=== PATIENT | female | born 1940 | race American Indian/Alaskan Native ===

== ENCOUNTER 2020-09-18 13:50 | Outpatient (REF) | payer MEDICARE, SELFPAY | END 2020-09-18 13:51 | disposition home or self-care (01) | LOC: HO.LAB 13:50 | PROVIDERS: Visit Provider Internal Medicine | DX: Z20.828 Contact with and (suspected) exposure to other viral communicable diseases (principal) | CPT/HCPCS: C9803; U0003 ==

== ENCOUNTER 2020-10-15 15:15 | Outpatient (REF) | payer MEDICARE, SELFPAY ==
[2020-10-15 17:23] LABS: Blood Urea Nitrogen 20 mg/dL (9-16); Estimated Glomerular Filt Rate > 60
== END 2020-10-15 15:16 | disposition home or self-care (01) ==
LOC: HO.LAB 15:15
PROVIDERS: PCP Family Medicine; Visit Provider Surgery
DX: R10.30 Lower abdominal pain, unspecified (principal); Z85.038 Personal history of other malignant neoplasm of large intestine
CPT/HCPCS: 36415; 82565; 84520; 99212

== ENCOUNTER → 2020-11-17 15:36 | Outpatient (BNVA) | payer MEDICARE, SELFPAY | PROVIDERS: PCP Family Medicine; Visit Provider Surgery ==

== ENCOUNTER → 2020-11-20 14:33 | Outpatient (BNV) | payer MEDICARE, SELFPAY | PROVIDERS: PCP Family Medicine; Visit Provider Internal Medicine Medical Oncology | DX: Z85.038 Personal history of other malignant neoplasm of large intestine (principal) | CPT/HCPCS: 99213; 99214 ==

== ENCOUNTER 2020-11-27 15:03 | Outpatient (REF) | payer MEDICARE, SELFPAY ==
--- NOTE | ~2020-11-27 | CT_ITS ---
EXAMINATION: CT ABDOMEN AND PELVIS WITHOUT CONTRAST CLINICAL INFORMATION: Lower abdominal pain COMPARISON: Previous CT most recent August 2019 TECHNIQUE: Multidetector volumetric imaging was performed from the superior aspect of the liver through the pubic symphysis. Sagittal and coronal reformatted images were obtained on the technologist's workstation. This CT examination was performed using dose optimization techniques as appropriate, variously including the following: *Automated exposure control *Adjustment of mA and/or kV according to patient size (this includes techniques or standardized protocols for targeted exams where dose is matched to indication/reason for exam; i.e. extremities or head) *Use of iterative reconstruction technique DLP: 369 mGy-cm FINDINGS: LUNG BASES: The visualized lung bases are unremarkable. LIVER, GALLBLADDER, AND BILIARY TREE: The liver is normal in size, shape, and attenuation. No focal hepatic lesion or biliary ductal dilatation is present. The gallbladder is unremarkable with no evidence of radiopaque gallstones, gallbladder wall thickening, or obvious pericholecystic inflammatory changes. PANCREAS: Unremarkable. SPLEEN: Unremarkable. ADRENAL GLANDS: Unremarkable. KIDNEYS AND URETERS: There is a small high attenuation lesion in the upper pole of the left kidney measuring 5 mm axial image 17 series 3. When compared with previous contrast-enhanced exam August 2019 this probably represents a hyperdense cyst. 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 The kidneys are otherwise unremarkable. BLADDER: Unremarkable. GASTROINTESTINAL TRACT: There are postsurgical changes to the sigmoid colon. There is stool throughout the colon. There is mild diverticulosis. Small and large bowel is otherwise unremarkable. The appendix is not identified. The stomach is unremarkable. ABDOMINAL WALL: There is diastasis of the rectus muscles and umbilical and supraumbilical hernias containing fat. LYMPH NODES: Normal. VASCULAR: Unremarkable. PELVIC VISCERA: Air is low-attenuation seen centrally in the uterus. The is questionable for endometrial thickening or fluid. This measures 6 mm in AP dimension. This thickened for a postmenopausal patient. OSSEOUS STRUCTURES: There are degenerative changes of the spine and hip joints. There is slight loss of height of superior endplate of the T12 vertebral body suggestive of mild old compression fracture. This is unchanged. CT/CT abdomen pelvis wo con IMPRESSION: Postsurgical changes to the sigmoid colon. Stool throughout the colon questionable for mild constipation and mild diverticulosis.. Umbilical and supraumbilical hernias containing fat. Prominent low-attenuation in the central uterus questionable for endometrial fluid or thickening. This measures 6 mm in AP dimension which is abnormally thickened for a postmenopausal patient. Follow-up pelvic ultrasound should be considered particularly if there is history of vaginal bleeding. 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
== END 2020-11-27 15:04 | disposition home or self-care (01) ==
LOC: HO.CT 15:03
PROVIDERS: Visit Provider Surgery
DX: R10.30 Lower abdominal pain, unspecified (principal)
CPT/HCPCS: 74176

== ENCOUNTER → 2020-12-01 13:20 | Outpatient (BNVA) | payer MEDICARE, SELFPAY | PROVIDERS: PCP Family Medicine; Visit Provider Surgery | CPT/HCPCS: Q3014 ==

== ENCOUNTER 2020-12-22 16:15 | Outpatient (REF) | payer MEDICARE, SELFPAY ==
--- NOTE | ~2020-12-22 | US_ITS ---
EXAMINATION: US PELVIS CLINICAL INFORMATION: Lower abdominal pain. Thickening of endometrium seen on CT abdomen exam 11/27/2020 COMPARISON: None TECHNIQUE: Ultrasound of the pelvis is performed using transabdominal transducers along with Doppler. Transvaginal imaging is performed due to inadequate visualization transabdominally. FINDINGS: There are multiple bowel loops in the pelvis limiting evaluation. Uterus: The uterus is anteverted and anteflexed measuring 5.0 cm in length, 2.25 cm in AP and 3.3 cm in transverse dimension. The endometrial thickness is 0.27 cm. There is minimal fluid in the endometrial canal suspected. Adnexa: Both ovaries are not visualized. There is no free fluid in the cul-de-sac. US/US pelvic complete IMPRESSION: 1. Endometrial thickness is 0.27 cm with minimal fluid in the endometrial canal. It is within normal limits for a postmenopausal woman. No focal uterine lesion seen. 2. The ovaries are not seen. 3. There is no free fluid.
== END 2020-12-22 16:16 | disposition home or self-care (01) ==
LOC: HO.US 16:15
PROVIDERS: Visit Provider Surgery
DX: R10.30 Lower abdominal pain, unspecified (principal)
CPT/HCPCS: 76856

== ENCOUNTER → 2021-03-11 13:33 | Outpatient (BNVA) | payer MEDICARE, SELFPAY | PROVIDERS: PCP Family Medicine; Visit Provider Surgery | DX: M54.9 Dorsalgia, unspecified (principal); Z85.038 Personal history of other malignant neoplasm of large intestine; Z79.899 Other long term (current) drug therapy | CPT/HCPCS: 99212 ==

== ENCOUNTER 2021-08-13 18:52 | Emergency (ER) | payer MEDICARE, SELFPAY ==
[2021-08-13 19:02] VITALS: BP 154/56; PULSE 70; RESP 18; TEMP 36.8; O2SAT 98; BMI 28.3
[2021-08-13] MEDS: Fluorescein Sodium STRIP 1 STRIP EYE-RIGHT (20:12)
[2021-08-13] MEDS: Tetracaine HCl/PF 0.5% Oph Sol 4 ML DROPS 3 DROP EYE-RIGHT (20:12)
--- NOTE | 2021-08-13 20:36 | ED.EYEPROB ---
HPI - Eye Problem General Chief complaint: Eye Problems Stated complaint: w Time Seen by Provider: 08/13/21 19:42 Source: patient Mode of arrival: ambulatory History of Present Illness HPI Narrative: 80-year-old female with a past medical history of colon CA, HLD, HTN, presenting to the ED complaining foreign body sensation in right eye since 11:00 a.m. reports associated pain and tearing. Denies injury, trauma, itching, vision change/loss, diplopia, fever, chills. Patient wears glasses not contacts MD chief complaint: eye pain and foreign body Related Data Home Medications Medication Instructions Recorded Confirmed acetaminophen 650 mg 0 mg PO 10/15/20 03/11/21 tablet,extended release amlodipine 10 mg tablet 10 mg PO DAILY 10/15/20 03/11/21 aspirin 81 mg tablet,delayed 81 mg PO DAILY 10/15/20 03/11/21 release atorvastatin 20 mg tablet 20 mg PO DAILY 10/15/20 03/11/21 docusate sodium 100 mg capsule 200 mg PO DAILY 10/15/20 03/11/21 metoprolol tartrate 25 mg tablet 25 mg PO BID 10/15/20 03/11/21 calcium carbonate 600 mg (1,500 1 tab PO BID 11/20/20 03/11/21 mg)-vitamin D3 400 unit tablet docusate sodium 100 mg capsule 100 mg PO QPM 11/20/20 03/11/21 brimonidine 0.2 % eye drops 1 drp OPHTHALMIC (EYE) ONCE PRN ml 03/11/21 03/11/21 Previous Rx's Medication Instructions Recorded polymyxin B sulfate 10,000 1 drp OPHTHALMIC (EYE) Q3H 7 Days 08/13/21 unit-trimethoprim 1 mg/mL eye #10 ml drops (Polytrim) Allergies Allergy/AdvReac Type Severity Reaction Status Date / Time No Known Allergies Allergy Verified 03/11/21 13:40 Review of Systems Review of Systems: Constitutional: No Fever, No Chills, No Fatigue, No Malaise ENT/Mouth: No sore throat, No Rhinorrhea, No Swallowing Difficulty Eyes: + Eye Pain, No Swelling, No Redness, + Foreign Body sensation, + Discharge, No Vision Changes Cardiovascular: No Chest Pain, No SOB Respiratory: No Cough, No Dyspnea Gastrointestinal: No Nausea, No Vomiting, No Abdominal pain Genitourinary: No Dysuria, No Hematuria, No Hesitancy Musculoskeletal: No joint pain, No Myalgias, No Joint Swelling Skin: No Skin Lesions, No rash Neuro: No Weakness, No Numbness, No Headache Yes all other systems are reviewed and are negative [facility] Past Medical History Attestation statement: The following information was validated with the patient. Medical History History of colon cancer Hyperlipidemia Hypertension Lower abdominal pain Surgical History Status post partial colectomy Family History Family History Father History of colon cancer Sister History of pancreatic cancer Social History Social History Alcohol intake: never Advance Directives: No Advance Directives Information Provided: No Physical Exam Vital Signs: Vital Signs: Last Vital Signs Temp 98.3 F 08/13/21 19:02 Pulse 70 08/13/21 19:02 Resp 18 08/13/21 19:02 BP 154/56 H 08/13/21 19:02 Pulse Ox 98 08/13/21 19:02 Body Mass Index 28.3 Const: General: cooperative and healthy appearing Orientation/consciousness: patient oriented x3 Limitations: no limitations HENMT: Head: Yes normal to inspection and Yes atraumatic Ears: hearing grossly normal bilaterally General nose exam: Normal external nose present Face and sinus: Yes normal facial exam Eyes: Other: Visual acuity 20/50 bilaterally. Scant clear drainage/tearing from right eye Periorbital: periorbital findings normal Eyelids: Yes eyelids normal Corneas: corneas abnormal on the right abrasion (11, 12, 1 o'clock position); Negative for without ulcerations and fluorescein used Pupils: Equal, round and reactive pupils present EOM: EOMs intact bilaterally Direct Ophthalmoscopy: normal light reflex and no photophobia Neck: Neck: Yes normal visual inspection and Yes no meningeal signs Resp: Effort & Inspection: normal respiratory effort and no respiratory distress Cardio: Rate: regular rate Heart sounds: S1 normal heart sound present and S2 normal heart sound present Skin: Rashes: no rashes Wounds: no wounds Neuro: General: patient oriented x3 and no meningeal signs Cranial nerves: Yes Equal, round and reactive pupils present Gait exam (Neuro): Normal gait present Extrem: General: Yes normal to inspection MDM - Eye Problem MDM Narrative Medical decision making narrative: 80-year-old female with a past medical history of colon CA, HLD, HTN, presenting to the ED complaining foreign body sensation in right eye since 11:00 a.m. On exam vital signs stable, NAD, fluorescein uptake with visible corneal abrasion noted at 11-1 o'clock region and right eye. No evidence of ulceration. Discussed worrisome signs and symptoms and strict return precautions and need to follow-up with ophthalmology, patient verbalized understanding for safe discharge home at this time Medical Records Attestation: I reviewed the patient's medical records. Lab Data Attestation: I reviewed the patient's lab results. Discharge Plan Discharge Clinical Impression: Corneal abrasion Qualifiers: Encounter type: initial encounter Laterality: right Qualified Code(s): S05.01XA - Injury of conjunctiva and corneal abrasion without foreign body, right eye, initial encounter Patient Disposition: Home, Self-Care Instructions: Corneal Abrasion (ED) Additional Instructions: You have scratches on her eye. Polytrim antibiotic drops should be used as prescribed Please call Ophthalmology in the morning to make an appointment If her symptoms persist or worsen, he develops vision loss, vision change, unbearable pain please return to the ED Prescriptions: New polymyxin B sulf-trimethoprim [Polytrim] 10,000 unit- 1 mg/mL drops 1 drp ophthalmic (eye) Q3H 7 Days Qty: 10 RF: 0 No Action docusate sodium 100 mg capsule 100 mg PO QPM RF: 0 calcium carbonate-vitamin D3 600 mg(1,500mg) -400 unit tablet 1 tab PO BID RF: 0 acetaminophen 650 mg tablet extended release 0 mg PO RF: 0 amlodipine 10 mg tablet 10 mg PO DAILY RF: 0 docusate sodium 100 mg capsule 200 mg PO DAILY RF: 0 metoprolol tartrate 25 mg tablet 25 mg PO BID RF: 0 aspirin 81 mg tablet,delayed release (DR/EC) 81 mg PO DAILY RF: 0 atorvastatin 20 mg tablet 20 mg PO DAILY RF: 0 brimonidine 0.2 % drops 1 drp ophthalmic (eye) ONCE PRNRF: 0 Referrals: Héctor Raza [Physician] - 2 days
== END 2021-08-13 20:59 | disposition home or self-care (01) ==
PROVIDERS: Emergency Provider Internal Medicine; PCP Family Medicine
DX: S05.01XA Injury of conjunctiva and corneal abrasion without foreign body, right eye, initial encounter (principal); I10 Essential (primary) hypertension; X58.XXXA Exposure to other specified factors, initial encounter; Y93.9 Activity, unspecified; Y92.9 Unspecified place or not applicable; Y99.9 Unspecified external cause status; Z79.899 Other long term (current) drug therapy
CPT/HCPCS: 99283; 99284

== ENCOUNTER 2021-08-15 15:45 | Emergency (ER) | payer MEDICARE, SELFPAY ==
[2021-08-15 16:00] VITALS: BP 147/58; PULSE 57; RESP 19; TEMP 36.6; O2SAT 99; BMI 27.8
--- NOTE | 2021-08-15 18:12 | ED.GENADULT ---
HPI - General Adult General Chief complaint: General Medical Stated complaint: rash on both hands Time Seen by Provider: 08/15/21 16:41 Source: patient Mode of arrival: ambulatory Limitations: no limitations History of Present Illness HPI narrative: Patient has history of chronic eczema scratching her both hands comes with increased redness of her left hand last 3 4 days history of same in the past no fever no open wounds Related Data Home Medications Medication Instructions Recorded Confirmed acetaminophen 650 mg 0 mg PO 10/15/20 03/11/21 tablet,extended release amlodipine 10 mg tablet 10 mg PO DAILY 10/15/20 03/11/21 aspirin 81 mg tablet,delayed 81 mg PO DAILY 10/15/20 03/11/21 release atorvastatin 20 mg tablet 20 mg PO DAILY 10/15/20 03/11/21 docusate sodium 100 mg capsule 200 mg PO DAILY 10/15/20 03/11/21 metoprolol tartrate 25 mg tablet 25 mg PO BID 10/15/20 03/11/21 calcium carbonate 600 mg (1,500 1 tab PO BID 11/20/20 03/11/21 mg)-vitamin D3 400 unit tablet docusate sodium 100 mg capsule 100 mg PO QPM 11/20/20 03/11/21 brimonidine 0.2 % eye drops 1 drp OPHTHALMIC (EYE) ONCE PRN ml 03/11/21 03/11/21 Previous Rx's Medication Instructions Recorded polymyxin B sulfate 10,000 1 drp OPHTHALMIC (EYE) Q3H 7 Days 08/13/21 unit-trimethoprim 1 mg/mL eye #10 ml drops (Polytrim) cephalexin 500 mg capsule 500 mg PO QID 10 Days #40 cap 08/15/21 Allergies Allergy/AdvReac Type Severity Reaction Status Date / Time No Known Allergies Allergy Verified 03/11/21 13:40 Review of Systems Review of Systems: Yes all other systems are reviewed and are negative PMFSH Past Medical History Medical History History of colon cancer Hyperlipidemia Hypertension Lower abdominal pain Surgical History Status post partial colectomy Family History Family History Father History of colon cancer Sister History of pancreatic cancer Social History Social History Alcohol intake: never Advance Directives: No Advance Directives Information Provided: No Physical Exam Vital Signs: Vital Signs: Last Vital Signs Temp 98 F 08/15/21 16:00 Pulse 57 08/15/21 16:00 Resp 19 08/15/21 16:00 BP 147/58 H 08/15/21 16:00 Pulse Ox 99 08/15/21 16:00 Body Mass Index 27.8 Const: General: no acute distress Resp: Effort & Inspection: normal respiratory effort Extrem: Hand/finger images: 1. Eczema with surrounding erythema>> cellulitis no open wound 2. Eczema with mild cellulitis Discharge Plan Discharge Clinical Impression: Cellulitis Qualifiers: Site of cellulitis: extremity Site of cellulitis of extremity: upper extremity Laterality: right Qualified Code(s): L03.113 - Cellulitis of right upper limb Patient Disposition: Home, Self-Care Instructions: Cellulitis (ED) Additional Instructions: take antibiotics as adv stop scratching your hands Prescriptions: New cephalexin 500 mg capsule 500 mg PO QID 10 Days Qty: 40 RF: 0 No Action docusate sodium 100 mg capsule 100 mg PO QPM RF: 0 calcium carbonate-vitamin D3 600 mg(1,500mg) -400 unit tablet 1 tab PO BID RF: 0 polymyxin B sulf-trimethoprim [Polytrim] 10,000 unit- 1 mg/mL drops 1 drp ophthalmic (eye) Q3H 7 Days Qty: 10 RF: 0 acetaminophen 650 mg tablet extended release 0 mg PO RF: 0 amlodipine 10 mg tablet 10 mg PO DAILY RF: 0 docusate sodium 100 mg capsule 200 mg PO DAILY RF: 0 metoprolol tartrate 25 mg tablet 25 mg PO BID RF: 0 aspirin 81 mg tablet,delayed release (DR/EC) 81 mg PO DAILY RF: 0 atorvastatin 20 mg tablet 20 mg PO DAILY RF: 0 brimonidine 0.2 % drops 1 drp ophthalmic (eye) ONCE PRNRF: 0 Interventions: ED Discharge Assessment Last Done: 08/15/21 18:16 Discharge Date/Time: 08/15/21 18:17
[2021-08-15] MEDS: cephALEXin 500 MG CAPSULE PO (18:14)
== END 2021-08-15 18:17 | disposition home or self-care (01) ==
PROVIDERS: Emergency Provider Internal Medicine; PCP Family Medicine
DX: L03.113 Cellulitis of right upper limb (principal); R21 Rash and other nonspecific skin eruption; Z79.899 Other long term (current) drug therapy
CPT/HCPCS: 99283

== ENCOUNTER 2021-09-07 08:56 | Outpatient (REF) | payer MEDICARE, SELFPAY ==
--- NOTE | ~2021-09-07 | US_ITS ---
EXAMINATION: US ABDOMEN COMPLETE CLINICAL INFORMATION: Fatty liver. COMPARISON: CT abdomen and pelvis 11/27/2020, abdominal ultrasound 01/03/2019. TECHNIQUE: Real-time imaging of the abdominal viscera. Technically difficult due to patient limited mobility and inability to suspend respiration. Rash on skin in area of gallbladder caused patient discomfort. FINDINGS: Technically difficult and limited exam due to patient's inability to move and hold breathing. Patient has a rash in the right upper quadrant limiting evaluation of the gallbladder and the liver. PANCREAS: Partially visualized body and head of the pancreas is homogeneous in echotexture. The tail is obscured by overlying gas. ABDOMINAL AORTA: There is mild atherosclerosis without any aortic dilation. INFERIOR VENA CAVA: Visualized portions are normal. LIVER: The liver is normal in size. The liver contour is normal. The liver is diffusely echogenic without focal lesion. No focal hepatic lesion. There is no intrahepatic biliary duct dilatation seen. GALLBLADDER: The gallbladder is physiologically distended without evidence of stones, sludge, wall thickening or pericholecystic fluid. There are nonmobile echogenic polyps measuring 0.2 x 0.15 x 0.15 cm. COMMON BILE DUCT: Normal in caliber measuring 0.31 cm in diameter. RIGHT KIDNEY: Normal. No hydronephrosis. No renal calculi or focal parenchymal lesions. The kidney measures 10.1 cm in maximum dimension. LEFT KIDNEY: Normal. No hydronephrosis. No renal calculi or focal parenchymal lesions. The kidney measures 9.9 cm in maximum dimension. SPLEEN: Normal. The spleen measures 7.4 cm in maximum dimension. FREE FLUID: None. US/US abdomen complete IMPRESSION: Hepatic steatosis without focal lesion. Small gallbladder polyp. Rest of the abdominal ultrasound is unremarkable.
== END 2021-09-07 08:57 | disposition home or self-care (01) ==
LOC: HO.US 08:56
PROVIDERS: PCP Family Medicine; Visit Provider Family Medicine
DX: K76.0 Fatty (change of) liver, not elsewhere classified (principal)
CPT/HCPCS: 76700

== ENCOUNTER 2021-09-10 00:13 | Emergency (ER) | payer MEDICARE, SELFPAY ==
[2021-09-10 00:19] VITALS: BP 189/83; PULSE 59; RESP 16; TEMP 36.6; O2SAT 99; BMI 28.3
--- NOTE | 2021-09-10 01:13 | ED.BACK ---
HPI - Back Pain/Injury General Chief Complaint: Back Pain/Injury Stated Complaint: lower back pain Time Seen by Provider: 09/10/21 00:59 Source: patient Mode of arrival: ambulatory Limitations: no limitations History of Present Illness HPI Narrative: Patient comes emergency room complaining of sudden onset of right-sided back pain that started a few hours ago. Patient states she was sitting down and had a sudden feeling right-sided back pain. Patient states that it feels like her muscles are twitching. Patient denies dysuria, no hematuria. No fever chills. Denies any trauma. Patient states that as long as she does not move he does not feel the twitching sensation in her back. Patient also complaining of 1 week of rash in her hands. Patient has tried column in lotion, she was treated for cellulitis but her hands are no longer hurting, they are very itchy. Related Data Home Medications Medication Instructions Recorded Confirmed acetaminophen 650 mg 0 mg PO 10/15/20 03/11/21 tablet,extended release amlodipine 10 mg tablet 10 mg PO DAILY 10/15/20 03/11/21 aspirin 81 mg tablet,delayed 81 mg PO DAILY 10/15/20 03/11/21 release atorvastatin 20 mg tablet 20 mg PO DAILY 10/15/20 03/11/21 docusate sodium 100 mg capsule 200 mg PO DAILY 10/15/20 03/11/21 metoprolol tartrate 25 mg tablet 25 mg PO BID 10/15/20 03/11/21 calcium carbonate 600 mg (1,500 1 tab PO BID 11/20/20 03/11/21 mg)-vitamin D3 400 unit tablet docusate sodium 100 mg capsule 100 mg PO QPM 11/20/20 03/11/21 brimonidine 0.2 % eye drops 1 drp OPHTHALMIC (EYE) ONCE PRN ml 03/11/21 03/11/21 Previous Rx's Medication Instructions Recorded polymyxin B sulfate 10,000 1 drp OPHTHALMIC (EYE) Q3H 7 Days 08/13/21 unit-trimethoprim 1 mg/mL eye #10 ml drops (Polytrim) cephalexin 500 mg capsule 500 mg PO QID 10 Days #40 cap 08/15/21 acetaminophen 500 mg capsule 500 mg PO Q6H PRN #20 cap 09/10/21 cyclobenzaprine 5 mg tablet 5 mg PO BEDTIME PRN #7 tab 09/10/21 hydrocortisone 2.5 % topical 1 appl TOPICAL TID #28.35 g 09/10/21 ointment Allergies Allergy/AdvReac Type Severity Reaction Status Date / Time No Known Allergies Allergy Verified 09/10/21 00:22 Review of Systems Review of Systems: Constitutional : No Weight loss, No Fever, No Chills, No Night Sweats, No Fatigue, No Malaise ENT/Mouth : No Hearing loss, No Ear Pain, No Nasal Congestion, No Sinus Pain, No Hoarseness, No sore throat, No Rhinorrhea, No Swallowing Difficulty Eyes: No Eye Pain, No Swelling, No Redness, No Foreign Body, No Discharge, No Vision Changes Cardiovascular : No Chest Pain, No SOB, No Dyspnea on Exertion, No Orthopnea, No Edema, No Palpitations Respiratory : No Cough, No Sputum, No Wheezing, No Smoke Exposure, No Dyspnea Gastrointestinal : No Nausea, No Vomiting, No Diarrhea, No Constipation, No abdominal Pain, No Hematochezia, No Melena Genitourinary : no irregular bleeding, No Dysuria, No Urinary Frequency, No Hematuria, No Urinary Incontinence, No Urgency, No Flank Pain, No Urinary Flow Changes, No Hesitancy Musculoskeletal : To chin/spasm muscles in the right side of the back, No Myalgias, No Joint Swelling Skin : Itchy lesions in both hands dorsal aspect Neuro : No Weakness, No Numbness, No Paresthesias, No Loss of Consciousness, No Dizziness, No Headache Psych : No Anxiety/Panic, No Depression, No SI/HI/AH/VH, No Social Issues, Heme/Lymph: No Bruising, No Bleeding,No Lymphadenopathy Endocrine : No Polyuria, No Polydipsia, No Temperature Intolerance [facility] Past Medical History Medical History History of colon cancer Hyperlipidemia Hypertension Lower abdominal pain Surgical History Status post partial colectomy Family History Family History Father History of colon cancer Sister History of pancreatic cancer Social History Social History Alcohol intake: never Patient Tobacco Use Status: Never used Tobacco Use of substances other than those prescribed or required for medical reasons: No Advance Directives: No Advance Directives Information Provided: Yes Physical Exam Vital Signs: Vital Signs: Last Vital Signs Temp 97.9 F 09/10/21 00:19 Pulse 59 09/10/21 00:19 Resp 16 09/10/21 00:19 BP 189/83 H 09/10/21 00:19 Pulse Ox 99 09/10/21 00:19 BMI result Body Mass Index 28.3 Const: Other: Appearance: Alert. Oriented X3. No acute distress. Eyes: Pupils equal, round and reactive to light. ENT: Pharynx normal. Neck: Normal inspection. Neck supple. No lymph nodes noted. No crepitus CVS: Normal heart rate and rhythm. Pulses normal. Normal S1 and S2 Respiratory: No respiratory distress. Breath sounds normal. No Wheezing. No rales Abdomen: Soft and nontender. No rigidity. No distention. Back: No cervical/thoracic/lumbar back pain. Pain to palpation in the paraspinal muscles on the right side. Skin: Skin warm and dry. Patient has significant seborrheic dermatitis in the forehead. Patient has erythema in both hands, looks like dermatitis rather than cellulitis Extremities: No lower extremity edema. No lower extremity edema. No Lacerations. No Rash Neuro: Oriented X 3. No motor deficit. No sensory deficit. Moving all extermities. No slurred speech. Course Course Course Narrative: I discussed the physical exam with the patient, at this time imaging not indicated. Patient is pain likely musculoskeletal. Patient was given 1 dose of Tylenol. Patient will try a muscle relaxant when she gets home and is in bed to avoid any falls. Also, I will sent to the patient's pharmacy a topical steroid for her hands. Patient's daughter states that they will follow-up with dermatology next week Discharge Plan Discharge Clinical Impression: Back muscle spasm, Hand dermatitis Patient Disposition: Home, Self-Care Instructions: Muscle Spasm (ED), Dermatitis (ED) Additional Instructions: Please follow-up with your primary care physician tomorrow. If you have any worsening or new symptoms, please return to the emergency room or call 911 Prescriptions: New acetaminophen 500 mg capsule 500 mg PO Q6H PRN (Reason: pain) Qty: 20 RF: 0 hydrocortisone 2.5 % ointment 1 appl topical TID Qty: 28.35 RF: 0 cyclobenzaprine 5 mg tablet 5 mg PO BEDTIME PRN (Reason: muscle spasm) Qty: 7 RF: 0 No Action docusate sodium 100 mg capsule 100 mg PO QPM RF: 0 calcium carbonate-vitamin D3 600 mg(1,500mg) -400 unit tablet 1 tab PO BID RF: 0 polymyxin B sulf-trimethoprim [Polytrim] 10,000 unit- 1 mg/mL drops 1 drp ophthalmic (eye) Q3H 7 Days Qty: 10 RF: 0 cephalexin 500 mg capsule 500 mg PO QID 10 Days Qty: 40 RF: 0 acetaminophen 650 mg tablet extended release 0 mg PO RF: 0 amlodipine 10 mg tablet 10 mg PO DAILY RF: 0 docusate sodium 100 mg capsule 200 mg PO DAILY RF: 0 metoprolol tartrate 25 mg tablet 25 mg PO BID RF: 0 aspirin 81 mg tablet,delayed release (DR/EC) 81 mg PO DAILY RF: 0 atorvastatin 20 mg tablet 20 mg PO DAILY RF: 0 brimonidine 0.2 % drops 1 drp ophthalmic (eye) ONCE PRNRF: 0
[2021-09-10] MEDS: Acetaminophen 325 MG TABLET 650 MG PO (01:37)
== END 2021-09-10 01:50 | disposition home or self-care (01) ==
PROVIDERS: Emergency Provider Emergency Medicine; PCP Family Medicine
DX: M62.830 Muscle spasm of back (principal); L30.8 Other specified dermatitis; I10 Essential (primary) hypertension; E78.5 Hyperlipidemia, unspecified; Z79.82 Long term (current) use of aspirin; Z79.02 Long term (current) use of antithrombotics/antiplatelets; Z79.899 Other long term (current) drug therapy
CPT/HCPCS: 99283; 99284

== ENCOUNTER 2021-12-13 17:47 | Emergency (ER) | payer MEDICARE, SELFPAY ==
--- NOTE | ~2021-12-13 | US_ITS ---
EXAMINATION: US VENOUS ULTRASOUND WITH DOPPLER LOWER EXTREMITY, BILATERAL CLINICAL INFORMATION: Pain and swelling COMPARISON: None TECHNIQUE: Ultrasound of the deep veins is performed from the hip to the calf with compression sonography and color and pulse Doppler assessment. Spectral analysis with color-flow imaging is performed. FINDINGS: RIGHT: There is normal venous compression and respiratory variation and augmented flow. The visualized common femoral vein, superficial femoral vein, profunda femoral vein, popliteal vein, and the trifurcation region shows no evidence of deep venous thrombosis. There is no significant popliteal fossa cyst. LEFT: There is normal venous compression and respiratory variation and augmented flow. The visualized common femoral vein, superficial femoral vein, profunda femoral vein, popliteal vein, and the trifurcation region shows no evidence of deep venous thrombosis. There is no significant popliteal fossa cyst. US/US venous duplex LE BI IMPRESSION: No DVT demonstrated in the bilateral lower extremity.
[2021-12-13 18:26] VITALS: BP 179/71; PULSE 77; RESP 16; TEMP 37; O2SAT 97; BMI 23.3
[2021-12-13 18:51] LABS: MANUAL DIFF FLAG NO
[2021-12-13 18:52] LABS: Basophils Percent Auto 0.3 % (0-2); Eosinophils Absolute Auto 0.1 X10*3/uL (0.0-0.4); Eosinophils Percent Auto 1.3 % (0-4); Hematocrit 40.1 % (37.0-47.0); Hemoglobin 13.2 g/dl (12.0-16.0); Imm Gran Abs Auto 0.01 X10*3/uL (0.00-0.03); Imm Gran Pct Auto 0.2 % (0.0-0.4); Lymphocytes Absolute Auto 1.8 X10*3/uL (1.2-4.9); Lymphocytes Percent Auto 29.4 % (20-40); Mean Corpuscular HGB Conc 32.9 g/dl (31.0-35.0); Mean Corpuscular Hemoglobin 29.1 pg (27.0-33.0); Mean Corpuscular Volume 88.5 fL (80.0-98.0); Mean Platelet Volume 10.4 fL (9.4-12.3); Monocytes Absolute Auto 0.6 X10*3/uL (0.1-1.2); Monocytes Percent Auto 10.1 % (2-11); Neutrophils Absolute Auto 3.5 x10*3/uL (2.0-8.3); Neutrophils Percent Auto 58.7 % (45-73); Platelet Count 186 X10*3/uL (160-400); Red Blood Count 4.53 X10*6/uL (4.20-5.50); Red Cell Distribution Width 13.3 % (11.0-16.0)
[2021-12-13 19:07] LABS: Anion Gap 11 (12-20); Blood Urea Nitrogen 16 mg/dL (9-16); Calcium 9.7 mg/dL (8.4-10.2); Carbon Dioxide 30 mmol/L (22-29); Chloride 105 mmol/L (96-108); Creatinine Clr Calc Pharmacy 42.8; Estimated Glomerular Filt Rate > 60; Glucose Random 137 mg/dL (60-115); Potassium 4.5 mmol/L (3.3-5.1); Sodium 141 mmol/L (135-145)
[2021-12-13 19:10] LABS: COVID-19 Test Negative (Negative)
--- NOTE | 2021-12-13 19:16 | ED.GENADULT ---
HPI - General Adult General Chief complaint: Skin/Abscess/Foreign Body Stated complaint: rash on left foot Time Seen by Provider: 12/13/21 19:07 Source: patient Mode of arrival: ambulatory Limitations: no limitations History of Present Illness HPI narrative: 81-year-old female past medical history significant for colon cancer status post partial colectomy, hyperlipidemia, hypertension presenting to the emergency department with bilateral leg swelling, calf cramping and skin rash to left foot x3 days progressively worsening. Patient tells me that the rash is red and itchy. She tells me that she has noted that her legs have been much more swollen than usual over the past 3 days and she reports intermittent calf cramping described as a dull cramping sensation not improved by ambulation. Patient denies chest pain, shortness of breath, nausea, vomiting, vision changes, dizziness. Onset (ago): day(s) (3) Location: left, right and lower extremity Radiation: non-radiation Severity: moderate Relieving factors: none Exacerbating factors: none Associated symptoms: denies other symptoms Treatments prior to arrival: none Related Data Home Medications Medication Instructions Recorded Confirmed acetaminophen 650 mg 0 mg PO 10/15/20 03/11/21 tablet,extended release amlodipine 10 mg tablet 10 mg PO DAILY 10/15/20 03/11/21 aspirin 81 mg tablet,delayed 81 mg PO DAILY 10/15/20 03/11/21 release atorvastatin 20 mg tablet 20 mg PO DAILY 10/15/20 03/11/21 docusate sodium 100 mg capsule 200 mg PO DAILY 10/15/20 03/11/21 metoprolol tartrate 25 mg tablet 25 mg PO BID 10/15/20 03/11/21 calcium carbonate 600 mg-vitamin 1 tab PO BID 11/20/20 03/11/21 D3 10 mcg (400 unit) tablet docusate sodium 100 mg capsule 100 mg PO QPM 11/20/20 03/11/21 brimonidine 0.2 % eye drops 1 drp OPHTHALMIC (EYE) ONCE PRN ml 03/11/21 03/11/21 Previous Rx's Medication Instructions Recorded polymyxin B sulfate 10,000 1 drp OPHTHALMIC (EYE) Q3H 7 Days 08/13/21 unit-trimethoprim 1 mg/mL eye #10 ml drops (Polytrim) cephalexin 500 mg capsule 500 mg PO QID 10 Days #40 cap 08/15/21 acetaminophen 500 mg capsule 500 mg PO Q6H PRN #20 cap 09/10/21 cyclobenzaprine 5 mg tablet 5 mg PO BEDTIME PRN #7 tab 09/10/21 hydrocortisone 2.5 % topical 1 appl TOPICAL TID #28.35 g 09/10/21 ointment doxycycline hyclate 100 mg capsule 100 mg PO BID 10 Days #20 cap 12/13/21 Allergies Allergy/AdvReac Type Severity Reaction Status Date / Time No Known Allergies Allergy Verified 12/13/21 18:32 Review of Systems Review of Systems: Constitutional : No Weight loss, No Fever, No Chills, No Fatigue, No Malaise ENT/Mouth : No sore throat, No Rhinorrhea Eyes: No Eye Pain, No Swelling, No Redness Cardiovascular : No Chest Pain, No SOB, No Dyspnea on Exertion, No Orthopnea, + Edema, No Palpitations Respiratory : No Cough, No Sputum, No Wheezing Gastrointestinal : No Nausea, No Vomiting, No Diarrhea, No Constipation, No abdominal Pain, No Hematochezia, No Melena Genitourinary : No Dysuria, No Urinary Frequency, No Hematuria, Musculoskeletal : No joint pain, No Myalgias, No Joint Swelling Skin : No Skin Lesions, No rash Neuro : No Weakness, No Numbness, No Dizziness, No Headache Psych : No Anxiety/Panic, No Depression All other systems reviewed and are negative Yes all other systems are reviewed and are negative [facility] Past Medical History Attestation statement: The following information was validated with the patient. Source: old records reviewed and nursing notes reviewed Medical History History of colon cancer Hyperlipidemia Hypertension Lower abdominal pain Surgical History Status post partial colectomy Family History Family History Father History of colon cancer Sister History of pancreatic cancer Social History Social History Alcohol intake: never Patient Tobacco Use Status: Never used Tobacco Advance Directives: No Advance Directives Information Provided: No Physical Exam ED Vital Signs: Vital Signs - 24 hr 12/13/21 18:26 12/13/21 21:22 Temperature 98.6 F 98.3 F Pulse Rate 77 70 Respiratory Rate 16 18 Blood Pressure 179/71 H 190/80 H Pulse Oximetry 97 98 BMI result Body Mass Index 23.3 VSS Appearance: Alert.? Oriented X3.? No acute distress.? Head: Normocephalic, atraumatic, no step-offs or deformities Eyes: Pupils equal, round and reactive to light.? ENT: Pharynx normal.? Neck: Normal inspection.? Neck supple.? CVS: Normal heart rate and rhythm.? Pulses normal.? Respiratory: No respiratory distress.? Breath sounds normal.? Abdomen: Soft and nontender.? Skin: Skin warm and dry.? Normal skin color.? Normal skin turgor.?+ rash to medial aspect of left foot, warm. Extremities: + 2+ bilateral pitting edema.?+ calf ttp b/l. 5/5 strength to bilateral upper and lower extremities Back: No midline tenderness, no C-spine tenderness, full range of motion, no CVA tenderness bilaterally Neuro: Oriented X 3.? No motor deficit.? No sensory deficit. CN 2-12 intact Course Reevaluation(s) Reevaluation #1: CBC within normal limits. Chemistry with no acute electrolyte abnormalities. BNP just slightly elevated. Will have her follow-up with her PCP for this. COVID negative. Venous duplex of bilateral lower extremities no DVT. At this time patient will be discharged home and treated for cellulitis. Comfortable discharge home Time: 21:51 Medical Decision Making [facility] Narrative Medical decision making narrative: 1920 81 yo f present w/ b/l LE swelling and rash to left foot X3 days. Worsening PE- + 2+ bilateral pitting edema.?+ calf ttp b/l. 5/5 strength to bilateral upper and lower extremities. Lungs clear. RRR. Abdomen soft non tender non distended. Errythema noted to left foot. Keiraley cellulitis Patient denies shortness of breath, unlikely that this is a pulmonary embolism. Patient is not tachycardic or hypoxic. Patient not complaining of shortness of breath unlikely CHF. Plan- US to r/o DVT and labs Medical Records Medical records reviewed: Yes I reviewed the patient's medical records. Lab Data Lab results reviewed: Yes I reviewed the patient's lab results. Result diagrams: 12/13/21 18:39 12/13/21 18:39 Labs: Lab Results 12/13/21 12/13/21 12/13/21 Range/Units 18:39 18:39 18:39 WBC 6.0 (4.8-10.8) X10*3/uL RBC 4.53 (4.20-5.50) X10*6/uL Hgb 13.2 (12.0-16.0) g/dl Hct 40.1 (37.0-47.0) % MCV 88.5 (80.0-98.0) fL MCH 29.1 (27.0-33.0) pg MCHC 32.9 (31.0-35.0) g/dl RDW 13.3 (11.0-16.0) % Plt Count 186 (160-400) X10*3/uL MPV 10.4 (9.4-12.3) fL Immature Gran % (Auto) 0.2 (0.0-0.4) % Neut % (Auto) 58.7 (45-73) % Lymph % (Auto) 29.4 (20-40) % [place] % (Auto) 10.1 (2-11) % Eos % (Auto) 1.3 (0-4) % Baso % (Auto) 0.3 (0-2) % Lymph # (Auto) 1.8 (1.2-4.9) X10*3/uL [place] # (Auto) 0.6 (0.1-1.2) X10*3/uL Eos # (Auto) 0.1 (0.0-0.4) X10*3/uL Baso # (Auto) 0.0 (0.0-0.2) X10*3/uL Abs Immat Gran (auto) 0.01 (0.00-0.03) X10*3/uL Absolute Neuts (auto) 3.5 (2.0-8.3) x10*3/uL Absolute Nucleated RBC 0.000 (0.0-0.012) X10*3/uL Nucleated RBC % (auto) 0.0 (0.0-0.2) /100WBC Sodium 141 (135-145) mmol/L Potassium 4.5 (3.3-5.1) mmol/L Chloride 105 (96-108) mmol/L Carbon Dioxide 30 H (22-29) mmol/L Anion Gap 11 L (12-20) BUN 16 (9-16) mg/dL Creatinine 0.75 (0.5-1.4) mg/dL Estim Creat Clear Calc 42.8 Estimated GFR > 60 Random Glucose 137 H (60-115) mg/dL Calcium 9.7 (8.4-10.2) mg/dL B-Natriuretic Peptide (<100) pg/mL COVID-19 (EMRE) Negative (Negative) COVID-19 Clin Com See Note 12/13/21 Range/Units 18:39 WBC (4.8-10.8) X10*3/uL RBC (4.20-5.50) X10*6/uL Hgb (12.0-16.0) g/dl Hct (37.0-47.0) % MCV (80.0-98.0) fL MCH (27.0-33.0) pg MCHC (31.0-35.0) g/dl RDW (11.0-16.0) % Plt Count (160-400) X10*3/uL MPV (9.4-12.3) fL Immature Gran % (Auto) (0.0-0.4) % Neut % (Auto) (45-73) % Lymph % (Auto) (20-40) % [place] % (Auto) (2-11) % Eos % (Auto) (0-4) % Baso % (Auto) (0-2) % Lymph # (Auto) (1.2-4.9) X10*3/uL [place] # (Auto) (0.1-1.2) X10*3/uL Eos # (Auto) (0.0-0.4) X10*3/uL Baso # (Auto) (0.0-0.2) X10*3/uL Abs Immat Gran (auto) (0.00-0.03) X10*3/uL Absolute Neuts (auto) (2.0-8.3) x10*3/uL Absolute Nucleated RBC (0.0-0.012) X10*3/uL Nucleated RBC % (auto) (0.0-0.2) /100WBC Sodium (135-145) mmol/L Potassium (3.3-5.1) mmol/L Chloride (96-108) mmol/L Carbon Dioxide (22-29) mmol/L Anion Gap (12-20) BUN (9-16) mg/dL Creatinine (0.5-1.4) mg/dL Estim Creat Clear Calc Estimated GFR Random Glucose (60-115) mg/dL Calcium (8.4-10.2) mg/dL B-Natriuretic Peptide 158 H (<100) pg/mL COVID-19 (EMRE) (Negative) COVID-19 Clin Com Critical Care Time Critical Care Time Critical Care Time: No Discharge Plan Discharge Clinical Impression: Cellulitis, Leg pain, bilateral, Hypertension Patient Disposition: Home, Self-Care Instructions: Cellulitis (DC), Leg Pain (ED), Warm Compress or Soak (ED) Additional Instructions: Take your medications as prescribed. If you were prescribed antibiotics today, it is important that you take your medication to their entirety, do not skip any doses, do not finish them early. Follow-up with your primary care provider this week. Return to the emergency department with new or worsening symptoms. Such as chest pain, shortness of breath, nausea, vomiting, leg swelling, calf pain, numbness or tingling, fevers, chills, altered mental status, confusion, headache, dizziness. Follow-up with PCP for blood pressure check. In case of emergency call 911 [employer] laurel medicamentos seg?n lo prescrito. Si le recetaron antibi?ticos amitay, es importante que tome marie medicamento en marie totalidad, no se salte ninguna dosis, no los termine antes de tiempo. Seguimiento con marie proveedor de atenci?n primaria esta semana. Regrese al departamento de emergencias con s?ntomas nuevos o que empeoran. Krystal dolor en el pecho, dificultad para respirar, n?useas, v?mitos, hinchaz?n de las piernas, dolor en la pantorrilla, entumecimiento u hormigueo, fiebre, escalofr?os, estado mental alterado, confusi?n, dolor de ana lilia, mareos. Cheque marie precion En joe de emergencia llama al 911 Prescriptions: New doxycycline hyclate 100 mg capsule 100 mg PO BID 10 Days Qty: 20 0RF No Action docusate sodium 100 mg capsule 100 mg PO QPM 0RF calcium carbonate-vitamin D3 600 mg(1,500mg) -400 unit tablet 1 tab PO BID 0RF polymyxin B sulf-trimethoprim [Polytrim] 10,000 unit- 1 mg/mL drops 1 drp ophthalmic (eye) Q3H 7 Days Qty: 10 0RF Rx Instructions: while awake; do not exceed 6 doses in 24 hours acetaminophen 500 mg capsule 500 mg PO Q6H PRN (Reason: pain) Qty: 20 0RF hydrocortisone 2.5 % ointment 1 appl topical TID Qty: 28.35 0RF cyclobenzaprine 5 mg tablet 5 mg PO BEDTIME PRN (Reason: muscle spasm) Qty: 7 0RF cephalexin 500 mg capsule 500 mg PO QID 10 Days Qty: 40 0RF acetaminophen 650 mg tablet extended release 0 mg PO 0RF amlodipine 10 mg tablet 10 mg PO DAILY 0RF docusate sodium 100 mg capsule 200 mg PO DAILY 0RF metoprolol tartrate 25 mg tablet 25 mg PO BID 0RF aspirin 81 mg tablet,delayed release (DR/EC) 81 mg PO DAILY 0RF atorvastatin 20 mg tablet 20 mg PO DAILY 0RF brimonidine 0.2 % drops 1 drp ophthalmic (eye) ONCE [id number] Referrals: Jill Hester DO [Primary Care Provider] - 2 days
[2021-12-13 19:47] LABS: B Type Natriuretic Peptide 158 pg/mL (<100)
[2021-12-13 21:22] VITALS: BP 190/80; PULSE 70; RESP 18; TEMP 36.8; O2SAT 98
== END 2021-12-13 22:03 | disposition home or self-care (01) ==
PROVIDERS: Physician Assistant; Emergency Provider Internal Medicine; PCP Family Medicine
DX: L03.116 Cellulitis of left lower limb (principal); L03.115 Cellulitis of right lower limb; I10 Essential (primary) hypertension; R06.02 Shortness of breath; R21 Rash and other nonspecific skin eruption; R60.0 Localized edema; Z20.822 Contact with and (suspected) exposure to COVID-19; Z79.82 Long term (current) use of aspirin; Z79.899 Other long term (current) drug therapy
CPT/HCPCS: 36415; 80048; 83880; 85025; 87635; 93970; 99283

== ENCOUNTER 2022-03-07 13:24 | Emergency (ER) | payer OTHER, SELFPAY ==
[2022-03-07 14:04] VITALS: BP 181/54; PULSE 63; RESP 18; TEMP 36.6; O2SAT 99; BMI 25.5
--- NOTE | 2022-03-07 15:03 | PC.NURSE ---
unable to preform visual acuity test because patient did not bring her glasses that she needs she uses as a visual aide .
[2022-03-07] MEDS: Tetracaine HCl/PF 0.5% Oph Sol 4 ML DROPS 1 DROP EYE-LEFT (15:23)
[2022-03-07] MEDS: Fluorescein Sodium STRIP 1 STRIP EYE-LEFT (15:23)
--- NOTE | 2022-03-07 15:57 | ED_ITS ---
HPI - Eye Problem General Chief complaint: Eye Problems Stated complaint: SWOLLEN EYE Time Seen by Provider: 03/07/22 15:04 History of Present Illness HPI Narrative: Patient complains of left eye redness with some watery discharge and a mild burning sensation that she says is not really painful, no vision loss no vision change for past 24 hours Related Data Home Medications Medication Instructions Recorded Confirmed amlodipine 10 mg tablet 10 mg PO DAILY 10/15/20 02/15/22 aspirin 81 mg tablet,delayed 81 mg PO DAILY 10/15/20 02/15/22 release atorvastatin 20 mg tablet 20 mg PO DAILY 10/15/20 02/15/22 docusate sodium 100 mg capsule 200 mg PO DAILY 10/15/20 02/15/22 metoprolol tartrate 25 mg tablet 25 mg PO BID 10/15/20 02/15/22 calcium carbonate 600 mg-vitamin 1 tab PO BID 11/20/20 02/15/22 D3 10 mcg (400 unit) tablet brimonidine 0.2 % eye drops 1 drp OPHTHALMIC (EYE) ONCE PRN ml 03/11/21 02/15/22 Previous Rx's Medication Instructions Recorded polymyxin B sulfate 10,000 1 drp OPHTHALMIC (EYE) Q3H 7 Days 08/13/21 unit-trimethoprim 1 mg/mL eye #10 ml drops (Polytrim) acetaminophen 500 mg capsule 500 mg PO Q6H PRN #20 cap 09/10/21 hydrocortisone 2.5 % topical 1 appl TOPICAL TID #28.35 g 09/10/21 ointment doxycycline hyclate 100 mg capsule 100 mg PO BID 10 Days #20 cap 12/13/21 erythromycin 5 mg/gram (0.5 %) eye 0.5 inch OPHTHALMIC (EYE) TID 5 03/07/22 ointment Days #3.5 g Allergies Allergy/AdvReac Type Severity Reaction Status Date / Time No Known Allergies Allergy Verified 03/07/22 14:04 Review of Systems Review of Systems: Positive for left eye redness and mild discharge with mild burning Negatives are no fever no chills no headache no eye pain no loss of vision no photophobia no sinus congestion no sore throat no cough no rash Yes all other systems are reviewed and are negative PMFSH Past Medical History Source: nursing notes reviewed Medical History History of colon cancer Hyperlipidemia Hypertension Lower abdominal pain Surgical History Status post partial colectomy Family History Family History Father History of colon cancer Sister History of pancreatic cancer Social History Social History (Updated 02/15/22 @ 14:09 by Mireya Melendez CMA) Household Members: None Housing: Apartment Are you a primary manager long term care to a significant other at home: No Do you presently have visiting nurse or other home services: No Alcohol intake: never Patient Tobacco Use Status: Never used Tobacco Advance Directives: No Advance Directives Information Provided: Yes service: No Current occupational status: disabled Physical Exam Vital Signs: Vital Signs: Last Vital Signs Temp 97.8 F 03/07/22 14:04 Pulse 63 03/07/22 14:04 Resp 18 03/07/22 14:04 BP 181/54 H 03/07/22 14:04 Pulse Ox 99 03/07/22 14:04 BMI result Body Mass Index 25.5 General appearance no distress comfortable The eye exam visual acuity could not be done in the normal way as she forgot her glasses, she denies any visual change or loss in either eye I did hold up a piece of newspaper and she said each I could make out the blurry out lines of letters but she could not read them and it was the same on both sides The left eye had conjunctival redness and some watery discharge, pupils equal round reactive to light extraocular motions are intact The eye was stained with no dye uptake Pressure reading was done and it was 16 no elevated pressure There was no swelling around the orbit or redness Neck was supple Respiratory no distress Extremities full range of motion x4 Neuro no focal deficits Course Course Course Narrative: Patient was treated for likely conjunctivitis and advised to follow closely with Dr. Raza on Tuesday when his office reopens Patient is advised to return for any eye pain or vision loss or acute changes Discharge Plan Discharge Clinical Impression: Acute conjunctivitis of left eye Patient Disposition: Home, Self-Care Additional Instructions: The redness and the discharge in her eye may be of the mild pinkeye infection so use the antibiotic cream as directed Follow with Dr. Raza Tuesday Her eye pressure was 16, when I stained her eye there was no evidence of any dye uptake Return to the ER immediately for eye pain or vision loss or any worse condition or concerns Prescriptions: New erythromycin 5 mg/gram (0.5 %) ointment 0.5 inch ophthalmic (eye) TID 5 Days Qty: 3.5 0RF No Action calcium carbonate-vitamin D3 600 mg(1,500mg) -400 unit tablet 1 tab PO BID 0RF polymyxin B sulf-trimethoprim [Polytrim] 10,000 unit- 1 mg/mL drops 1 drp ophthalmic (eye) Q3H 7 Days Qty: 10 0RF Rx Instructions: while awake; do not exceed 6 doses in 24 hours acetaminophen 500 mg capsule 500 mg PO Q6H PRN (Reason: pain) Qty: 20 0RF hydrocortisone 2.5 % ointment 1 appl topical TID Qty: 28.35 0RF doxycycline hyclate 100 mg capsule 100 mg PO BID 10 Days Qty: 20 0RF amlodipine 10 mg tablet 10 mg PO DAILY 0RF docusate sodium 100 mg capsule 200 mg PO DAILY 0RF metoprolol tartrate 25 mg tablet 25 mg PO BID 0RF aspirin 81 mg tablet,delayed release (DR/EC) 81 mg PO DAILY 0RF atorvastatin 20 mg tablet 20 mg PO DAILY 0RF brimonidine 0.2 % drops 1 drp ophthalmic (eye) ONCE PRN (Reason: Dry Eye(S)) 0RF Referrals: Héctor Raza [Physician] - (Left eye mild burning no vision loss no eye pain, redness and discharge, treated for possible conjunctivitis with erythromycin ointment) Interventions: ED Discharge Assessment Last Done: 03/07/22 16:12 Discharge Date/Time: 03/07/22 16:12
[2022-03-07] MEDS: Erythromycin Base 0.5% Oph Oin 1 GM TUBE 1 CM EYE-LEFT (16:09)
== END 2022-03-07 16:12 | disposition home or self-care (01) ==
PROVIDERS: Emergency Provider Emergency Medicine; PCP Family Medicine
DX: H10.32 Unspecified acute conjunctivitis, left eye (principal); H57.12 Ocular pain, left eye; Z79.899 Other long term (current) drug therapy
CPT/HCPCS: 99283

== ENCOUNTER 2022-04-28 15:57 | Outpatient (REF) | payer OTHER, SELFPAY ==
[2022-04-28 17:50] LABS: Blood Urea Nitrogen 19 mg/dL (9-16); Estimated Glomerular Filt Rate > 60
== END 2022-04-28 15:58 | disposition home or self-care (01) ==
LOC: HO.LAB 15:57
PROVIDERS: PCP Family Medicine; Visit Provider Surgery
DX: R10.30 Lower abdominal pain, unspecified (principal); K59.09 Other constipation; Z79.899 Other long term (current) drug therapy
CPT/HCPCS: 36415; 82565; 84520; 99212

== ENCOUNTER 2022-05-10 11:10 | Outpatient (REF) | payer OTHER, SELFPAY ==
--- NOTE | ~2022-05-10 | US_ITS ---
EXAMINATION: US ABDOMEN COMPLETE CLINICAL INFORMATION: Pelvic pain. COMPARISON: Ultrasound abdomen complete 09/07/2021 and 01/03/2019. CT abdomen and pelvis 11/27/2020 TECHNIQUE: Real-time imaging of the abdominal viscera. Examination is limited secondary to overlying bowel gas. FINDINGS: PANCREAS: Normal. ABDOMINAL AORTA: The mid, and distal segments are normal in caliber. The proximal segment was not clearly visualized due to overlying bowel gas. INFERIOR VENA CAVA: Visualized portions of the IVC are normal in caliber. LIVER: The liver is normal in size. The liver contour is normal. Parenchymal echogenicity is normal. No focal hepatic lesion. There is no intrahepatic biliary duct dilatation seen. GALLBLADDER: The gallbladder is physiologically distended. There is a 2 mm echogenic nonshadowing focus contiguous with the gallbladder wall which is most suggestive of a tiny polyp. No shadowing gallstones identified. No gallbladder wall thickening or pericholecystic fluid appreciated. Negative sonographic Ng's sign. COMMON BILE DUCT: Normal in caliber measuring 0.2 cm in diameter. RIGHT KIDNEY: Normal. No hydronephrosis. No renal calculi or focal parenchymal lesions. The kidney measures 10.0 cm in maximum dimension. LEFT KIDNEY: 1.1 cm lower pole cyst. No hydronephrosis or renal calculi. The kidney measures 11.2 cm in maximum dimension. SPLEEN: Normal. The spleen measures 9.0 cm in maximum dimension. FREE FLUID: None. US/US abdomen complete IMPRESSION: -examination limited secondary to overlying bowel gas. -Tiny gallbladder polyp.
== END 2022-05-10 11:11 | disposition home or self-care (01) ==
LOC: HO.US 11:10
PROVIDERS: Visit Provider Internal Medicine Geriatric Medicine
DX: R10.2 Pelvic and perineal pain (principal); K76.0 Fatty (change of) liver, not elsewhere classified
CPT/HCPCS: 76700

== ENCOUNTER 2022-05-19 15:02 | Outpatient (REF) | payer OTHER, SELFPAY | END 2022-05-19 15:03 | disposition home or self-care (01) | LOC: HO.CT 15:02 | PROVIDERS: Visit Provider Surgery | DX: Z13.89 Encounter for screening for other disorder (principal) ==

== ENCOUNTER 2022-05-26 10:33 | Outpatient (REF) | payer OTHER, SELFPAY ==
--- NOTE | ~2022-05-26 | CT_ITS ---
EXAMINATION: CT ABDOMEN AND PELVIS WITH CONTRAST CLINICAL INFORMATION: Lower abdominal pain. COMPARISON: Ultrasound of 05/10/[address] of 11/27/2020. TECHNIQUE: Multidetector volumetric images were obtained from the superior aspect of the liver through the pubic symphysis following administration 85 mL of Omnipaque 350 intravenous contrast. Sagittal and coronal reformatted images were obtained on the technologist's workstation. Oral contrast: No This CT examination was performed using dose optimization techniques as appropriate, variously including the following: *Automated exposure control *Adjustment of mA and/or kV according to patient size (this includes techniques or standardized protocols for targeted exams where dose is matched to indication/reason for exam; i.e. extremities or head) *Use of iterative reconstruction technique DLP: 240 mGy-cm FINDINGS: LUNG BASES: The visualized lung bases are unremarkable. No pleural or pericardial effusion. LIVER, GALLBLADDER, AND BILIARY TREE: The liver is normal in size, shape, and attenuation. No focal hepatic lesion is present. There is chronic dilatation of the common bile duct to approximately 1 cm in diameter. No definite filling defect is appreciated. This is a chronic finding dating back to 09/04/2019. There is mild ductal prominence seen within the left hepatic lobe. This too is chronic. There is a 5 mm low-density lesion seen within segment of the liver posteriorly likely representing a cyst. There is an ill-defined region of increased density seen about the anterior aspect of segment IVb of the liver; however, this appears to be related to region of bifurcation of the middle hepatic vein rather than a true lesion such as hemangioma. The gallbladder is unremarkable with no evidence of radiopaque gallstones, gallbladder wall thickening, or obvious pericholecystic inflammatory changes. PANCREAS: No abnormal mass or significant pancreatic ductal dilatation. SPLEEN: Unremarkable. ADRENAL GLANDS: Unremarkable. KIDNEYS AND URETERS: Right Kidney: There is some increased prominence of the right upper collecting system and proximal ureter compared to study of 11/27/2020; however, no obstructing ureteral calculi are appreciated. No focal mass is appreciated. No definite renal calculi are seen. 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 There is a 6 mm low-density lesion seen within the upper pole likely representing a cyst. This is a stable finding. No hydronephrosis or calculi appreciated. Ureter unremarkable. BLADDER: Unremarkable. GASTROINTESTINAL TRACT: No dilated loops of large or small bowel. No free air or free fluid. Small hiatal hernia. Status post previous sigmoid colon surgery with suture line in place. No pericolonic inflammatory change. The appendix is not identified. ABDOMINAL WALL: There is a midline fat-containing infraumbilical hernia present. LYMPH NODES: No lymphadenopathy appreciated. VASCULAR: There is infrarenal aortoiliac calcified plaque. No abdominal aortic aneurysm. Portal vein is patent. PELVIC VISCERA: Unremarkable. OSSEOUS STRUCTURES: No suspicious destructive bony lesions identified. There is multilevel degenerative disc disease present. There is loss of the L5-S1 disc space. CT/CT abdomen pelvis w con IMPRESSION: Chronic dilatation of the common bile duct with mild prominence of left hepatic bile ducts. No pancreatic head mass identified and no radiopaque filling defect within the common bile duct is seen. Mild prominence of the right upper collecting system and proximal right ureter without radiopaque filling defect. Fleischner guidelines were followed.
[2022-05-26] MEDS: iohexoL 350 MG/ML 100 ML INFUS..BTL 85 ML IV (11:27)
== END 2022-05-26 10:34 | disposition home or self-care (01) ==
LOC: HO.CT 10:33
PROVIDERS: Visit Provider Surgery
DX: R10.30 Lower abdominal pain, unspecified (principal)
CPT/HCPCS: 74177; Q9967

== ENCOUNTER → 2022-06-03 15:00 | Outpatient (BNVA) | payer OTHER, SELFPAY | PROVIDERS: PCP Family Medicine; Visit Provider Surgery | DX: R10.30 Lower abdominal pain, unspecified (principal); K59.09 Other constipation | CPT/HCPCS: 99212 ==

== ENCOUNTER 2022-06-17 15:26 | Emergency (ER) | payer OTHER, SELFPAY ==
--- NOTE | ~2022-06-17 | XR_ITS ---
EXAMINATION: XR CHEST CLINICAL INFORMATION: Cough. COMPARISON: 06/12/2019 chest radiographs. TECHNIQUE: Frontal view of the chest was obtained. FINDINGS: The lungs are clear. Again seen is minimal blunting of the left costophrenic angle. A small nodule in the left midlung is unchanged. The right lung is clear. Again seen is coarse calcification at the left anterior first costochondral junction without significant change. XR/XR chest 1V IMPRESSION: Stable chest dating back to 2019 without acute cardiopulmonary process.
[2022-06-17 15:52] VITALS: BP 153/75; PULSE 86; RESP 16; TEMP 37.1; O2SAT 96; BMI 24.4
[2022-06-17 16:40] LABS: MANUAL DIFF FLAG NO
[2022-06-17 16:43] LABS: Basophils Percent Auto 0.3 % (0-2); Eosinophils Percent Auto 0.1 % (0-4); Hematocrit 39.5 % (37.0-47.0); Hemoglobin 13.1 g/dl (12.0-16.0); Imm Gran Abs Auto 0.02 X10*3/uL (0.00-0.03); Imm Gran Pct Auto 0.3 % (0.0-0.4); Lymphocytes Absolute Auto 1.8 X10*3/uL (1.2-4.9); Lymphocytes Percent Auto 24.5 % (20-40); Mean Corpuscular HGB Conc 33.2 g/dl (31.0-35.0); Mean Corpuscular Volume 87.6 fL (80.0-98.0); Mean Platelet Volume 10.9 fL (9.4-12.3); Monocytes Absolute Auto 1.2 X10*3/uL (0.1-1.2); Monocytes Percent Auto 16.1 % (2-11); Neutrophils Absolute Auto 4.3 x10*3/uL (2.0-8.3); Neutrophils Percent Auto 58.7 % (45-73); Platelet Count 157 X10*3/uL (160-400); Red Blood Count 4.51 X10*6/uL (4.20-5.50); Red Cell Distribution Width 13.3 % (11.0-16.0); White Blood Count 7.3 X10*3/uL (4.8-10.8)
[2022-06-17 16:53] LABS: COVID-19 Test Positive (Negative)
[2022-06-17 17:07] LABS: Anion Gap 18 (12-20); Blood Urea Nitrogen 16 mg/dL (9-16); Calcium 8.3 mg/dL (8.4-10.2); Carbon Dioxide 23 mmol/L (22-29); Chloride 101 mmol/L (96-108); Creatinine Clr Calc Pharmacy 45.5; Estimated Glomerular Filt Rate > 60; Glucose Random 98 mg/dL (60-115); Potassium 3.8 mmol/L (3.3-5.1); Sodium 138 mmol/L (135-145)
== END 2022-06-17 23:58 | disposition left against medical advice (07) ==
LOC: HO.ED 23:33
PROVIDERS: Emergency Medicine; Emergency Provider Emergency Medicine; PCP Family Medicine
DX: J02.9 Acute pharyngitis, unspecified (principal); R05.9 Cough, unspecified; Z20.822 Contact with and (suspected) exposure to COVID-19
CPT/HCPCS: 36415; 71045; 80048; 85025; 87635; 99281; 99283

== ENCOUNTER 2022-07-23 18:02 | Emergency (ER) | payer OTHER, SELFPAY ==
--- NOTE | ~2022-07-23 | CT_ITS ---
EXAMINATION: CT CHEST WITHOUT CONTRAST CLINICAL INFORMATION: Status post fall onto the left side with chest wall pain COMPARISON: Chest CT from 03/23/2018 TECHNIQUE: Multidetector volumetric CT imaging of the chest was done. Axial MIP volume rendering provided. Sagittal and coronal reformatted images were obtained. This CT examination was performed using dose optimization techniques as appropriate, variously including the following: *Automated exposure control *Adjustment of mA and/or kV according to patient size (this includes techniques or standardized protocols for targeted exams where dose is matched to indication/reason for exam; i.e. extremities or head) *Use of iterative reconstruction technique DLP: 225.14 mGy-cm FINDINGS: LINE RIDER: Unremarkable LUNGS: There is calcified granuloma in the left lower lobe stable since previous study, measured 0.8 cm. There is bilateral apical scarring Central airways are patent. MEDIASTINUM: The mediastinum is normal. CORONARY ARTERY CALCIFICATION: None visualized on this study. PLEURA: There is no pleural effusion. No pleural mass or thickening. AXILLA: No lymphadenopathy. UPPER ABDOMEN: Unremarkable. OSSEOUS STRUCTURES: Unremarkable. CT/CT chest wo IV con IMPRESSION: Calcified granuloma and by apical scarring. Fleischner guidelines were followed.
--- NOTE | ~2022-07-23 | XR_ITS ---
EXAMINATION: XR CHEST CLINICAL INFORMATION: Left-sided chest wall pain COMPARISON: June 2019 TECHNIQUE: Frontal view of the chest was obtained. FINDINGS: There is stable left lower lobe calcified granuloma. Cardiomediastinal silhouette is mildly prominent. There is no evidence of nodules infiltrates or pleural effusion Osseous structures are unremarkable XR/XR chest 1V IMPRESSION: No active cardiopulmonary disease
--- NOTE | ~2022-07-23 | CT_ITS ---
EXAMINATION: CT head/brain wo IV con, CT cervical spine wo IV con INDICATION INFORMATION: Reason for Exam fall, head strike COMPARISON: None TECHNIQUE: Separate noncontrast CT examinations of the head and cervical spine were performed. Coronal and sagittal images were created for each examination at the technologist workstation. This CT examination was performed using dose optimization techniques as appropriate, variously including the following: *Automated exposure control *Adjustment of mA and/or kV according to patient size (this includes techniques or standardized protocols for targeted exams where dose is matched to indication/reason for exam; i.e. extremities or head) *Use of iterative reconstruction technique DLP: 1121 mGy-cm FINDINGS: Head: No acute osseous abnormality. Mild right parietal scalp soft tissue swelling. The mastoid air cells and visualized portions of the paranasal sinuses are well aerated. There is no evidence of acute intracranial hemorrhage or territorial infarction. No abnormal mass effect or midline shift is seen. Harley to white matter differentiation is well preserved. No extra-axial fluid collections are identified. No hydrocephalus. Proportional prominence of the ventricles and sulcal spaces is consistent with mild volume loss. Patchy periventricular and deep white matter hypoattenuation is consistent with mild small vessel ischemic changes. Cervical spine: There is no evidence of acute cervical spine fracture. Vertebral bodies remain normal in height. Cervical straightening. Multilevel degenerative disc desiccation and endplate osteophytosis. 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 No pre- or paravertebral soft tissue abnormality is identified. Visualized portions of the lung apices are unremarkable. The thyroid gland is unremarkable. CT/CT cervical spine wo IV con IMPRESSION: 1. No acute intracranial abnormality. 2. No cervical spine fracture or traumatic malalignment.
--- NOTE | ~2022-07-23 | CT_ITS ---
EXAMINATION: CT ANGIOGRAM OF THE CHEST WITH AND WITHOUT CONTRAST (CT PULMONARY ANGIOGRAM FOR PE) CLINICAL INFORMATION: Reason for Exam cp sob COMPARISON: 03/13/2008 TECHNIQUE: Prior to contrast administration, noncontrast localization images were obtained. Subsequently, multidetector volumetric imaging was performed from the thoracic inlet to below the diaphragms following the administration of 65 mL Omnipaque 350 intravenous contrast. No contrast reaction reported Sagittal, coronal, and MIP oblique sagittal reformatted images were obtained on the CT workstation, uploaded to PACS, and reviewed. This CT examination was performed using dose optimization techniques as appropriate, variously including the following: *Automated exposure control *Adjustment of mA and/or kV according to patient size (this includes techniques or standardized protocols for targeted exams where dose is matched to indication/reason for exam; i.e. extremities or head) *Use of iterative reconstruction technique Total exam dose-length product 234 mGy-cm FINDINGS: QUALITY OF STUDY/CONTRAST BOLUS: Satisfactory. PULMONARY ARTERIES: No central or segmental pulmonary emboli. THORACIC AORTA: No aneurysm or dissection. LUNG: There is calcified granuloma in the left lower lobe. There is biapical scarring PLEURA: No pleural effusion or pneumothorax. MEDIASTINUM: Normal heart size. No pericardial effusion. No hilar or mediastinal lymphadenopathy. No evidence of septal bowing or right heart strain. CHEST WALL/AXILLA: No axillary or internal mammary lymphadenopathy. OSSEOUS STRUCTURES: No acute or suspicious osseous abnormality. UPPER ABDOMEN: Unremarkable. No reflux of contrast into the hepatic veins to suggest elevated right heart pressures. CT/CT angio chest PE protocol IMPRESSION: No evidence of pulmonary embolism Calcified granuloma in the left lower lobe VTE: negative
[2022-07-23 18:08] VITALS: BP 190/100; PULSE 70; O2SAT 97
[2022-07-23 18:19] VITALS: BP 157/69; PULSE 80; RESP 18; TEMP 36.8; O2SAT 96; BMI 27.4
--- NOTE | 2022-07-23 18:25 | ECG_ITS ---
Test Reason : CHEST PAIN Blood Pressure : / mmHG Vent. Rate : 081 BPM Atrial Rate : 081 BPM P-R Int : 148 ms QRS Dur : 072 ms QT Int : 380 ms P-R-T Axes : 073 011 027 degrees QTc Int : 441 ms Normal sinus rhythm RSR' or QR pattern in V1 suggests right ventricular conduction delay Nonspecific T wave abnormality Inferior leads Borderline ECG When compared with ECG of 12-JUN-2019 20:25, T wave inversion less evident in Anterior leads Referred By: Otoniel Yo Electronically Signed By:MARELY COSTELLO MD
[2022-07-23 19:06] LABS: MANUAL DIFF FLAG NO
[2022-07-23 19:09] LABS: Basophils Absolute Auto 0.1 X10*3/uL (0.0-0.2); Basophils Percent Auto 0.6 % (0-2); Eosinophils Absolute Auto 0.2 X10*3/uL (0.0-0.4); Eosinophils Percent Auto 2.4 % (0-4); Hemoglobin 13.7 g/dl (12.0-16.0); Imm Gran Abs Auto 0.03 X10*3/uL (0.00-0.03); Imm Gran Pct Auto 0.4 % (0.0-0.4); Lymphocytes Absolute Auto 1.7 X10*3/uL (1.2-4.9); Mean Corpuscular HGB Conc 33.4 g/dl (31.0-35.0); Mean Corpuscular Volume 86.7 fL (80.0-98.0); Monocytes Absolute Auto 0.8 X10*3/uL (0.1-1.2); Monocytes Percent Auto 9.6 % (2-11); Neutrophils Absolute Auto 5.5 x10*3/uL (2.0-8.3); Platelet Count 259 X10*3/uL (160-400); Red Blood Count 4.73 X10*6/uL (4.20-5.50); Red Cell Distribution Width 13.5 % (11.0-16.0); White Blood Count 8.2 X10*3/uL (4.8-10.8)
[2022-07-23 19:23] LABS: COVID-19 Test Negative (Negative)
[2022-07-23 19:26] LABS: Alanine Aminotransferase 19 U/L (0-31); Albumin Level 3.5 g/dL (3.5-5.0); Alkaline Phosphatase 126 U/L (39-117); Anion Gap 17 (12-20); Aspartate Amino Transferase 25 U/L (5-31); Bilirubin Total 0.5 mg/dL (0.0-1.0); Blood Urea Nitrogen 17 mg/dL (9-16); Calcium 9.2 mg/dL (8.4-10.2); Carbon Dioxide 26 mmol/L (22-29); Chloride 103 mmol/L (96-108); Estimated Glomerular Filt Rate > 60; Glucose Random 145 mg/dL (60-115); Magnesium 1.9 mg/dL (1.6-2.6); Potassium 3.9 mmol/L (3.3-5.1); Sodium 142 mmol/L (135-145); Total Protein 7.4 g/dL (6.5-8.0)
[2022-07-23 19:32] LABS: B Type Natriuretic Peptide 111 pg/mL (<100); Troponin-I High Sensitivity < 3.5 ng/L (<3.5-17.0)
--- NOTE | 2022-07-23 19:33 | ED.CHESTPAIN ---
HPI - Chest Pain General Chief Complaint: Chest Pain Stated Complaint: CP Time Seen by Provider: 07/23/22 18:24 Source: patient and EMS Mode of arrival: EMS Limitations: no limitations History of Present Illness HPI narrative: 81-year-old female with a history of hypertension, cancer, hyperlipidemia presents to the emergency department with chest pain and shortness of breath that lasted about an hour and has now resolved. Patient reports the chest pain was substernally non-radiating and describes it as a light pain and states she was also having palpitations at the time. ASA given by ems which provided symptomatic relief. Patient reports dizziness for the last few days and describes as the room is spinning however not having it now. Patient states she has not experienced this before. Patient reports that she fell 2 days ago due to weakness. Patient denies hitting her head or loss of consciousness. Patient has no change in mental status. Patient has no prior history of heart attack or stroke. Denies headaches, change in vision, nausea, vomiting, or tingling in extremities. Patient is not on blood thinners. Related Data Home Medications Medication Instructions Recorded Confirmed amlodipine 10 mg tablet 10 mg PO DAILY 10/15/20 06/03/22 aspirin 81 mg tablet,delayed 81 mg PO DAILY 10/15/20 06/03/22 release atorvastatin 20 mg tablet 20 mg PO DAILY 10/15/20 06/03/22 docusate sodium 100 mg capsule 200 mg PO DAILY 10/15/20 06/03/22 metoprolol tartrate 25 mg tablet 25 mg PO BID 10/15/20 06/03/22 calcium carbonate 600 mg-vitamin 1 tab PO BID 11/20/20 06/03/22 D3 10 mcg (400 unit) tablet brimonidine 0.2 % eye drops 1 drp ophthalmic (eye) ONCE PRN 03/11/21 06/03/22 Dry Eye(S) Previous Rx's Medication Instructions Recorded polymyxin B sulfate 10,000 1 drp ophthalmic (eye) Q3H 7 days 08/13/21 unit-trimethoprim 1 mg/mL eye #10 mL drops (Polytrim) acetaminophen 500 mg capsule 500 mg PO Q6H PRN pain #20 caps 09/10/21 hydrocortisone 2.5 % topical 1 appl topical TID #28.35 grams 09/10/21 ointment doxycycline hyclate 100 mg capsule 100 mg PO BID 10 days #20 caps 12/13/21 erythromycin 5 mg/gram (0.5 %) eye 0.5 inch ophthalmic (eye) TID 5 03/07/22 ointment days #3.5 grams lorazepam 0.5 mg tablet 0.5 mg PO ONCE PRN take one hour 05/25/22 prior to exam #1 tab docusate sodium 100 mg capsule 100 mg PO BID #60 caps 06/03/22 (Colace) psyllium husk 3.4 gram/5.4 gram 1 tbsp PO DAILY #660 grams 06/03/22 oral powder (Metamucil) cefuroxime axetil 250 mg tablet 250 mg PO BID 7 days #14 tabs 07/23/22 Allergies Allergy/AdvReac Type Severity Reaction Status Date / Time No Known Allergies Allergy Verified 06/03/22 15:09 Review of Systems Review of Systems: Constitutional : No Weight loss, No Fever, No Chills, No Fatigue, No Malaise ENT/Mouth : No sore throat, No Rhinorrhea Eyes: No Eye Pain, No Swelling, No Redness Cardiovascular : No Chest Pain, No SOB, No Dyspnea on Exertion, No Orthopnea, No Edema, No Palpitations Respiratory : No Cough, No Sputum, No Wheezing Gastrointestinal : No Nausea, No Vomiting, No Diarrhea, No Constipation, No abdominal Pain, No Hematochezia, No Melena Genitourinary : No Dysuria, No Urinary Frequency, No Hematuria, Musculoskeletal : No joint pain, No Myalgias, No Joint Swelling Skin : No Skin Lesions, No rash Neuro : No Weakness, No Numbness, No Dizziness, No Headache Psych : No Anxiety/Panic, No Depression All other systems reviewed and are negative Yes all other systems are reviewed and are negative [facility] Past Medical History Attestation statement: The following information was validated with the patient. Source: old records reviewed and nursing notes reviewed Medical History History of colon cancer Hyperlipidemia Hypertension Lower abdominal pain Surgical History Status post partial colectomy Family History Family History Father History of colon cancer Sister History of pancreatic cancer Social History Social History Household Members: None Housing: Apartment Are you a primary health care facilities inspector to a significant other at home: No Do you presently have visiting nurse or other home services: No Alcohol intake: never Patient Tobacco Use Status: Never used Tobacco Advance Directives: No Advance Directives Information Provided: No service: No Current occupational status: disabled Physical Exam Vital Signs: Vital Signs: Last Vital Signs Temp 98.7 F 07/23/22 23:40 Pulse 73 07/23/22 23:40 Resp 20 07/23/22 23:40 BP 149/51 H 07/23/22 23:40 Pulse Ox 97 07/23/22 21:56 O2 Del Method 07/23/22 23:40 BMI result Body Mass Index 27.4 VSS Appearance: Alert.? Oriented X3.? No acute distress.? Head: Normocephalic, atraumatic, no step-offs or deformities Eyes: Pupils equal, round and reactive to light.?EOMI Neck: Normal inspection.? Neck supple.? CVS: Normal heart rate and rhythm.? Pulses normal.? Respiratory: No respiratory distress.? Breath sounds normal.? Abdomen: Soft and nontender.? Skin: Skin warm and dry.? Normal skin color.? Normal skin turgor.? Extremities: No lower extremity edema.? No calf ttp. Global weakness. Neuro: Oriented X 3.? No motor deficit.? No sensory deficit. CN 2-12 intact . Normal finger to nose, heel to renee. Negative pronator drift. Normal Romberg. NIH stroke scale 0. Course Course Course Narrative: Discuss this case with my attending Dr. Lewis who looked over this case and agrees with my diagnosis and treatment plan Reevaluation(s) Reevaluation #1: CBC appears to be around normal limits. Chemistry with no acute electrolyte abnormalities requiring intervention. Troponin negative, BNP 111, EKG nonischemic, unlikely ACS. Chest x-ray and CT scans pending at this time. Time: 20:01 Reevaluation #2: COVID negative. Chest x-ray with no acute finding. CT of the head and cervical spine with no acute fractures, dislocations, subluxations or intracranial hemorrhage. CT of the chest with calcified granuloma and biapical scarring. Dimer + CTA ordered. I did re-evaluate patient she tells me she is feeling much better again no longer having chest pain, shortness of breath. Time: 21:25 Reevaluation #3: CT with no PE. Repeat trop pending. Time: 22:17 Additional Reevaluation(s): 2300 Urine infected will dc home on ceftin. Trop pending. 2348 I had a long discussion with patient and daughter, daughter tells me that she has noticed that mother has been weak over the past few days and peeing a lot, explained to her that mother is currently being treated for UTI. She tells me that this makes sense. She reports that mother stays at home with her sister at all times has a VNA nurse and physical therapy that go and visit her. I offered to keep her overnight for observation however they tell me they would like to take her home as they do not find it necessary to keep her. I answered all questions. Patient and daughter agree with plan, will discharge patient home on Ceftin will have her follow-up with cardiology as she may benefit from Holter monitor as patient reports intermittent palpitations. At this time patient will be discharged home with prompt PCP, cardiology follow-up. Comfortable with discharge 2358 Second trop negative MDM - Chest Pain MDM Narrative Medical decision making narrative: 1959 81-year-old female presents with chest pain, shortness of breath as now resolved after aspirin. Patient had a fall a few days ago, she reported some weakness and dizziness which have also resolved. At this time denies medical complaints. Physical examination benign. Will rule out ACS. Unlikely that this is PE. Unlikely intracranial hemorrhage, posterior stroke, pneumonia. Will rule out UTI Plan at this time is basic labs, urine, chest x-ray, EKG, troponin. Medical Records Data Attestation: I reviewed the patient's medical records. Lab Data Attestation: I reviewed the patient's lab results. Result diagrams: 07/23/22 19:07/23/22 19: Labs: Lab Results 07/23/22 07/23/22 07/23/22 Range/Units 19: 19: 19: WBC 8.2 (4.8-10.8) X10*3/uL RBC 4.73 (4.20-5.50) X10*6/uL Hgb 13.7 (12.0-16.0) g/dl Hct 41.0 (37.0-47.0) % MCV 86.7 (80.0-98.0) fL MCH 29.0 (27.0-33.0) pg MCHC 33.4 (31.0-35.0) g/dl RDW 13.5 (11.0-16.0) % Plt Count 259 D (160-400) X10*3/uL MPV 10.0 (9.4-12.3) fL Immature Gran % (Auto) 0.4 (0.0-0.4) % Neut % (Auto) 67.0 (45-73) % Lymph % (Auto) 20.0 (20-40) % [place] % (Auto) 9.6 (2-11) % Eos % (Auto) 2.4 (0-4) % Baso % (Auto) 0.6 (0-2) % Lymph # (Auto) 1.7 (1.2-4.9) X10*3/uL [place] # (Auto) 0.8 (0.1-1.2) X10*3/uL Eos # (Auto) 0.2 (0.0-0.4) X10*3/uL Baso # (Auto) 0.1 (0.0-0.2) X10*3/uL Abs Immat Gran (auto) 0.03 (0.00-0.03) X10*3/uL Absolute Neuts (auto) 5.5 (2.0-8.3) x10*3/uL Absolute Nucleated RBC 0.000 (0.0-0.012) X10*3/uL Nucleated RBC % (auto) 0.0 (0.0-0.2) /100WBC D-Dimer High Sensitivty NG/ML Sodium 142 (135-145) mmol/L Potassium 3.9 (3.3-5.1) mmol/L Chloride 103 (96-108) mmol/L Carbon Dioxide 26 (22-29) mmol/L Anion Gap 17 (12-20) BUN 17 H (9-16) mg/dL Creatinine 0.70 (0.5-1.4) mg/dL Estim Creat Clear Calc 56.0 Estimated GFR > 60 Random Glucose 145 H (60-115) mg/dL Calcium 9.2 D (8.4-10.2) mg/dL Magnesium 1.9 (1.6-2.6) mg/dL Total Bilirubin 0.5 (0.0-1.0) mg/dL AST 25 (5-31) U/L ALT 19 (0-31) U/L Alkaline Phosphatase 126 H D (39-117) U/L Troponin I High Sens (<3.5-17.0) ng/L B-Natriuretic Peptide 111 H (<100) pg/mL Total Protein 7.4 (6.5-8.0) g/dL Albumin 3.5 (3.5-5.0) g/dL Urine Color Urine Appearance Urine pH (5.0-9.0) Ur Specific [place] (1.005-1.025) Urine Protein (Neg-Trace) mg/dL Urine Glucose (UA) (Negative) mg/dL Urine Ketones (Negative) mg/dL Urine Blood (Negative) Urine Nitrite (Negative) Ur Leukocyte Esterase (Negative) Urine RBC (0-2) /HPF Urine WBC (0-5) /HPF Ur Squamous Epith Cells (0-2) /HPF Urine Bacteria (None Seen) Hyaline Casts (0-2) /LPF COVID-19 (EMRE) (Negative) COVID-19 Clin Com 07/23/22 07/23/22 07/23/22 Range/Units 19:01 19:01 20:26 WBC (4.8-10.8) X10*3/uL RBC (4.20-5.50) X10*6/uL Hgb (12.0-16.0) g/dl Hct (37.0-47.0) % MCV (80.0-98.0) fL MCH (27.0-33.0) pg MCHC (31.0-35.0) g/dl RDW (11.0-16.0) % Plt Count (160-400) X10*3/uL MPV (9.4-12.3) fL Immature Gran % (Auto) (0.0-0.4) % Neut % (Auto) (45-73) % Lymph % (Auto) (20-40) % Otero % (Auto) (2-11) % Eos % (Auto) (0-4) % Baso % (Auto) (0-2) % Lymph # (Auto) (1.2-4.9) X10*3/uL [place] # (Auto) (0.1-1.2) X10*3/uL Eos # (Auto) (0.0-0.4) X10*3/uL Baso # (Auto) (0.0-0.2) X10*3/uL Abs Immat Gran (auto) (0.00-0.03) X10*3/uL Absolute Neuts (auto) (2.0-8.3) x10*3/uL Absolute Nucleated RBC (0.0-0.012) X10*3/uL Nucleated RBC % (auto) (0.0-0.2) /100WBC D-Dimer High Sensitivty 3582 NG/ML Sodium (135-145) mmol/L Potassium (3.3-5.1) mmol/L Chloride (96-108) mmol/L Carbon Dioxide (22-29) mmol/L Anion Gap (12-20) BUN (9-16) mg/dL Creatinine (0.5-1.4) mg/dL Estim Creat Clear Calc Estimated GFR Random Glucose (60-115) mg/dL Calcium (8.4-10.2) mg/dL Magnesium (1.6-2.6) mg/dL Total Bilirubin (0.0-1.0) mg/dL AST (5-31) U/L ALT (0-31) U/L Alkaline Phosphatase (39-117) U/L Troponin I High Sens < 3.5 (<3.5-17.0) ng/L B-Natriuretic Peptide (<100) pg/mL Total Protein (6.5-8.0) g/dL Albumin (3.5-5.0) g/dL Urine Color Urine Appearance Urine pH (5.0-9.0) Ur Specific [place] (1.005-1.025) Urine Protein (Neg-Trace) mg/dL Urine Glucose (UA) (Negative) mg/dL Urine Ketones (Negative) mg/dL Urine Blood (Negative) Urine Nitrite (Negative) Ur Leukocyte Esterase (Negative) Urine RBC (0-2) /HPF Urine WBC (0-5) /HPF Ur Squamous Epith Cells (0-2) /HPF Urine Bacteria (None Seen) Hyaline Casts (0-2) /LPF COVID-19 (EMRE) Negative (Negative) COVID-19 Clin Com See Note 07/23/22 07/23/22 Range/Units 21:58 23:30 WBC (4.8-10.8) X10*3/uL RBC (4.20-5.50) X10*6/uL Hgb (12.0-16.0) g/dl Hct (37.0-47.0) % MCV (80.0-98.0) fL MCH (27.0-33.0) pg MCHC (31.0-35.0) g/dl RDW (11.0-16.0) % Plt Count (160-400) X10*3/uL MPV (9.4-12.3) fL Immature Gran % (Auto) (0.0-0.4) % Neut % (Auto) (45-73) % Lymph % (Auto) (20-40) % Otero % (Auto) (2-11) % Eos % (Auto) (0-4) % Baso % (Auto) (0-2) % Lymph # (Auto) (1.2-4.9) X10*3/uL [place] # (Auto) (0.1-1.2) X10*3/uL Eos # (Auto) (0.0-0.4) X10*3/uL Baso # (Auto) (0.0-0.2) X10*3/uL Abs Immat Gran (auto) (0.00-0.03) X10*3/uL Absolute Neuts (auto) (2.0-8.3) x10*3/uL Absolute Nucleated RBC (0.0-0.012) X10*3/uL Nucleated RBC % (auto) (0.0-0.2) /100WBC D-Dimer High Sensitivty NG/ML Sodium (135-145) mmol/L Potassium (3.3-5.1) mmol/L Chloride (96-108) mmol/L Carbon Dioxide (22-29) mmol/L Anion Gap (12-20) BUN (9-16) mg/dL Creatinine (0.5-1.4) mg/dL Estim Creat Clear Calc Estimated GFR Random Glucose (60-115) mg/dL Calcium (8.4-10.2) mg/dL Magnesium (1.6-2.6) mg/dL Total Bilirubin (0.0-1.0) mg/dL AST (5-31) U/L ALT (0-31) U/L Alkaline Phosphatase (39-117) U/L Troponin I High Sens < 3.5 (<3.5-17.0) ng/L B-Natriuretic Peptide (<100) pg/mL Total Protein (6.5-8.0) g/dL Albumin (3.5-5.0) g/dL Urine Color Yellow Urine Appearance Clear Urine pH 6.5 (5.0-9.0) Ur Specific [place] 1.010 (1.005-1.025) Urine Protein Negative (Neg-Trace) mg/dL Urine Glucose (UA) Negative (Negative) mg/dL Urine Ketones Negative (Negative) mg/dL Urine Blood Trace H (Negative) Urine Nitrite Negative (Negative) Ur Leukocyte Esterase Large (3+) H (Negative) Urine RBC 0-2 (0-2) /HPF Urine WBC >50 H (0-5) /HPF Ur Squamous Epith Cells 0-2 (0-2) /HPF Urine Bacteria 1+ (None Seen) Hyaline Casts 0-2 (0-2) /LPF COVID-19 (EMRE) (Negative) COVID-19 Clin Com ECG Data ECG #1: Attestation: I personally reviewed and interpreted this ECG as follows: ECG interpretation date: 07/23/22 ECG interpretation time: 20:01 Prior ECG tracings: available for review Interpretation: Ventricular rate of 81, VA normal, QRS normal, QT/QTC normal. EKG with no ST elevations or inversions concerning for ischemia. No significant changes when compared to previous. Critical Care Time Critical Care Time Critical Care Time: No Discharge Plan Discharge Clinical Impression: Chest pain, Shortness of breath, Physical deconditioning, Dizziness, Acute UTI Patient Disposition: Home, Self-Care Additional Instructions: Take your medications as prescribed. If you were prescribed antibiotics today, it is important that you take your medication to their entirety, do not skip any doses, do not finish them early. Follow-up with your primary care provider this week. Return to the emergency department with new or worsening symptoms. Such as fevers, chills, chest pain, shortness of breath, nausea, vomiting, dizziness, headache, vision changes, lethargy In case of emergency call 911 CT/CT head/brain wo IV con IMPRESSION: ? 1.? No acute intracranial abnormality. ? 2.? No cervical spine fracture or traumatic malalignment. CT/CT chest wo IV con IMPRESSION: Calcified granuloma and by apical scarring.? ? Fleischner guidelines were followed. CT/CT angio chest PE protocol IMPRESSION: No evidence of pulmonary embolism Calcified granuloma in the left lower lobe ? VTE: negative Prescriptions: New cefuroxime axetil 250 mg tablet 250 mg PO BID 7 Days Qty: 14 0RF No Action lorazepam 0.5 mg tablet 0.5 mg PO ONCE PRN (Reason: take one hour prior to exam) Qty: 1 0RF calcium carbonate-vitamin D3 600 mg(1,500mg) -400 unit tablet 1 tab PO BID polymyxin B sulf-trimethoprim [Polytrim] 10,000 unit- 1 mg/mL drops 1 drp ophthalmic (eye) Q3H 7 Days Qty: 10 0RF Rx Instructions: while awake; do not exceed 6 doses in 24 hours acetaminophen 500 mg capsule 500 mg PO Q6H PRN (Reason: pain) Qty: 20 0RF hydrocortisone 2.5 % ointment 1 appl topical TID Qty: 28.35 0RF doxycycline hyclate 100 mg capsule 100 mg PO BID 10 Days Qty: 20 0RF erythromycin 5 mg/gram (0.5 %) ointment 0.5 inch ophthalmic (eye) TID 5 Days Qty: 3.5 0RF amlodipine 10 mg tablet 10 mg PO DAILY docusate sodium 100 mg capsule 200 mg PO DAILY metoprolol tartrate 25 mg tablet 25 mg PO BID aspirin 81 mg tablet,delayed release (DR/EC) 81 mg PO DAILY atorvastatin 20 mg tablet 20 mg PO DAILY brimonidine 0.2 % drops 1 drp ophthalmic (eye) ONCE PRN (Reason: Dry Eye(S)) docusate sodium [Colace] 100 mg capsule 100 mg PO BID Qty: 60 3RF Metamucil 3.4 gram/5.4 gram powder 1 tbsp PO DAILY Qty: 660 2RF Rx Instructions: mix into at least 8 oz of water or juice before administering Referrals: [facility] [Provider Group] - 1 week Jill Hester DO [Primary Care Provider] - 2 days Stand Alone Forms: Work/School Release
[2022-07-23 19:36] VITALS: BP 132/64; PULSE 71; O2SAT 99
[2022-07-23 20:00] VITALS: BP 125/71; PULSE 80; RESP 19; TEMP 36.8; O2SAT 96
[2022-07-23 20:45] LABS: D Dimer High Sensitivity 3582 NG/ML
[2022-07-23] MEDS: iohexoL 350 MG/ML 100 ML INFUS..BTL IV (21:46)
[2022-07-23 21:56] VITALS: BP 154/50; PULSE 84; RESP 16; TEMP 36.8; O2SAT 97
[2022-07-23 22:05] LABS: Appearance Urine Clear; Color Urine Yellow; Glucose Urine UA Negative (Negative); Leukocyte Esterase Urine Large (3+) (Negative); Nitrite Urine Negative (Negative); PH 6.5 (5.0-9.0); UMIC TRIGGER UACC YES; Urine Blood Trace (Negative); Urine Ketones Negative (Negative); Urine Protein Negative (Neg-Trace)
[2022-07-23 22:09] LABS: Bacteria Urine 1+ (None Seen); Hyaline Casts Urine 0-2 /LPF (0-2); RBC Urine 0-2 /HPF (0-2); Squamous Epithelial Cell Urine 0-2 /HPF (0-2); UACC Culture Trigger YES; WBC Urine >50 /HPF (0-5)
[2022-07-23 23:40] VITALS: BP 149/51; PULSE 73; RESP 20; TEMP 37.1
[2022-07-23 23:56] LABS: Troponin-I High Sensitivity < 3.5 ng/L (<3.5-17.0)
== END 2022-07-24 00:39 | disposition home or self-care (01) ==
PROVIDERS: Physician Assistant; Emergency Provider Emergency Medicine Emergency Medical Services; PCP Family Medicine
DX: R07.89 Other chest pain (principal); R42 Dizziness and giddiness; N39.0 Urinary tract infection, site not specified; M54.6 Pain in thoracic spine; I10 Essential (primary) hypertension; R06.02 Shortness of breath; Z20.822 Contact with and (suspected) exposure to COVID-19; Z79.899 Other long term (current) drug therapy
CPT/HCPCS: 36415; 70450; 71045; 71250; 71275; 72125; 80053; 81001; 83735; 83880; 84484; 85025; 85379; 87086; 87088; 87186; 87635; 93005; 99284; Q9967

== ENCOUNTER 2022-07-29 20:24 | Day surgery (SDC) | payer OTHER, SELFPAY ==
--- NOTE | ~2022-07-29 | XR_ITS ---
EXAMINATION: XR CHEST CLINICAL INFORMATION: Pacemaker. COMPARISON: Chest CT and chest x-ray dated July 23, 2022. TECHNIQUE: Portable AP view of the chest was obtained. XR/XR chest 1V FINDINGS/IMPRESSION: The study is somewhat limited by portable technique. The retrocardiac region is suboptimally evaluated. No gross pneumothorax, effusion, or infiltrate is seen. The heart size is poorly evaluated. The aorta is mildly atherosclerotic. The tips of left subclavian pulse generator device leads project over the right atrium and right ventricle. There are mild degenerative changes of the spine.
--- NOTE | ~2022-07-29 | FL_ITS ---
EXAMINATION: XR FLUOROSCOPY WITH IMAGES CLINICAL INFORMATION: Pacemaker insertion COMPARISON: None. TECHNIQUE: Fluoroscopy performed by Dr. Beatrice Solomon. Fluoroscopy time: 356.5 seconds. Cumulative Dose: 52.60 mGy. Images: 1. FINDINGS: Intraoperative fluoroscopy performed for pacemaker placement. A dual-chamber pacemaker is seen in place. FL/FL guidance in OR IMPRESSION: Intraoperative fluoroscopy for pacemaker placement.
--- NOTE | ~2022-07-29 | CT_ITS ---
EXAMINATION: CT ABDOMEN AND PELVIS WITH CONTRAST CLINICAL INFORMATION: Diffuse abdominal pain. Evaluate for small bowel obstruction. COMPARISON: 05/26/2022 TECHNIQUE: Multidetector volumetric images were obtained from the superior aspect of the liver through the pubic symphysis following administration 84 mL of Omnipaque 350 intravenous contrast. Sagittal and coronal reformatted images were obtained on the technologist's workstation. Oral contrast: No This CT examination was performed using dose optimization techniques as appropriate, variously including the following: *Automated exposure control *Adjustment of mA and/or kV according to patient size (this includes techniques or standardized protocols for targeted exams where dose is matched to indication/reason for exam; i.e. extremities or head) *Use of iterative reconstruction technique DLP: 411 mGy-cm FINDINGS: LUNG BASES: Trace left pleural effusion and accompanying atelectasis. LIVER, GALLBLADDER, AND BILIARY TREE: The liver is normal in size, shape, and attenuation. No focal hepatic lesion or biliary ductal dilatation is present. Gallbladder unremarkable. PANCREAS: Unremarkable. SPLEEN: Unremarkable. ADRENAL GLANDS: Unremarkable. KIDNEYS AND URETERS: The kidneys are normal in size, shape, and attenuation. No hydronephrosis, hydroureter, or calculi seen. No perinephric stranding. BLADDER: Unremarkable. GASTROINTESTINAL TRACT: Intact rectosigmoid anastomosis. Small sliding-type hiatal hernia. Small large bowel are unremarkable. ABDOMINAL WALL: Small fat-containing midline lower abdominal wall hernia without inflammation. LYMPH NODES: Normal. VASCULAR: Unremarkable. PELVIC VISCERA: Uterus and adnexa unremarkable. OSSEOUS STRUCTURES: No acute or suspicious osseous abnormalities. CT/CT abdomen pelvis w IV con IMPRESSION: * No bowel obstruction. * No etiology for the patient's symptomatology. * Chronic findings as above. * Trace left pleural effusion with accompanying atelectasis. Fleischner guidelines were followed.
--- NOTE | 2022-07-29 20:32 | ECG_ITS ---
Test Reason : WEAKNESS Blood Pressure : / mmHG Vent. Rate : 094 BPM Atrial Rate : 094 BPM P-R Int : 156 ms QRS Dur : 082 ms QT Int : 380 ms P-R-T Axes : 081 021 024 degrees QTc Int : 475 ms Normal sinus rhythm RSR' or QR pattern in V1 suggests right ventricular conduction delay Otherwise normal ECG When compared with ECG of 23-JUL-2022 18:34, No significant change was found Referred By: Lara Beth Electronically Signed By:MARELY COSTELLO MD
[2022-07-29 20:38] VITALS: BP 153/73; BP 153/75; PULSE 100; RESP 16; O2SAT 96; BMI 25.3
--- NOTE | 2022-07-29 20:48 | ED.GENADULT ---
HPI - General Adult General Chief complaint: General Medical <Lara Beth NP - Last Filed: 07/30/22 02:17> Stated complaint: nausea vomiting <Lara Beth NP - Last Filed: 07/30/22 02:17> Time Seen by Provider: 07/29/22 20:28 <Lara Beth NP - Last Filed: 07/30/22 02:17> Source: patient, EMS and clinical psychologist private practice <Lara Beth NP - Last Filed: 07/30/22 02:17> Mode of arrival: EMS <Lara Beth NP - Last Filed: 07/30/22 02:17> Limitations: language barrier <Lara Beth NP - Last Filed: 07/30/22 02:17> History of Present Illness HPI narrative: 81-year-old female with a history of colon cancer status post partial colectomy, high blood pressure high cholesterol presents with NBNB vomiting which began today. Patient reports mild abdominal discomfort. No fevers, chills, diarrhea, constipation. Patient was placed on cefuroxime for UTI on Tuesday which she has been taking <Lara Beth NP - Last Filed: 07/30/22 02:17> Related Data Home medications: Home Medications Medication Instructions Recorded Confirmed amlodipine 10 mg tablet 10 mg PO DAILY 10/15/20 07/30/22 aspirin 81 mg tablet,delayed 81 mg PO DAILY 10/15/20 07/30/22 release atorvastatin 20 mg tablet 20 mg PO BEDTIME 10/15/20 07/30/22 metoprolol tartrate 25 mg tablet 25 mg PO BID 10/15/20 07/30/22 calcium carbonate 600 mg-vitamin 1 tab PO BID 11/20/20 07/30/22 D3 10 mcg (400 unit) tablet brimonidine 0.2 % eye drops 1 drp ophthalmic (eye) BID 03/11/21 07/30/22 clotrimazole 1 % topical cream 1 appl topical BID PRN Rash 07/30/22 07/30/22 Previous Rx's Medication Instructions Recorded acetaminophen 500 mg capsule 500 mg PO Q6H PRN pain #20 caps 09/10/21 docusate sodium 100 mg capsule 100 mg PO BID #60 caps 06/03/22 (Colace) psyllium husk 3.4 gram/5.4 gram 1 tbsp PO DAILY #660 grams 06/03/22 oral powder (Metamucil) cefuroxime axetil 250 mg tablet 250 mg PO BID 7 days #14 tabs 07/23/22 ondansetron 4 mg disintegrating 4 mg PO Q6H PRN nausea and 07/30/22 tablet vomiting #10 tabs <Lara Beth NP - Last Filed: 07/30/22 02:17> Allergies/adverse reactions: Allergies Allergy/AdvReac Type Severity Reaction Status Date / Time No Known Allergies Allergy Verified 06/03/22 15:09 <REEMA Hall Last Filed: 07/30/22 02:17> Review of Systems Review of Systems: Yes all other systems are reviewed and are negative <REEMA Hall Last Filed: 07/30/22 02:17> Constitutional: Constitutional: Reports no additional constitutional complaints, Denies body ache(s), Denies chills, Denies fever(s), Denies headache(s) and Denies weakness <REEMA Hall Last Filed: 07/30/22 02:17> Eyes: Eyes: Reports no additional eye complaints and Denies change in vision <REEMA Hall Last Filed: 07/30/22 02:17> ENT: Reports system reviewed and no additional complaints, except as documented, Denies dizziness, Denies headache(s), Denies nasal congestion, Denies nasal discharge and Denies neck pain <REEMA Hall Last Filed: 07/30/22 02:17> Cardiovascular: Cardiovascular: Reports no additional cardiovascular complaints, Denies chest pain, Denies leg edema and Denies dyspnea <REEMA Hall Last Filed: 07/30/22 02:17> Respiratory: Respiratory: Reports no additional respiratory complaints, Denies cough and Denies dyspnea <REEMA Hall Last Filed: 07/30/22 02:17> Gastrointestinal: Gastrointestinal: Reports no additional gastrointestinal complaints, Reports abdominal pain, Denies diarrhea, Reports nausea and Reports vomiting <Lara Beth NP - Last Filed: 07/30/22 02:17> Genitourinary: Genitourinary: Reports no additional female genitourinary complaints and Denies urinary incontinence <Lara Beth NP - Last Filed: 07/30/22 02:17> Musculoskeletal: Musculoskeletal: Reports no additional musculoskeletal complaints, Denies back pain, Denies arthralgias, Denies joint swelling, Denies neck pain, Denies numbness and Denies tingling <Lara eBth NP - Last Filed: 07/30/22 02:17> Integumentary/Breasts: Skin/Breast: Reports system reviewed and no additional complaints, except as docu and Denies rash <Lara Beth NP - Last Filed: 07/30/22 02:17> Neurologic: Reports system reviewed and no additional complaints, except as documented, Denies Abnormal speech present, Denies dizziness, Denies headache(s), Denies numbness, Denies tingling and Denies weakness <Lara Beth NP - Last Filed: 07/30/22 02:17> [facility] Past Medical History Attestation statement: The following information was validated with the patient. <Lara Beth NP - Last Filed: 07/30/22 02:17> Source: old records reviewed and nursing notes reviewed <Lara Beth NP - Last Filed: 07/30/22 02:17> Medical History: Medical History History of colon cancer (~2009) Hyperlipidemia Hypertension Lower abdominal pain <Lara Beth NP - Last Filed: 07/30/22 02:17> Surgical History: Surgical History History of colonoscopy History of partial colectomy (~2009) <Lara Beth NP - Last Filed: 07/30/22 02:17> Family History Family History: Family History Father History of colon cancer Sister History of pancreatic cancer <Lara Beth NP - Last Filed: 07/30/22 02:17> Social History Social History: Social History Household Members: None Housing: House Are you a primary healthcare consultant to a significant other at home: No Do you presently have visiting nurse or other home services: No Alcohol intake: never Patient Tobacco Use Status: Never used Tobacco Second Hand Smoke Exposure: No Use of substances other than those prescribed or required for medical reasons: No Spiritual Healthcare Practices: unable to assess Quaker Healthcare Practices: unable to assess Cultural Healthcare Practices: unable to assess Are you DNR?: No Advance Directives: No Advance Directives Information Provided: No Advance Directives on File: No Do you have thoughts of harming others: None Do you have a plan to hurt others: No Plan Recently lost weight without trying: No How much weight loss: Not applicable Nutrition Risks: No Nutritional Risk Patient : No service: No Current occupational status: disabled <Lara Beth NP - Last Filed: 07/30/22 02:17> Physical Exam ED Vital Signs: Vital Signs - 24 hr 07/30/22 03:55 07/30/22 06:00 07/30/22 07:19 Temperature 98.3 F 98.3 F Pulse Rate 70 83 81 Respiratory Rate 18 14 16 Blood Pressure 127/58 L 130/62 141/63 H Pulse Oximetry 94 100 100 Oxygen Delivery Method Room Air Nasal Cannula Room Air Oxygen Flow Rate 2 07/30/22 08:05 07/30/22 08:54 07/30/22 11:18 Temperature 98.4 F 98.2 F Pulse Rate 88 79 83 Respiratory Rate 16 16 18 Blood Pressure 156/67 H 152/72 H 135/75 Pulse Oximetry 100 99 98 Oxygen Delivery Method Room Air Room Air Nasal Cannula Oxygen Flow Rate 3 07/30/22 11:23 07/30/22 11:28 07/30/22 11:33 Temperature 97.2 F Pulse Rate 77 77 60 Respiratory Rate 18 18 18 Blood Pressure 123/64 141/63 H 141/63 H Pulse Oximetry 99 98 98 Oxygen Delivery Method Nasal Cannula Nasal Cannula Nasal Cannula Oxygen Flow Rate 3 3 3 07/30/22 11:48 07/30/22 12:03 07/30/22 12:18 Temperature 98 F 97.7 F 98.5 F Pulse Rate 70 64 69 Respiratory Rate 16 16 16 Blood Pressure 147/64 H 148/58 H 145/60 H Pulse Oximetry 97 98 95 Oxygen Delivery Method Room Air Room Air Room Air Oxygen Flow Rate 07/30/22 12:48 07/30/22 13:18 07/30/22 13:48 Temperature 98 F Pulse Rate 89 66 60 Respiratory Rate 16 16 16 Blood Pressure 133/55 L 131/53 L 138/52 L Pulse Oximetry 95 97 96 Oxygen Delivery Method Room Air Room Air Room Air Oxygen Flow Rate 07/30/22 14:18 07/30/22 14:48 07/30/22 15:18 Temperature Pulse Rate 62 69 60 Respiratory Rate 16 16 16 Blood Pressure 132/56 L 119/53 L 115/52 L Pulse Oximetry 96 96 95 Oxygen Delivery Method Room Air Room Air Room Air Oxygen Flow Rate 07/30/22 16:04 07/30/22 16:31 07/30/22 17:35 Temperature 99.8 F Pulse Rate 77 60 62 Respiratory Rate 16 17 18 Blood Pressure 136/69 130/46 L 131/59 L Pulse Oximetry 93 93 94 Oxygen Delivery Method Room Air Room Air Room Air Oxygen Flow Rate 07/30/22 19:09 07/31/22 00:00 Temperature 97.1 F 97.2 F Pulse Rate 72 60 Respiratory Rate 17 18 Blood Pressure 137/63 133/61 Pulse Oximetry 99 96 Oxygen Delivery Method Nasal Cannula Nasal Cannula Oxygen Flow Rate 3 3 BMI result Body Mass Index 24.9 <Lara Beth [employer]PER [employer] - Last Filed: 07/30/22 02:17> Vital Signs - 24 hr 07/30/22 03:55 07/30/22 06:00 07/30/22 07:19 Temperature 98.3 F 98.3 F Pulse Rate 70 83 81 Respiratory Rate 18 14 16 Blood Pressure 127/58 L 130/62 141/63 H Pulse Oximetry 94 100 100 Oxygen Delivery Method Room Air Nasal Cannula Room Air Oxygen Flow Rate 2 07/30/22 08:05 07/30/22 08:54 07/30/22 11:18 Temperature 98.4 F 98.2 F Pulse Rate 88 79 83 Respiratory Rate 16 16 18 Blood Pressure 156/67 H 152/72 H 135/75 Pulse Oximetry 100 99 98 Oxygen Delivery Method Room Air Room Air Nasal Cannula Oxygen Flow Rate 3 07/30/22 11:23 07/30/22 11:28 07/30/22 11:33 Temperature 97.2 F Pulse Rate 77 77 60 Respiratory Rate 18 18 18 Blood Pressure 123/64 141/63 H 141/63 H Pulse Oximetry 99 98 98 Oxygen Delivery Method Nasal Cannula Nasal Cannula Nasal Cannula Oxygen Flow Rate 3 3 3 07/30/22 11:48 07/30/22 12:03 07/30/22 12:18 Temperature 98 F 97.7 F 98.5 F Pulse Rate 70 64 69 Respiratory Rate 16 16 16 Blood Pressure 147/64 H 148/58 H 145/60 H Pulse Oximetry 97 98 95 Oxygen Delivery Method Room Air Room Air Room Air Oxygen Flow Rate 07/30/22 12:48 07/30/22 13:18 07/30/22 13:48 Temperature 98 F Pulse Rate 89 66 60 Respiratory Rate 16 16 16 Blood Pressure 133/55 L 131/53 L 138/52 L Pulse Oximetry 95 97 96 Oxygen Delivery Method Room Air Room Air Room Air Oxygen Flow Rate 07/30/22 14:18 07/30/22 14:48 07/30/22 15:18 Temperature Pulse Rate 62 69 60 Respiratory Rate 16 16 16 Blood Pressure 132/56 L 119/53 L 115/52 L Pulse Oximetry 96 96 95 Oxygen Delivery Method Room Air Room Air Room Air Oxygen Flow Rate 07/30/22 16:04 07/30/22 16:31 07/30/22 17:35 Temperature 99.8 F Pulse Rate 77 60 62 Respiratory Rate 16 17 18 Blood Pressure 136/69 130/46 L 131/59 L Pulse Oximetry 93 93 94 Oxygen Delivery Method Room Air Room Air Room Air Oxygen Flow Rate 07/30/22 19:09 07/31/22 00:00 Temperature 97.1 F 97.2 F Pulse Rate 72 60 Respiratory Rate 17 18 Blood Pressure 137/63 133/61 Pulse Oximetry 99 96 Oxygen Delivery Method Nasal Cannula Nasal Cannula Oxygen Flow Rate 3 3 BMI result Body Mass Index 24.9 <Raffi Jhaveri MD - Last Filed: 07/30/22 06:32> Const General: cooperative, healthy appearing, comfortable and no acute distress <Lara Beth NP - Last Filed: 07/30/22 02:17> Orientation/consciousness: patient oriented x3 <Lara Beth NP - Last Filed: 07/30/22 02:17> Limitations: no limitations <Lara Beth NP - Last Filed: 07/30/22 02:17> HENMT Head: Yes normal to inspection <Lara Beth NP - Last Filed: 07/30/22 02:17> Ears: hearing grossly normal bilaterally <Lara Beth NP - Last Filed: 07/30/22 02:17> Eyes General: appearance normal, both eyes and all related structures <Lara Beth NP - Last Filed: 07/30/22 02:17> Pupils: Equal, round and reactive pupils present <Lara Beth NP - Last Filed: 07/30/22 02:17> Neck Neck: Yes normal visual inspection <Lara Beth NP - Last Filed: 07/30/22 02:17> Chest Chest palpation & inspection: normal inspection of the chest <Lara Beth NP - Last Filed: 07/30/22 02:17> Resp Effort & Inspection: normal respiratory effort <Lara Beth [employer] - Last Filed: 07/30/22 02:17> Auscultation: clear to auscultation bilaterally <Lara Beth NP - Last Filed: 07/30/22 02:17> Cardio Rate: regular rate <Lara Beth NP - Last Filed: 07/30/22 02:17> Rhythm: regular rhythm <Lara Beth NP - Last Filed: 07/30/22 02:17> Peripheral pulses: Peripheral pulses 2+ throughout <Lara Beth NP - Last Filed: 07/30/22 02:17> GI Inspection: Yes normal to inspection <Lara Beth NP - Last Filed: 07/30/22 02:17> Palpation (GI): Soft to palpation and Tenderness to palpation present (GI) (mild diffuse tenderness) <Lara Beth NP - Last Filed: 07/30/22 02:17> Auscultation: normal bowel sounds <Lara Beth NP - Last Filed: 07/30/22 02:17> General: Yes no CVA tenderness <Lara Beth NP - Last Filed: 07/30/22 02:17> Back/Spine/Pelvis Back: no CVA tenderness <Lara Beth NP - Last Filed: 07/30/22 02:17> Thoracic/Lumbar Spine: thoracic and lumbar spine normal to inspection <Lara Beth NP - Last Filed: 07/30/22 02:17> Skin General skin exam: no rashes or lesions noted <Lara Beth NP - Last Filed: 07/30/22 02:17> Neuro General: patient oriented x3 and moves all extremities <Lara Beth NP - Last Filed: 07/30/22 02:17> Cranial nerves: Yes CN's II-XII intact bilaterally, Yes Equal, round and reactive pupils present, Yes Bilaterally intact EOM present, Yes Nystagmus not present, Yes Normal facial strength present and Yes Midline tongue present <Lara Beth NP - Last Filed: 07/30/22 02:17> Cognition (Neuro): normal cognition <Lara Beth NP - Last Filed: 07/30/22 02:17> Speech: No Abnormal speech present <Lara Beth NP - Last Filed: 07/30/22 02:17> Motor exam (neuro): 5/5 motor strength present throughout <Lara Beth NP - Last Filed: 07/30/22 02:17> Sensory Exam: Normal double simultaneous stimulation for sensation <Lara eBth NP - Last Filed: 07/30/22 02:17> Extrem General: Yes normal to inspection, Yes no pedal edema and Yes no calf tenderness <Lara Beth NP - Last Filed: 07/30/22 02:17> Course Course Course Narrative: 223-Patient received 4mg zofran IVP on arrival. Daughter called me into the room. States patient was not responding to her. When I got into the room the patient was vomiting. Patient is alert, eyes are open, moving all extremities equally and purposefully, PERRLA. Repeat VS are normal. BG 129. Will CTM. Repeat dose of zofran 4mg IVP ordered. <Lara Beth NP - Last Filed: 07/30/22 02:17> Reevaluation(s) Reevaluation #1: 0030-UA shows no signs of infection. Labs are unremarkable. EKG shows no ischemic changes. CT A/P negative for any acute abdominal pathology. Patient continues to report nausea. NO additional vomiting episodes. Will give benadryl 25mg IVP. ?from viral infection. Patient also taking cefuroxime since Tuesday for UTI so ? medication related. Will attempt PO trial post benadryl Spoke to daughter at length at the bedside. Patient had fall 06/24. Seen at [facility] ED. Had negative CT scans of brain. Was weak so held in ER for 3 days pending PT/CM involvement per family. Ended up going home with physical therapy at home. Since fall daughter reports patient has had episodes of confusion, feeling weak, poor appetite. No history of dementia. She does have PT at home and has f/u appointment with PCP on Tuesday (08/03). Does feel PT has been helpful. Doesn't feel that patient needs short term rehab. She does plan on discussing the above with PCP during next visit. Will get records from [facility] to confirm imaging. NO focal neurological finding on exam to warrant further brain imaging here if patient has had this done previously. No new falls since 06/24 <Lara Beth NP - Last Filed: 07/30/22 02:17> Reevaluation #2: 0200-reviewed records from [facility]. Patient was seen there and admitted 06/24-06/27 there. At that time patient was admitted for syncopal episode. She was also COVID positive. Syncope was thought to be secondary to dehydration. Patient did have a CT of the head which was negative for any acute finding. She also had an echo which was normal was 65-70% EF with no regional wall abnormalities and bilateral carotid ultrasounds which showed mild carotid stenosis. Patient is on aspirin and statin. Sign out to Dr Jhaveri pending PO trial, home vs admission (if unable to tolerate PO) vs CM/PT (if family changes their mind). <Lara Beth NP - Last Filed: 07/30/22 02:17> Time: 04:00 <Raffi Jhaveri MD - Last Filed: 07/30/22 06:32> Reevaluation #3: Patient suddenly became unresponsive night monitor showed asystole about 10 seconds chest compressions done and patient back to sinus rhythm will put external pacer plan to admit a cardiology evaluation possible pacemaker insertion <Raffi Jhaveri MD - Last Filed: 07/30/22 06:32> Medical Decision Making MDM Narrative Medical decision making narrative: 81-year-old female with a history of abdominal surgery here with generalized abdominal discomfort which is mild but multiple episodes of NBNB vomiting at home today. Will need CT, labs, UA, COVID screen. Consider small-bowel obstruction, UTI, pyelo <Lara Beth NP - Last Filed: 07/30/22 02:17> 81-year-old female with a history of abdominal surgery here with generalized abdominal discomfort which is mild but multiple episodes of NBNB vomiting at home today. Will need CT, labs, UA, COVID screen. Consider small-bowel obstruction, UTI, pyelo 530 am patient 81 years old brought by her daughter for near-syncope episode started after noon today followed by nausea and vomiting 1st episode was patient sitting almost passing out at that time patient did not have any nausea /vomiting since then patient had multiple episode of vomiting with passing out episodes CT scan of the abdomen was negative for any obstruction during stay in the ER patient had sinus pauses maximum of 14 seconds symptoms with vomiting sometimes without vomiting last episode was at 04:00 had to do chest compressions for few seconds , case discussed with Dr. Mart registered nurse first assistant advise patient to get a pacemaker early today external beds were applied <Raffi Jhaveri MD - Last Filed: 07/30/22 06:32> Medical Records Medical records reviewed: Yes I reviewed the patient's medical records. <Lara eBth NP - Last Filed: 07/30/22 02:17> Lab Data Lab results reviewed: Yes I reviewed the patient's lab results. <Lara Beth NP - Last Filed: 07/30/22 02:17> Result diagrams: : 07/29/22 22:13 07/29/22 22:13 <Lara Beth NP - Last Filed: 07/30/22 02:17> Labs: Lab Results 07/29/22 07/29/22 07/29/22 Range/Units 20:58 20:58 22:13 WBC 8.4 (4.8-10.8) X10*3/uL RBC 4.64 (4.20-5.50) X10*6/uL Hgb 13.6 (12.0-16.0) g/dl Hct 40.7 (37.0-47.0) % MCV 87.7 (80.0-98.0) fL MCH 29.3 (27.0-33.0) pg MCHC 33.4 (31.0-35.0) g/dl RDW 13.4 (11.0-16.0) % Plt Count 199 (160-400) X10*3/uL MPV 10.2 (9.4-12.3) fL Immature Gran % (Auto) 0.2 (0.0-0.4) % Neut % (Auto) 91.4 H (45-73) % Lymph % (Auto) 5.4 L (20-40) % [place] % (Auto) 2.4 (2-11) % Eos % (Auto) 0.2 (0-4) % Baso % (Auto) 0.4 (0-2) % Lymph # (Auto) 0.5 L (1.2-4.9) X10*3/uL [place] # (Auto) 0.2 (0.1-1.2) X10*3/uL Eos # (Auto) 0.0 (0.0-0.4) X10*3/uL Baso # (Auto) 0.0 (0.0-0.2) X10*3/uL Abs Immat Gran (auto) 0.02 (0.00-0.03) X10*3/uL Absolute Neuts (auto) 7.6 (2.0-8.3) x10*3/uL Absolute Nucleated RBC 0.000 (0.0-0.012) X10*3/uL Nucleated RBC % (auto) 0.0 (0.0-0.2) /100WBC Smear Tech's Comments VERIFIED PT (10.0-13.1) SEC INR (0.9-1.1) Sodium (135-145) mmol/L Potassium (3.3-5.1) mmol/L Chloride (96-108) mmol/L Carbon Dioxide (22-29) mmol/L Anion Gap (12-20) BUN (9-16) mg/dL Creatinine (0.5-1.4) mg/dL Estim Creat Clear Calc Estimated GFR POC Glucose (60-115) mg/dL Random Glucose (60-115) mg/dL Calcium (8.4-10.2) mg/dL Magnesium (1.6-2.6) mg/dL Total Bilirubin (0.0-1.0) mg/dL Direct Bilirubin (0.0-0.5) mg/dL AST (5-31) U/L ALT (0-31) U/L Alkaline Phosphatase (39-117) U/L Troponin I High Sens (<3.5-17.0) ng/L Total Protein (6.5-8.0) g/dL Albumin (3.5-5.0) g/dL Urine Color Urine Appearance Urine pH (5.0-9.0) Ur Specific [place] (1.005-1.025) Urine Protein (Neg-Trace) mg/dL Urine Glucose (UA) (Negative) mg/dL Urine Ketones (Negative) mg/dL Urine Blood (Negative) Urine Nitrite (Negative) Ur Leukocyte Esterase (Negative) COVID-19 (EMRE) Negative (Negative) COVID-19 Clin Com See Note Influenza Type A (CARLOS) Negative (Negative) Influenza Type B (CARLOS) Negative (Negative) Influenza A & B Note See Note Blood Type Antibody Screen 07/29/22 07/29/22 07/30/22 Range/Units 22:13 23:40 00:08 WBC (4.8-10.8) X10*3/uL RBC (4.20-5.50) X10*6/uL Hgb (12.0-16.0) g/dl Hct (37.0-47.0) % MCV (80.0-98.0) fL MCH (27.0-33.0) pg MCHC (31.0-35.0) g/dl RDW (11.0-16.0) % Plt Count (160-400) X10*3/uL MPV (9.4-12.3) fL Immature Gran % (Auto) (0.0-0.4) % Neut % (Auto) (45-73) % Lymph % (Auto) (20-40) % [place] % (Auto) (2-11) % Eos % (Auto) (0-4) % Baso % (Auto) (0-2) % Lymph # (Auto) (1.2-4.9) X10*3/uL [place] # (Auto) (0.1-1.2) X10*3/uL Eos # (Auto) (0.0-0.4) X10*3/uL Baso # (Auto) (0.0-0.2) X10*3/uL Abs Immat Gran (auto) (0.00-0.03) X10*3/uL Absolute Neuts (auto) (2.0-8.3) x10*3/uL Absolute Nucleated RBC (0.0-0.012) X10*3/uL Nucleated RBC % (auto) (0.0-0.2) /100WBC Smear Tech's Comments PT (10.0-13.1) SEC INR (0.9-1.1) Sodium 138 (135-145) mmol/L Potassium 4.1 (3.3-5.1) mmol/L Chloride 103 (96-108) mmol/L Carbon Dioxide 24 (22-29) mmol/L Anion Gap 15 (12-20) BUN 15 (9-16) mg/dL Creatinine 0.60 (0.5-1.4) mg/dL Estim Creat Clear Calc 55.6 Estimated GFR > 60 POC Glucose 129 H (60-115) mg/dL Random Glucose 172 H (60-115) mg/dL Calcium 8.5 D (8.4-10.2) mg/dL Magnesium (1.6-2.6) mg/dL Total Bilirubin 0.6 (0.0-1.0) mg/dL Direct Bilirubin 0.2 (0.0-0.5) mg/dL AST 25 (5-31) U/L ALT 17 (0-31) U/L Alkaline Phosphatase 115 (39-117) U/L Troponin I High Sens (<3.5-17.0) ng/L Total Protein 6.8 (6.5-8.0) g/dL Albumin 3.2 L (3.5-5.0) g/dL Urine Color Yellow Urine Appearance Clear Urine pH 6.5 (5.0-9.0) Ur Specific [place] 1.020 (1.005-1.025) Urine Protein Negative (Neg-Trace) mg/dL Urine Glucose (UA) Negative (Negative) mg/dL Urine Ketones Trace (Negative) mg/dL Urine Blood Negative (Negative) Urine Nitrite Negative (Negative) Ur Leukocyte Esterase Negative (Negative) COVID-19 (EMRE) (Negative) COVID-19 Clin Com Influenza Type A (CARLOS) (Negative) Influenza Type B (CARLOS) (Negative) Influenza A & B Note Blood Type Antibody Screen 07/30/22 07/30/22 07/30/22 Range/Units 04:10 04:33 04:33 WBC (4.8-10.8) X10*3/uL RBC (4.20-5.50) X10*6/uL Hgb (12.0-16.0) g/dl Hct (37.0-47.0) % MCV (80.0-98.0) fL MCH (27.0-33.0) pg MCHC (31.0-35.0) g/dl RDW (11.0-16.0) % Plt Count (160-400) X10*3/uL MPV (9.4-12.3) fL Immature Gran % (Auto) (0.0-0.4) % Neut % (Auto) (45-73) % Lymph % (Auto) (20-40) % [place] % (Auto) (2-11) % Eos % (Auto) (0-4) % Baso % (Auto) (0-2) % Lymph # (Auto) (1.2-4.9) X10*3/uL [place] # (Auto) (0.1-1.2) X10*3/uL Eos # (Auto) (0.0-0.4) X10*3/uL Baso # (Auto) (0.0-0.2) X10*3/uL Abs Immat Gran (auto) (0.00-0.03) X10*3/uL Absolute Neuts (auto) (2.0-8.3) x10*3/uL Absolute Nucleated RBC (0.0-0.012) X10*3/uL Nucleated RBC % (auto) (0.0-0.2) /100WBC Smear Tech's Comments PT 13.3 H (10.0-13.1) SEC INR 1.2 H (0.9-1.1) Sodium (135-145) mmol/L Potassium (3.3-5.1) mmol/L Chloride (96-108) mmol/L Carbon Dioxide (22-29) mmol/L Anion Gap (12-20) BUN (9-16) mg/dL Creatinine (0.5-1.4) mg/dL Estim Creat Clear Calc Estimated GFR POC Glucose 127 H (60-115) mg/dL Random Glucose (60-115) mg/dL Calcium (8.4-10.2) mg/dL Magnesium 1.9 (1.6-2.6) mg/dL Total Bilirubin (0.0-1.0) mg/dL Direct Bilirubin (0.0-0.5) mg/dL AST (5-31) U/L ALT (0-31) U/L Alkaline Phosphatase (39-117) U/L Troponin I High Sens (<3.5-17.0) ng/L Total Protein (6.5-8.0) g/dL Albumin (3.5-5.0) g/dL Urine Color Urine Appearance Urine pH (5.0-9.0) Ur Specific [place] (1.005-1.025) Urine Protein (Neg-Trace) mg/dL Urine Glucose (UA) (Negative) mg/dL Urine Ketones (Negative) mg/dL Urine Blood (Negative) Urine Nitrite (Negative) Ur Leukocyte Esterase (Negative) COVID-19 (EMRE) (Negative) COVID-19 Clin Com Influenza Type A (CARLOS) (Negative) Influenza Type B (CARLOS) (Negative) Influenza A & B Note Blood Type Antibody Screen 07/30/22 07/30/22 07/30/22 Range/Units 04:34 06:50 07:53 WBC (4.8-10.8) X10*3/uL RBC (4.20-5.50) X10*6/uL Hgb (12.0-16.0) g/dl Hct (37.0-47.0) % MCV (80.0-98.0) fL MCH (27.0-33.0) pg MCHC (31.0-35.0) g/dl RDW (11.0-16.0) % Plt Count (160-400) X10*3/uL MPV (9.4-12.3) fL Immature Gran % (Auto) (0.0-0.4) % Neut % (Auto) (45-73) % Lymph % (Auto) (20-40) % [place] % (Auto) (2-11) % Eos % (Auto) (0-4) % Baso % (Auto) (0-2) % Lymph # (Auto) (1.2-4.9) X10*3/uL [place] # (Auto) (0.1-1.2) X10*3/uL Eos # (Auto) (0.0-0.4) X10*3/uL Baso # (Auto) (0.0-0.2) X10*3/uL Abs Immat Gran (auto) (0.00-0.03) X10*3/uL Absolute Neuts (auto) (2.0-8.3) x10*3/uL Absolute Nucleated RBC (0.0-0.012) X10*3/uL Nucleated RBC % (auto) (0.0-0.2) /100WBC Smear Tech's Comments PT (10.0-13.1) SEC INR (0.9-1.1) Sodium (135-145) mmol/L Potassium (3.3-5.1) mmol/L Chloride (96-108) mmol/L Carbon Dioxide (22-29) mmol/L Anion Gap (12-20) BUN (9-16) mg/dL Creatinine (0.5-1.4) mg/dL Estim Creat Clear Calc Estimated GFR POC Glucose (60-115) mg/dL Random Glucose (60-115) mg/dL Calcium (8.4-10.2) mg/dL Magnesium (1.6-2.6) mg/dL Total Bilirubin (0.0-1.0) mg/dL Direct Bilirubin (0.0-0.5) mg/dL AST (5-31) U/L ALT (0-31) U/L Alkaline Phosphatase (39-117) U/L Troponin I High Sens 5.2 4.2 (<3.5-17.0) ng/L Total Protein (6.5-8.0) g/dL Albumin (3.5-5.0) g/dL Urine Color Urine Appearance Urine pH (5.0-9.0) Ur Specific [place] (1.005-1.025) Urine Protein (Neg-Trace) mg/dL Urine Glucose (UA) (Negative) mg/dL Urine Ketones (Negative) mg/dL Urine Blood (Negative) Urine Nitrite (Negative) Ur Leukocyte Esterase (Negative) COVID-19 (EMRE) (Negative) COVID-19 Clin Com Influenza Type A (CARLOS) (Negative) Influenza Type B (CARLOS) (Negative) Influenza A & B Note Blood Type A Positive Antibody Screen NEGATIVE <Lara Beth NP - Last Filed: 07/30/22 02:17> Lab Results 07/29/22 07/29/22 07/29/22 Range/Units 20:58 20:58 22:13 WBC 8.4 (4.8-10.8) X10*3/uL RBC 4.64 (4.20-5.50) X10*6/uL Hgb 13.6 (12.0-16.0) g/dl Hct 40.7 (37.0-47.0) % MCV 87.7 (80.0-98.0) fL MCH 29.3 (27.0-33.0) pg MCHC 33.4 (31.0-35.0) g/dl RDW 13.4 (11.0-16.0) % Plt Count 199 (160-400) X10*3/uL MPV 10.2 (9.4-12.3) fL Immature Gran % (Auto) 0.2 (0.0-0.4) % Neut % (Auto) 91.4 H (45-73) % Lymph % (Auto) 5.4 L (20-40) % [place] % (Auto) 2.4 (2-11) % Eos % (Auto) 0.2 (0-4) % Baso % (Auto) 0.4 (0-2) % Lymph # (Auto) 0.5 L (1.2-4.9) X10*3/uL [place] # (Auto) 0.2 (0.1-1.2) X10*3/uL Eos # (Auto) 0.0 (0.0-0.4) X10*3/uL Baso # (Auto) 0.0 (0.0-0.2) X10*3/uL Abs Immat Gran (auto) 0.02 (0.00-0.03) X10*3/uL Absolute Neuts (auto) 7.6 (2.0-8.3) x10*3/uL Absolute Nucleated RBC 0.000 (0.0-0.012) X10*3/uL Nucleated RBC % (auto) 0.0 (0.0-0.2) /100WBC Smear Tech's Comments VERIFIED PT (10.0-13.1) SEC INR (0.9-1.1) Sodium (135-145) mmol/L Potassium (3.3-5.1) mmol/L Chloride (96-108) mmol/L Carbon Dioxide (22-29) mmol/L Anion Gap (12-20) BUN (9-16) mg/dL Creatinine (0.5-1.4) mg/dL Estim Creat Clear Calc Estimated GFR POC Glucose (60-115) mg/dL Random Glucose (60-115) mg/dL Calcium (8.4-10.2) mg/dL Magnesium (1.6-2.6) mg/dL Total Bilirubin (0.0-1.0) mg/dL Direct Bilirubin (0.0-0.5) mg/dL AST (5-31) U/L ALT (0-31) U/L Alkaline Phosphatase (39-117) U/L Troponin I High Sens (<3.5-17.0) ng/L Total Protein (6.5-8.0) g/dL Albumin (3.5-5.0) g/dL Urine Color Urine Appearance Urine pH (5.0-9.0) Ur Specific [place] (1.005-1.025) Urine Protein (Neg-Trace) mg/dL Urine Glucose (UA) (Negative) mg/dL Urine Ketones (Negative) mg/dL Urine Blood (Negative) Urine Nitrite (Negative) Ur Leukocyte Esterase (Negative) COVID-19 (EMRE) Negative (Negative) COVID-19 Clin Com See Note Influenza Type A (CARLOS) Negative (Negative) Influenza Type B (CARLOS) Negative (Negative) Influenza A & B Note See Note Blood Type Antibody Screen 07/29/22 07/29/22 07/30/22 Range/Units 22:13 23:40 00:08 WBC (4.8-10.8) X10*3/uL RBC (4.20-5.50) X10*6/uL Hgb (12.0-16.0) g/dl Hct (37.0-47.0) % MCV (80.0-98.0) fL MCH (27.0-33.0) pg MCHC (31.0-35.0) g/dl RDW (11.0-16.0) % Plt Count (160-400) X10*3/uL MPV (9.4-12.3) fL Immature Gran % (Auto) (0.0-0.4) % Neut % (Auto) (45-73) % Lymph % (Auto) (20-40) % [place] % (Auto) (2-11) % Eos % (Auto) (0-4) % Baso % (Auto) (0-2) % Lymph # (Auto) (1.2-4.9) X10*3/uL [place] # (Auto) (0.1-1.2) X10*3/uL Eos # (Auto) (0.0-0.4) X10*3/uL Baso # (Auto) (0.0-0.2) X10*3/uL Abs Immat Gran (auto) (0.00-0.03) X10*3/uL Absolute Neuts (auto) (2.0-8.3) x10*3/uL Absolute Nucleated RBC (0.0-0.012) X10*3/uL Nucleated RBC % (auto) (0.0-0.2) /100WBC Smear Tech's Comments PT (10.0-13.1) SEC INR (0.9-1.1) Sodium 138 (135-145) mmol/L Potassium 4.1 (3.3-5.1) mmol/L Chloride 103 (96-108) mmol/L Carbon Dioxide 24 (22-29) mmol/L Anion Gap 15 (12-20) BUN 15 (9-16) mg/dL Creatinine 0.60 (0.5-1.4) mg/dL Estim Creat Clear Calc 55.6 Estimated GFR > 60 POC Glucose 129 H (60-115) mg/dL Random Glucose 172 H (60-115) mg/dL Calcium 8.5 D (8.4-10.2) mg/dL Magnesium (1.6-2.6) mg/dL Total Bilirubin 0.6 (0.0-1.0) mg/dL Direct Bilirubin 0.2 (0.0-0.5) mg/dL AST 25 (5-31) U/L ALT 17 (0-31) U/L Alkaline Phosphatase 115 (39-117) U/L Troponin I High Sens (<3.5-17.0) ng/L Total Protein 6.8 (6.5-8.0) g/dL Albumin 3.2 L (3.5-5.0) g/dL Urine Color Yellow Urine Appearance Clear Urine pH 6.5 (5.0-9.0) Ur Specific [place] 1.020 (1.005-1.025) Urine Protein Negative (Neg-Trace) mg/dL Urine Glucose (UA) Negative (Negative) mg/dL Urine Ketones Trace (Negative) mg/dL Urine Blood Negative (Negative) Urine Nitrite Negative (Negative) Ur Leukocyte Esterase Negative (Negative) COVID-19 (EMRE) (Negative) COVID-19 Clin Com Influenza Type A (CARLOS) (Negative) Influenza Type B (CARLOS) (Negative) Influenza A & B Note Blood Type Antibody Screen 07/30/22 07/30/22 07/30/22 Range/Units 04:10 04:33 04:33 WBC (4.8-10.8) X10*3/uL RBC (4.20-5.50) X10*6/uL Hgb (12.0-16.0) g/dl Hct (37.0-47.0) % MCV (80.0-98.0) fL MCH (27.0-33.0) pg MCHC (31.0-35.0) g/dl RDW (11.0-16.0) % Plt Count (160-400) X10*3/uL MPV (9.4-12.3) fL Immature Gran % (Auto) (0.0-0.4) % Neut % (Auto) (45-73) % Lymph % (Auto) (20-40) % [place] % (Auto) (2-11) % Eos % (Auto) (0-4) % Baso % (Auto) (0-2) % Lymph # (Auto) (1.2-4.9) X10*3/uL [place] # (Auto) (0.1-1.2) X10*3/uL Eos # (Auto) (0.0-0.4) X10*3/uL Baso # (Auto) (0.0-0.2) X10*3/uL Abs Immat Gran (auto) (0.00-0.03) X10*3/uL Absolute Neuts (auto) (2.0-8.3) x10*3/uL Absolute Nucleated RBC (0.0-0.012) X10*3/uL Nucleated RBC % (auto) (0.0-0.2) /100WBC Smear Tech's Comments PT 13.3 H (10.0-13.1) SEC INR 1.2 H (0.9-1.1) Sodium (135-145) mmol/L Potassium (3.3-5.1) mmol/L Chloride (96-108) mmol/L Carbon Dioxide (22-29) mmol/L Anion Gap (12-20) BUN (9-16) mg/dL Creatinine (0.5-1.4) mg/dL Estim Creat Clear Calc Estimated GFR POC Glucose 127 H (60-115) mg/dL Random Glucose (60-115) mg/dL Calcium (8.4-10.2) mg/dL Magnesium 1.9 (1.6-2.6) mg/dL Total Bilirubin (0.0-1.0) mg/dL Direct Bilirubin (0.0-0.5) mg/dL AST (5-31) U/L ALT (0-31) U/L Alkaline Phosphatase (39-117) U/L Troponin I High Sens (<3.5-17.0) ng/L Total Protein (6.5-8.0) g/dL Albumin (3.5-5.0) g/dL Urine Color Urine Appearance Urine pH (5.0-9.0) Ur Specific [place] (1.005-1.025) Urine Protein (Neg-Trace) mg/dL Urine Glucose (UA) (Negative) mg/dL Urine Ketones (Negative) mg/dL Urine Blood (Negative) Urine Nitrite (Negative) Ur Leukocyte Esterase (Negative) COVID-19 (EMRE) (Negative) COVID-19 Clin Com Influenza Type A (CARLOS) (Negative) Influenza Type B (CARLOS) (Negative) Influenza A & B Note Blood Type Antibody Screen 07/30/22 07/30/22 07/30/22 Range/Units 04:34 06:50 07:53 WBC (4.8-10.8) X10*3/uL RBC (4.20-5.50) X10*6/uL Hgb (12.0-16.0) g/dl Hct (37.0-47.0) % MCV (80.0-98.0) fL MCH (27.0-33.0) pg MCHC (31.0-35.0) g/dl RDW (11.0-16.0) % Plt Count (160-400) X10*3/uL MPV (9.4-12.3) fL Immature Gran % (Auto) (0.0-0.4) % Neut % (Auto) (45-73) % Lymph % (Auto) (20-40) % [place] % (Auto) (2-11) % Eos % (Auto) (0-4) % Baso % (Auto) (0-2) % Lymph # (Auto) (1.2-4.9) X10*3/uL [place] # (Auto) (0.1-1.2) X10*3/uL Eos # (Auto) (0.0-0.4) X10*3/uL Baso # (Auto) (0.0-0.2) X10*3/uL Abs Immat Gran (auto) (0.00-0.03) X10*3/uL Absolute Neuts (auto) (2.0-8.3) x10*3/uL Absolute Nucleated RBC (0.0-0.012) X10*3/uL Nucleated RBC % (auto) (0.0-0.2) /100WBC Smear Tech's Comments PT (10.0-13.1) SEC INR (0.9-1.1) Sodium (135-145) mmol/L Potassium (3.3-5.1) mmol/L Chloride (96-108) mmol/L Carbon Dioxide (22-29) mmol/L Anion Gap (12-20) BUN (9-16) mg/dL Creatinine (0.5-1.4) mg/dL Estim Creat Clear Calc Estimated GFR POC Glucose (60-115) mg/dL Random Glucose (60-115) mg/dL Calcium (8.4-10.2) mg/dL Magnesium (1.6-2.6) mg/dL Total Bilirubin (0.0-1.0) mg/dL Direct Bilirubin (0.0-0.5) mg/dL AST (5-31) U/L ALT (0-31) U/L Alkaline Phosphatase (39-117) U/L Troponin I High Sens 5.2 4.2 (<3.5-17.0) ng/L Total Protein (6.5-8.0) g/dL Albumin (3.5-5.0) g/dL Urine Color Urine Appearance Urine pH (5.0-9.0) Ur Specific [place] (1.005-1.025) Urine Protein (Neg-Trace) mg/dL Urine Glucose (UA) (Negative) mg/dL Urine Ketones (Negative) mg/dL Urine Blood (Negative) Urine Nitrite (Negative) Ur Leukocyte Esterase (Negative) COVID-19 (EMRE) (Negative) COVID-19 Clin Com Influenza Type A (CARLOS) (Negative) Influenza Type B (CARLOS) (Negative) Influenza A & B Note Blood Type A Positive Antibody Screen NEGATIVE <Raffi Jhaveri MD - Last Filed: 07/30/22 06:32> Imaging Data CT scan - abdomen: Attestation: I personally reviewed and interpreted this imaging study as follows: <Lara Beth NP - Last Filed: 07/30/22 02:17> Radiologist's impression: FINDINGS: LUNG BASES: Trace left pleural effusion and accompanying atelectasis.? LIVER, GALLBLADDER, AND BILIARY TREE: The liver is normal in size, shape, and attenuation. No focal hepatic lesion or biliary ductal dilatation is present. Gallbladder unremarkable.? PANCREAS: Unremarkable.? SPLEEN: Unremarkable.? ADRENAL GLANDS: Unremarkable.? KIDNEYS AND URETERS: The kidneys are normal in size, shape, and attenuation. No hydronephrosis, hydroureter, or calculi seen. No perinephric stranding. ? BLADDER: Unremarkable.? GASTROINTESTINAL TRACT: Intact rectosigmoid anastomosis. Small sliding-type hiatal hernia. Small large bowel are unremarkable.? ABDOMINAL WALL: Small fat-containing midline lower abdominal wall hernia without inflammation.? LYMPH NODES: Normal. VASCULAR: Unremarkable. PELVIC VISCERA: Uterus and adnexa unremarkable.? OSSEOUS STRUCTURES: No acute or suspicious osseous abnormalities.? CT/CT abdomen pelvis w IV con IMPRESSION: *? No bowel obstruction. *? No etiology for the patient's symptomatology. *? Chronic findings as above. *? Trace left pleural effusion with accompanying atelectasis.? ? Fleischner guidelines were followed. <REEMA Hall Last Filed: 07/30/22 02:17> ECG Data Attestation: I personally reviewed and interpreted this ECG as follows: <Lara Beth NP - Last Filed: 07/30/22 02:17> Interpretation: Normal sinus rhythm with a rate of 94, normal OR, normal QRS, normal QT <Lara Beth NP - Last Filed: 07/30/22 02:17> Discharge Plan Discharge Clinical Impression: Near syncope, Sick sinus syndrome <REEMA Hall Last Filed: 07/30/22 02:17> Patient Disposition: Admitted As Inpatient <REEMA Hall Last Filed: 07/30/22 02:17> Discharge Date/Time: 07/30/22 08:34 <REEMA Hall Last Filed: 07/30/22 02:17>
[2022-07-29] MEDS: ondansetron HCL 4 MG/2 ML VIAL IVPUSH ×2 (21:08→23:39)
[2022-07-29] MEDS: 0.9 % Sodium Chloride 1,000 ML 999 ML IV (21:08)
--- NOTE | 2022-07-29 21:12 | PC.NURSE ---
Iv placed, pt placed on monitor. EKG completed, medicated per Mar. Awaiting testing and labs results.
[2022-07-29 22:00] VITALS: BP 143/69; PULSE 92; RESP 21; O2SAT 93
[2022-07-29 22:19] LABS: Basophils Percent Auto 0.4 % (0-2); Eosinophils Percent Auto 0.2 % (0-4); Hematocrit 40.7 % (37.0-47.0); Hemoglobin 13.6 g/dl (12.0-16.0); Imm Gran Abs Auto 0.02 X10*3/uL (0.00-0.03); Imm Gran Pct Auto 0.2 % (0.0-0.4); Lymphocytes Absolute Auto 0.5 X10*3/uL (1.2-4.9); Lymphocytes Percent Auto 5.4 % (20-40); MANUAL DIFF FLAG SCAN; Mean Corpuscular HGB Conc 33.4 g/dl (31.0-35.0); Mean Corpuscular Hemoglobin 29.3 pg (27.0-33.0); Mean Corpuscular Volume 87.7 fL (80.0-98.0); Mean Platelet Volume 10.2 fL (9.4-12.3); Monocytes Absolute Auto 0.2 X10*3/uL (0.1-1.2); Monocytes Percent Auto 2.4 % (2-11); Neutrophils Absolute Auto 7.6 x10*3/uL (2.0-8.3); Neutrophils Percent Auto 91.4 % (45-73); Platelet Count 199 X10*3/uL (160-400); Red Blood Count 4.64 X10*6/uL (4.20-5.50); Red Cell Distribution Width 13.4 % (11.0-16.0); SCAN SMEAR FLAG 1; White Blood Count 8.4 X10*3/uL (4.8-10.8)
[2022-07-29 22:30] LABS: IDNOW Serial# 16C4AD1C; Influenza A Negative (Negative); Influenza B2 Negative (Negative)
[2022-07-29 22:31] LABS: COVID-19 Test Negative (Negative)
[2022-07-29 22:37] LABS: Alanine Aminotransferase 17 U/L (0-31); Albumin Level 3.2 g/dL (3.5-5.0); Alkaline Phosphatase 115 U/L (39-117); Anion Gap 15 (12-20); Aspartate Amino Transferase 25 U/L (5-31); Bilirubin Direct 0.2 mg/dL (0.0-0.5); Bilirubin Total 0.6 mg/dL (0.0-1.0); Blood Urea Nitrogen 15 mg/dL (9-16); Calcium 8.5 mg/dL (8.4-10.2); Carbon Dioxide 24 mmol/L (22-29); Chloride 103 mmol/L (96-108); Creatinine Clr Calc Pharmacy 55.6; Estimated Glomerular Filt Rate > 60; Glucose Random 172 mg/dL (60-115); Potassium 4.1 mmol/L (3.3-5.1); Sodium 138 mmol/L (135-145); Total Protein 6.8 g/dL (6.5-8.0)
[2022-07-29] MEDS: iohexoL 350 MG/ML 100 ML INFUS..BTL IV (22:50)
[2022-07-29 23:04] LABS: SLIDE REVIEW VERIFIED
--- NOTE | 2022-07-29 23:43 | PC.NURSE ---
Medicated per Mar.
[2022-07-29 23:45] VITALS: BP 139/70; PULSE 99; RESP 8; TEMP 36.8; O2SAT 100
[2022-07-29 23:45] LABS: Glucose, Whole Blood 129 mg/dL (60-115)
[2022-07-30] VITALS (23 sets, daily range): BP systolic 115–156; BP diastolic 46–75; PULSE 60–89; RESP 14–18; TEMP 36.2–37.7; O2SAT 93–100
[2022-07-30 00:29] LABS: Appearance Urine Clear; Color Urine Yellow; Glucose Urine UA Negative (Negative); Leukocyte Esterase Urine Negative (Negative); Nitrite Urine Negative (Negative); PH 6.5 (5.0-9.0); Urine Blood Negative (Negative); Urine Ketones Trace mg/dL (Negative); Urine Protein Negative (Neg-Trace)
[2022-07-30] MEDS: diphenhydrAMINE HCL 50 MG/ML VIAL 25 MG IVPUSH (01:17)
--- NOTE | 2022-07-30 04:09 | ECG_ITS ---
Test Reason : CARDIAC ARREST Blood Pressure : / mmHG Vent. Rate : 099 BPM Atrial Rate : 099 BPM P-R Int : 166 ms QRS Dur : 072 ms QT Int : 358 ms P-R-T Axes : 074 039 049 degrees QTc Int : 459 ms Poor data quality Normal sinus rhythm Possible Left atrial enlargement RSR' or QR pattern in V1 suggests right ventricular conduction delay Borderline ECG When compared with ECG of 29-JUL-2022 20:51, No significant change was found Referred By: Lara Beth Electronically Signed By:MARELY COSTELLO MD
[2022-07-30 04:15] LABS: Glucose, Whole Blood 127 mg/dL (60-115)
--- NOTE | 2022-07-30 04:30 | PC.NURSE ---
pt was sleeping, cardiac exercise physiologist informed staff pt astyole on monitor. Nursing staff entered room started compression, after reviewing strip 4:04am heart rate was70 then went into the 40's and then zero heart rate. 4:05am heart rate back to 102 sinus. After auditing stripes if appears that pt had one other episode at 1:22am 8sec pause on beat the 13 sec pause then one beat then 4 sec. Provider into assess pt. Dr Answer concern pt has sick sinus syndrome. pt place on pacer pads. Provider placing consults with cardiology
[2022-07-30] MEDS: 0.9 % Sodium Chloride 1,000 ML 999 ML IV (04:43)
--- NOTE | 2022-07-30 04:44 | PC.NURSE ---
20G IV placed left forearm, labs drawn, medicated per provider order.
[2022-07-30 04:54] LABS: INTERNATIONAL NORM RATIO 1.2 (0.9-1.1); Magnesium 1.9 mg/dL (1.6-2.6); Prothrombin Time 13.3 SEC (10.0-13.1)
--- NOTE | 2022-07-30 04:54 | PC.NURSE ---
late note: At 1:22 daughter came out saying something wrong with pt, provider into assess MARK Bermudez into assess pt. pt was red in face. pt sat up and stated she wanted to vomit. Per provider continue to monitor, nauses medication ordered and continued to monitor.
[2022-07-30 05:02] LABS: Troponin-I High Sensitivity 5.2 ng/L (<3.5-17.0)
--- NOTE | 2022-07-30 05:04 | PC.NURSE ---
pt reports some chest discomfort 4/10 provider is aware, no new orders at this time. Per Dr Telles will continue to monitor.
--- NOTE | 2022-07-30 06:35 | PC.NURSE ---
Pt NPO, Type and screen being drawn. Plan is for pt to have pacer put in this morning.
[2022-07-30] MEDS: Morphine Sulfate 2 MG/ML CARTRIDGE 1 MG IVPUSH (06:53)
--- NOTE | 2022-07-30 06:55 | PC.NURSE ---
pt medicated per Dec for pain management.
--- NOTE | 2022-07-30 07:17 | PC.NURSE ---
PT IN BED WITH DAUGHTERS AT THE BEDSIDE. SHE IS AWAKE AND ORIENTED. IV ACCESS BILATERALLY. SHE IS IN A SR IN THE 80'S CURRENTLY. SHE BECOMES TACHYCARDIC WITH MINIMAL ACTIVITY. PACER PADS ARE IN PLACE
--- NOTE | 2022-07-30 08:03 | PC.NURSE ---
PT REPORTING RIGHT STERNAL CHEST PAIN. SHE HAS NO CURRENT CHANGES ON THE MONITOR, A REPEAT TROP WAS ORDERED AND DRAWN. THIS COULD BE RESIDUAL PAIN FROM THE COMPRESSIONS THAT WERE PERFORMED EARLIER DURING HER PROLONGED PAUSE
--- NOTE | 2022-07-30 08:09 | MHC.SHP ---
Pre-Procedural Eval Section A Date of Service: 07/30/22 The patient is an INPATIENT: Yes Section B Chief Complaint: nausea vomiting Allergies: Allergies Allergy/AdvReac Type Severity Reaction Status Date / Time No Known Allergies Allergy Verified 06/03/22 15:09 Plan I have reviewed the history and physical and performed a pertinent physical examination on my patient. No changes have occurred unless specified. 81-year-old woman with sick sinus syndrome, syncope, 14s pause. Plan is for dual-chamber pacemaker at 09:00.
--- NOTE | 2022-07-30 08:34 | PC.NURSE ---
PT TO THE OR. FAMILY PRESENT
[2022-07-30 08:51] LABS: Troponin-I High Sensitivity 4.2 ng/L (<3.5-17.0)
--- NOTE | 2022-07-30 08:57 | PHA.MEDREC ---
Pharmacy Consult ? Medication Reconciliation Pharmacy has completed the medication reconciliation. Confirmed medications with patient daughter. Falguni Zuleta, [facility]
--- NOTE | 2022-07-30 08:59 | PM.CNCAR ---
History of Present Illness History of Present Illness Date of Service: 07/30/22 Requesting physician: Raffi Jhaveri Chief complaint: nausea vomiting, heart block Narrative: 81-year-old lady presenting with vomiting and syncope. She had similar episode a few weeks ago when she fell and hit her head. Apparently she was sitting with her daughter when she rolled her eyes back and passed out. She said she was out for few seconds but then came back and was able to recognize her. No seizure-like activity was noticed. With the symptoms she came to the emergency department. In the ER she again had episode of vomiting and at that time had a 13-second pause. CPR was performed briefly. Thoracic surgery was consulted who will be placing a dual-chamber pacemaker today. On interviewing her today she is saying she has chest pain after the CPR was performed. Otherwise doing well. [facility] Past Medical History Medical History History of colon cancer (~2009) Hyperlipidemia Hypertension Lower abdominal pain Family History Family History Father History of colon cancer Sister History of pancreatic cancer Surgical History Surgical History History of colonoscopy History of partial colectomy (~2009) Social History Social History Household Members: None Housing: Apartment Are you a primary resident care director to a significant other at home: No Do you presently have visiting nurse or other home services: No Alcohol intake: never Patient Tobacco Use Status: Never used Tobacco Second Hand Smoke Exposure: No Use of substances other than those prescribed or required for medical reasons: No Are you DNR?: No Advance Directives: No Advance Directives Information Provided: No Advance Directives on File: No service: No Current occupational status: disabled Meds Allergies Allergy/AdvReac Type Severity Reaction Status Date / Time No Known Allergies Allergy Verified 06/03/22 15:09 Home Medications Medication Instructions Recorded Confirmed Last Taken Type amlodipine 10 mg tablet 10 mg PO DAILY 10/15/20 07/30/22 07/29/22 History aspirin 81 mg tablet,delayed 81 mg PO DAILY 10/15/20 07/30/22 07/29/22 History release atorvastatin 20 mg tablet 20 mg PO BEDTIME 10/15/20 07/30/22 07/29/22 History metoprolol tartrate 25 mg tablet 25 mg PO BID 10/15/20 07/30/22 07/29/22 History calcium carbonate 600 mg-vitamin 1 tab PO BID 11/20/20 07/30/22 07/29/22 History D3 10 mcg (400 unit) tablet brimonidine 0.2 % eye drops 1 drp ophthalmic (eye) BID 03/11/21 07/30/22 07/29/22 History clotrimazole 1 % topical cream 1 appl topical BID PRN Rash 07/30/22 07/30/22 Unknown History Physical Exam Vital Signs: Vital Signs: Last Vital Signs Temp 98.4 F 07/30/22 08:54 Pulse 79 07/30/22 08:54 Resp 16 07/30/22 08:54 BP 152/72 H 07/30/22 08:54 Pulse Ox 99 07/30/22 08:54 O2 Del Method 07/30/22 08:54 O2 Flow Rate 2 07/30/22 06:00 BMI result Body Mass Index 25.3 Objective Labs and Meds Result diagrams: 07/29/22 22:13 07/29/22 22:13 Lab results: Laboratory Results - last 24 hr 07/29/22 07/29/22 07/29/22 20:58 20:58 22:13 WBC 8.4 RBC 4.64 Hgb 13.6 Hct 40.7 MCV 87.7 MCH 29.3 MCHC 33.4 RDW 13.4 Plt Count 199 MPV 10.2 Immature Gran % (Auto) 0.2 Neut % (Auto) 91.4 H Lymph % (Auto) 5.4 L [place] % (Auto) 2.4 Eos % (Auto) 0.2 Baso % (Auto) 0.4 Lymph # (Auto) 0.5 L [place] # (Auto) 0.2 Eos # (Auto) 0.0 Baso # (Auto) 0.0 Abs Immat Gran (auto) 0.02 Absolute Neuts (auto) 7.6 Absolute Nucleated RBC 0.000 Nucleated RBC % (auto) 0.0 Smear Tech's Comments VERIFIED PT INR Sodium Potassium Chloride Carbon Dioxide Anion Gap BUN Creatinine Estim Creat Clear Calc Estimated GFR POC Glucose Random Glucose Calcium Magnesium Total Bilirubin Direct Bilirubin AST ALT Alkaline Phosphatase Troponin I High Sens Total Protein Albumin Urine Color Urine Appearance Urine pH Ur Specific [place] Urine Protein Urine Glucose (UA) Urine Ketones Urine Blood Urine Nitrite Ur Leukocyte Esterase COVID-19 (EMRE) Negative COVID-19 Clin Com See Note Influenza Type A (CARLOS) Negative Influenza Type B (CARLOS) Negative Influenza A & B Note See Note Blood Type Antibody Screen 07/29/22 07/29/22 07/30/22 22:13 23:40 00:08 WBC RBC Hgb Hct MCV MCH MCHC RDW Plt Count MPV Immature Gran % (Auto) Neut % (Auto) Lymph % (Auto) [place] % (Auto) Eos % (Auto) Baso % (Auto) Lymph # (Auto) [place] # (Auto) Eos # (Auto) Baso # (Auto) Abs Immat Gran (auto) Absolute Neuts (auto) Absolute Nucleated RBC Nucleated RBC % (auto) Smear Tech's Comments PT INR Sodium 138 Potassium 4.1 Chloride 103 Carbon Dioxide 24 Anion Gap 15 BUN 15 Creatinine 0.60 Estim Creat Clear Calc 55.6 Estimated GFR > 60 POC Glucose 129 H Random Glucose 172 H Calcium 8.5 D Magnesium Total Bilirubin 0.6 Direct Bilirubin 0.2 AST 25 ALT 17 Alkaline Phosphatase 115 Troponin I High Sens Total Protein 6.8 Albumin 3.2 L Urine Color Yellow Urine Appearance Clear Urine pH 6.5 Ur Specific [place] 1.020 Urine Protein Negative Urine Glucose (UA) Negative Urine Ketones Trace Urine Blood Negative Urine Nitrite Negative Ur Leukocyte Esterase Negative COVID-19 (EMRE) COVID-19 Clin Com Influenza Type A (CARLOS) Influenza Type B (CARLOS) Influenza A & B Note Blood Type Antibody Screen 07/30/22 07/30/22 07/30/22 04:10 04:33 04:33 WBC RBC Hgb Hct MCV MCH MCHC RDW Plt Count MPV Immature Gran % (Auto) Neut % (Auto) Lymph % (Auto) [place] % (Auto) Eos % (Auto) Baso % (Auto) Lymph # (Auto) [place] # (Auto) Eos # (Auto) Baso # (Auto) Abs Immat Gran (auto) Absolute Neuts (auto) Absolute Nucleated RBC Nucleated RBC % (auto) Smear Tech's Comments PT 13.3 H INR 1.2 H Sodium Potassium Chloride Carbon Dioxide Anion Gap BUN Creatinine Estim Creat Clear Calc Estimated GFR POC Glucose 127 H Random Glucose Calcium Magnesium 1.9 Total Bilirubin Direct Bilirubin AST ALT Alkaline Phosphatase Troponin I High Sens Total Protein Albumin Urine Color Urine Appearance Urine pH Ur Specific [place] Urine Protein Urine Glucose (UA) Urine Ketones Urine Blood Urine Nitrite Ur Leukocyte Esterase COVID-19 (EMRE) COVID-19 Clin Com Influenza Type A (CARLOS) Influenza Type B (CARLOS) Influenza A & B Note Blood Type Antibody Screen 07/30/22 07/30/22 07/30/22 04:34 06:50 07:53 WBC RBC Hgb Hct MCV MCH MCHC RDW Plt Count MPV Immature Gran % (Auto) Neut % (Auto) Lymph % (Auto) [place] % (Auto) Eos % (Auto) Baso % (Auto) Lymph # (Auto) [place] # (Auto) Eos # (Auto) Baso # (Auto) Abs Immat Gran (auto) Absolute Neuts (auto) Absolute Nucleated RBC Nucleated RBC % (auto) Smear Tech's Comments PT INR Sodium Potassium Chloride Carbon Dioxide Anion Gap BUN Creatinine Estim Creat Clear Calc Estimated GFR POC Glucose Random Glucose Calcium Magnesium Total Bilirubin Direct Bilirubin AST ALT Alkaline Phosphatase Troponin I High Sens 5.2 4.2 Total Protein Albumin Urine Color Urine Appearance Urine pH Ur Specific [place] Urine Protein Urine Glucose (UA) Urine Ketones Urine Blood Urine Nitrite Ur Leukocyte Esterase COVID-19 (EMRE) COVID-19 Clin Com Influenza Type A (CARLOS) Influenza Type B (CARLOS) Influenza A & B Note Blood Type A Positive Antibody Screen NEGATIVE Imaging Radiologist's impression: Impressions Abdomen/Pelvis CT 07/29/22 23:10 IMPRESSION: * No bowel obstruction. * No etiology for the patient's symptomatology. * Chronic findings as above. * Trace left pleural effusion with accompanying atelectasis. Fleischner guidelines were followed. Assessment and Plan (1) Hypertension: Status: Acute (2) Sick sinus syndrome: Status: Acute Plan 81-year-old female presenting with vomiting and syncope. she had a 13 sec pause in the ER. She has indication for PPM and will have pacemaker placed today. We will follow with you. Procedures Date of Service Date of Service: 07/30/22
--- NOTE | 2022-07-30 09:38 | PM.CNGS ---
History of Present Illness Consult details Consult date: 07/30/22 Requesting physician: Liang Mart Narrative: 81-year-old woman with multiple medical problems who actually presented at [facility] with syncope and was thought to have dehydration at that admission in June and was released. She presented to the emergency department here at [place] and then while being worked up for some nausea and vomiting I believe had a witnessed syncopal episode became unresponsive and on the monitor there was a 12nd pause. The staff responses quick enough that she did receive some chest compressions. I did review the strips from the ER. She does report some nausea vomiting and some fatigue. She currently does complain of chest pain I think is likely from her chest compressions. Her troponins are negative. EKG shows RVR Other than above, 12 point review of systems was done and documented separately in the office chart with detailed social and family history. [facility] Past Medical History Medical History History of colon cancer Hyperlipidemia Hypertension Lower abdominal pain Family History Family History Father History of colon cancer Sister History of pancreatic cancer Surgical History Surgical History Status post partial colectomy Social History Social History Household Members: None Housing: Apartment Are you a primary reproductive healthcare assistant to a significant other at home: No Do you presently have visiting nurse or other home services: No Alcohol intake: never Patient Tobacco Use Status: Never used Tobacco Second Hand Smoke Exposure: No Use of substances other than those prescribed or required for medical reasons: No Are you DNR?: No Advance Directives: No Advance Directives Information Provided: No Advance Directives on File: No service: No Current occupational status: disabled Meds Allergies Allergy/AdvReac Type Severity Reaction Status Date / Time No Known Allergies Allergy Verified 06/03/22 15:09 Home Medications Medication Instructions Recorded Confirmed Last Taken Type amlodipine 10 mg tablet 10 mg PO DAILY 10/15/20 07/30/22 07/29/22 History aspirin 81 mg tablet,delayed 81 mg PO DAILY 10/15/20 07/30/22 07/29/22 History release atorvastatin 20 mg tablet 20 mg PO BEDTIME 10/15/20 07/30/22 07/29/22 History metoprolol tartrate 25 mg tablet 25 mg PO BID 10/15/20 07/30/22 07/29/22 History calcium carbonate 600 mg-vitamin 1 tab PO BID 11/20/20 07/30/22 07/29/22 History D3 10 mcg (400 unit) tablet brimonidine 0.2 % eye drops 1 drp ophthalmic (eye) BID 03/11/21 07/30/22 07/29/22 History clotrimazole 1 % topical cream 1 appl topical BID PRN Rash 07/30/22 07/30/22 Unknown History Physical Exam Vital Signs: Vital Signs: Last Vital Signs Temp 98.4 F 07/30/22 08:54 Pulse 79 07/30/22 08:54 Resp 16 07/30/22 08:54 BP 152/72 H 07/30/22 08:54 Pulse Ox 99 07/30/22 08:54 O2 Del Method 07/30/22 08:54 O2 Flow Rate 2 07/30/22 06:00 BMI result Body Mass Index 25.3 General: No acute distress she does seem slightly lethargic HEENT: Moist mucous membranes, normocephalic, pupils equal round and reactive to light. Neck: No thyromegaly, supple, no JVD Lymph: No cervical, supraclavicular, or other lymphadenopathy Chest: No chest wall abnormalities or deformities Heart: Regular rate and rhythm Lungs: Clear to auscultation bilaterally Abdomen: Soft, nontender, normal bowel sounds Extremities: No edema, cyanosis, or clubbing. Full range of motion Neuro: Grossly intact, alert and oriented x3, and nonfocal Skin: Warm and dry no rashes Affect: Normal Results Labs Result diagrams: 07/29/22 22:13 07/29/22 22:13 Labs: Abnormal lab results 07/29/22 07/29/22 07/29/22 Range/Units 22:13 22:13 23:40 Neut % (Auto) 91.4 H (45-73) % Lymph % (Auto) 5.4 L (20-40) % Lymph # (Auto) 0.5 L (1.2-4.9) X10*3/uL PT (10.0-13.1) SEC INR (0.9-1.1) POC Glucose 129 H (60-115) mg/dL Random Glucose 172 H (60-115) mg/dL Albumin 3.2 L (3.5-5.0) g/dL 07/30/22 07/30/22 Range/Units 04:10 04:33 Neut % (Auto) (45-73) % Lymph % (Auto) (20-40) % Lymph # (Auto) (1.2-4.9) X10*3/uL PT 13.3 H (10.0-13.1) SEC INR 1.2 H (0.9-1.1) POC Glucose 127 H (60-115) mg/dL Random Glucose (60-115) mg/dL Albumin (3.5-5.0) g/dL Short CBC 07/29/22 Range/Units 22:13 WBC 8.4 (4.8-10.8) X10*3/uL Hgb 13.6 (12.0-16.0) g/dl Hct 40.7 (37.0-47.0) % Plt Count 199 (160-400) X10*3/uL BMP 07/29/22 22:13 Sodium 138 Potassium 4.1 Chloride 103 Carbon Dioxide 24 BUN 15 Creatinine 0.60 Calcium 8.5 D Liver Function 07/29/22 Range/Units 22:13 Total Bilirubin 0.6 (0.0-1.0) mg/dL Direct Bilirubin 0.2 (0.0-0.5) mg/dL AST 25 (5-31) U/L ALT 17 (0-31) U/L Alkaline Phosphatase 115 (39-117) U/L Albumin 3.2 L (3.5-5.0) g/dL Urine 07/30/22 Range/Units 00:08 Urine Color Yellow Urine Appearance Clear Urine pH 6.5 (5.0-9.0) Ur Specific [place] 1.020 (1.005-1.025) Urine Protein Negative (Neg-Trace) mg/dL Urine Glucose (UA) Negative (Negative) mg/dL All other labs normal. Imaging Chest x-ray: image reviewed EKG: image reviewed Assessment and Plan (1) Sick sinus syndrome: Status: Acute I had a long discussion with the patient and her daughter about the current situation. We discussed in detail the risks, benefits, and alternatives of a dual-chamber permanent pacemaker. She and her daughter understood and agreed to proceed. Plan to proceed to the OR this morning. (2) Near syncope: Status: Acute Procedures Date of Service Date of Service: 07/30/22
--- NOTE | 2022-07-30 09:46 | P.CONAN_ITS ---
HPI - Anesthesia Eval Consult details Narrative: Sick Sinus Syndrome PMF Active Problems Active Problems: All Active Problems (Updated 07/30/22 @ 05:55 by Raffi Jhaveri MD) Near syncope (Acute) Sick sinus syndrome (Acute) Colon carcinoma (Acute) Lower abdominal pain (Acute) History of colon cancer (Acute) Status post partial colectomy (Acute) Hyperlipidemia (Acute) Hypertension (Acute) Past Medical History Medical History History of colon cancer Hyperlipidemia Hypertension Lower abdominal pain Family History Family History Father History of colon cancer Sister History of pancreatic cancer Family history of problems with anesthesia: No Surgical History Surgical History Status post partial colectomy History of Problems with Anesthesia: No Social History Social History Household Members: None Housing: Apartment Are you a primary acute care assistant to a significant other at home: No Do you presently have visiting nurse or other home services: No Alcohol intake: never Patient Tobacco Use Status: Never used Tobacco Second Hand Smoke Exposure: No Use of substances other than those prescribed or required for medical reasons: No Are you DNR?: No Advance Directives: No Advance Directives Information Provided: No Advance Directives on File: No service: No Current occupational status: disabled Meds Allergies Allergy/AdvReac Type Severity Reaction Status Date / Time No Known Allergies Allergy Verified 06/03/22 15:09 Home Medications Medication Instructions Recorded Confirmed Last Taken Type amlodipine 10 mg tablet 10 mg PO DAILY 10/15/20 07/30/22 07/29/22 History aspirin 81 mg tablet,delayed 81 mg PO DAILY 10/15/20 07/30/22 07/29/22 History release atorvastatin 20 mg tablet 20 mg PO BEDTIME 10/15/20 07/30/22 07/29/22 History metoprolol tartrate 25 mg tablet 25 mg PO BID 10/15/20 07/30/22 07/29/22 History calcium carbonate 600 mg-vitamin 1 tab PO BID 11/20/20 07/30/22 07/29/22 History D3 10 mcg (400 unit) tablet brimonidine 0.2 % eye drops 1 drp ophthalmic (eye) BID 03/11/21 07/30/22 07/29/22 History clotrimazole 1 % topical cream 1 appl topical BID PRN Rash 07/30/22 07/30/22 Unknown History Exam Exam Date and Time: July 30, 2022 0946 Height,Weight and Vital Signs: Height 4 ft 11 in Weight 57 kg Last Vital Signs Temp 98.4 F 07/30/22 08:54 Pulse 79 07/30/22 08:54 Resp 16 07/30/22 08:54 BP 152/72 H 07/30/22 08:54 Pulse Ox 99 07/30/22 08:54 O2 Del Method 07/30/22 08:54 O2 Flow Rate 2 07/30/22 06:00 Pertinent Lab Results Pertinent Lab Results: Laboratory Tests 07/29/22 07/29/22 07/29/22 20:58 20:58 22:13 WBC 8.4 RBC 4.64 Hgb 13.6 Hct 40.7 MCV 87.7 MCH 29.3 MCHC 33.4 RDW 13.4 Plt Count 199 MPV 10.2 Immature Gran % (Auto) 0.2 Neut % (Auto) 91.4 H Lymph % (Auto) 5.4 L [place] % (Auto) 2.4 Eos % (Auto) 0.2 Baso % (Auto) 0.4 Lymph # (Auto) 0.5 L [place] # (Auto) 0.2 Eos # (Auto) 0.0 Baso # (Auto) 0.0 Abs Immat Gran (auto) 0.02 Absolute Neuts (auto) 7.6 Absolute Nucleated RBC 0.000 Nucleated RBC % (auto) 0.0 Smear Tech's Comments VERIFIED PT INR Sodium Potassium Chloride Carbon Dioxide Anion Gap BUN Creatinine Estim Creat Clear Calc Estimated GFR POC Glucose Random Glucose Calcium Magnesium Total Bilirubin Direct Bilirubin AST ALT Alkaline Phosphatase Troponin I High Sens Total Protein Albumin Urine Color Urine Appearance Urine pH Ur Specific [place] Urine Protein Urine Glucose (UA) Urine Ketones Urine Blood Urine Nitrite Ur Leukocyte Esterase COVID-19 (EMRE) Negative COVID-19 Clin Com See Note Influenza Type A (CARLOS) Negative Influenza Type B (CARLOS) Negative Influenza A & B Note See Note Blood Type Antibody Screen 07/29/22 07/29/22 07/30/22 22:13 23:40 00:08 WBC RBC Hgb Hct MCV MCH MCHC RDW Plt Count MPV Immature Gran % (Auto) Neut % (Auto) Lymph % (Auto) [place] % (Auto) Eos % (Auto) Baso % (Auto) Lymph # (Auto) [place] # (Auto) Eos # (Auto) Baso # (Auto) Abs Immat Gran (auto) Absolute Neuts (auto) Absolute Nucleated RBC Nucleated RBC % (auto) Smear Tech's Comments PT INR Sodium 138 Potassium 4.1 Chloride 103 Carbon Dioxide 24 Anion Gap 15 BUN 15 Creatinine 0.60 Estim Creat Clear Calc 55.6 Estimated GFR > 60 POC Glucose 129 H Random Glucose 172 H Calcium 8.5 D Magnesium Total Bilirubin 0.6 Direct Bilirubin 0.2 AST 25 ALT 17 Alkaline Phosphatase 115 Troponin I High Sens Total Protein 6.8 Albumin 3.2 L Urine Color Yellow Urine Appearance Clear Urine pH 6.5 Ur Specific [place] 1.020 Urine Protein Negative Urine Glucose (UA) Negative Urine Ketones Trace Urine Blood Negative Urine Nitrite Negative Ur Leukocyte Esterase Negative COVID-19 (EMRE) COVID-19 Clin Com Influenza Type A (CARLOS) Influenza Type B (CARLOS) Influenza A & B Note Blood Type Antibody Screen 07/30/22 07/30/22 07/30/22 04:10 04:33 04:33 WBC RBC Hgb Hct MCV MCH MCHC RDW Plt Count MPV Immature Gran % (Auto) Neut % (Auto) Lymph % (Auto) [place] % (Auto) Eos % (Auto) Baso % (Auto) Lymph # (Auto) [place] # (Auto) Eos # (Auto) Baso # (Auto) Abs Immat Gran (auto) Absolute Neuts (auto) Absolute Nucleated RBC Nucleated RBC % (auto) Smear Tech's Comments PT 13.3 H INR 1.2 H Sodium Potassium Chloride Carbon Dioxide Anion Gap BUN Creatinine Estim Creat Clear Calc Estimated GFR POC Glucose 127 H Random Glucose Calcium Magnesium 1.9 Total Bilirubin Direct Bilirubin AST ALT Alkaline Phosphatase Troponin I High Sens Total Protein Albumin Urine Color Urine Appearance Urine pH Ur Specific [place] Urine Protein Urine Glucose (UA) Urine Ketones Urine Blood Urine Nitrite Ur Leukocyte Esterase COVID-19 (EMRE) COVID-19 Clin Com Influenza Type A (CARLOS) Influenza Type B (CARLOS) Influenza A & B Note Blood Type Antibody Screen 07/30/22 07/30/22 07/30/22 04:34 06:50 07:53 WBC RBC Hgb Hct MCV MCH MCHC RDW Plt Count MPV Immature Gran % (Auto) Neut % (Auto) Lymph % (Auto) [place] % (Auto) Eos % (Auto) Baso % (Auto) Lymph # (Auto) [place] # (Auto) Eos # (Auto) Baso # (Auto) Abs Immat Gran (auto) Absolute Neuts (auto) Absolute Nucleated RBC Nucleated RBC % (auto) Smear Tech's Comments PT INR Sodium Potassium Chloride Carbon Dioxide Anion Gap BUN Creatinine Estim Creat Clear Calc Estimated GFR POC Glucose Random Glucose Calcium Magnesium Total Bilirubin Direct Bilirubin AST ALT Alkaline Phosphatase Troponin I High Sens 5.2 4.2 Total Protein Albumin Urine Color Urine Appearance Urine pH Ur Specific [place] Urine Protein Urine Glucose (UA) Urine Ketones Urine Blood Urine Nitrite Ur Leukocyte Esterase COVID-19 (EMRE) COVID-19 Clin Com Influenza Type A (CARLOS) Influenza Type B (CARLOS) Influenza A & B Note Blood Type A Positive Antibody Screen NEGATIVE Airway Mallampati Class: III TM Dist: >3cm Neck ROM: Full Loose/Missing/Broken Teeth: Yes (poor dentition, many missing and loose globally) Heart: [id number], bady/tach on and off Lungs: cta b/l Assessment and Plan Assessment Anesthesia Assessment: Anesthesia Plan Discussed and Chart Reviewed Final Anesthetic Review Family History of Problems with Anesthesia: No History of Problems with Anesthesia: No NPO: Yes ASA Class: III and Emergency Final Preanesthetic Review: No Changes in Pt Med Stat, Meds/Allgs Chart Reviewed, Consent Obtained/Reviewed and Anes Risks/Benef Reviewed Patient Risk: High Procedure Risk: Intermediate Assessment/Block/Sedation in SS: Assess/Block/Sedation-SS Anesthetic Plan Anesthetic Plan: MAC: and Agree w/ Assess. and Plan Disposition: Standard PACU
--- NOTE | 2022-07-30 11:12 | W.PM.OPN ---
Operative Note Operative Note Date of Service: 07/30/22 Narrative: Preoperative diagnosis: Sick sinus syndrome, syncope/12nd pause Postoperative diagnosis: Same Operation: Placement of dual-chamber permanent pacemaker with fluoroscopic guidance Surgeon: Beatrice Solomon MD Specimens: None EBL: 5 cc Operative findings: The pacemaker placed was a Medtronic serial [id number] . The atrial lead was a Medtronic serial [id number]. The ventricular lead was a Medtronic serial [id number]. Parameters in the right atrial lead sensing was 2.8 mV with a threshold of 1 volt an impedance of 551 Ohms. In the ventricular lead threshold was 0.5 volts with an R-wave of 5.8 mV and impedance of 627 Ohms. Patient tolerated procedure well. Operation in detail: The patient was brought to the operating room, placed supine on the operating room table, anesthesia moderate of ices were placed, and the patient was gently sedated. A time-out was performed confirming the correct patient site and procedure. After injection of local anesthetic, a 3 cm incision was made in the left infraclavicular region and carried down to the pectoralis fascia with electrocautery. The patient was then placed in Trendelenburg and an 18 gauge needle was used to access subclavian vein on the 1st take. And a wire was placed into the right atrium under fluoroscopic guidance. A 2nd 18 gauge needle was then used to access the subclavian vein again on the 1st take and a wire was placed under fluoroscopic guidance and parked in the right atrium. The patient was then taken out of Trendelenburg and a pocket was formed using blunt and electrocautery dissection. The 1st 6 [place] sheath was then placed over wire and the wire and dilator were removed. The ventricular lead was then placed through the sheath and parked in the right atrium and the peel-away sheath was removed. After several attempts using a curved stylet we were eventually able to access the right ventricle and the tip of the lead was positioned at the right ventricular apex. The endocardial screw was deployed and the lead was tested with excellent parameters above. This lead was then secured with silk sutures to the pectoralis fascia. The 2nd 6 [place] sheath was then placed over the 2nd wire and a wire dilator removed. The atrial lead was then placed and parked in the right atrium. AJ stylet was used to position this in the right atrial appendage. The endocardial screws deployed and the lead was tested with excellent parameters above. This lead was also secured with silk sutures to the pectoralis fascia. The pocket was then copiously irrigated with antibiotic solution. The leads were then placed in their appropriate receptacles and the pacemaker was tested again with excellent parameters. The generator and excess lead was then placed into the pocket. The wound was then closed with a deep running 3-0 Vicryl suture followed by running 3-0 Vicryl suture and Dermabond glue in the skin. The patient was then brought back to the recovery room in stable condition.
--- NOTE | 2022-07-30 12:05 | P.HPHOSP_ITS ---
History of Present Illness Date of Service: 07/30/22 Chief Complaint: nausea and vomiting This is an 81 y/o F with a PMH as outlined below who presented to [facility] on the evening of 07/29/22 with GI symptoms of nause and non-blood/non-bilious vomiting which began on the day of ED arrival. The patient reported abdominal discomfort secondary to this. There were no reports of diarrhea, constipation. No reported fever or chills. Of note, the patient was diagnosed with a UTI about 5 days prior and had been on Ceftin for treatment. In regards to her presenting complaints, she was managed symptomatically with anti-emetics and IVF. It appears that overnight, the patient had multiple prolonged sinus pauses with what appears to be a 12 second pause around 4am today. She required chest compressions for a few seconds per ED documenation. She returned to [facility]. Her case was d/w logging operations inspector drug abuse worker who recommended urgent PPM. Thoracic surgery was consulted and the patient has now undergone PPM. The patient is seen and examined in the OR. 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 The patient reports that she has had multiple syncopal episodes / falls in the last few weeks. Per ED records, she was admitted to [facility] in June for syncope/COVID. Her syncope was felt secondary to dehydration at that time. Currently she has come chest soreness and incision site pain. She denies any palpitations. She denies any current nausea or vomiting. A CXR has been performed post PPM and is pending official read. She will be admitted under extended stay surgery, will have cardiology/thoracic surgery and pacer evaluation tomorrow AM. Review of Systems Review of Systems: negative except HPI [facility] Medical History History of colon cancer (~2009) Hyperlipidemia Hypertension Lower abdominal pain Family History Father History of colon cancer Sister History of pancreatic cancer Surgical History History of colonoscopy History of partial colectomy (~2009) Social History Household Members: None Housing: Apartment Are you a primary healthcare network consultant to a significant other at home: No Do you presently have visiting nurse or other home services: No Alcohol intake: never Patient Tobacco Use Status: Never used Tobacco Second Hand Smoke Exposure: No Use of substances other than those prescribed or required for medical reasons: No Are you DNR?: No Advance Directives: No Advance Directives Information Provided: No Advance Directives on File: No service: No Current occupational status: disabled Meds Allergies Allergy/AdvReac Type Severity Reaction Status Date / Time No Known Allergies Allergy Verified 06/03/22 15:09 Active Medications: Current Medications Acetaminophen (Acetaminophen 325 Mg Tablet) 650 mg PO ONCE PRN PRN Reason: Pain, Mild (Pain Scale 1-3) Acetaminophen (Acetaminophen 325 Mg Tablet) 650 mg PO Q6H PRN PRN Reason: Pain, Mild (Pain Scale 1-3) Atorvastatin Calcium (Atorvastatin Calcium 20 Mg Tablet) 20 mg PO BEDTIME [facility] Brimonidine Tartrate (Brimonidine Tartrate 0.2% Oph 5 Ml Bottle) 1 drop EYE- BOTH BID [facility] Cefuroxime Axetil (Cefuroxime Axetil 250 Mg Tablet) 250 mg PO BID [facility] Docusate Sodium (Docusate Sodium 100 Mg Capsule) 100 mg PO BID [facility] Fentanyl (Fentanyl Citrate/Pf 100 Mcg/2 Ml Vial) 25 mcg IVPUSH Q5M PRN; Protocol PRN Reason: Pain, Moderate (Pain Scale 4-6 Metoprolol Tartrate (Metoprolol Tartrate 25 Mg Tablet) 25 mg PO BID [facility]; Protocol Non-Formulary Medication (Calcium Carbonate-Vitamin D3) 1 tab PO BID [facility] Ondansetron HCl (Ondansetron Hcl 4 Mg/2 Ml Vial) 4 mg IVPUSH ONCE PRN PRN Reason: Nausea and Vomiting Ondansetron HCl (Ondansetron Hcl 4 Mg/2 Ml Vial) 4 mg IVPUSH Q8H PRN PRN Reason: Nausea and Vomiting Sodium Chloride (0.9 % Sodium Chloride Flush 3 Ml Syringe) [facility]ations Medication Instructions Recorded Confirmed Last Taken Type amlodipine 10 mg tablet 10 mg PO DAILY 10/15/20 07/30/22 07/29/22 History aspirin 81 mg tablet,delayed 81 mg PO DAILY 10/15/20 07/30/22 07/29/22 History release atorvastatin 20 mg tablet 20 mg PO BEDTIME 0107/30/22 07/29/22 History metoprolol tartrate 25 mg tablet 25 mg PO BID 10/15/20 07/30/22 07/29/22 History calcium carbonate 600 mg-vitamin 1 tab PO BID 11/20/20 07/30/22 07/29/22 History D3 10 mcg (400 unit) tablet brimonidine 0.2 % eye drops 1 drp ophthalmic (eye) BID 03/11/21 07/30/22 07/29/22 History clotrimazole 1 % topical cream 1 appl topical BID PRN Rash 07/30/22 07/30/22 Unknown History Physical Exam Vital Signs and Narrative: Vital Signs: Last Vital Signs Temp 98 F 07/30/22 11:48 Pulse 70 07/30/22 11:48 Resp 16 07/30/22 11:48 BP 147/64 H 07/30/22 11:48 Pulse Ox 97 07/30/22 11:48 O2 Del Method 07/30/22 11:48 O2 Flow Rate 3 07/30/22 11:33 BMI result Body Mass Index 25.3 Const: Other: Constitutional - Awake and Alert, No apparent distress, seen in PAC Eyes - PERRLA, EOMI Cardiovascular - S1S2, RRR, No edema Respiratory - Normal lung expansion, Normal respiratory effort, No respiratory distress, CTA bilaterally Gastrointestinal - NT / ND; +BS; No rebound or guarding - No CVA tenderness Extremities - no calf tenderness bilaterally, no swelling Musculoskeletal - LUE in sling, dressing in place -- C/D/I Skin - Warm/Dry Neurological - Alert & oriented x3, No focal deficit Psychological - Appropriate affect Results Labs CBC and Chem 7: 07/29/22 22:13 07/29/22 22:13 Labs: Laboratory Results - last 24 hr 07/29/22 07/29/22 07/29/22 20:58 20:58 22:13 MCV 87.7 MCH 29.3 MCHC 33.4 RDW 13.4 Plt Count 199 MPV 10.2 Immature Gran % (Auto) 0.2 Neut % (Auto) 91.4 H Lymph % (Auto) 5.4 L [place] % (Auto) 2.4 Eos % (Auto) 0.2 Baso % (Auto) 0.4 Lymph # (Auto) 0.5 L [place] # (Auto) 0.2 Eos # (Auto) 0.0 Baso # (Auto) 0.0 Abs Immat Gran (auto) 0.02 Absolute Neuts (auto) 7.6 Absolute Nucleated RBC 0.000 Nucleated RBC % (auto) 0.0 Smear Tech's Comments VERIFIED PT INR Anion Gap Estim Creat Clear Calc Estimated GFR POC Glucose Random Glucose Calcium Magnesium Total Bilirubin Direct Bilirubin AST ALT Alkaline Phosphatase Troponin I High Sens Total Protein Albumin Urine Color Urine Appearance Urine pH Ur Specific [place] Urine Protein Urine Glucose (UA) Urine Ketones Urine Blood Urine Nitrite Ur Leukocyte Esterase COVID-19 (EMRE) Negative COVID-19 Clin Com See Note Influenza Type A (CARLOS) Negative Influenza Type B (CARLOS) Negative Influenza A & B Note See Note Blood Type Antibody Screen 07/29/22 07/29/22 07/30/22 22:13 23:40 00:08 MCV MCH MCHC RDW Plt Count MPV Immature Gran % (Auto) Neut % (Auto) Lymph % (Auto) [place] % (Auto) Eos % (Auto) Baso % (Auto) Lymph # (Auto) [place] # (Auto) Eos # (Auto) Baso # (Auto) Abs Immat Gran (auto) Absolute Neuts (auto) Absolute Nucleated RBC Nucleated RBC % (auto) Smear Tech's Comments PT INR Anion Gap 15 Estim Creat Clear Calc 55.6 Estimated GFR > 60 POC Glucose 129 H Random Glucose 172 H Calcium 8.5 D Magnesium Total Bilirubin 0.6 Direct Bilirubin 0.2 AST 25 ALT 17 Alkaline Phosphatase 115 Troponin I High Sens Total Protein 6.8 Albumin 3.2 L Urine Color Yellow Urine Appearance Clear Urine pH 6.5 Ur Specific [place] 1.020 Urine Protein Negative Urine Glucose (UA) Negative Urine Ketones Trace Urine Blood Negative Urine Nitrite Negative Ur Leukocyte Esterase Negative COVID-19 (EMRE) COVID-19 Clin Com Influenza Type A (CARLSO) Influenza Type B (CARLOS) Influenza A & B Note Blood Type Antibody Screen 07/30/22 07/30/22 07/30/22 04:10 04:33 04:33 MCV MCH MCHC RDW Plt Count MPV Immature Gran % (Auto) Neut % (Auto) Lymph % (Auto) [place] % (Auto) Eos % (Auto) Baso % (Auto) Lymph # (Auto) [place] # (Auto) Eos # (Auto) Baso # (Auto) Abs Immat Gran (auto) Absolute Neuts (auto) Absolute Nucleated RBC Nucleated RBC % (auto) Smear Tech's Comments PT 13.3 H INR 1.2 H Anion Gap Estim Creat Clear Calc Estimated GFR POC Glucose 127 H Random Glucose Calcium Magnesium 1.9 Total Bilirubin Direct Bilirubin AST ALT Alkaline Phosphatase Troponin I High Sens Total Protein Albumin Urine Color Urine Appearance Urine pH Ur Specific [place] Urine Protein Urine Glucose (UA) Urine Ketones Urine Blood Urine Nitrite Ur Leukocyte Esterase COVID-19 (EMRE) COVID-19 Clin Com Influenza Type A (CARLOS) Influenza Type B (CARLOS) Influenza A & B Note Blood Type Antibody Screen 07/30/22 07/30/22 07/30/22 04:34 06:50 07:53 MCV MCH MCHC RDW Plt Count MPV Immature Gran % (Auto) Neut % (Auto) Lymph % (Auto) [place] % (Auto) Eos % (Auto) Baso % (Auto) Lymph # (Auto) [place] # (Auto) Eos # (Auto) Baso # (Auto) Abs Immat Gran (auto) Absolute Neuts (auto) Absolute Nucleated RBC Nucleated RBC % (auto) Smear Tech's Comments PT INR Anion Gap Estim Creat Clear Calc Estimated GFR POC Glucose Random Glucose Calcium Magnesium Total Bilirubin Direct Bilirubin AST ALT Alkaline Phosphatase Troponin I High Sens 5.2 4.2 Total Protein Albumin Urine Color Urine Appearance Urine pH Ur Specific [place] Urine Protein Urine Glucose (UA) Urine Ketones Urine Blood Urine Nitrite Ur Leukocyte Esterase COVID-19 (EMRE) COVID-19 Clin Com Influenza Type A (CARLOS) Influenza Type B (CARLOS) Influenza A & B Note Blood Type A Positive Antibody Screen NEGATIVE Imaging Radiologist's Impressions: Impressions Abdomen/Pelvis CT 07/29/22 23:10 IMPRESSION: * No bowel obstruction. * No etiology for the patient's symptomatology. * Chronic findings as above. * Trace left pleural effusion with accompanying atelectasis. Fleischner guidelines were followed. Assessment and Plan (1) Sick sinus syndrome: Status: Acute Plan This is an 81 yo F with a PMH of colon Ca s/p resection and adjuvent chemo therapy (completed last cycle in 2010 per oncology notes) who presented to [facility] on 07/29/22 with GI symptoms of nausea/vomiting. While in the ED, she was noted to have multiple sinus pauses (per ED documentation) with last one about 12 secs requiring chest compressions for a few seconds. The patient is now PPM and will be admitted under extended day surgery with PPM eval tomorrow AM. 1. Sinus pause / asystole -- 12 seconds longest s/p PPM now admit to telemetry Cardiology consult; CT surg f/u and PPM eval tomorrow AM post op cxr pending -- f/u results on ASA at home, will hold until okay given by surgery 2. HTN hold norsvasc for now, restart tomorrow if BP stable, or sooner if hyertensive 3. Nausea/vomiting CT abd/pelvis negative monitor for now, none reported in the post-op period supportive care 4. Recent UTI complete ceftin course that she was on as an oupatient Full Code DVT pptx, mechanical Quality Stroke Does the patient have a stroke diagnosis?: No VTE Prior VTE?: No VTE Risk Level:: Medical - moderate - high VTE Device Contraindication: N/A - Device Ordered VTE Drug Contraindication: Treatment Not Indicated
[2022-07-30] MEDS: Acetaminophen 325 MG TABLET 650 MG PO ×3 (12:18→22:16)
[2022-07-30] MEDS: oxyCODONE HCl Immed Release 5 MG TABLET PO (12:19)
[2022-07-30] MEDS: Calcium + Vitamin D 250 MG TABLET 500 MG PO (20:59)
[2022-07-30] MEDS: Atorvastatin Calcium 20 MG TABLET PO (21:01)
[2022-07-30] MEDS: Docusate Sodium 100 MG CAPSULE PO (21:01)
[2022-07-30] MEDS: 0.9 % Sodium Chloride Flush 3 ML SYRINGE IVFLUSH (21:02)
[2022-07-30] MEDS: Metoprolol Tartrate 25 MG TABLET PO (21:02)
[2022-07-31] VITALS (9 sets, daily range): BP systolic 131–177; BP diastolic 61–81; PULSE 60–87; RESP 12–98; TEMP 36.2–37.2; O2SAT 96–100; BMI 24.9
[2022-07-31] MEDS: Acetaminophen 325 MG TABLET 650 MG PO (04:42)
[2022-07-31 07:16] LABS: Hematocrit 36.3 % (37.0-47.0); Hemoglobin 11.8 g/dl (12.0-16.0); Mean Corpuscular HGB Conc 32.5 g/dl (31.0-35.0); Mean Corpuscular Hemoglobin 28.8 pg (27.0-33.0); Mean Corpuscular Volume 88.5 fL (80.0-98.0); Mean Platelet Volume 11.6 fL (9.4-12.3); Platelet Count 151 X10*3/uL (160-400); Red Cell Distribution Width 13.3 % (11.0-16.0); White Blood Count 6.7 X10*3/uL (4.8-10.8)
--- NOTE | 2022-07-31 09:38 | HO.POSTANES ---
Post Anesthesia Evaluation Post Anesthesia Evaluation Vital Signs: Vital Signs Temp Pulse Resp BP Pulse Ox O2 Del Method O2 Flow Rate 07/31/22 08:00 98.9 F 72 20 138/65 100 Nasal Cannula 3 07/31/22 04:00 97.1 F 86 20 177/80 H 100 Nasal Cannula 3 07/31/22 00:00 97.2 F 60 18 133/61 96 Nasal Cannula 3 Anesthesia: Monitored Mental Status: Awake Pain Control: Satisfactory Nausea/Vomiting: None Hydration: Adequate Anesthesia-Related Issues: No Anes. Related Issues
[2022-07-31] MEDS: Metoprolol Tartrate 25 MG TABLET PO ×2 (10:15→20:16)
[2022-07-31] MEDS: Docusate Sodium 100 MG CAPSULE PO ×2 (10:15→20:16)
[2022-07-31] MEDS: Calcium + Vitamin D 250 MG TABLET 500 MG PO ×2 (10:15→20:16)
[2022-07-31] MEDS: 0.9 % Sodium Chloride Flush 3 ML SYRINGE IVFLUSH ×2 (10:16→15:56)
--- NOTE | 2022-07-31 10:20 | MHC.CM.PN ---
IMM 07/31/22 Female 81 DX Heart block S/P CPR and Pacer insertion. She lives alone with assist from dtr. She uses a walker. VAX x3. A HCP has been documented and placed on the chart. A PT eval is ordered. Spoke with dtr Ale/HCP/CANE FLUME CHUTE OPERATOR. She agrees with STR if the patient qualifies. Cardiology is planned to interrogate the pacer today. DP STR via BLS pending PT eval.
[2022-07-31 11:06] LABS: Anion Gap 14 (12-20); Blood Urea Nitrogen 10 mg/dL (9-16); Calcium 8.4 mg/dL (8.4-10.2); Carbon Dioxide 25 mmol/L (22-29); Chloride 104 mmol/L (96-108); Estimated Glomerular Filt Rate > 60; Glucose Random 132 mg/dL (60-115); Potassium 4.2 mmol/L (3.3-5.1); Sodium 139 mmol/L (135-145)
--- NOTE | 2022-07-31 15:30 | PM.PNCARD ---
Subjective Subjective Date of Service: 07/31/22 Physical Exam Vital Signs: Last Vital Signs Temp 97.6 F 07/31/22 15:17 Pulse 76 07/31/22 15:17 Resp 19 07/31/22 15:17 BP 131/78 07/31/22 15:17 Pulse Ox 100 07/31/22 12:14 O2 Del Method 07/31/22 15:17 O2 Flow Rate 2 07/31/22 15:17 FiO2 100 07/31/22 15:17 Oxygen Flow Rate 3 07/31/22 12:14 BMI result Body Mass Index 24.9 Objective Labs and Meds Result diagrams: 07/31/22 06:02 07/31/22 10:43 Lab results: Laboratory Results - last 24 hr 07/31/22 07/31/22 06:02 10:43 WBC 6.7 RBC 4.10 L Hgb 11.8 L Hct 36.3 L MCV 88.5 MCH 28.8 MCHC 32.5 RDW 13.3 Plt Count 151 L MPV 11.6 Absolute Nucleated RBC 0.000 Nucleated RBC % (auto) 0.0 Sodium 139 Potassium 4.2 Chloride 104 Carbon Dioxide 25 Anion Gap 14 BUN 10 Creatinine 0.58 Estim Creat Clear Calc 57.0 Estimated GFR > 60 Random Glucose 132 H Calcium 8.4 Progress Note: A&P Time Spent With Patient Time: Total time spent is greater than 50% in coordination of care (as documented) at patient's floor/unit and/or counseling patient: Progress Note: Quality Stroke Does the patient have a stroke diagnosis?: No
--- NOTE | 2022-07-31 17:05 | P.PNIM_ITS ---
Subjective Subjective Date of Service: 07/31/22 Interval History: Seen and examined this morning Follow-up for pacemaker placement. History obtained with the use of a dental services director Patient denies any chest pain, palpitations, shortness of breath, dizziness, abdominal pain, nausea, vomiting Review of Systems Review of Systems: Yes all other systems are reviewed and are negative Constitutional Constitutional: Denies chills and Denies fever(s) Cardiovascular Cardiovascular: Denies chest pain, Denies palpitations and Denies dyspnea Respiratory Respiratory: Denies cough and Denies dyspnea Gastrointestinal Gastrointestinal: Denies abdominal pain, Denies nausea and Denies vomiting Endocrine Endocrine: Denies palpitations Physical Exam Vital Signs: Vital Signs: Last Vital Signs Temp 97.6 F 07/31/22 15:17 Pulse 76 07/31/22 15:17 Resp 19 07/31/22 15:17 BP 131/78 07/31/22 15:17 Pulse Ox 100 07/31/22 12:14 O2 Del Method 07/31/22 15:17 O2 Flow Rate 2 07/31/22 15:17 FiO2 100 07/31/22 15:17 Oxygen Flow Rate 3 07/31/22 12:14 BMI result Body Mass Index 24.9 Const: General: cooperative, comfortable, no acute distress, alert and awake Nutritional Appearance: average body habitus Orientation/consciousness: patient oriented x3 Chest: Other: left anterior chest wall pacemaker site - no erythema or drainage Cardio: Rate: regular rate Heart sounds: S1 normal heart sound present and S2 normal heart sound present GI: Inspection: No distended Palpation (GI): Soft to palpation and nontender Neuro: Other: grossly nonfocal General: patient oriented x3 Extrem: Other: able to move all four extremities; left arm in sling General: Yes no pedal edema Objective Data Active Medications Acetaminophen (Acetaminophen 325 Mg Tablet) 650 mg PO Q6H PRN PRN Reason: Pain, Mild (Pain Scale 1-3) Last Admin: 07/31/22 04:42 Dose: 650 mg Documented By: YOSEPH Atorvastatin Calcium (Atorvastatin Calcium 20 Mg Tablet) 20 mg PO BEDTIME [facility] Last Admin: 07/30/22 21:01 Dose: 20 mg Documented By: YOSEPH Brimonidine Tartrate (Brimonidine Tartrate 0.2% Oph 5 Ml Bottle) 1 drop EYE- BOTH BID [facility] Last Admin: 07/31/22 10:16 Dose: Not Given Documented By: CHELSEA Non-Admin Reason: Med Not Available Calcium Carbonate/Cholecalciferol (Calcium + Vitamin D 250 Mg Tablet) 500 mg PO BID [facility] Last Admin: 07/31/22 10:15 Dose: 500 mg Documented By: CHELSEA Cefuroxime Axetil (Cefuroxime Axetil 250 Mg Tablet) 250 mg PO BID [facility] Last Admin: 07/31/22 10:15 Dose: 250 mg Documented By: CHELSEA Docusate Sodium (Docusate Sodium 100 Mg Capsule) 100 mg PO BID [facility] Last Admin: 07/31/22 10:15 Dose: 100 mg Documented By: CHELSEA Fentanyl (Fentanyl Citrate/Pf 100 Mcg/2 Ml Vial) 25 mcg IVPUSH Q5M PRN; Protocol PRN Reason: Pain, Moderate (Pain Scale 4-6 Metoprolol Tartrate (Metoprolol Tartrate 25 Mg Tablet) 25 mg PO BID [facility]; Pro tocol Last Admin: 07/31/22 10:15 Dose: 25 mg Documented By: CHELSEA Ondansetron HCl (Ondansetron Hcl 4 Mg/2 Ml Vial) 4 mg IVPUSH ONCE PRN PRN Reason: Nausea and Vomiting Ondansetron HCl (Ondansetron Hcl 4 Mg/2 Ml Vial) 4 mg IVPUSH Q8H PRN PRN Reason: Nausea and Vomiting Sodium Chloride (0.9 % Sodium Chloride Flush 3 Ml Syringe) 3 ml IVFLUSH QSHIFT [facility] Last Admin: 07/31/22 15:56 Dose: 3 ml Documented By: CHELSEA Labs CBC & Chem 7: 07/31/22 06:02 07/31/22 10:43 Labs: Laboratory Results - last 24 hr 07/31/22 07/31/22 06:02 10:43 MCV 88.5 MCH 28.8 MCHC 32.5 RDW 13.3 Plt Count 151 L MPV 11.6 Absolute Nucleated RBC 0.000 Nucleated RBC % (auto) 0.0 Anion Gap 14 Estim Creat Clear Calc 57.0 Estimated GFR > 60 Random Glucose 132 H Calcium 8.4 Assessment and Plan (1) Sick sinus syndrome: Status: Acute Plan This is an 81 yo F with a PMH of colon Ca s/p resection and adjuvent chemo therapy (completed last cycle in 2010 per oncology notes) who presented to [facility] on 07/29/22 with GI symptoms of nausea/vomiting. While in the ED, she was noted to have multiple sinus pauses (per ED documentation) with last one about 12 secs requiring chest compressions for a few seconds. The patient is now PPM and will be admitted under extended day surgery with PPM eval tomorrow AM. Sinus pause / asystole -- 12 seconds longest s/p PPM now follow up CXR - no pneumothorax PM interrogated and noted to be functioning properly Seen by Cardiology okay for discharge from cardiology perspective on ASA at home, will hold until okay given by surgery HTN continue metoprolol hold norsvasc for now bp stable Nausea/vomiting CT abd/pelvis negative monitor for now, none reported in the post-op period supportive care Recent UTI complete ceftin course that she was on as an oupatient HLD continue statin Full Code DVT pptx, mechanical attending - dr. corado seen by PT - patient ambulates with walker at baseline, currently with sling; rec STR upon discharge. CM aware Quality Stroke Does the patient have a stroke diagnosis?: No VTE Prior VTE?: No VTE Risk Level:: Medical - moderate - high VTE Device Contraindication: N/A - Device Ordered VTE Drug Contraindication: Treatment Not Indicated
[2022-07-31] MEDS: Atorvastatin Calcium 20 MG TABLET PO (20:16)
[2022-08-01] MEDS: 0.9 % Sodium Chloride Flush 3 ML SYRINGE IVFLUSH ×2 (01:12→10:24)
[2022-08-01 03:30] VITALS: BP 127/68; PULSE 61; RESP 20; TEMP 37; O2SAT 97
[2022-08-01 08:00] VITALS: BP 131/53; PULSE 65; RESP 20; TEMP 36.8; O2SAT 94
[2022-08-01 09:00] VITALS: O2SAT 98
[2022-08-01] MEDS: Calcium + Vitamin D 250 MG TABLET 500 MG PO (10:24)
[2022-08-01] MEDS: amLODIPine Besylate 5 MG TABLET PO (10:24)
[2022-08-01] MEDS: Metoprolol Tartrate 25 MG TABLET PO (10:24)
[2022-08-01] MEDS: Docusate Sodium 100 MG CAPSULE PO (10:24)
[2022-08-01 11:19] VITALS: BP 102/68; PULSE 79; RESP 20; TEMP 36.7; O2SAT 98
[2022-08-01 12:00] VITALS: O2SAT 97
--- NOTE | 2022-08-01 12:59 | PM.PNCARD ---
Subjective Subjective Date of Service: 08/01/22 Interval history: Seen and examined at bedside. She is status post pacemaker. Doing well. Physical Exam Vital Signs: Last Vital Signs Temp 98.0 F 08/01/22 11:19 Pulse 79 08/01/22 11:19 Resp 20 08/01/22 11:19 BP 102/68 08/01/22 11:19 Pulse Ox 97 08/01/22 12:00 O2 Del Method 08/01/22 12:00 O2 Flow Rate 2 08/01/22 11:19 FiO2 98 07/31/22 19:18 Oxygen Flow Rate 2 08/01/22 12:00 BMI result Body Mass Index 24.9 GENERAL APPEARANCE: in no acute distress, pleasant. NECK: no carotid bruit, no jugular venous distention. SKIN: no suspicious lesions, warm and dry. HEART: no murmurs, regular rate and rhythm. LUNGS: clear to auscultation bilaterally. ABDOMEN: soft, nontender. EXTREMITIES: no edema. Left arm in sling. PERIPHERAL PULSES: equal. NEUROLOGIC: No gross deficits, AAO X 3 Objective Labs and Meds Result diagrams: 07/31/22 06:02 07/31/22 10:43 Progress Note: A&P Assessment and plan (1) Sick sinus syndrome: Status: Acute (2) Hypertension: Status: Acute Plan 79-year-old female who presented with vomiting and syncope. She had a 13 seconds pause in the emergency department and was referred to thoracic surgery for permanent pacemaker placement. Chest x-ray and device interrogation were reviewed and looked good. She is waiting to be placed into rehab and will potentially going home today. Can continue same medications as outpatient. We will arrange follow-up and will monitor her device. Thank you for allowing me to participate in the care of your patient. Please feel free to contact me if you have any questions. Time Spent With Patient Time: Total time spent is greater than 50% in coordination of care (as documented) at patient's floor/unit and/or counseling patient: Progress Note: Quality Stroke Does the patient have a stroke diagnosis?: No Procedures Date of Service Date of Service: 08/01/22
--- NOTE | 2022-08-01 13:04 | P.DS_ITS ---
DS: Providers Provider Date of Service: 08/01/22 Date of discharge: 08/01/22 Primary care physician: Unknown Physician Consults: 07/30/22 11:58 Consult to Cardiology Routine Consulting Provider: Liang Mart Reason for consultation: 12 sec pause, s/p PPM 07/30/22 11:59 Consult to Thoracic Surgery Routine Consulting Provider: Beatrice Solomon Reason for consultation: PPM -- Dr. Solomon aware Has provider been notified: Yes Attending physician on discharge: Héctor Barone Discharging clinician: Mayra Jackson DS: Diagnosis Discharge Diagnosis (1) Sick sinus syndrome: Status: Acute DS: Summary Hospital Course Hospital Course: From H&P on day of admission This is an 81 y/o F with a PMH as outlined below who presented to [facility] ED on the evening of 07/29/22 with GI symptoms of nause and non-blood/non-bilious vomiting which began on the day of ED arrival. The patient reported abdominal discomfort secondary to this. There were no reports of diarrhea, constipation. No reported fever or chills. Of note, the patient was diagnosed with a UTI about 5 days prior and had been on Ceftin for treatment. In regards to her presenting complaints, she was managed symptomatically with anti- emetics and IVF. It appears that overnight, the patient had multiple prolonged sinus pauses with what appears to be a 12 second pause around 4am today. She required chest compressions for a few seconds per ED documenation. She returned to [facility]. Her case was d/w news production supervisor condominium manager who recommended urgent PPM. Thoracic surgery was consulted and the patient has now undergone PPM. The patient is seen and examined in the OR. PACU staff helps sign language interpreter. The patient reports that she has had multiple syncopal episodes / falls in the last few weeks. Per ED records, she was admitted to [facility] in June for syncope/COVID. Her syncope was felt secondary to dehydration at that time. Currently she has come chest soreness and incision site pain. She denies any palpitations. She denies any current nausea or vomiting. A CXR has been performed post PPM and is pending official read. She will be admitted under extended stay surgery, will have cardiology/thoracic surgery and pacer evaluation tomorrow AM. Sick sinus syndrome. Patient had pacemaker placed 10/21. Pacemaker interrogated and noted to be working properly. Seen by Cardiology, ready for discharge from cardiology perspective. plan for outpatient follow-up with Dr. Solomon. Follow up chest xray with no evidence on pneumothorax. Patient has been hemodynamically stable. The Norvasc was resumed at lower dose from baseline, she should be continued on Norvasc 5 mg daily and 10 mg should be discontinued. Close blood pressure monitoring is recommended. She was evaluated by PT who recommended STR and initially a bed search was initiated, however, ultimately the patient's daughter decided to take the patient home with home physical therapy and will be staying with her until further notice. She also has evaluation in the next 1 week with [facility] to determine need for further resources at home Time Spent with Patient Time attestation: Total time spent providing and/or coordinating discharge services: Discharge coordination time: Greater than 30 minutes Quality: Safe Use of Opioids Does Pt have an Active Cancer Diagnosis on the Problem List?: No Quality: Stroke Does the patient have a stroke diagnosis?: No Physical Exam Vital Signs: Vital Signs: Last Vital Signs Temp 98.0 F 08/01/22 11:19 Pulse 79 08/01/22 11:19 Resp 20 08/01/22 11:19 BP 102/68 08/01/22 11:19 Pulse Ox 97 08/01/22 12:00 O2 Del Method 08/01/22 12:00 O2 Flow Rate 2 08/01/22 11:19 FiO2 98 07/31/22 19:18 Oxygen Flow Rate 2 08/01/22 12:00 BMI result Body Mass Index 24.9 Const: General: cooperative, comfortable, no acute distress, alert and awake Nutritional Appearance: average body habitus Orientation/consciousness: patient oriented x3 Chest: Other: left anterior chest wall pacemaker site - no erythema or drainage Cardio: Rate: regular rate Heart sounds: S1 normal heart sound present and S2 normal heart sound present GI: Inspection: No distended Palpation (GI): Soft to palpation and nontender Neuro: Other: grossly nonfocal General: patient oriented x3 Extrem: Other: able to move all four extremities; left arm in sling General: Yes no pedal edema Discharge Plan Discharge Patient Disposition: Home Health Service Referrals: Beatrice Solomon MD [Physician] - 1 Week Physician,Dilma Lane [Primary Care Provider] - 5 days (as scheduled ) Discharge Medications: New ondansetron 4 mg tablet,disintegrating 4 mg PO Q6H PRN (Reason: nausea and vomiting) Qty: 10 0RF amlodipine 5 mg Tablet 5 mg PO DAILY 30 Days Qty: 30 0RF Protocol: Hold for SBP< HOLD for SBP < : 90 Continued calcium carbonate-vitamin D3 600 mg(1,500mg) -400 unit tablet 1 tab PO BID acetaminophen 500 mg capsule 500 mg PO Q6H PRN (Reason: pain) Qty: 20 0RF cefuroxime axetil 250 mg tablet 250 mg PO BID 7 Days Qty: 14 0RF clotrimazole 1 % cream 1 appl TOPICAL BID PRN (Reason: Rash) metoprolol tartrate 25 mg tablet 25 mg PO BID aspirin 81 mg tablet,delayed release (DR/EC) 81 mg PO DAILY atorvastatin 20 mg tablet 20 mg PO BEDTIME brimonidine 0.2 % drops 1 drp ophthalmic (eye) BID docusate sodium [Colace] 100 mg capsule 100 mg PO BID Qty: 60 3RF Metamucil 3.4 gram/5.4 gram powder 1 tbsp PO DAILY Qty: 660 2RF Rx Instructions: mix into at least 8 oz of water or juice before administering Discontinued amlodipine 10 mg tablet 10 mg PO DAILY Discharge Orders: Discharge Order (Routine); Ordered 08/01/22 Ordered By: Mayra Jackson Activity Restrictions/Additional Instructions: ACTIVITY: * ARM MOVEMENT RESTRICTIONS: No lifting your left arm over your head or behind your back, no pushing/pulling/lifting anything >10lb with your left arm for 6- 8 weeks. This ensures the pacemaker wires stay in place and do not get pulled out accidentally. Make sure you are doing gentle range of motion exercises with the left arm (such as pendulum exercise) to make sure your elbow and shoulder do not get frozen up. * ARM SLING: You may take the sling off and leave it off. HOWEVER, if you are noticing a difficulty limiting your left arm movement (as outlined above) then wear your sling during the day to make sure you are adhering to the restrictions above. * Ask your doctor when you can expect to return to work. * You can still exercise. It is good for your body and your heart. Talk with your doctor about an exercise plan. INCISION CARE: * You may shower. * Do not submerge yourself in water (baths, pools, etc.) for 2 weeks. * Monitor the incision for increased redness, swelling, bruising, pain, open area, or drainage. OTHER PRECAUTIONS: * Before you receive any treatment, tell all healthcare providers (including your dentist) that you have a pacemaker. * You will be given an ID card that contains information about your pacemaker. Always carry this card with you. You can show this card if your pacemaker sets off a metal detector. You should also show it to avoid screening with a hand-held security wand. * Keep your cell phone away from your pacemaker. Do not carry the phone in your shirt pocket, even it if is turned off. * Avoid strong magnets. Examples are those used in MRI's or in hand-held security wands. * Avoid strong electrical velasquez. Examples are those made by radio transmitting towers, ham radios, and heavy-duty electrical equipment. * Avoid leaning over the open oleary of a running car. A running engine creates an electrical field. Most household and yard appliances will not cause any problems. If you use any large power tools, such as an industrial bilingual research interviewer, talk with your doctor. WHEN TO CALL YOUR DOCTOR: Call your doctor immediately if you have any of the following: * Dizziness * Chest pain * Lack of energy * Fainting spells * Twitching chest muscles * Rapid pule or pounding heartbeat * Shortness of breath * Pain around your pacemaker * Fever above 100.4 F (38 C) or other signs of infection (redness, swelling, drainage, or warmth at the incision site). * Hiccups that will not stop FOLLOWUP APPOINTMENTS: * Call Dr. Solomon's office (Thoracic Surgery) as soon as you get home to schedule a followup appointment for 2 weeks from now. The office number is . * Call your condominium manager to make an appointment for the next couple weeks. Make regular follow-up appointments with your doctor. He or she will check the pacemaker to make sure it is working properly -Dose of Norvasc has been decreased from 10 mg to 5 mg daily. -Finish antibiotics as previously prescribed for UTI -Call to schedule follow up with PCP Discharge Date/Time: 08/01/22 16:08
--- NOTE | 2022-08-01 13:28 | W.MHC.F2F ---
Service Date Service Date: 08/01/22 Encounter Date of encounter: 08/01/22 Reasons for Services Signs and symptoms assessed: needs physical therapy for transfer, gait training and therapeutic exercises Reason for physical therapy: home safety and mobility, therapeutic exercises and gait/transfer training MD Overseeing Care: Jill Hester Homebound: Leaving the home is medically contraindicated at this time without the asist of a device and/or another person due th the listed conditions above and below. Reason homebound: unsteady gait / fall risk and poor balance / fall risk Certification: Based on the above findings, I certify that this patient is confined to the home and needs intermittent mcc care, physical therapy and/or speech therapy, or continues to need occupational therapy. The patient is under my care, and I have initiated the establishment of the plan of care. The patient will be followed by a physician who will periodically review the plan of care.
--- NOTE | 2022-08-01 14:32 | MHC.CM.PN ---
IMM 07/31/22 Female s/p cpr and pacer insertion. She is discharged today to home. [facility] weekend transitions bone grinder was contacted. A return call is pending. Home PT is ordered. [facility] does not have intake. plan to follow up tomorrow. [facility] may be able to provide PT services. Waiting to hear back from transitions. Family is here to transport the patient home. Pts dtr plans to stay with her to assist with recovery. A HCP that was documented was provided to pts dte today. She is aware that PT is not finalized and cm is working with [facility] and [facility] to provide services.
[2022-08-01 15:45] VITALS: BP 118/68; PULSE 77; RESP 19; TEMP 37
== END 2022-08-01 16:08 | disposition home health service (06) ==
LOC: HO.ED 07-30 07:06 → HO.SSS 07-30 07:35 → HO.IMC 07-30 17:56
PROVIDERS: Emergency Medicine; Family Medicine; Nurse Practitioner Family; Surgery; Emergency Provider Internal Medicine; PCP Family Medicine; Visit Provider Physician Assistant Medical
PROC: (CPT 33208; principal; 2022-07-30 09:00)
DX: I49.5 Sick sinus syndrome (principal); I10 Essential (primary) hypertension; I45.5 Other specified heart block; E78.5 Hyperlipidemia, unspecified; R11.2 Nausea with vomiting, unspecified; Z85.038 Personal history of other malignant neoplasm of large intestine; Z92.21 Personal history of antineoplastic chemotherapy; Z90.49 Acquired absence of other specified parts of digestive tract; N39.0 Urinary tract infection, site not specified; Z79.899 Other long term (current) drug therapy; Z79.82 Long term (current) use of aspirin; Z20.822 Contact with and (suspected) exposure to COVID-19
CPT/HCPCS: 33208; 36415; 71045; 74177; 80048; 80076; 81003; 82947; 83735; 84484; 85025; 85027; 85610; 86850; 86900; 86901; 87502; 87635; 93005; 96361; 96374; 96375; 96376; 97162; 99285; C1785; C1892; C1898; J0690; J1200; J2270; J2405; J2795; J3010; J3370; Q9967

== ENCOUNTER → 2022-08-23 14:23 | Outpatient (BNVA) | payer OTHER, SELFPAY | PROVIDERS: PCP Family Medicine; Visit Provider Nurse Practitioner Family | DX: Z45.018 Encounter for adjustment and management of other part of cardiac pacemaker (principal); Z51.89 Encounter for other specified aftercare; I49.5 Sick sinus syndrome; R55 Syncope and collapse | CPT/HCPCS: 93280; 99212 ==

== ENCOUNTER 2022-10-19 19:47 | Emergency (ER) | payer OTHER, SELFPAY ==
--- NOTE | ~2022-10-19 | XR_ITS ---
EXAMINATION: XR CHEST CLINICAL INFORMATION: Chest pain COMPARISON: Chest x-ray 07/30/2022 TECHNIQUE: Frontal view of the chest was obtained. FINDINGS: Minimal blunting of the lateral left costophrenic sulcus, suggesting trace pleural effusion versus mild pleural thickening. No airspace consolidation. No right pleural effusion or pneumothorax. Cardiomediastinal silhouette is unchanged. No cardiomegaly or evidence pulmonary edema. Left-sided pacer leads terminate in the right atrium and right ventricle. No acute osseous injury identified. XR/XR chest 1V IMPRESSION: 1. Possible trace left pleural effusion versus mild pleural thickening. 2. No acute pulmonary process.
[2022-10-19 19:48] VITALS: BP 164/68; PULSE 75; RESP 18; TEMP 36.6; O2SAT 96; BMI 24.4
--- NOTE | 2022-10-19 19:49 | ECG_ITS ---
Test Reason : DIZZINESS Blood Pressure : / mmHG Vent. Rate : 069 BPM Atrial Rate : 069 BPM P-R Int : 152 ms QRS Dur : 076 ms QT Int : 416 ms P-R-T Axes : 086 006 016 degrees QTc Int : 445 ms Poor data quality Normal sinus rhythm Normal ECG When compared with ECG of 30-JUL-2022 04:09, Poor data quality in current ECG precludes serial comparison Referred By: Sun Brower Electronically Signed By:Liang Mart
--- NOTE | 2022-10-19 19:50 | ED.DIZZY ---
HPI - Dizziness General Chief Complaint: Chest Pain <MARK Padron - Last Filed: 10/19/22 19:53> Stated Complaint: Chest pain/Dizziness <MARK Padron - Last Filed: 10/19/22 19:53> Time Seen by Provider: 10/19/22 20:47 <MARK Padron - Last Filed: 10/19/22 19:53> Source: patient and family (Daughter, Ale) <Ziggy Lewis MD - Last Filed: 10/19/22 21:11> Mode of arrival: ambulatory <Ziggy Lewis MD - Last Filed: 10/19/22 21:11> Limitations: language barrier (Patient speaks Belgian, shoe lay out planner used) <Ziggy Lewis MD - Last Filed: 10/19/22 21:11> History of Present Illness HPI Narrative: 82-year-old female who presents emergency department for evaluation of chest pain. Patient states she has been having intermittent chest pain for the past 4 days. She states she gets 1-2 episodes per day. He episodes come on at rest. She points to her right lateral chest area when asked to localize the pain. She states the pain will last seconds and then resolved. She did not take any medications for the pain. She went to an urgent care clinic and was referred to the emergency department for further evaluation of her chest pain. She denied fever, chills, rhinorrhea, sore throat, cough, shortness of breath, dyspnea on exertion. She states she has had 1 or 2 episodes of nausea but these were brief and she had no vomiting. She denied diarrhea. Denied frequency, urgency or abdominal pain. She has not noticed any dark tarry stools or black stools. <Ziggy Lewis MD - Last Filed: 10/19/22 21:11> Related Data Home Medications: Home Medications Medication Instructions Recorded Confirmed aspirin 81 mg tablet,delayed 81 mg PO DAILY 10/15/20 08/23/22 release atorvastatin 20 mg tablet 20 mg PO BEDTIME 10/15/20 08/23/22 metoprolol tartrate 25 mg tablet 25 mg PO BID 10/15/20 08/23/22 calcium carbonate 600 mg-vitamin 1 tab PO BID 11/20/20 08/23/22 D3 10 mcg (400 unit) tablet brimonidine 0.2 % eye drops 1 drp ophthalmic (eye) BID 03/11/21 08/23/22 clotrimazole 1 % topical cream 1 appl topical BID PRN Rash 07/30/22 08/23/22 Previous Rx's Medication Instructions Recorded acetaminophen 500 mg capsule 500 mg PO Q6H PRN pain #20 caps 09/10/21 docusate sodium 100 mg capsule 100 mg PO BID #60 caps 06/03/22 (Colace) psyllium husk 3.4 gram/5.4 gram 1 tbsp PO DAILY #660 grams 06/03/22 oral powder (Metamucil) cefuroxime axetil 250 mg tablet 250 mg PO BID 7 days #14 tabs 07/23/22 ondansetron 4 mg disintegrating 4 mg PO Q6H PRN nausea and 07/30/22 tablet vomiting #10 tabs amlodipine 5 mg tablet 5 mg PO DAILY 30 days #30 tabs 08/01/22 <MARK Padron - Last Filed: 10/19/22 19:53> Allergies/Adverse Reactions: Allergies Allergy/AdvReac Type Severity Reaction Status Date / Time No Known Allergies Allergy Verified 06/03/22 15:09 <MARK Padron - Last Filed: 10/19/22 19:53> Review of Systems Review of Systems: Yes all other systems are reviewed and are negative <Ziggy Lewis MD - Last Filed: 10/19/22 21:11> [facility] Past Medical History [facility] Narrative: Social history: She lives alone. She is here with her daughterLacey Aguilera <Ziggy Lewis MD - Last Filed: 10/19/22 21:11> Medical History: Medical History History of colon cancer (~2009) Hyperlipidemia Hypertension Lower abdominal pain <MARK Padron - Last Filed: 10/19/22 19:53> Surgical History: Surgical History History of colonoscopy History of partial colectomy (~2009) <MARK Padron - Last Filed: 10/19/22 19:53> Family History Family History: Family History Father History of colon cancer Sister History of pancreatic cancer <MARK Padron - Last Filed: 10/19/22 19:53> Social History Social History: Social History Household Members: None Housing: House Are you a primary manager critical care unit to a significant other at home: No Do you presently have visiting nurse or other home services: No Alcohol intake: never Patient Tobacco Use Status: Never used Tobacco Smoked in Last 30 Days: No Second Hand Smoke Exposure: No Use of substances other than those prescribed or required for medical reasons: No service: No Current occupational status: disabled <MARK Padron - Last Filed: 10/19/22 19:53> Physical Exam Vital Signs: Vital Signs: Last Vital Signs Temp 98.6 F 10/19/22 20:36 Pulse 68 10/19/22 20:42 Resp 16 10/19/22 20:36 BP 189/63 H 10/19/22 20:42 Pulse Ox 98 10/19/22 20:36 O2 Del Method 10/19/22 20:36 BMI result Body Mass Index 24.4 <MARK Padron - Last Filed: 10/19/22 19:53> Vital Signs: Last Vital Signs Temp 98.6 F 10/19/22 20:36 Pulse 68 10/19/22 20:42 Resp 16 10/19/22 20:36 BP 189/63 H 10/19/22 20:42 Pulse Ox 98 10/19/22 20:36 O2 Del Method 10/19/22 20:36 BMI result Body Mass Index 24.4 <Ziggy Lewis MD - Last Filed: 10/19/22 21:11> Const: Other: Elderly female, very pleasant and cooperative, answers all questions appropriately, does not appear to be in distress <Ziggy Lewis MD - Last Filed: 10/19/22 21:11> HEENT: Head: Yes normal to inspection, Yes normocephalic and Yes atraumatic <Ziggy Lewis MD - Last Filed: 10/19/22 21:11> Ears: external ears normal <Ziggy Lewis MD - Last Filed: 10/19/22 21:11> General nose exam: Normal external nose present <Ziggy Lewis MD - Last Filed: 10/19/22 21:11> Face and sinus: Yes normal facial exam <Ziggy Lewis MD - Last Filed: 10/19/22 21:11> Mouth: Normal oral and palatal mucosa present <Ziggy Lewis MD - Last Filed: 10/19/22 21:11> Throat: Yes posterior oropharynx normal <Ziggy Lewis MD - Last Filed: 10/19/22 21:11> Eyes: General: appearance normal, both eyes and all related structures <Ziggy Lewis MD - Last Filed: 10/19/22 21:11> Pupils: Equal, round and reactive pupils present <Ziggy Lewis MD - Last Filed: 10/19/22 21:11> Neck: Neck: Yes normal visual inspection, Yes no lymphadenopathy, Yes trachea midline and Yes supple <Ziggy Lewis MD - Last Filed: 10/19/22 21:11> Chest: Other: Tender right lateral chest wall tenderness, no rashes or lesions noted in this area. <Ziggy Lewis MD - Last Filed: 10/19/22 21:11> Resp: Effort & Inspection: normal respiratory effort and able to speak in complete sentences <Ziggy Lewis MD - Last Filed: 10/19/22 21:11> Auscultation: clear to auscultation bilaterally <Ziggy Lewis MD - Last Filed: 10/19/22 21:11> Cardio: Rate: regular rate <Ziggy Lewis MD - Last Filed: 10/19/22 21:11> Rhythm: regular rhythm <Ziggy Lewis MD - Last Filed: 10/19/22 21:11> Heart sounds: S1 normal heart sound present, S2 normal heart sound present and no murmurs <Ziggy Lewis MD - Last Filed: 10/19/22 21:11> GI: Inspection: Yes normal to inspection <Ziggy Lewis MD - Last Filed: 10/19/22 21:11> Palpation (GI): Soft to palpation, nontender and no guarding <Ziggy Lewis MD - Last Filed: 10/19/22 21:11> Auscultation: normal bowel sounds <Ziggy Lewis MD - Last Filed: 10/19/22 21:11> : General: Yes no CVA tenderness <Ziggy Lewis MD - Last Filed: 10/19/22 21:11> Back/Spine/Pelvis: Back: no CVA tenderness <Ziggy Lewis MD - Last Filed: 10/19/22 21:11> Skin: General skin exam: no rashes or lesions noted <Ziggy Lewis MD - Last Filed: 10/19/22 21:11> Neuro: Cranial nerves: Yes CN's II-XII intact bilaterally and Yes Equal, round and reactive pupils present <Ziggy Lewis MD - Last Filed: 10/19/22 21:11> Cognition (Neuro): normal cognition <Ziggy Lewis MD - Last Filed: 10/19/22 21:11> Extrem: General: Yes normal to inspection <Ziggy Lewis MD - Last Filed: 10/19/22 21:11> Psych: Appearance: grossly normal <Ziggy Lewis MD - Last Filed: 10/19/22 21:11> Speech and movement: Normal speech and movement present <Ziggy Lewis MD - Last Filed: 10/19/22 21:11> Affect: normal affect <Ziggy Lewis MD - Last Filed: 10/19/22 21:11> Course Course Course Narrative: RME - 82 y/o female with history of syncope, history of SSS s/p PPM, HLD, who presents to the ER from Urgent Care clinic for evaluation of intermittent dizziness and hottness in my chest that started 1 week ago. EKG done at clinic and sent to the ER to r/o SD. No fever, cough, SOB. VSS on arrival. Labs, EKG, CXR and swabs ordered. <MARK Padron - Last Filed: 10/19/22 19:53> Medical Decision Making Medical Decision Making [facility] Narrative: 82-year-old female who presents emergency department for evaluation of right lateral chest wall pain x4 days. She describes the pain is an intermittent pain, 1-2 episodes per day lasting seconds, coming on at rest. She had no other concerning symptoms. Vital signs were normal. Exam did reveal right lateral chest wall tenderness. There are no rashes or lesions noted in this area. Following tests were ordered: CBC, BMP, liver panel, troponin, influenza, COVID-19, magnesium, urinalysis, chest x-ray one view and 12 EKG. 2105: My interpretation of patient's laboratory data is as follows: CBC normal. Glucose elevated 130 high sensitive troponin I below detectable limits. COVID-19 and influenza negative. The patient's chest x-ray was interpreted by me as no acute disease. Twelve EKG revealed no ST segment elevation depression. Given the patient's symptoms and her negative workup, I do not think that this patient's pain is cardiac in nature. I believe the patient's pain is most likely musculoskeletal I did discuss this with the patient the patient's daughter. Patient will be discharged to home and advised to take Tylenol for pain. <Ziggy Lewis MD - Last Filed: 10/19/22 21:11> Differential Diagnosis Differential diagnosis includes but is not limited to myocardial infarction, angina, musculoskeletal pain, pneumonia, pneumothorax, <Ziggy Lewis MD - Last Filed: 10/19/22 21:11> Lab Data [facility] Lab Attestation statement: I reviewed the patient's lab results. <Ziggy Lewis MD - Last Filed: 10/19/22 21:11> Please see the [facility] for my discussion of the patient's labs. <Ziggy Lewis MD - Last Filed: 10/19/22 21:11> Result Diagrams: 10/19/22 20:04 10/19/22 20:04 <MARK Padron - Last Filed: 10/19/22 19:53> Labs: Lab Results 10/19/22 10/19/22 10/19/22 Range/Units 20:04 20:04 20:04 WBC 6.3 (4.8-10.8) X10*3/uL RBC 4.76 (4.20-5.50) X10*6/uL Hgb 13.6 (12.0-16.0) g/dl Hct 41.7 (37.0-47.0) % MCV 87.6 (80.0-98.0) fL MCH 28.6 (27.0-33.0) pg MCHC 32.6 (31.0-35.0) g/dl RDW 13.2 (11.0-16.0) % Plt Count 200 D (160-400) X10*3/uL MPV 10.4 (9.4-12.3) fL Immature Gran % (Auto) 0.0 (0.0-0.4) % Neut % (Auto) 65.7 (45-73) % Lymph % (Auto) 25.4 (20-40) % [place] % (Auto) 7.8 (2-11) % Eos % (Auto) 0.6 (0-4) % Baso % (Auto) 0.5 (0-2) % Lymph # (Auto) 1.6 (1.2-4.9) X10*3/uL [place] # (Auto) 0.5 (0.1-1.2) X10*3/uL Eos # (Auto) 0.0 (0.0-0.4) X10*3/uL Baso # (Auto) 0.0 (0.0-0.2) X10*3/uL Abs Immat Gran (auto) 0.00 (0.00-0.03) X10*3/uL Absolute Neuts (auto) 4.1 (2.0-8.3) x10*3/uL Absolute Nucleated RBC 0.000 (0.0-0.012) X10*3/uL Nucleated RBC % (auto) 0.0 (0.0-0.2) /100WBC Sodium 139 (135-145) mmol/L Potassium 3.8 (3.3-5.1) mmol/L Chloride 106 (96-108) mmol/L Carbon Dioxide 27 (22-29) mmol/L Anion Gap 10 L (12-20) BUN 15 (9-16) mg/dL Creatinine 0.70 (0.5-1.4) mg/dL Estim Creat Clear Calc 46.0 Estimated GFR > 60 Random Glucose 130 H (60-115) mg/dL Calcium 9.5 D (8.4-10.2) mg/dL Magnesium 2.1 (1.6-2.6) mg/dL Total Bilirubin 0.4 (0.0-1.0) mg/dL Direct Bilirubin < 0.2 (0.0-0.5) mg/dL AST 25 (5-31) U/L ALT 17 (0-31) U/L Alkaline Phosphatase 114 (39-117) U/L Troponin I High Sens < 3.5 (<3.5-17.0) ng/L Total Protein 7.4 (6.5-8.0) g/dL Albumin 3.6 (3.5-5.0) g/dL COVID-19 (EMRE) (Negative) COVID-19 Clin Com Influenza Type A (CARLOS) (Negative) Influenza Type B (CARLOS) (Negative) Influenza A & B Note 10/19/22 10/19/22 Range/Units 20:04 20:04 WBC (4.8-10.8) X10*3/uL RBC (4.20-5.50) X10*6/uL Hgb (12.0-16.0) g/dl Hct (37.0-47.0) % MCV (80.0-98.0) fL MCH (27.0-33.0) pg MCHC (31.0-35.0) g/dl RDW (11.0-16.0) % Plt Count (160-400) X10*3/uL MPV (9.4-12.3) fL Immature Gran % (Auto) (0.0-0.4) % Neut % (Auto) (45-73) % Lymph % (Auto) (20-40) % [place] % (Auto) (2-11) % Eos % (Auto) (0-4) % Baso % (Auto) (0-2) % Lymph # (Auto) (1.2-4.9) X10*3/uL [place] # (Auto) (0.1-1.2) X10*3/uL Eos # (Auto) (0.0-0.4) X10*3/uL Baso # (Auto) (0.0-0.2) X10*3/uL Abs Immat Gran (auto) (0.00-0.03) X10*3/uL Absolute Neuts (auto) (2.0-8.3) x10*3/uL Absolute Nucleated RBC (0.0-0.012) X10*3/uL Nucleated RBC % (auto) (0.0-0.2) /100WBC Sodium (135-145) mmol/L Potassium (3.3-5.1) mmol/L Chloride (96-108) mmol/L Carbon Dioxide (22-29) mmol/L Anion Gap (12-20) BUN (9-16) mg/dL Creatinine (0.5-1.4) mg/dL Estim Creat Clear Calc Estimated GFR Random Glucose (60-115) mg/dL Calcium (8.4-10.2) mg/dL Magnesium (1.6-2.6) mg/dL Total Bilirubin (0.0-1.0) mg/dL Direct Bilirubin (0.0-0.5) mg/dL AST (5-31) U/L ALT (0-31) U/L Alkaline Phosphatase (39-117) U/L Troponin I High Sens (<3.5-17.0) ng/L Total Protein (6.5-8.0) g/dL Albumin (3.5-5.0) g/dL COVID-19 (EMRE) Negative (Negative) COVID-19 Clin Com See Note Influenza Type A (CARLOS) Negative (Negative) Influenza Type B (CARLOS) Negative (Negative) Influenza A & B Note See Note <MARK Padron - Last Filed: 10/19/22 19:53> Lab Results 10/19/22 10/19/22 10/19/22 Range/Units 20:04 20:04 20:04 WBC 6.3 (4.8-10.8) X10*3/uL RBC 4.76 (4.20-5.50) X10*6/uL Hgb 13.6 (12.0-16.0) g/dl Hct 41.7 (37.0-47.0) % MCV 87.6 (80.0-98.0) fL MCH 28.6 (27.0-33.0) pg MCHC 32.6 (31.0-35.0) g/dl RDW 13.2 (11.0-16.0) % Plt Count 200 D (160-400) X10*3/uL MPV 10.4 (9.4-12.3) fL Immature Gran % (Auto) 0.0 (0.0-0.4) % Neut % (Auto) 65.7 (45-73) % Lymph % (Auto) 25.4 (20-40) % [place] % (Auto) 7.8 (2-11) % Eos % (Auto) 0.6 (0-4) % Baso % (Auto) 0.5 (0-2) % Lymph # (Auto) 1.6 (1.2-4.9) X10*3/uL [place] # (Auto) 0.5 (0.1-1.2) X10*3/uL Eos # (Auto) 0.0 (0.0-0.4) X10*3/uL Baso # (Auto) 0.0 (0.0-0.2) X10*3/uL Abs Immat Gran (auto) 0.00 (0.00-0.03) X10*3/uL Absolute Neuts (auto) 4.1 (2.0-8.3) x10*3/uL Absolute Nucleated RBC 0.000 (0.0-0.012) X10*3/uL Nucleated RBC % (auto) 0.0 (0.0-0.2) /100WBC Sodium 139 (135-145) mmol/L Potassium 3.8 (3.3-5.1) mmol/L Chloride 106 (96-108) mmol/L Carbon Dioxide 27 (22-29) mmol/L Anion Gap 10 L (12-20) BUN 15 (9-16) mg/dL Creatinine 0.70 (0.5-1.4) mg/dL Estim Creat Clear Calc 46.0 Estimated GFR > 60 Random Glucose 130 H (60-115) mg/dL Calcium 9.5 D (8.4-10.2) mg/dL Magnesium 2.1 (1.6-2.6) mg/dL Total Bilirubin 0.4 (0.0-1.0) mg/dL Direct Bilirubin < 0.2 (0.0-0.5) mg/dL AST 25 (5-31) U/L ALT 17 (0-31) U/L Alkaline Phosphatase 114 (39-117) U/L Troponin I High Sens < 3.5 (<3.5-17.0) ng/L Total Protein 7.4 (6.5-8.0) g/dL Albumin 3.6 (3.5-5.0) g/dL COVID-19 (EMRE) (Negative) COVID-19 Clin Com Influenza Type A (CARLOS) (Negative) Influenza Type B (CARLOS) (Negative) Influenza A & B Note 10/19/22 10/19/22 Range/Units 20:04 20:04 WBC (4.8-10.8) X10*3/uL RBC (4.20-5.50) X10*6/uL Hgb (12.0-16.0) g/dl Hct (37.0-47.0) % MCV (80.0-98.0) fL MCH (27.0-33.0) pg MCHC (31.0-35.0) g/dl RDW (11.0-16.0) % Plt Count (160-400) X10*3/uL MPV (9.4-12.3) fL Immature Gran % (Auto) (0.0-0.4) % Neut % (Auto) (45-73) % Lymph % (Auto) (20-40) % [place] % (Auto) (2-11) % Eos % (Auto) (0-4) % Baso % (Auto) (0-2) % Lymph # (Auto) (1.2-4.9) X10*3/uL [place] # (Auto) (0.1-1.2) X10*3/uL Eos # (Auto) (0.0-0.4) X10*3/uL Baso # (Auto) (0.0-0.2) X10*3/uL Abs Immat Gran (auto) (0.00-0.03) X10*3/uL Absolute Neuts (auto) (2.0-8.3) x10*3/uL Absolute Nucleated RBC (0.0-0.012) X10*3/uL Nucleated RBC % (auto) (0.0-0.2) /100WBC Sodium (135-145) mmol/L Potassium (3.3-5.1) mmol/L Chloride (96-108) mmol/L Carbon Dioxide (22-29) mmol/L Anion Gap (12-20) BUN (9-16) mg/dL Creatinine (0.5-1.4) mg/dL Estim Creat Clear Calc Estimated GFR Random Glucose (60-115) mg/dL Calcium (8.4-10.2) mg/dL Magnesium (1.6-2.6) mg/dL Total Bilirubin (0.0-1.0) mg/dL Direct Bilirubin (0.0-0.5) mg/dL AST (5-31) U/L ALT (0-31) U/L Alkaline Phosphatase (39-117) U/L Troponin I High Sens (<3.5-17.0) ng/L Total Protein (6.5-8.0) g/dL Albumin (3.5-5.0) g/dL COVID-19 (EMRE) Negative (Negative) COVID-19 Clin Com See Note Influenza Type A (CARLOS) Negative (Negative) Influenza Type B (CARLOS) Negative (Negative) Influenza A & B Note See Note <Ziggy Lewis MD - Last Filed: 10/19/22 21:11> Independent Interpretation I performed an independent interpretation of an: EKG and Plain X-Ray <Ziggy Lewis MD - Last Filed: 10/19/22 21:11> Interpretation: My independent interpretation the patient's 12 EKG done at 19:54 is as follows: Normal sinus rhythm with a rate of 69, normal IN, QRS and QTC intervals, inverted T-waves V1 and V2, no ST segment elevation, no ST segment depression <Ziggy Lewis MD - Last Filed: 10/19/22 21:11> Independent Historian Clinical information obtained from an independent historian. History obtained from or confirmed by: Other (Daughter) <Ziggy Lewis MD - Last Filed: 10/19/22 21:11> Discharge Plan Discharge Clinical Impression: Chest pain <Sun Renschler, PA - Last Filed: 10/19/22 19:53> Patient Disposition: Home, Self-Care <MARK Padron - Last Filed: 10/19/22 19:53> Instructions: Chest Wall Pain (ED) <MARK Padron - Last Filed: 10/19/22 19:53> Additional Instructions: Your 12 EKG was unremarkable. Your chest x-ray revealed no evidence of pneumonia. Your blood work was normal. Your COVID-19 and flu test were negative. At this time, I believe that your pain is caused by the muscles or joints of your chest. Take Tylenol (acetaminophen) 325 mg pills, 2 pills every 4 to 6 hours as needed for pain. Watch for signs of a rash on your chest, if you get a rash were your having the pain then you need to see your doctor or return to the emergency department to be evaluated for shingles. Follow-up with your doctor in 2 days. Please return to the emergency department if your symptoms get worse or if you develop any symptoms that are concerning to you. <MARK Padron - Last Filed: 10/19/22 19:53> Prescriptions: No Action calcium carbonate-vitamin D3 600 mg(1,500mg) -400 unit tablet 1 tab PO BID acetaminophen 500 mg capsule 500 mg PO Q6H PRN (Reason: pain) Qty: 20 0RF cefuroxime axetil 250 mg tablet 250 mg PO BID 7 Days Qty: 14 0RF ondansetron 4 mg tablet,disintegrating 4 mg PO Q6H PRN (Reason: nausea and vomiting) Qty: 10 0RF clotrimazole 1 % cream 1 appl TOPICAL BID PRN (Reason: Rash) amlodipine 5 mg Tablet 5 mg PO DAILY 30 Days Qty: 30 0RF Protocol: Hold for SBP< HOLD for SBP < : 90 metoprolol tartrate 25 mg tablet 25 mg PO BID aspirin 81 mg tablet,delayed release (DR/EC) 81 mg PO DAILY atorvastatin 20 mg tablet 20 mg PO BEDTIME brimonidine 0.2 % drops 1 drp ophthalmic (eye) BID docusate sodium [Colace] 100 mg capsule 100 mg PO BID Qty: 60 3RF Metamucil 3.4 gram/5.4 gram powder 1 tbsp PO DAILY Qty: 660 2RF Rx Instructions: mix into at least 8 oz of water or juice before administering <MARK Padron - Last Filed: 10/19/22 19:53>
[2022-10-19 20:10] LABS: MANUAL DIFF FLAG NO
[2022-10-19 20:13] LABS: Basophils Percent Auto 0.5 % (0-2); Eosinophils Percent Auto 0.6 % (0-4); Hematocrit 41.7 % (37.0-47.0); Hemoglobin 13.6 g/dl (12.0-16.0); Lymphocytes Absolute Auto 1.6 X10*3/uL (1.2-4.9); Lymphocytes Percent Auto 25.4 % (20-40); Mean Corpuscular HGB Conc 32.6 g/dl (31.0-35.0); Mean Corpuscular Hemoglobin 28.6 pg (27.0-33.0); Mean Corpuscular Volume 87.6 fL (80.0-98.0); Mean Platelet Volume 10.4 fL (9.4-12.3); Monocytes Absolute Auto 0.5 X10*3/uL (0.1-1.2); Monocytes Percent Auto 7.8 % (2-11); Neutrophils Absolute Auto 4.1 x10*3/uL (2.0-8.3); Neutrophils Percent Auto 65.7 % (45-73); Platelet Count 200 X10*3/uL (160-400); Red Blood Count 4.76 X10*6/uL (4.20-5.50); Red Cell Distribution Width 13.2 % (11.0-16.0); White Blood Count 6.3 X10*3/uL (4.8-10.8)
[2022-10-19 20:26] LABS: Alanine Aminotransferase 17 U/L (0-31); Albumin Level 3.6 g/dL (3.5-5.0); Alkaline Phosphatase 114 U/L (39-117); Anion Gap 10 (12-20); Aspartate Amino Transferase 25 U/L (5-31); Bilirubin Direct < 0.2 mg/dL (0.0-0.5); Bilirubin Total 0.4 mg/dL (0.0-1.0); Blood Urea Nitrogen 15 mg/dL (9-16); Calcium 9.5 mg/dL (8.4-10.2); Carbon Dioxide 27 mmol/L (22-29); Chloride 106 mmol/L (96-108); Estimated Glomerular Filt Rate > 60; Glucose Random 130 mg/dL (60-115); Magnesium 2.1 mg/dL (1.6-2.6); Potassium 3.8 mmol/L (3.3-5.1); Sodium 139 mmol/L (135-145); Total Protein 7.4 g/dL (6.5-8.0)
[2022-10-19 20:30] LABS: COVID-19 Test Negative (Negative); IDNOW Serial# 55D5AD1C; IDNOW Serial# BCCEAD1C; Influenza A Negative (Negative); Influenza B2 Negative (Negative)
[2022-10-19 20:36] VITALS: BP 172/48; PULSE 66; RESP 16; TEMP 37; O2SAT 98
[2022-10-19 20:40] VITALS: BP 169/64; PULSE 64
[2022-10-19 20:41] VITALS: BP 166/61; PULSE 62
[2022-10-19 20:41] LABS: Troponin-I High Sensitivity < 3.5 ng/L (<3.5-17.0)
[2022-10-19 20:42] VITALS: BP 189/63; PULSE 68
--- NOTE | 2022-10-19 21:01 | PC.NURSE ---
PT a&ox3, reports 1/10 right sided chest pain, states pain does not radiate and comes and go lasting seconds with a warm feeling . Denies any SOB, dizziness, headache or N/V/D.
== END 2022-10-19 21:39 | disposition home or self-care (01) ==
LOC: HO.ED 21:33
PROVIDERS: Physician Assistant; Emergency Provider Emergency Medicine Emergency Medical Services; PCP Family Medicine
DX: R07.9 Chest pain, unspecified (principal); E78.5 Hyperlipidemia, unspecified; Z95.0 Presence of cardiac pacemaker; Z85.038 Personal history of other malignant neoplasm of large intestine; Z79.82 Long term (current) use of aspirin; Z79.02 Long term (current) use of antithrombotics/antiplatelets; Z79.899 Other long term (current) drug therapy
CPT/HCPCS: 36415; 71045; 80048; 80076; 83735; 84484; 85025; 87502; 87635; 93005; 99283; 99285

== ENCOUNTER 2022-11-26 19:10 | Emergency (ER) | payer OTHER, SELFPAY ==
--- NOTE | ~2022-11-26 | XR_ITS ---
EXAMINATION: XR CHEST CLINICAL INFORMATION: Right-sided chest pain COMPARISON: 10/19/2022 TECHNIQUE: 2 views of the chest were obtained. FINDINGS: Left chest wall pacer with leads over the right atrium and right ventricle. The lungs are well expanded. There is no focal consolidation, edema, or effusion. No pneumothorax. The cardiomediastinal silhouette is within normal limits. No acute osseous abnormality. XR/XR chest 2V IMPRESSION: Clear lungs.
--- NOTE | 2022-11-26 19:19 | ECG_ITS ---
Test Reason : Chest Pain Blood Pressure : / mmHG Vent. Rate : 066 BPM Atrial Rate : 066 BPM P-R Int : 166 ms QRS Dur : 074 ms QT Int : 408 ms P-R-T Axes : 088 010 044 degrees QTc Int : 427 ms Normal sinus rhythm Normal ECG When compared with ECG of 19-OCT-2022 19:54, Poor data quality in current ECG precludes serial comparison Referred By: April Puri Electronically Signed By:Liang Mart
--- NOTE | 2022-11-26 19:20 | ED.CHESTPAIN ---
HPI - Chest Pain General Chief Complaint: Chest Pain <MARK Abraham - Last Filed: 11/26/22 19:25> Stated Complaint: R sided Chest pain <MARK Abraham - Last Filed: 11/26/22 19:25> Time Seen by Provider: 11/26/22 21:17 <MARK Abraham - Last Filed: 11/26/22 19:25> Source: patient and family <Raffi Jhaveri MD - Last Filed: 11/26/22 22:55> Mode of arrival: ambulatory <Raffi Jhaveri MD - Last Filed: 11/26/22 22:55> Limitations: no limitations <Raffi Jhaveri MD - Last Filed: 11/26/22 22:55> History of Present Illness HPI narrative: Patient is 2 years old with history of hypertension colon cancer status post colectomy, high cholesterol, sick sinus syndrome status post pacemaker placement on 07/31 comes here 2nd time for right-sided chest pain patient was here 10/29/2022 for same right-sided for last few days this time according to patient chest pain started yesterday lasted for few hours and again today chest pain started to be which is localized more on the right side reproducible by palpation no shortness of breath no diaphoresis no nausea no vomiting no radiation of pain otherwise patient feeling better has chronic leg edema <Raffi Jhaveri MD - Last Filed: 11/26/22 22:55> Related Data Home Medications: Home Medications Medication Instructions Recorded Confirmed aspirin 81 mg tablet,delayed 81 mg PO DAILY 10/15/20 08/23/22 release atorvastatin 20 mg tablet 20 mg PO BEDTIME 10/15/20 08/23/22 metoprolol tartrate 25 mg tablet 25 mg PO BID 10/15/20 08/23/22 calcium carbonate 600 mg-vitamin 1 tab PO BID 11/20/20 08/23/22 D3 10 mcg (400 unit) tablet brimonidine 0.2 % eye drops 1 drp ophthalmic (eye) BID 03/11/21 08/23/22 clotrimazole 1 % topical cream 1 appl topical BID PRN Rash 07/30/22 08/23/22 Previous Rx's Medication Instructions Recorded acetaminophen 500 mg capsule 500 mg PO Q6H PRN pain #20 caps 09/10/21 docusate sodium 100 mg capsule 100 mg PO BID #60 caps 06/03/22 (Colace) psyllium husk 3.4 gram/5.4 gram 1 tbsp PO DAILY #660 grams 06/03/22 oral powder (Metamucil) cefuroxime axetil 250 mg tablet 250 mg PO BID 7 days #14 tabs 07/23/22 ondansetron 4 mg disintegrating 4 mg PO Q6H PRN nausea and 07/30/22 tablet vomiting #10 tabs amlodipine 5 mg tablet 5 mg PO DAILY 30 days #30 tabs 08/01/22 <MARK Abraham - Last Filed: 11/26/22 19:25> Allergies/Adverse Reactions: Allergies Allergy/AdvReac Type Severity Reaction Status Date / Time No Known Allergies Allergy Verified 06/03/22 15:09 <MARK Abraham - Last Filed: 11/26/22 19:25> Review of Systems Review of Systems: Yes all other systems are reviewed and are negative <Raffi Jhaveri MD - Last Filed: 11/26/22 22:55> [facility] Past Medical History Medical History: Medical History History of colon cancer (~2009) Hyperlipidemia Hypertension Lower abdominal pain <MARK Abraham - Last Filed: 11/26/22 19:25> Surgical History: Surgical History History of colonoscopy History of partial colectomy (~2009) <MARK Abraham - Last Filed: 11/26/22 19:25> Family History Family History: Family History Father History of colon cancer Sister History of pancreatic cancer <MARK Abraham - Last Filed: 11/26/22 19:25> Social History Social History: Social History Household Members: None Housing: House Are you a primary director of critical care to a significant other at home: No Do you presently have visiting nurse or other home services: No Alcohol intake: never Patient Tobacco Use Status: Never used Tobacco Second Hand Smoke Exposure: No Advance Directives: No Advance Directives Information Provided: No service: No Current occupational status: disabled <MARK Abraham - Last Filed: 11/26/22 19:25> Physical Exam Vital Signs: Vital Signs: Last Vital Signs Temp 99.3 F 11/26/22 19:21 Pulse 71 11/26/22 19:21 Resp 16 11/26/22 19:21 BP 201/97 H 11/26/22 19:21 Pulse Ox 97 11/26/22 19:21 O2 Del Method 11/26/22 19:21 BMI result Body Mass Index 24.4 <MARK Abraham - Last Filed: 11/26/22 19:25> Vital Signs: Last Vital Signs Temp 99.3 F 11/26/22 19:21 Pulse 71 11/26/22 19:21 Resp 16 11/26/22 19:21 BP 201/97 H 11/26/22 19:21 Pulse Ox 97 11/26/22 19:21 O2 Del Method 11/26/22 19:21 BMI result Body Mass Index 24.4 <Raffi Jhaveri MD - Last Filed: 11/26/22 22:55> Appearance: Alert. Oriented X3. No acute distress. Eyes: No pallor or icterus ENT: Pharynx normal. Oral Mucosa moist Neck: Normal inspection. Neck supple. CVS: Normal heart rate and rhythm. Pulses normal. Soft systolic ejection murmur, reproducible right-sided parasternal pain Respiratory: No respiratory distress. Equal air entry bilateral, no wheezing/rales/rhonchi Abdomen: Soft and nontender. Bowel sounds are present, no mass palpable, no CVA tenderness Skin: Skin warm and dry. Normal skin color. Normal skin turgor. Extremities: No lower extremity edema. No calf tenderness Neuro: Oriented X 3. No motor deficit. <Raffi Jhaveri MD - Last Filed: 11/26/22 22:55> Course Course Course Narrative: RME- 19PM - 82yoF with Upper Sorbian-speaking who had a pacemaker placed 3-4 months ago presenting to the ER with her daughter with complaints of right-sided chest pain since yesterday afternoon. Reports that she was just resting when it started. Daughter reports she has chronic lower extremity edema. She denies any dizziness, change in vision, jaw pain, nausea/vomiting, paresthesias, radiation of the chest pain, cough, dyspnea on exertion, orthopnea, palpitations, paresthesias, abdominal pain, or calf tenderness, or any other symptoms complaints or concerns at this time. Plan: Labs, EKG, and chest x-ray patient's blood pressure is noted to be high. She reports she took her blood pressure medication prior to arrival therefore she will be brought directly to the emergency department for further evaluation and treatment. <MARK Abraham - Last Filed: 11/26/22 19:25> Medical Decision Making Medical Decision Making MDM Narrative: Patient atypical right-sided chest pain 2 sets of cardiac enzymes negative no acute ischemic changes in the EKG was patient's 2nd visit within 4 weeks. Patient advised to follow with proof technician helper/passive <Raffi Jhaveri MD - Last Filed: 11/26/22 22:55> Lab Data [facility] Lab Attestation statement: I reviewed the patient's lab results. <Raffi Jhaveri MD - Last Filed: 11/26/22 22:55> Result Diagrams: 11/26/22 20:04 11/26/22 20:32 <MARK Abraham - Last Filed: 11/26/22 19:25> Labs: Lab Results 11/26/22 11/26/22 11/26/22 Range/Units 20:04 20:04 20:04 WBC 6.4 (4.8-10.8) X10*3/uL RBC 4.92 (4.20-5.50) X10*6/uL Hgb 14.2 (12.0-16.0) g/dl Hct 42.0 (37.0-47.0) % MCV 85.4 (80.0-98.0) fL MCH 28.9 (27.0-33.0) pg MCHC 33.8 (31.0-35.0) g/dl RDW 13.3 (11.0-16.0) % Plt Count 186 (160-400) X10*3/uL MPV 10.8 (9.4-12.3) fL Immature Gran % (Auto) 0.3 (0.0-0.4) % Neut % (Auto) 58.4 (45-73) % Lymph % (Auto) 29.4 (20-40) % [place] % (Auto) 9.4 (2-11) % Eos % (Auto) 1.9 (0-4) % Baso % (Auto) 0.6 (0-2) % Lymph # (Auto) 1.9 (1.2-4.9) X10*3/uL [place] # (Auto) 0.6 (0.1-1.2) X10*3/uL Eos # (Auto) 0.1 (0.0-0.4) X10*3/uL Baso # (Auto) 0.0 (0.0-0.2) X10*3/uL Abs Immat Gran (auto) 0.02 (0.00-0.03) X10*3/uL Absolute Neuts (auto) 3.7 (2.0-8.3) x10*3/uL Absolute Nucleated RBC 0.000 (0.0-0.012) X10*3/uL Nucleated RBC % (auto) 0.0 (0.0-0.2) /100WBC PT (10.0-13.1) SEC INR (0.9-1.1) Sodium (135-145) mmol/L Potassium (3.3-5.1) mmol/L Chloride (96-108) mmol/L Carbon Dioxide (22-29) mmol/L Anion Gap (12-20) BUN (9-16) mg/dL Creatinine (0.5-1.4) mg/dL Estim Creat Clear Calc Estimated GFR Random Glucose (60-115) mg/dL Calcium (8.4-10.2) mg/dL Magnesium (1.6-2.6) mg/dL Total Bilirubin (0.0-1.0) mg/dL AST (5-31) U/L ALT (0-31) U/L Alkaline Phosphatase (39-117) U/L Total Creatine Kinase (26-140) U/L Troponin I High Sens < 3.5 (<3.5-17.0) ng/L B-Natriuretic Peptide 108 H (<100) pg/mL Total Protein (6.5-8.0) g/dL Albumin (3.5-5.0) g/dL Influenza Type A (PCR) (Negative) Influenza Type B (PCR) (Negative) RSV RNA Qual (PCR) (Negative) SARS-CoV-2 RNA (RT-PCR) (Negative) 11/26/22 11/26/22 11/26/22 Range/Units 20:04 20:32 20:32 WBC (4.8-10.8) X10*3/uL RBC (4.20-5.50) X10*6/uL Hgb (12.0-16.0) g/dl Hct (37.0-47.0) % MCV (80.0-98.0) fL MCH (27.0-33.0) pg MCHC (31.0-35.0) g/dl RDW (11.0-16.0) % Plt Count (160-400) X10*3/uL MPV (9.4-12.3) fL Immature Gran % (Auto) (0.0-0.4) % Neut % (Auto) (45-73) % Lymph % (Auto) (20-40) % [place] % (Auto) (2-11) % Eos % (Auto) (0-4) % Baso % (Auto) (0-2) % Lymph # (Auto) (1.2-4.9) X10*3/uL [place] # (Auto) (0.1-1.2) X10*3/uL Eos # (Auto) (0.0-0.4) X10*3/uL Baso # (Auto) (0.0-0.2) X10*3/uL Abs Immat Gran (auto) (0.00-0.03) X10*3/uL Absolute Neuts (auto) (2.0-8.3) x10*3/uL Absolute Nucleated RBC (0.0-0.012) X10*3/uL Nucleated RBC % (auto) (0.0-0.2) /100WBC PT 11.9 (10.0-13.1) SEC INR 1.0 (0.9-1.1) Sodium 139 (135-145) mmol/L Potassium 4.1 (3.3-5.1) mmol/L Chloride 103 (96-108) mmol/L Carbon Dioxide 28 (22-29) mmol/L Anion Gap 12 (12-20) BUN 14 (9-16) mg/dL Creatinine 0.74 (0.5-1.4) mg/dL Estim Creat Clear Calc 43.5 Estimated GFR > 60 Random Glucose 117 H (60-115) mg/dL Calcium 9.1 (8.4-10.2) mg/dL Magnesium 1.9 (1.6-2.6) mg/dL Total Bilirubin 0.4 (0.0-1.0) mg/dL AST 23 (5-31) U/L ALT 17 (0-31) U/L Alkaline Phosphatase 104 (39-117) U/L Total Creatine Kinase 67 (26-140) U/L Troponin I High Sens (<3.5-17.0) ng/L B-Natriuretic Peptide (<100) pg/mL Total Protein 6.8 (6.5-8.0) g/dL Albumin 3.4 L (3.5-5.0) g/dL Influenza Type A (PCR) NEGATIVE (Negative) Influenza Type B (PCR) NEGATIVE (Negative) RSV RNA Qual (PCR) NEGATIVE (Negative) SARS-CoV-2 RNA (RT-PCR) NEGATIVE (Negative) 11/26/22 Range/Units 22:02 WBC (4.8-10.8) X10*3/uL RBC (4.20-5.50) X10*6/uL Hgb (12.0-16.0) g/dl Hct (37.0-47.0) % MCV (80.0-98.0) fL MCH (27.0-33.0) pg MCHC (31.0-35.0) g/dl RDW (11.0-16.0) % Plt Count (160-400) X10*3/uL MPV (9.4-12.3) fL Immature Gran % (Auto) (0.0-0.4) % Neut % (Auto) (45-73) % Lymph % (Auto) (20-40) % [place] % (Auto) (2-11) % Eos % (Auto) (0-4) % Baso % (Auto) (0-2) % Lymph # (Auto) (1.2-4.9) X10*3/uL [place] # (Auto) (0.1-1.2) X10*3/uL Eos # (Auto) (0.0-0.4) X10*3/uL Baso # (Auto) (0.0-0.2) X10*3/uL Abs Immat Gran (auto) (0.00-0.03) X10*3/uL Absolute Neuts (auto) (2.0-8.3) x10*3/uL Absolute Nucleated RBC (0.0-0.012) X10*3/uL Nucleated RBC % (auto) (0.0-0.2) /100WBC PT (10.0-13.1) SEC INR (0.9-1.1) Sodium (135-145) mmol/L Potassium (3.3-5.1) mmol/L Chloride (96-108) mmol/L Carbon Dioxide (22-29) mmol/L Anion Gap (12-20) BUN (9-16) mg/dL Creatinine (0.5-1.4) mg/dL Estim Creat Clear Calc Estimated GFR Random Glucose (60-115) mg/dL Calcium (8.4-10.2) mg/dL Magnesium (1.6-2.6) mg/dL Total Bilirubin (0.0-1.0) mg/dL AST (5-31) U/L ALT (0-31) U/L Alkaline Phosphatase (39-117) U/L Total Creatine Kinase (26-140) U/L Troponin I High Sens < 3.5 (<3.5-17.0) ng/L B-Natriuretic Peptide (<100) pg/mL Total Protein (6.5-8.0) g/dL Albumin (3.5-5.0) g/dL Influenza Type A (PCR) (Negative) Influenza Type B (PCR) (Negative) RSV RNA Qual (PCR) (Negative) SARS-CoV-2 RNA (RT-PCR) (Negative) <MARK Abraham - Last Filed: 11/26/22 19:25> Lab Results 11/26/22 11/26/22 11/26/22 Range/Units 20:04 20:04 20:04 WBC 6.4 (4.8-10.8) X10*3/uL RBC 4.92 (4.20-5.50) X10*6/uL Hgb 14.2 (12.0-16.0) g/dl Hct 42.0 (37.0-47.0) % MCV 85.4 (80.0-98.0) fL MCH 28.9 (27.0-33.0) pg MCHC 33.8 (31.0-35.0) g/dl RDW 13.3 (11.0-16.0) % Plt Count 186 (160-400) X10*3/uL MPV 10.8 (9.4-12.3) fL Immature Gran % (Auto) 0.3 (0.0-0.4) % Neut % (Auto) 58.4 (45-73) % Lymph % (Auto) 29.4 (20-40) % [place] % (Auto) 9.4 (2-11) % Eos % (Auto) 1.9 (0-4) % Baso % (Auto) 0.6 (0-2) % Lymph # (Auto) 1.9 (1.2-4.9) X10*3/uL [place] # (Auto) 0.6 (0.1-1.2) X10*3/uL Eos # (Auto) 0.1 (0.0-0.4) X10*3/uL Baso # (Auto) 0.0 (0.0-0.2) X10*3/uL Abs Immat Gran (auto) 0.02 (0.00-0.03) X10*3/uL Absolute Neuts (auto) 3.7 (2.0-8.3) x10*3/uL Absolute Nucleated RBC 0.000 (0.0-0.012) X10*3/uL Nucleated RBC % (auto) 0.0 (0.0-0.2) /100WBC PT (10.0-13.1) SEC INR (0.9-1.1) Sodium (135-145) mmol/L Potassium (3.3-5.1) mmol/L Chloride (96-108) mmol/L Carbon Dioxide (22-29) mmol/L Anion Gap (12-20) BUN (9-16) mg/dL Creatinine (0.5-1.4) mg/dL Estim Creat Clear Calc Estimated GFR Random Glucose (60-115) mg/dL Calcium (8.4-10.2) mg/dL Magnesium (1.6-2.6) mg/dL Total Bilirubin (0.0-1.0) mg/dL AST (5-31) U/L ALT (0-31) U/L Alkaline Phosphatase (39-117) U/L Total Creatine Kinase (26-140) U/L Troponin I High Sens < 3.5 (<3.5-17.0) ng/L B-Natriuretic Peptide 108 H (<100) pg/mL Total Protein (6.5-8.0) g/dL Albumin (3.5-5.0) g/dL Influenza Type A (PCR) (Negative) Influenza Type B (PCR) (Negative) RSV RNA Qual (PCR) (Negative) SARS-CoV-2 RNA (RT-PCR) (Negative) 11/26/22 11/26/22 11/26/22 Range/Units 20:04 20:32 20:32 WBC (4.8-10.8) X10*3/uL RBC (4.20-5.50) X10*6/uL Hgb (12.0-16.0) g/dl Hct (37.0-47.0) % MCV (80.0-98.0) fL MCH (27.0-33.0) pg MCHC (31.0-35.0) g/dl RDW (11.0-16.0) % Plt Count (160-400) X10*3/uL MPV (9.4-12.3) fL Immature Gran % (Auto) (0.0-0.4) % Neut % (Auto) (45-73) % Lymph % (Auto) (20-40) % [place] % (Auto) (2-11) % Eos % (Auto) (0-4) % Baso % (Auto) (0-2) % Lymph # (Auto) (1.2-4.9) X10*3/uL [place] # (Auto) (0.1-1.2) X10*3/uL Eos # (Auto) (0.0-0.4) X10*3/uL Baso # (Auto) (0.0-0.2) X10*3/uL Abs Immat Gran (auto) (0.00-0.03) X10*3/uL Absolute Neuts (auto) (2.0-8.3) x10*3/uL Absolute Nucleated RBC (0.0-0.012) X10*3/uL Nucleated RBC % (auto) (0.0-0.2) /100WBC PT 11.9 (10.0-13.1) SEC INR 1.0 (0.9-1.1) Sodium 139 (135-145) mmol/L Potassium 4.1 (3.3-5.1) mmol/L Chloride 103 (96-108) mmol/L Carbon Dioxide 28 (22-29) mmol/L Anion Gap 12 (12-20) BUN 14 (9-16) mg/dL Creatinine 0.74 (0.5-1.4) mg/dL Estim Creat Clear Calc 43.5 Estimated GFR > 60 Random Glucose 117 H (60-115) mg/dL Calcium 9.1 (8.4-10.2) mg/dL Magnesium 1.9 (1.6-2.6) mg/dL Total Bilirubin 0.4 (0.0-1.0) mg/dL AST 23 (5-31) U/L ALT 17 (0-31) U/L Alkaline Phosphatase 104 (39-117) U/L Total Creatine Kinase 67 (26-140) U/L Troponin I High Sens (<3.5-17.0) ng/L B-Natriuretic Peptide (<100) pg/mL Total Protein 6.8 (6.5-8.0) g/dL Albumin 3.4 L (3.5-5.0) g/dL Influenza Type A (PCR) NEGATIVE (Negative) Influenza Type B (PCR) NEGATIVE (Negative) RSV RNA Qual (PCR) NEGATIVE (Negative) SARS-CoV-2 RNA (RT-PCR) NEGATIVE (Negative) 11/26/22 Range/Units 22:02 WBC (4.8-10.8) X10*3/uL RBC (4.20-5.50) X10*6/uL Hgb (12.0-16.0) g/dl Hct (37.0-47.0) % MCV (80.0-98.0) fL MCH (27.0-33.0) pg MCHC (31.0-35.0) g/dl RDW (11.0-16.0) % Plt Count (160-400) X10*3/uL MPV (9.4-12.3) fL Immature Gran % (Auto) (0.0-0.4) % Neut % (Auto) (45-73) % Lymph % (Auto) (20-40) % [place] % (Auto) (2-11) % Eos % (Auto) (0-4) % Baso % (Auto) (0-2) % Lymph # (Auto) (1.2-4.9) X10*3/uL [place] # (Auto) (0.1-1.2) X10*3/uL Eos # (Auto) (0.0-0.4) X10*3/uL Baso # (Auto) (0.0-0.2) X10*3/uL Abs Immat Gran (auto) (0.00-0.03) X10*3/uL Absolute Neuts (auto) (2.0-8.3) x10*3/uL Absolute Nucleated RBC (0.0-0.012) X10*3/uL Nucleated RBC % (auto) (0.0-0.2) /100WBC PT (10.0-13.1) SEC INR (0.9-1.1) Sodium (135-145) mmol/L Potassium (3.3-5.1) mmol/L Chloride (96-108) mmol/L Carbon Dioxide (22-29) mmol/L Anion Gap (12-20) BUN (9-16) mg/dL Creatinine (0.5-1.4) mg/dL Estim Creat Clear Calc Estimated GFR Random Glucose (60-115) mg/dL Calcium (8.4-10.2) mg/dL Magnesium (1.6-2.6) mg/dL Total Bilirubin (0.0-1.0) mg/dL AST (5-31) U/L ALT (0-31) U/L Alkaline Phosphatase (39-117) U/L Total Creatine Kinase (26-140) U/L Troponin I High Sens < 3.5 (<3.5-17.0) ng/L B-Natriuretic Peptide (<100) pg/mL Total Protein (6.5-8.0) g/dL Albumin (3.5-5.0) g/dL Influenza Type A (PCR) (Negative) Influenza Type B (PCR) (Negative) RSV RNA Qual (PCR) (Negative) SARS-CoV-2 RNA (RT-PCR) (Negative) <Raffi Jhaveri MD - Last Filed: 11/26/22 22:55> Independent Interpretation I performed an independent interpretation of an: EKG <Raffi Jhaveri MD - Last Filed: 11/26/22 22:55> Interpretation: Normal sinus rhythm heart rate 66 beats per minute normal interval normal axis no acute ischemic changes impression normal EKG <Raffi Jhaveri MD - Last Filed: 11/26/22 22:55> Discharge Plan Discharge Clinical Impression: Chest pain <MARK Abraham - Last Filed: 11/26/22 19:25> Patient Disposition: Home, Self-Care <MARK Abraham - Last Filed: 11/26/22 19:25> Instructions: Chest Pain (ED) <MARK Abraham - Last Filed: 11/26/22 19:25> Additional Instructions: Your chest pain does not seem like coming from the heart likely musculoskeletal Continue medications and follow with PCP <MARK Abraham - Last Filed: 11/26/22 19:25> Prescriptions: No Action calcium carbonate-vitamin D3 600 mg(1,500mg) -400 unit tablet 1 tab PO BID acetaminophen 500 mg capsule 500 mg PO Q6H PRN (Reason: pain) Qty: 20 0RF cefuroxime axetil 250 mg tablet 250 mg PO BID 7 Days Qty: 14 0RF ondansetron 4 mg tablet,disintegrating 4 mg PO Q6H PRN (Reason: nausea and vomiting) Qty: 10 0RF clotrimazole 1 % cream 1 appl TOPICAL BID PRN (Reason: Rash) amlodipine 5 mg Tablet 5 mg PO DAILY 30 Days Qty: 30 0RF Protocol: Hold for SBP< HOLD for SBP < : 90 metoprolol tartrate 25 mg tablet 25 mg PO BID aspirin 81 mg tablet,delayed release (DR/EC) 81 mg PO DAILY atorvastatin 20 mg tablet 20 mg PO BEDTIME brimonidine 0.2 % drops 1 drp ophthalmic (eye) BID docusate sodium [Colace] 100 mg capsule 100 mg PO BID Qty: 60 3RF Metamucil 3.4 gram/5.4 gram powder 1 tbsp PO DAILY Qty: 660 2RF Rx Instructions: mix into at least 8 oz of water or juice before administering <MAKR Abraham - Last Filed: 11/26/22 19:25>
[2022-11-26 19:21] VITALS: BP 201/97; PULSE 71; RESP 16; TEMP 37.4; O2SAT 97; BMI 24.4
[2022-11-26 20:10] LABS: MANUAL DIFF FLAG NO
[2022-11-26 20:11] LABS: Basophils Percent Auto 0.6 % (0-2); Eosinophils Absolute Auto 0.1 X10*3/uL (0.0-0.4); Eosinophils Percent Auto 1.9 % (0-4); Hemoglobin 14.2 g/dl (12.0-16.0); Imm Gran Abs Auto 0.02 X10*3/uL (0.00-0.03); Imm Gran Pct Auto 0.3 % (0.0-0.4); Lymphocytes Absolute Auto 1.9 X10*3/uL (1.2-4.9); Lymphocytes Percent Auto 29.4 % (20-40); Mean Corpuscular HGB Conc 33.8 g/dl (31.0-35.0); Mean Corpuscular Hemoglobin 28.9 pg (27.0-33.0); Mean Corpuscular Volume 85.4 fL (80.0-98.0); Mean Platelet Volume 10.8 fL (9.4-12.3); Monocytes Absolute Auto 0.6 X10*3/uL (0.1-1.2); Monocytes Percent Auto 9.4 % (2-11); Neutrophils Absolute Auto 3.7 x10*3/uL (2.0-8.3); Neutrophils Percent Auto 58.4 % (45-73); Platelet Count 186 X10*3/uL (160-400); Red Blood Count 4.92 X10*6/uL (4.20-5.50); Red Cell Distribution Width 13.3 % (11.0-16.0); White Blood Count 6.4 X10*3/uL (4.8-10.8)
[2022-11-26 20:34] LABS: B Type Natriuretic Peptide 108 pg/mL (<100)
[2022-11-26 20:36] LABS: Troponin-I High Sensitivity < 3.5 ng/L (<3.5-17.0)
[2022-11-26 20:46] LABS: Influenza A PCR NEGATIVE (Negative); Influenza B PCR NEGATIVE (Negative); Resp Syncy Virus RNA Qual PCR NEGATIVE (Negative); SARS COV2 PCR INHOUSE NEGATIVE (Negative)
[2022-11-26 20:48] LABS: Prothrombin Time 11.9 SEC (10.0-13.1)
[2022-11-26 21:02] LABS: Alanine Aminotransferase 17 U/L (0-31); Albumin Level 3.4 g/dL (3.5-5.0); Alkaline Phosphatase 104 U/L (39-117); Anion Gap 12 (12-20); Aspartate Amino Transferase 23 U/L (5-31); Bilirubin Total 0.4 mg/dL (0.0-1.0); Blood Urea Nitrogen 14 mg/dL (9-16); Calcium 9.1 mg/dL (8.4-10.2); Carbon Dioxide 28 mmol/L (22-29); Chloride 103 mmol/L (96-108); Creatinine Clr Calc Pharmacy 43.5; Estimated Glomerular Filt Rate > 60; Glucose Random 117 mg/dL (60-115); Magnesium 1.9 mg/dL (1.6-2.6); Potassium 4.1 mmol/L (3.3-5.1); Sodium 139 mmol/L (135-145); Total Protein 6.8 g/dL (6.5-8.0)
[2022-11-26 22:34] LABS: Troponin-I High Sensitivity < 3.5 ng/L (<3.5-17.0)
--- NOTE | 2022-11-29 10:26 | ECG_ITS ---
Test Reason : CHEST PAIN Blood Pressure : / mmHG Vent. Rate : 065 BPM Atrial Rate : 065 BPM P-R Int : 164 ms QRS Dur : 074 ms QT Int : 408 ms P-R-T Axes : 086 015 040 degrees QTc Int : 424 ms Normal sinus rhythm Normal ECG When compared with ECG of 26-NOV-2022 19:29, No significant change was found Referred By: Raffi Jhaveri Electronically Signed By:VAHID ORTIZ
== END 2022-11-26 22:57 | disposition home or self-care (01) ==
PROVIDERS: Physician Assistant Medical; Emergency Provider Internal Medicine; PCP Family Medicine
DX: R07.9 Chest pain, unspecified (principal); Z20.822 Contact with and (suspected) exposure to COVID-19; Z20.828 Contact with and (suspected) exposure to other viral communicable diseases; I10 Essential (primary) hypertension; E78.5 Hyperlipidemia, unspecified; R60.0 Localized edema; Z95.0 Presence of cardiac pacemaker; Z79.82 Long term (current) use of aspirin; Z79.02 Long term (current) use of antithrombotics/antiplatelets; Z79.899 Other long term (current) drug therapy
CPT/HCPCS: 0241U; 36415; 71046; 80053; 82550; 83735; 83880; 84484; 85025; 85610; 93005; 99283

== ENCOUNTER 2023-03-11 13:03 | Outpatient (REF) | payer OTHER, SELFPAY | END 2023-03-11 13:04 | disposition home or self-care (01) | LOC: HO.CT 13:03 | PROVIDERS: PCP Family Medicine; Visit Provider Internal Medicine | DX: Z13.89 Encounter for screening for other disorder (principal) ==

== ENCOUNTER 2023-04-10 22:39 | Emergency (ER) | payer OTHER, SELFPAY ==
[2023-04-10 22:50] VITALS: BP 191/61; PULSE 69; RESP 18; TEMP 36.1; O2SAT 95; BMI 24.4
--- NOTE | 2023-04-11 00:27 | PC.NURSE ---
pt brought into ED bed 9 from waiting room @00:25 using wheelchair. visitor at bedside.
--- NOTE | 2023-04-11 01:51 | ED.EXTPRO ---
HPI - Extremity Problem General Chief complaint: Extremity Problem Stated complaint: left hip pain Time Seen by Provider: 04/11/23 01:45 Source: patient, family (Daughter) and pharmacognosist Mode of arrival: ambulatory Limitations: no limitations History of Present Illness HPI Narrative: 82-year-old female came in for evaluation of left hip pain for the past 2 weeks, patient lives home alone mostly dependent on [employer] and daughter to come help at home but patient is ambulatory at home, patient declined any recent fall or trauma to the left have been having a random left hip pain for the past 2 weeks that has been mostly constant but waxing knee with pain is better with Tylenol. Patient otherwise declined any other symptoms. Related Data Home Medications Medication Instructions Recorded Confirmed aspirin 81 mg tablet,delayed 81 mg PO DAILY 10/15/20 08/23/22 release atorvastatin 20 mg tablet 20 mg PO BEDTIME 10/15/20 08/23/22 calcium carbonate 600 mg-vitamin 1 tab PO BID 11/20/20 08/23/22 D3 10 mcg (400 unit) tablet brimonidine 0.2 % eye drops 1 drp ophthalmic (eye) BID 03/11/21 08/23/22 clotrimazole 1 % topical cream 1 appl topical BID PRN Rash 07/30/22 08/23/22 metoprolol tartrate 25 mg tablet 50 mg PO BID 11/28/22 11/28/22 Previous Rx's Medication Instructions Recorded acetaminophen 500 mg capsule 500 mg PO Q6H PRN pain #20 caps 09/10/21 docusate sodium 100 mg capsule 100 mg PO BID #60 caps 06/03/22 (Colace) psyllium husk 3.4 gram/5.4 gram 1 tbsp PO DAILY #660 grams 06/03/22 oral powder (Metamucil) cefuroxime axetil 250 mg tablet 250 mg PO BID 7 days #14 tabs 07/23/22 ondansetron 4 mg disintegrating 4 mg PO Q6H PRN nausea and 07/30/22 tablet vomiting #10 tabs amlodipine 5 mg tablet 5 mg PO DAILY 30 days #30 tabs 08/01/22 cefuroxime axetil 250 mg tablet 250 mg PO BID #14 tabs 04/11/23 Allergies Allergy/AdvReac Type Severity Reaction Status Date / Time No Known Allergies Allergy Verified 06/03/22 15:09 Review of Systems Review of Systems: All other systems are reviewed and are negative Constitutional: Reports as per HPI and Reports no additional constitutional complaints Eyes: Reports as per HPI and Reports no additional eye complaints Reports system reviewed and no additional complaints, except as documented Cardiovascular: Reports as per HPI and Reports no additional cardiovascular complaints Respiratory: Reports as per HPI and Reports no additional respiratory complaints Gastrointestinal: Reports as per HPI and Reports no additional gastrointestinal complaints Genitourinary: Reports no additional female genitourinary complaints Musculoskeletal: Reports no additional musculoskeletal complaints Skin/Breast: Reports system reviewed and no additional complaints, except as docu Psychiatric: Reports no additional psychiatric complaints Endocrine: Reports no additional endocrine complaints Hematologic/Lymphatic: Reports no additional hematologic/lymphatic complaints Allergic/Immunologic: Reports no additional allergic/immunologic complaints Reports system reviewed and no additional complaints, except as documented and Reports Abnormal speech present [facility] Past Medical History Medical History History of colon cancer (~2009) Hyperlipidemia Hypertension Lower abdominal pain Surgical History History of colonoscopy History of partial colectomy (~2009) Family History Family History Father History of colon cancer Sister History of pancreatic cancer Social History Social History Household Members: None Housing: House Are you a primary patient care coordinator to a significant other at home: No Do you presently have visiting nurse or other home services: No Alcohol intake: never Patient Tobacco Use Status: Never used Tobacco Smoked in Last 30 Days: No Second Hand Smoke Exposure: No Advance Directives: No Advance Directives Information Provided: No service: No Current occupational status: disabled Physical Exam Vital Signs: Vital Signs: Last Vital Signs Temp 97 F 04/10/23 22:50 Pulse 89 04/11/23 02:10 Resp 18 04/11/23 02:10 BP 218/93 H 04/11/23 02:12 Pulse Ox 97 04/11/23 02:10 O2 Del Method Room Air 04/11/23 02:10 BMI result Body Mass Index 24.4 Vital signs have been reviewed as appeared to be correct. Blood pressure elevated. Heart rate normal. Respiration rate normal. Temperature normal. Oxygen saturation normal. Appearance: Alert. Oriented X3. No acute distress. Head: Normal external exam. Normocephalic. Atraumatic. No Lino signs noted. No raccoon eyes noted Eyes: PERRLA. EOMI. Conjunctiva and sclera normal. Eyelids normal. ENT: TM's Normal. Pharynx normal. Uvula midline. Moist mucous membranes. No trismus noted. No drooling noted. No muffled voice noted. Neck: Normal inspection. Neck supple. FROM. No adenopathy. Thyroid Normal. No meningeal signs. No neck mass noted. CVS: Normal heart rate and rhythm. Heart sound normal. No murmurs noted. Pulses normal throughout. Respiratory: No respiratory distress. Painless inspiration. Breath sounds normal. No wheezes/rales/rhonchi noted. Chest nontender. No accessory muscle usage noted or decreased air movement noted. Abdomen: Soft and nontender. Bowel sounds normal in all 4 quadrants. No distention noted. No organomegaly noted. No visible injury noted. Back: No CVA tenderness. Full range of motion noted. Skin: Skin warm and dry. Normal skin color. Normal skin turgor. No rashes/lesions/lacerations noted. Extremities: Left lower extremities exam: Mild tenderness over the left hip area, no deformity, step-off, no shortening of the left leg or rotation, intact left femoral artery pulsation, palpable left PT/DP, no ischemic changes to the foot. Neuro: Oriented X 3. Cranial nerve exam: II-XII are grossly intact No motor deficit. No sensory deficit. Reflexes normal. Course Course Course Narrative: Chronic left hip pain, no trauma, fracture on the x-ray, still able to ambulate of felt for a with oxycodone patient will be discharged to follow-up with orthopedic. Elevated blood pressure in the ED with no headache or blurry vision. For UTI both sides patient on cefuroxime 250 b.i.d. for 7 days and encouraged to drink plenty of fluid Medications Administered Discontinued Medications Generic Name Dose Route Start Last Admin Trade Name Freq PRN Reason Stop Dose Admin Oxycodone HCl 5 mg 04/11/23 01:57 04/11/23 02:07 Oxycodone Hcl Immed Release 5 Mg Tablet PO 04/11/23 01:58 5 mg ONCE ONE Administration Medical Decision Making Differential Diagnosis Differential Diagnoses: The differential diagnosis associated with the presentation includes (Left hip fracture, left hip arthritis, after ice abnormalities, severe anemia, UTI for) Admission/Observation Consideration of admission/observation: Escalation of care including admission/observation considered Lab Data MDM Lab Attestation statement: I reviewed the patient's lab results. 04/10/23 23:06 04/10/23 23:06 Labs: Lab Results 04/10/23 04/10/23 04/11/23 Range/Units 23:06 23:06 01:53 WBC 7.6 (4.8-10.8) X10*3/uL RBC 4.51 (4.20-5.50) X10*6/uL Hgb 13.3 (12.0-16.0) g/dl Hct 38.6 (37.0-47.0) % MCV 85.6 (80.0-98.0) fL MCH 29.5 (27.0-33.0) pg MCHC 34.5 (31.0-35.0) g/dl RDW 13.1 (11.0-16.0) % Plt Count 159 L (160-400) X10*3/uL MPV 11.0 (9.4-12.3) fL Immature Gran % (Auto) 0.1 (0.0-0.4) % Neut % (Auto) 70.5 (45-73) % Lymph % (Auto) 19.3 L (20-40) % Nance % (Auto) 9.2 (2-11) % Eos % (Auto) 0.5 (0-4) % Baso % (Auto) 0.4 (0-2) % Lymph # (Auto) 1.5 (1.2-4.9) X10*3/uL Nance # (Auto) 0.7 (0.1-1.2) X10*3/uL Eos # (Auto) 0.0 (0.0-0.4) X10*3/uL Baso # (Auto) 0.0 (0.0-0.2) X10*3/uL Abs Immat Gran (auto) 0.01 (0.00-0.03) X10*3/uL Absolute Neuts (auto) 5.4 (2.0-8.3) x10*3/uL Absolute Nucleated RBC 0.000 (0.0-0.012) X10*3/uL Nucleated RBC % (auto) 0.0 (0.0-0.2) /100WBC Sodium 141 (135-145) mmol/L Potassium 4.2 (3.3-5.1) mmol/L Chloride 105 (96-108) mmol/L Carbon Dioxide 26 (22-29) mmol/L Anion Gap 14 (12-20) BUN 12 (9-16) mg/dL Creatinine 0.68 (0.5-1.4) mg/dL Estim Creat Clear Calc 47.3 Estimated GFR > 60 Random Glucose 108 (60-115) mg/dL Calcium 9.4 (8.4-10.2) mg/dL Urine Color Yellow Urine Appearance Clear Urine pH 7.0 (5.0-9.0) Ur Specific Deane <= 1.005 (1.005-1.025) Urine Protein Negative (Neg-Trace) mg/dL Urine Glucose (UA) Negative (Negative) mg/dL Urine Ketones Negative (Negative) mg/dL Urine Blood Negative (Negative) Urine Nitrite Negative (Negative) Ur Leukocyte Esterase Moderate (2+) H (Negative) Urine RBC 0-2 (0-2) /HPF Urine WBC 11-20 H (0-5) /HPF Ur Squamous Epith Cells 0-2 (0-2) /HPF Urine Bacteria None Seen (None Seen) Hyaline Casts 0-2 (0-2) /LPF Independent Interpretation I performed an independent interpretation of an: Plain X-Ray (Left hip: No acute fracture dislocation.) Radiology Impression Discussion of test interpretation with radiology: I have reviewed the radiologist's reading. Discharge Plan Discharge Clinical Impression: Arthralgia of hip, left, Hypertension, Acute UTI Patient Disposition: Home, Self-Care Instructions: Arthralgia (ED) Prescriptions: New cefuroxime axetil 250 mg tablet 250 mg PO BID Qty: 14 0RF No Action calcium carbonate-vitamin D3 600 mg(1,500mg) -400 unit tablet 1 tab PO BID acetaminophen 500 mg capsule 500 mg PO Q6H PRN (Reason: pain) Qty: 20 0RF cefuroxime axetil 250 mg tablet 250 mg PO BID 7 Days Qty: 14 0RF ondansetron 4 mg tablet,disintegrating 4 mg PO Q6H PRN (Reason: nausea and vomiting) Qty: 10 0RF clotrimazole 1 % cream 1 appl TOPICAL BID PRN (Reason: Rash) amlodipine 5 mg Tablet 5 mg PO DAILY 30 Days Qty: 30 0RF Protocol: Hold for SBP< HOLD for SBP < : 90 aspirin 81 mg tablet,delayed release (DR/EC) 81 mg PO DAILY atorvastatin 20 mg tablet 20 mg PO BEDTIME brimonidine 0.2 % drops 1 drp ophthalmic (eye) BID metoprolol tartrate 25 mg tablet 50 mg PO BID docusate sodium [Colace] 100 mg capsule 100 mg PO BID Qty: 60 3RF Metamucil 3.4 gram/5.4 gram powder 1 tbsp PO DAILY Qty: 660 2RF Rx Instructions: mix into at least 8 oz of water or juice before administering Referrals: Anthony Bennett MD [Physician] - Jill Hester DO [Primary Care Provider] -
[2023-04-11 01:59] LABS: Appearance Urine Clear; Color Urine Yellow; Glucose Urine UA Negative (Negative); Leukocyte Esterase Urine Moderate (2+) (Negative); Nitrite Urine Negative (Negative); Specific Gravity - Urine <= 1.005 (1.005-1.025); UMIC TRIGGER UACC YES; Urine Blood Negative (Negative); Urine Ketones Negative (Negative); Urine Protein Negative (Neg-Trace)
[2023-04-11 02:04] LABS: Bacteria Urine None Seen (None Seen); Hyaline Casts Urine 0-2 /LPF (0-2); RBC Urine 0-2 /HPF (0-2); Squamous Epithelial Cell Urine 0-2 /HPF (0-2); UACC Culture Trigger YES
[2023-04-11] MEDS: oxyCODONE HCl Immed Release 5 MG TABLET PO (02:07)
[2023-04-11 02:10] VITALS: PULSE 89; RESP 18; O2SAT 97
[2023-04-11 02:12] VITALS: BP 218/93
[2023-04-11 02:40] VITALS: BP 214/77
--- NOTE | 2023-04-11 02:59 | PC.NURSE ---
provider aware of BP at time of discharge - pt and daughter encouraged to have pt take her night time dose of blood pressure med before bed when they get home. daughter reports pt missed her dose this afternoon/evening d/t being in the hospital.
== END 2023-04-11 02:59 | disposition home or self-care (01) ==
PROVIDERS: Emergency Provider Emergency Medicine; PCP Family Medicine
DX: M25.552 Pain in left hip (principal); N39.0 Urinary tract infection, site not specified; I10 Essential (primary) hypertension; Z79.82 Long term (current) use of aspirin; Z79.899 Other long term (current) drug therapy
CPT/HCPCS: 36415; 73502; 80048; 81001; 81003; 85025; 87086; 99283; 99284

== ENCOUNTER 2023-04-28 12:26 | Outpatient (REF) | payer OTHER, SELFPAY ==
--- NOTE | ~2023-04-28 | XR_ITS ---
EXAMINATION: XR HIP, LEFT CLINICAL INFORMATION: Left hip pain. No injury. COMPARISON: 04/11/2023 TECHNIQUE: Two views of the left hip. FINDINGS: There is no evidence of acute fracture or dislocation of the left hip. Left hip joint space appears maintained with mild narrowing inferiorly. Collar spurring is present. No destructive bony lesions are appreciated. No evidence of femoral head collapse. Mild spurring about the greater trochanter is present. Prominent vascular calcifications are seen. XR/XR hip LT min 2V IMPRESSION: Mild degenerative change of the left hip without evidence of acute fracture or dislocation.
== END 2023-04-28 12:27 | disposition home or self-care (01) ==
LOC: HO.CT 12:26
PROVIDERS: PCP Internal Medicine; Visit Provider Internal Medicine
DX: M25.552 Pain in left hip (principal)
CPT/HCPCS: 73502

== ENCOUNTER 2023-04-29 07:36 | Outpatient (REF) | payer OTHER, SELFPAY | END 2023-04-29 07:37 | disposition home or self-care (01) | LOC: HO.HOSX 07:36 | PROVIDERS: Visit Provider Orthopaedic Surgery | DX: M46.1 Sacroiliitis, not elsewhere classified (principal); M54.50 Low back pain, unspecified | CPT/HCPCS: 99202 ==

== ENCOUNTER 2023-04-29 12:18 | Outpatient (AMB) | payer OTHER, SELFPAY ==
--- NOTE | 2023-04-29 12:22 | A.OFFVIS_ITS ---
Intake Intake Visit Reasons: New Pt / Arthralgia of hip, left seen in ED 04/11/23 Intake Note: Erica is a 82 year old female who presents today as a new patient with complaints of intermittent pain along the posterior aspect of both of her hips as well as in her low back. She states that her symptoms began approximately 1 month ago. She does not recall any traumatic event preceding the onset of her pain. She denies any pains radiating down either lower extremity. She denies any acute weakness in either of her lower extremities. She does not take any medicines for discomfort. Allergies No Known Allergies Allergy (Verified 04/29/23 12:26) [facility] Medical History History of colon cancer (~2009) Hyperlipidemia Hypertension Lower abdominal pain Surgical History History of colonoscopy History of partial colectomy (~2009) Family History Father History of colon cancer Sister History of pancreatic cancer Social History Household Members: None Housing: House Are you a primary customer care associate to a significant other at home: No Do you presently have visiting nurse or other home services: No Alcohol intake: never Patient Tobacco Use Status: Never used Tobacco Second Hand Smoke Exposure: No service: No Current occupational status: disabled Physical Exam Const Other: Well-nourished well-developed very friendly female awake alert and oriented x3 in no acute distress Back/Spine/Pelvis Other: Low back examination shows bilateral paraspinal muscle tenderness as well as tenderness over her sacroiliac joints, no overlying skin lesions Extrem Other: Bilateral lower extremity examination shows good capillary refill, no skin lesions noted, normal sensation light touch Bilateral hip examination shows minimal discomfort with range of motion, no tenderness over her bursa, no overlying skin lesions Results Reviewed Results Reviewed: X-rays of the patient's left hip show mild diffuse joint space narrowing, no acute bony abnormalities Assessment & Plan Assessment & Plan (1) Bilateral sacroiliitis: Code(s): M46.1 - Sacroiliitis, not elsewhere classified (2) Low back pain: Code(s): M54.50 - Low back pain, unspecified Plan: Ms. Danielle presents with intermittent low back pain most likely due to degenerative disc disease and bilateral sacroiliitis. I had a lengthy discussion with the patient regarding the treatment options. She wishes to hold off on surgery for as long as possible. I agree with this plan. Thus, I did give her a prescription to go to formal physical therapy. The do's and don'ts of lifting were discussed at length with the patient. She will contact me prior to her follow-up appointment in 2 months should her symptoms worsen in any way. Feel free to call me at any time should questions regarding her orthopedic management arise. Thank you very much for asking me to see this very from the patient. I spent 22 minutes in reviewing the patient's records and imaging studies, seeing the patient and documenting in the medical record. Orders: Orders XR hip LT min 2V 04/28/23 M25.552 - Pain in left hip XR hip LT min 2V Today M25.552 - Pain in left hip PT Evaluation and Treatment Today M46.1 - Sacroiliitis, not elsewhere durga rowe, M54.50 - Low back pain, unspecified Coding Level of Care Code New Pt Level 2 (04359) Diagnoses Bilateral sacroiliitis M46.1 Low back pain M54.50
== END 2023-04-29 13:48 ==
PROVIDERS: PCP Internal Medicine; Visit Provider Orthopaedic Surgery
DX: M46.1 Sacroiliitis, not elsewhere classified (principal); M54.50 Low back pain, unspecified
CPT/HCPCS: 99202

== ENCOUNTER → 2023-05-24 23:59 | Outpatient (BNV) | payer OTHER, SELFPAY ==
--- NOTE | 2023-06-15 12:22 | A.OFFVIS_ITS ---
Intake Intake Visit Reasons: Remote device check- Medtronic Allergies No Known Allergies Allergy (Verified 05/17/23 13:57) PFSH Medical History History of colon cancer (~2009) Hyperlipidemia Hypertension Lower abdominal pain Surgical History History of colonoscopy History of partial colectomy (~2009) Family History Father History of colon cancer Sister History of pancreatic cancer Social History Household Members: None Housing: House Are you a primary manager medicare marketing to a significant other at home: No Do you presently have visiting nurse or other home services: No Alcohol intake: never Patient Tobacco Use Status: Never used Tobacco Second Hand Smoke Exposure: No Use of substances other than those prescribed or required for medical reasons: No Have you been hit, kicked, punched, or otherwise hurt by someone within the past year? If so, by whom?: No Do you have thoughts of harming others: None Do you have a plan to hurt others: No Plan Do you have the means to hurt others: No Recently lost weight without trying: No Patient : No service: No Current occupational status: disabled Office Procedures Cardiac Device Check Cardiac Device Check Details: Medtronic permanent pacemaker. Battery life 13.9 years. Atrial paced 46.7%. Ventricular paced less than 0.1%. Short runs of SVT noted. [id number] Cardiac Device Interrogation, pacemaker Procedure code (CPT) selection complete Assessment & Plan Assessment & Plan (1) Pacemaker: Comment: 07/30/2022, Medtronic dual-chamber Code(s): Z95.0 - Presence of cardiac pacemaker Coding Level of Care Code Procedure Only Diagnoses Pacemaker Z95.0 CPT Codes Cardiac Device Check - Cardiac Device 12: [id number] Cardiac Device Interrogation, pacemaker ([id number])
== END ==
PROVIDERS: PCP Internal Medicine; Visit Provider Internal Medicine Cardiovascular Disease
DX: I47.1 Supraventricular tachycardia (principal); Z95.0 Presence of cardiac pacemaker
CPT/HCPCS: 93294

== ENCOUNTER 2023-08-08 10:16 | Outpatient (REF) | payer OTHER, SELFPAY ==
[2023-08-08 11:37] VITALS: BMI 24.4
[2023-08-08 11:39] VITALS: BP 198/76; PULSE 98; RESP 18; TEMP 36.4; O2SAT 98
== END 2023-08-08 10:17 | disposition home or self-care (01) ==
LOC: HO.MS 10:16
PROVIDERS: PCP Internal Medicine; Visit Provider Ophthalmology
PROC: (CPT 66821; principal; 2023-08-08 12:40)
DX: H26.491 Other secondary cataract, right eye (principal)
CPT/HCPCS: 66821

== ENCOUNTER → 2023-08-23 23:59 | Outpatient (BNV) | payer OTHER, SELFPAY ==
--- NOTE | 2023-09-01 18:55 | A.OFFVIS_ITS ---
Intake Intake Visit Reasons: Remote Device Check- Medtronic Allergies No Known Allergies Allergy (Verified 05/17/23 13:57) PFSH Medical History History of colon cancer (~2009) Hyperlipidemia Hypertension Lower abdominal pain Surgical History History of colonoscopy History of partial colectomy (~2009) Family History Father History of colon cancer Sister History of pancreatic cancer Household Members: None Housing: House Are you a primary healthcare facility administrator to a significant other at home: No Do you presently have visiting nurse or other home services: No Alcohol intake: never Patient Tobacco Use Status: Never used Tobacco Second Hand Smoke Exposure: No service: No Current occupational status: disabled Office Procedures Cardiac Device Check Cardiac Device Check Details: PPM Good battery life. Episodes of NS VT noted. No other alerts. [id number] Cardiac Device Interrogation, pacemaker Procedure code (CPT) selection complete Assessment & Plan Assessment & Plan (1) Pacemaker: Comment: 07/30/2022, Medtronic dual-chamber Code(s): Z95.0 - Presence of cardiac pacemaker Coding Level of Care Code Procedure Only Diagnoses Pacemaker Z95.0 CPT Codes Cardiac Device Check - Cardiac Device 12: [id number] Cardiac Device Interrogation, pacemaker ([id number])
== END ==
PROVIDERS: PCP Internal Medicine; Visit Provider Internal Medicine Cardiovascular Disease
DX: Z95.0 Presence of cardiac pacemaker (principal); I49.5 Sick sinus syndrome
CPT/HCPCS: 93294

== ENCOUNTER 2023-09-26 09:08 | Outpatient (REF) | payer OTHER, SELFPAY ==
[2023-09-26 14:01] VITALS: BMI 26.2
[2023-09-26 14:02] VITALS: BP 168/88; PULSE 113; RESP 18; TEMP 36.8; O2SAT 97
== END 2023-09-26 09:09 | disposition home or self-care (01) ==
LOC: HO.MS 09:08
PROVIDERS: PCP Internal Medicine; Visit Provider Ophthalmology
PROC: (CPT 66821; principal; 2023-09-26 12:00)
DX: H26.492 Other secondary cataract, left eye (principal)
CPT/HCPCS: 66821

== ENCOUNTER 2023-10-06 14:59 | Outpatient (REF) | payer OTHER, SELFPAY ==
--- NOTE | ~2023-10-06 | CT_ITS ---
EXAMINATION: CT head/brain wo IV con CLINICAL INFORMATION: Reason for Exam forgetfulness COMPARISON: CT head 07/23/2022 TECHNIQUE: Contiguous axial imaging was performed from the skull base to vertex without intravenous contrast. Sagittal and coronal reformatted images were obtained. This CT examination was performed using dose optimization techniques as appropriate, variously including the following: * Automated exposure control * Adjustment of mA and/or kV according to patient size (this includes techniques or standardized protocols for targeted exams where dose is matched to indication/reason for exam; i.e. extremities or head) Use of iterative reconstruction technique DLP: 674.05 mGy-cm mGy-cm FINDINGS: There is no evidence of acute intracranial hemorrhage. No mass-effect or ventricular shift is noted. No acute, territorial loss of nelson-white differentiation. Expanded, empty sella turcica. Mild generalized cerebral volume loss with associated ventricular and sulcal prominencePeriventricular and subcortical white matter hypodensity is nonspecific but likely represents chronic microvascular ischemic change. Intracranial atherosclerotic calcification is noted. Mild soft tissue thickening along the right posterior calvarium. No underlying depressed calvarial fracture.The paranasal sinuses are well-aerated. The mastoid air cells are clear. Bilateral intraocular lens replacements. CT/CT head/brain wo IV con IMPRESSION: Mild generalized cerebral volume loss with associated ventricular and sulcal prominence. No acute intracranial hemorrhage. Expanded, empty sella turcica.
== END 2023-10-06 15:00 | disposition home or self-care (01) ==
LOC: HO.CT 14:59
PROVIDERS: PCP Family Medicine; Visit Provider Internal Medicine
DX: R68.89 Other general symptoms and signs (principal)
CPT/HCPCS: 70450

== ENCOUNTER 2023-10-14 12:10 | Outpatient (REF) | payer OTHER, SELFPAY | END 2023-10-14 12:11 | disposition home or self-care (01) | LOC: HO.US 12:10 | PROVIDERS: Visit Provider Family Medicine | DX: R22.42 Localized swelling, mass and lump, left lower limb (principal) | CPT/HCPCS: 93970 ==

== ENCOUNTER 2023-11-07 14:18 | Outpatient (REF) | payer OTHER, SELFPAY ==
--- NOTE | ~2023-11-07 | US_ITS ---
EXAMINATION: US EXTRACRANIAL CAROTID DUPLEX, BILATERAL CLINICAL INFORMATION: Stenosis of the carotid arteries COMPARISON: None available. TECHNIQUE: Real-time ultrasound and Doppler techniques (integrating B-mode 2-D vascular images, Doppler spectral analysis and color-flow Doppler imaging) were utilized to interrogate the extracranial carotid arteries, the vertebral arteries and proximal subclavian arteries bilaterally. The degree of stenosis is determined by criteria similar to NASCET. FINDINGS: Right Side: 1. There is mild atherosclerotic plaque seen in the bifurcation/proximal ICA region. 2. The common carotid artery PSV proximally is 94 cm/s and distally 88 cm/s. 3. The proximal internal carotid artery velocities are 98 cm/s systolic and 98 cm/s diastolic. 4. The proximal external carotid artery PSV is 27 cm/s. 5. The vertebral artery shows antegrade flow. 6. The subclavian artery waveforms are normal. Left Side: 1. There is no significant atherosclerotic plaque seen in the bifurcation/proximal ICA region. 2. The common carotid artery PSV proximally is 98 cm/s and distally 90 cm/s. 3. The proximal internal carotid artery velocities are 100 cm/s systolic and 27 cm/s diastolic. 4. The proximal external carotid artery PSV is 100 cm/s. 5. The vertebral artery shows antegrade flow. 6. The subclavian artery waveforms are normal. US/US carotid duplex BI IMPRESSION: 1. RIGHT: Minimal, non-hemodynamically significant stenosis of the proximal right internal carotid artery corresponding to a 0-49% stenosis by velocity criteria. 2. LEFT: Normal left internal carotid artery without atherosclerotic plaque or hemodynamically significant stenosis.
== END 2023-11-07 14:19 | disposition home or self-care (01) ==
LOC: HO.US 14:18
PROVIDERS: PCP Family Medicine; Visit Provider Family Medicine
DX: I65.23 Occlusion and stenosis of bilateral carotid arteries (principal)
CPT/HCPCS: 93880

== ENCOUNTER 2023-11-08 11:05 | Outpatient (REF) | payer OTHER, SELFPAY ==
--- NOTE | ~2023-11-08 | XR_ITS ---
EXAMINATION: XR CHEST CLINICAL INFORMATION: Unintentional weight loss. COMPARISON: Chest 11/26/2022 TECHNIQUE: 2 views of the chest were obtained. FINDINGS: The lungs are hyperinflated but clear of acute process. Heart size and pulmonary vascularity is normal. There are dual pacer electrodes in right atrium and right ventricle. No gross bony abnormality seen. XR/XR chest 2V IMPRESSION: No acute cardiopulmonary process seen. No change from 11/26/2022.
[2023-11-08 13:19] LABS: MANUAL DIFF FLAG NO
[2023-11-08 13:38] LABS: Basophils Percent Auto 0.5 % (0-2); Eosinophils Percent Auto 0.7 % (0-4); Hematocrit 41.7 % (37.0-47.0); Hemoglobin 13.7 g/dl (12.0-16.0); Imm Gran Abs Auto 0.03 X10*3/uL (0.00-0.03); Imm Gran Pct Auto 0.5 % (0.0-0.4); Lymphocytes Absolute Auto 1.1 X10*3/uL (1.2-4.9); Lymphocytes Percent Auto 18.4 % (20-40); Mean Corpuscular HGB Conc 32.9 g/dl (31.0-35.0); Mean Corpuscular Volume 88.3 fL (80.0-98.0); Mean Platelet Volume 11.6 fL (9.4-12.3); Monocytes Absolute Auto 0.5 X10*3/uL (0.1-1.2); Monocytes Percent Auto 8.5 % (2-11); Neutrophils Absolute Auto 4.2 x10*3/uL (2.0-8.3); Neutrophils Percent Auto 71.4 % (45-73); Platelet Count 204 X10*3/uL (160-400); Red Blood Count 4.72 X10*6/uL (4.20-5.50); Red Cell Distribution Width 13.2 % (11.0-16.0); White Blood Count 5.9 X10*3/uL (4.8-10.8)
[2023-11-08 13:47] LABS: Appearance Urine Clear; Color Urine Yellow; Glucose Urine UA Negative (Negative); Leukocyte Esterase Urine Trace (Negative); Nitrite Urine Negative (Negative); PH 5.5 (5.0-9.0); Specific Gravity - Urine 1.015 (1.005-1.025); UMIC TRIGGER UA YES; Urine Blood Negative (Negative); Urine Ketones Negative (Negative); Urine Protein Negative (Neg-Trace)
[2023-11-08 13:57] LABS: Bacteria Urine None Seen (None Seen); Hyaline Casts Urine 0-2 /LPF (0-2); RBC Urine 0-2 /HPF (0-2); Squamous Epithelial Cell Urine 0-2 /HPF (0-2); WBC Urine 0-5 /HPF (0-5)
[2023-11-08 14:03] LABS: Alanine Aminotransferase 17 U/L (0-31); Albumin Level 3.5 g/dL (3.5-5.0); Alkaline Phosphatase 82 U/L (39-117); Anion Gap 9 (12-20); Aspartate Amino Transferase 23 U/L (5-31); Bilirubin Direct 0.2 mg/dL (0.0-0.5); Bilirubin Total 0.5 mg/dL (0.0-1.0); Blood Urea Nitrogen 12 mg/dL (9-16); C Reactive Protein 0.12 mg/dL (< or = 0.50); Calcium 9.1 mg/dL (8.4-10.2); Carbon Dioxide 29 mmol/L (22-29); Chloride 105 mmol/L (96-108); Estimated Glomerular Filt Rate > 60; Glucose Random 157 mg/dL (60-115); Potassium 3.8 mmol/L (3.3-5.1); Sodium 139 mmol/L (135-145); Total Protein 7.3 g/dL (6.5-8.0)
[2023-11-08 14:11] LABS: Free T4 (Free Thyroxine) 0.91 ng/dL (0.71-1.85); Thyroid Stimulating Hormone 2.38 uIU/mL (0.32-4.0)
[2023-11-08 14:31] LABS: Erythrocyte Sedimentation Rate 23 MM/HR (0-20)
[2023-11-09 05:54] LABS: HIV AB/AG Nonreactive (Nonreactive); HIV Num 1 0.07 S/CO (0.00-0.99)
[2023-11-11 09:13] LABS: TS Negative Control Passed; TS Panel A 0; TS Panel B 0; TS Positive Control Passed; TSpotTB Negative (Negative)
== END 2023-11-08 11:06 | disposition home or self-care (01) ==
LOC: HO.HHCX 11:05
PROVIDERS: Visit Provider Family Medicine
DX: I10 Essential (primary) hypertension (principal); R63.4 Abnormal weight loss
CPT/HCPCS: 36415; 71046; 80048; 80076; 81001; 84134; 84439; 84443; 85025; 85652; 86140; 86481; 87389

== ENCOUNTER → 2023-11-21 23:59 | Outpatient (BNV) | payer OTHER, SELFPAY ==
--- NOTE | 2023-11-22 13:43 | A.OFFVIS_ITS ---
Intake Intake Visit Reasons: Remote Device Check- Medtronic Allergies No Known Allergies Allergy (Verified 05/17/23 13:57) PFSH Medical History History of colon cancer (~2009) Hyperlipidemia Hypertension Lower abdominal pain Surgical History History of colonoscopy History of partial colectomy (~2009) Family History Father History of colon cancer Sister History of pancreatic cancer Social History Household Members: None Housing: House Are you a primary child day care teacher to a significant other at home: No Do you presently have visiting nurse or other home services: No Alcohol intake: never Patient Tobacco Use Status: Never used Tobacco Second Hand Smoke Exposure: No service: No Current occupational status: disabled Office Procedures Cardiac Device Check Cardiac Device Check Details: PPM Good battery life 3 episodes of NSVT (longest 7 beats). [id number] Cardiac Device Interrogation, pacemaker Procedure code (CPT) selection complete Assessment & Plan Assessment & Plan (1) Pacemaker: Comment: 07/30/2022, Medtronic dual-chamber Code(s): Z95.0 - Presence of cardiac pacemaker Plan Orders: Orders AMB Cardiac Device Follow-up 11/21/23 I48.0 - Paroxysmal atrial fibrillation Coding Level of Care Code Procedure Only Diagnoses Pacemaker Z95.0 CPT Codes Cardiac Device Check - Cardiac Device 12: [id number] Cardiac Device Interrogation, pacemaker ([id number])
== END ==
PROVIDERS: PCP Family Medicine; Visit Provider Internal Medicine Cardiovascular Disease
DX: I49.5 Sick sinus syndrome (principal); Z95.0 Presence of cardiac pacemaker
CPT/HCPCS: 93294

== ENCOUNTER 2023-11-30 13:46 | Outpatient (REF) | payer OTHER, SELFPAY | END 2023-11-30 13:47 | disposition home or self-care (01) | LOC: HO.CT 13:46 | PROVIDERS: PCP Family Medicine; Visit Provider Family Medicine | DX: Z13.89 Encounter for screening for other disorder (principal) ==

== ENCOUNTER 2024-01-19 12:27 | Outpatient (REF) | payer OTHER, SELFPAY ==
--- NOTE | ~2024-01-19 | CT_ITS ---
EXAMINATION: CT ABDOMEN AND PELVIS WITHOUT CONTRAST CLINICAL INFORMATION: Abnormal weight loss COMPARISON: CT scan of abdomen and pelvis on 07/29/2022 TECHNIQUE: Multidetector volumetric imaging was performed from the superior aspect of the liver through the pubic symphysis. Sagittal and coronal reformatted images were obtained on the technologist's workstation. This CT examination was performed using dose optimization techniques as appropriate, variously including the following: *Automated exposure control *Adjustment of mA and/or kV according to patient size (this includes techniques or standardized protocols for targeted exams where dose is matched to indication/reason for exam; i.e. extremities or head) *Use of iterative reconstruction technique DLP: 321.13 mGy-cm FINDINGS: CT ABDOMEN LUNG BASES: Dual chamber Pacemaker wires are seen ending in right atrium and right ventricle. A new irregular nodule is partially visualized on the first lung base image, measuring 0.8 cm in the visualized portion, series 7 image #1. LIVER: Liver appears to be grossly normal on noncontrast enhanced images. GALLBLADDER AND BILIARY TREE: Gallbladder appears unremarkable without calcified stones. Common bile duct is dilated to 1.0 cm in diameter in the proximal portion. There could be moderate intrahepatic bile duct dilatation, difficult to differentiate from unopacified portal and hepatic veins. SPLEEN: The spleen is normal in size without focal lesion on noncontrast enhanced images. PANCREAS: The pancreas appears unremarkable on noncontrast enhanced images. ADRENAL GLANDS: Adrenal glands are normal in size without focal lesion bilaterally. KIDNEYS: The visualized bilateral kidneys are normal in size without stones. No caliectasis or dilated pelvis is seen. No dilated ureters are found. BOWELS: There is normal filling of large and small bowel loops with oral contrast down to the transverse colon. There is diffuse mild fecal distention of the colon. RETROPERITONEUM: No abnormally enlarged retroperitoneal lymph nodes, mass or hematoma could be seen. BLOOD VESSELS: Abdominal aorta is normal in size with scattered atherosclerotic calcifications. ABDOMINAL WALL: Medium-sized umbilical hernia containing mesenteric fat is seen. PERITONEUM: There is no ascites. There were no abdominal peritoneal inflammatory changes seen. No free peritoneal air was seen. BONES: Advanced L5-S1 degenerative lumbar disc disease is present. No fracture or dislocation. No focal bone lesion diagnostic of metastatic disease could be seen in the lumbar region. CT PELVIS URINARY BLADDER: The visualized urinary bladder is normal, filled with urine. No intraluminal stones are found. No abnormally dilated distal ureters are seen. BOWELS: Appendix cannot be identified. Persistent rectosigmoid region anastomosis staple line is seen. There is marked gaseous distention of the rectum, mixed with feces. GENITAL ORGANS: No adnexal mass lesion could be seen. The uterus is unremarkable. LYMPH NODES: No abnormally enlarged iliac or inguinal lymph nodes are seen. PERITONEUM: No inflammatory changes, ascites or free peritoneal air are found in the pelvis. BONES: No fracture or dislocation. No focal bone lesion diagnostic of metastatic disease could be seen in the pelvis. CT/CT abdomen pelvis wo IV con IMPRESSION: 1. New irregular nodule is partially visualized on the first lung base image, measuring 0.8 cm in the visualized portion. Further evaluation with CT scan of chest is recommended to exclude malignancy. 2. Interval development of intrahepatic bile duct and common bile duct dilatation without calcified stones. 3. Interval increased fecal distention of the colon. Unchanged rectosigmoid region anastomosis staple line is seen. There is marked gaseous distention of the rectum, mixed with feces. 4. Unchanged Medium-sized umbilical hernia containing mesenteric fat.
[2024-01-19] MEDS: Barium Sulfate Oral (Vanilla) 450 ML ORAL.SUSP 900 ML PO (15:40)
[2024-01-20 15:36] LABS: Creatinine POC 0.7 mg/dL (0.5-1.4); GFR POC > 60
== END 2024-01-19 12:28 | disposition home or self-care (01) ==
LOC: HO.CT 12:27
PROVIDERS: PCP Family Medicine; Visit Provider Family Medicine
DX: I10 Essential (primary) hypertension (principal); R63.4 Abnormal weight loss
CPT/HCPCS: 74176; 82565

== ENCOUNTER 2024-02-20 10:51 | Outpatient (REF) | payer OTHER, SELFPAY ==
--- NOTE | ~2024-02-20 | US_ITS ---
EXAMINATION: US ABDOMEN COMPLETE CLINICAL INFORMATION: Dilated common bile duct on CT abdomen. COMPARISON: CT abdomen and pelvis 01/19/2024. Ultrasound abdomen complete 05/10/2022 and 09/07/2021. TECHNIQUE: Real-time imaging of the abdominal viscera. Limited visualization due to bowel gas and body habitus. FINDINGS: PANCREAS: Limited visualization of pancreatic tail and head. Imaged portion of pancreatic body is unremarkable. ABDOMINAL AORTA: Limited visualization INFERIOR VENA CAVA: Visualized portions are normal. LIVER: Mildly increased hepatic parenchymal heterogeneity and echogenicity could be associated with hepatocellular disease/hepatic steatosis and severely limits visualization. Mild intrahepatic biliary ductal dilatation was better visualized on prior CT scan as visualization on ultrasound is substantially limited due to bowel gas and body habitus. GALLBLADDER: There is a 4 mm gallbladder polyp. Ultrasound of 05/10/2022 demonstrated a 2 mm polyp. COMMON BILE DUCT: Dilated common bile duct measuring up to 1.0 cm in diameter. RIGHT KIDNEY: No hydronephrosis. No renal calculi. Limited visualization. The kidney measures 9.3 cm in maximum dimension. LEFT KIDNEY: No hydronephrosis. No renal calculi. Limited visualization. The kidney measures 9.7 cm in maximum dimension. SPLEEN: Normal. The spleen measures 9.6 cm in maximum dimension. FREE FLUID: None. US/US abdomen complete IMPRESSION: 1. Dilated common bile duct measuring up to 1.0 cm in diameter. Mild intrahepatic biliary ductal dilatation was better visualized on prior CT scan as visualization on ultrasound is substantially limited due to bowel gas and body habitus. 2. Mildly increased hepatic parenchymal heterogeneity and echogenicity could be associated with hepatocellular disease/hepatic steatosis and severely limits visualization. 4. There is a 4 mm gallbladder polyp. Ultrasound of 05/10/2022 demonstrated a 2 mm polyp.
== END 2024-02-20 10:52 | disposition home or self-care (01) ==
LOC: HO.US 10:51
PROVIDERS: PCP Family Medicine; Visit Provider Family Medicine
DX: R93.5 Abnormal findings on diagnostic imaging of other abdominal regions, including retroperitoneum (principal)
CPT/HCPCS: 76700

== ENCOUNTER → 2024-02-20 23:59 | Outpatient (BNV) | payer OTHER, SELFPAY ==
--- NOTE | 2024-03-27 15:16 | MHC.OFFVIS ---
Intake Visit Reasons: Remote device check- Medtronic Allergies No Known Allergies Allergy (Verified 03/14/24 23:43) PFSH Medical History Lower abdominal pain Hyperlipidemia Hypertension History of colon cancer (~2009) Surgical History History of colonoscopy History of partial colectomy (~2009) Family History Father History of colon cancer Sister History of pancreatic cancer Social History Household Members: None Housing: House Are you a primary medicare sales representative to a significant other at home: No Do you presently have visiting nurse or other home services: No Alcohol intake: never Patient Tobacco Use Status: Never used Tobacco Second Hand Smoke Exposure: No Advance Directives Date on File: 08/02/22 service: No Current occupational status: disabled Office Procedures Cardiac Device Check Cardiac Device Check Details: Permanent pacemaker. Good battery life. Episodes of supraventricular tachycardia recorded. [id number] Cardiac Device Check, pacemaker dual lead Procedure code (CPT) selection complete Assessment & Plan Assessment & Plan (1) Pacemaker: Comment: 07/30/2022, Medtronic dual-chamber Code(s): Z95.0 - Presence of cardiac pacemaker Category: Medical Plan Coding Level of Care Code Procedure Only Diagnoses Pacemaker Z95.0 CPT Codes Cardiac Device Check - Cardiac Device 2: [id number] Cardiac Device Check, pacemaker dual lead ([id number])
== END ==
PROVIDERS: PCP Family Medicine; Visit Provider Internal Medicine Cardiovascular Disease
DX: I47.10 Supraventricular tachycardia, unspecified (principal); Z95.0 Presence of cardiac pacemaker
CPT/HCPCS: 93294

== ENCOUNTER 2024-02-29 13:41 | Outpatient (REF) | payer OTHER, SELFPAY ==
--- NOTE | ~2024-02-29 | CT_ITS ---
EXAMINATION: CT CHEST WITH CONTRAST CLINICAL INFORMATION: Nodule follow-up COMPARISON: CT abdomen dated 01/19/2024 TECHNIQUE: Multidetector volumetric CT imaging of the chest was obtained after the administration of 50 mL of Omnipaque 350 intravenous contrast without immediate adverse reactions. Axial MIP volume rendering provided. Sagittal and coronal reformatted images were obtained. This CT examination was performed using dose optimization techniques as appropriate, variously including the following: *Automated exposure control *Adjustment of mA and/or kV according to patient size (this includes techniques or standardized protocols for targeted exams where dose is matched to indication/reason for exam; i.e. extremities or head) *Use of iterative reconstruction technique DLP: 96 mGy-cm FINDINGS: POOL LIFEGUARD: Unremarkable LUNGS: 6.5 mm nodule left lung base (). No change. This needs to be followed. The lungs are hyperaerated. There is scarring in the lung apices. No suspicious consolidations. MEDIASTINUM: Heart size normal. No pericardial effusion. No significant adenopathy. Thoracic inlet unremarkable. No significant coronary artery calcification. PLEURA: There is no pleural effusion. No pleural mass or thickening. AXILLA: No lymphadenopathy. UPPER ABDOMEN: Unremarkable OSSEOUS STRUCTURES: Degenerative changes throughout the thoracic spine. Mild superior endplate compression, T12. Adjacent spurring noted. Per the 2017 revised Fleischner Society guidelines, recommend CT follow-up at 3-to-6 months. In high-risk patients, subsequent CT follow-up at 18-24 months is recommended. In low-risk patients, subsequent CT follow-up at 18-[address]/CT chest w IV con IMPRESSION: 6 mm stellate nodule left lung base. See above recommendation follow-up Fleischner guidelines were followed.
[2024-02-29] MEDS: iohexoL 350 MG/ML 75 ML INFUS..BTL 65 ML IV (15:19)
[2024-03-02 14:23] LABS: Creatinine POC 0.7 mg/dL (0.5-1.4); GFR POC > 60
== END 2024-02-29 13:42 | disposition home or self-care (01) ==
LOC: HO.CT 13:41
PROVIDERS: PCP Family Medicine; Visit Provider Family Medicine
DX: R93.5 Abnormal findings on diagnostic imaging of other abdominal regions, including retroperitoneum (principal)
CPT/HCPCS: 71260; 82565; Q9967

== ENCOUNTER 2024-03-14 23:20 | Emergency (ER) | payer OTHER, SELFPAY ==
--- NOTE | 2024-03-14 | ECG_ITS ---
Test Reason : chest pain Blood Pressure : / mmHG Vent. Rate : 067 BPM Atrial Rate : 067 BPM P-R Int : 150 ms QRS Dur : 072 ms QT Int : 414 ms P-R-T Axes : 088 014 037 degrees QTc Int : 437 ms Normal sinus rhythm Normal ECG When compared with ECG of 26-NOV-2022 19:51, No significant change was found Referred By: Generic ED Physician Electronically Signed By:FIDELIA DON MD
--- NOTE | ~2024-03-14 | XR_ITS ---
EXAMINATION: XR CHEST CLINICAL INFORMATION: Chest pain COMPARISON: 02/29/2024 TECHNIQUE: 2 views of the chest were obtained. FINDINGS: Left-sided pacemaker lead tips overlie the right atrium and right ventricle. Lung volumes are symmetric. No focal consolidation is seen. No evidence of pneumothorax, pleural effusion, or pulmonary edema. Cardiac silhouette appears near the upper limits of normal in size. Calcification is present at the aortic arch. No acute osseous findings are seen. XR/XR chest 2V IMPRESSION: No acute cardiopulmonary findings.
[2024-03-14 23:30] VITALS: BP 180/56; PULSE 60; RESP 18; TEMP 36.6; O2SAT 98; BMI 23.2
[2024-03-14 23:48] LABS: MANUAL DIFF FLAG NO
[2024-03-14 23:50] LABS: Basophils Percent Auto 0.6 % (0-2); Eosinophils Absolute Auto 0.1 X10*3/uL (0.0-0.4); Eosinophils Percent Auto 1.8 % (0-4); Hematocrit 41.5 % (37.0-47.0); Hemoglobin 14.1 g/dl (12.0-16.0); Imm Gran Abs Auto 0.02 X10*3/uL (0.00-0.03); Imm Gran Pct Auto 0.3 % (0.0-0.4); Lymphocytes Absolute Auto 2.2 X10*3/uL (1.2-4.9); Lymphocytes Percent Auto 33.7 % (20-40); Mean Corpuscular Hemoglobin 29.8 pg (27.0-33.0); Mean Corpuscular Volume 87.7 fL (80.0-98.0); Mean Platelet Volume 10.1 fL (9.4-12.3); Monocytes Absolute Auto 0.7 X10*3/uL (0.1-1.2); Monocytes Percent Auto 11.1 % (2-11); Neutrophils Absolute Auto 3.4 x10*3/uL (2.0-8.3); Neutrophils Percent Auto 52.5 % (45-73); Platelet Count 191 X10*3/uL (160-400); Red Blood Count 4.73 X10*6/uL (4.20-5.50); Red Cell Distribution Width 13.2 % (11.0-16.0); White Blood Count 6.6 X10*3/uL (4.8-10.8)
[2024-03-15 00:07] LABS: Alanine Aminotransferase 18 U/L (0-31); Albumin Level 3.8 g/dL (3.5-5.0); Alkaline Phosphatase 98 U/L (39-117); Anion Gap 15 (12-20); Aspartate Amino Transferase 25 U/L (5-31); Bilirubin Total 0.5 mg/dL (0.0-1.0); Blood Urea Nitrogen 17 mg/dL (9-16); Calcium 9.5 mg/dL (8.4-10.2); Carbon Dioxide 25 mmol/L (22-29); Chloride 105 mmol/L (96-108); Creatinine Clr Calc Pharmacy 44.1; Estimated Glomerular Filt Rate > 60; Glucose Random 103 mg/dL (60-115); Potassium 4.2 mmol/L (3.3-5.1); Sodium 141 mmol/L (135-145); Total Protein 7.9 g/dL (6.5-8.0)
[2024-03-15 00:13] LABS: Troponin-I High Sensitivity < 2.7 ng/L (<3.5-17.0)
[2024-03-15 01:38] VITALS: BP 175/56; PULSE 62; RESP 20; TEMP 36.9; O2SAT 98
--- NOTE | 2024-03-15 03:52 | ED_ITS ---
HPI - Chest Pain General Chief Complaint: Chest Pain Stated Complaint: chest pains Time Seen by Provider: 03/15/24 01:36 History of Present Illness HPI narrative: Patient is an 83-year-old female presents today with having chest pain. The pain is worse with lying down. Improved on sitting up. There has no shortness of breath associated with this. There has no nausea. The pain lasted initially 5 minutes. Had a 2nd episode that lasted for few minutes. Never had a stress test. Never had a heart attack. Positive history of sick sinus syndrome status post pacemaker. Patient denies feeling dizzy denies having any near syncopal or syncopal episodes. Has a history of high cholesterol. Patient is from home. Never had a stress test. No fever no chills no cough no congestion. No diaphoresis. No bloody stool. No travel history. Not on blood thinners. No leg swelling. Related Data Home Medications ?Medication ?Instructions ?Recorded ?Confirmed aspirin 81 mg tablet,delayed 81 mg PO DAILY 10/15/20 05/17/23 release atorvastatin 20 mg tablet 20 mg PO BEDTIME 10/15/20 05/17/23 calcium carbonate 600 mg-vitamin 1 tab PO BID 11/20/20 05/17/23 D3 10 mcg (400 unit) tablet brimonidine 0.2 % eye drops 1 drp ophthalmic (eye) BID 03/11/21 05/17/23 clotrimazole 1 % topical cream 1 appl topical BID PRN Rash 07/30/22 05/17/23 metoprolol tartrate 25 mg tablet 50 mg PO BID 11/28/22 05/17/23 Previous Rx's ?Medication ?Instructions ?Recorded acetaminophen 500 mg capsule 500 mg PO Q6H PRN pain #20 caps 09/10/21 docusate sodium 100 mg capsule 100 mg PO BID #60 caps 06/03/22 (Colace) psyllium husk 3.4 gram/5.4 gram 1 tbsp PO DAILY #660 grams 06/03/22 oral powder (Metamucil) ondansetron 4 mg disintegrating 4 mg PO Q6H PRN nausea and 07/30/22 tablet vomiting #10 tabs amlodipine 5 mg tablet 5 mg PO DAILY 30 days #30 tabs 08/01/22 Allergies Allergy/AdvReac Type Severity Reaction Status Date / Time No Known Allergies Allergy Verified 03/14/24 23:43 Review of Systems 2 Review of Systems: Positive chest pain mid chest Yes all other systems are reviewed and are negative [facility] Past Medical History Attestation statement: The following information was validated with the patient. Medical History Lower abdominal pain Hyperlipidemia Hypertension History of colon cancer (~2009) Surgical History History of colonoscopy History of partial colectomy (~2009) Family History Family History Father History of colon cancer Sister History of pancreatic cancer Social History Social History Household Members: None Housing: House Are you a primary child day care provider to a significant other at home: No Do you presently have visiting nurse or other home services: No Alcohol intake: never Patient Tobacco Use Status: Never used Tobacco Second Hand Smoke Exposure: No Advance Directives: Yes Advance Directives on File: Yes Advance Directives Date on File: 08/02/22 Do you have a plan to hurt others: No Plan service: No Current occupational status: disabled Physical Exam 2 Vital Signs: Vital Signs: Last Vital Signs Temp 98.3 F 03/15/24 04:00 Pulse 65 03/15/24 04:00 Resp 20 03/15/24 04:00 BP 174/63 H 03/15/24 04:00 Pulse Ox 97 03/15/24 04:00 O2 Del Method Room Air 03/15/24 04:00 BMI result Body Mass Index 23.2 Appearance: Alert. Oriented X3. No acute distress. Eyes: Pupils equal, round and reactive to light. ENT: Pharynx normal. Neck: Normal inspection. Neck supple. No lymph nodes noted. No crepitus CVS: Normal heart rate and rhythm. Pulses normal. Normal S1 and S2 Respiratory: No respiratory distress. Breath sounds normal. No Wheezing. No rales Abdomen: Soft and nontender. No rigidity. No distention. good BS x4 Skin: Skin warm and dry. Normal skin color. Normal skin turgor. Extremities: No lower extremity edema. Neurovascular intact to all extremities. No Lacerations. No Rash Neuro: Oriented X 3. No motor deficit. No sensory deficit. Moving all extermities. No slurred speech Medications Administered Discontinued Medications Generic Name Dose Route Start Last Admin Trade Name Meka PRN Reason Stop Dose Admin Al Hydroxide/Mg Hydroxide 30 ml 03/15/24 03:47 03/15/24 04:09 Magnesium Hydrox/Alum Hydrox 30 Ml Oral.Susp PO 03/15/24 03:48 30 ml ONCE ONE Administration Aspirin 324 mg 03/15/24 03:47 03/15/24 04:09 Aspirin 81 Mg Tab.Chew PO 03/15/24 03:48 324 mg ONCE ONE Administration Medical Decision Making Medical Decision Making [facility] Narrative: My interpretation of patient's EKG showed sinus rhythm heart rate is 70 AR QRS QTC normal no acute ST segment elevation noted. My interpretation of patient's chest x-ray was grossly negative. There is no evidence for pneumonia. There has no evidence for pneumothorax. Patient's EKG not consistent with ACS. Pain atypical. Patient's troponin less than 2.7. Will get a 2nd set. Second set of enzymes are negative. Patient's chest pain atypical. Heart score is 3. Will discharge patient home. Close follow-up on an outpatient basis. Differential Diagnosis Differential Diagnoses: The differential diagnosis associated with the presentation includes ACS, atypical chest pain, indigestion, pneumonia, pneumothorax, PE Admission/Observation Consideration of admission/observation: Escalation of care including admission/observation considered Lab Data [facility] Lab Attestation statement: I reviewed the patient's lab results. 03/14/24 23:44 03/14/24 23:44 Labs: Lab Results 03/14/24 03/15/24 Range/Units 23:44 04:16 WBC 6.6 (4.8-10.8) X10*3/uL RBC 4.73 (4.20-5.50) X10*6/uL Hgb 14.1 (12.0-16.0) g/dl Hct 41.5 (37.0-47.0) % MCV 87.7 (80.0-98.0) fL MCH 29.8 (27.0-33.0) pg MCHC 34.0 (31.0-35.0) g/dl RDW 13.2 (11.0-16.0) % Plt Count 191 (160-400) X10*3/uL MPV 10.1 (9.4-12.3) fL Immature Gran % (Auto) 0.3 (0.0-0.4) % Neut % (Auto) 52.5 (45-73) % Lymph % (Auto) 33.7 (20-40) % Wright % (Auto) 11.1 H (2-11) % Eos % (Auto) 1.8 (0-4) % Baso % (Auto) 0.6 (0-2) % Lymph # (Auto) 2.2 (1.2-4.9) X10*3/uL Wright # (Auto) 0.7 (0.1-1.2) X10*3/uL Eos # (Auto) 0.1 (0.0-0.4) X10*3/uL Baso # (Auto) 0.0 (0.0-0.2) X10*3/uL Abs Immat Gran (auto) 0.02 (0.00-0.03) X10*3/uL Absolute Neuts (auto) 3.4 (2.0-8.3) x10*3/uL Absolute Nucleated RBC 0.000 (0.0-0.012) X10*3/uL Nucleated RBC % (auto) 0.0 (0.0-0.2) /100WBC Sodium 141 (135-145) mmol/L Potassium 4.2 (3.3-5.1) mmol/L Chloride 105 (96-108) mmol/L Carbon Dioxide 25 (22-29) mmol/L Anion Gap 15 (12-20) BUN 17 H (9-16) mg/dL Creatinine 0.70 (0.5-1.4) mg/dL Estim Creat Clear Calc 44.1 Estimated GFR > 60 Random Glucose 103 (60-115) mg/dL Calcium 9.5 (8.4-10.2) mg/dL Total Bilirubin 0.5 (0.0-1.0) mg/dL AST 25 (5-31) U/L ALT 18 (0-31) U/L Alkaline Phosphatase 98 (39-117) U/L Troponin I High Sens < 2.7 < 2.7 (<3.5-17.0) ng/L Total Protein 7.9 (6.5-8.0) g/dL Albumin 3.8 (3.5-5.0) g/dL Independent Interpretation I performed an independent interpretation of an: EKG (Sinus heart rate is 80 AR QRS QTC normal no acute ST segment elevation) and Plain X-Ray (Chest x-ray negative for pneumonia pneumothorax) Radiology Impression Discussion of test interpretation with radiology: I have reviewed the radiologist's reading. External Record Review External record reviewed: Outpatient record (Previous cardiology record reviewed) Discharge Plan Discharge Clinical Impression: Chest pain Patient Disposition: Home, Self-Care Instructions: Chest Pain (ED) Prescriptions: No Action calcium carbonate-vitamin D3 600 mg(1,500mg) -400 unit tablet 1 tab PO BID acetaminophen 500 mg capsule 500 mg PO Q6H PRN (Reason: pain) Qty: 20 0RF ondansetron 4 mg tablet,disintegrating 4 mg PO Q6H PRN (Reason: nausea and vomiting) Qty: 10 0RF clotrimazole 1 % cream 1 appl TOPICAL BID PRN (Reason: Rash) amlodipine 5 mg Tablet 5 mg PO DAILY 30 Days Qty: 30 0RF Protocol: Hold for SBP< HOLD for SBP < : 90 aspirin 81 mg tablet,delayed release (DR/EC) 81 mg PO DAILY atorvastatin 20 mg tablet 20 mg PO BEDTIME brimonidine 0.2 % drops 1 drp ophthalmic (eye) BID metoprolol tartrate 25 mg tablet 50 mg PO BID docusate sodium [Colace] 100 mg capsule 100 mg PO BID Qty: 60 3RF Metamucil 3.4 gram/5.4 gram powder 1 tbsp PO DAILY Qty: 660 2RF Rx Instructions: mix into at least 8 oz of water or juice before administering Referrals: Jill Hester DO [Primary Care Provider] - Liang Mart MD [Physician] - 03/19/24 Print Language: Luxembourger
[2024-03-15 04:00] VITALS: BP 174/63; PULSE 65; RESP 20; TEMP 36.8; O2SAT 97
[2024-03-15] MEDS: Aspirin 81 MG TAB.CHEW 324 MG PO (04:09)
[2024-03-15] MEDS: Magnesium Hydrox/Alum Hydrox 30 ML ORAL.SUSP PO (04:09)
--- NOTE | 2024-03-15 04:16 | MHC.EDTECH ---
Hourly rounds and vitals completed,repeat lab drawn and sent to lab,call strong in reach
[2024-03-15 04:46] LABS: Troponin-I High Sensitivity < 2.7 ng/L (<3.5-17.0)
[2024-03-15 05:16] VITALS: BP 174/63; PULSE 65; RESP 20; TEMP 36.8; O2SAT 97
== END 2024-03-15 05:26 | disposition home or self-care (01) ==
PROVIDERS: Emergency Provider Emergency Medicine Emergency Medical Services; PCP Family Medicine
DX: R07.89 Other chest pain (principal); Z79.899 Other long term (current) drug therapy
CPT/HCPCS: 36415; 71046; 80053; 84484; 85025; 93005; 99283; 99284

== ENCOUNTER → 2024-03-14 23:26 | Outpatient (BNV) | payer OTHER, SELFPAY | PROVIDERS: Emergency Provider Emergency Medicine Emergency Medical Services; PCP Family Medicine; Visit Provider Internal Medicine Cardiovascular Disease | DX: R07.9 Chest pain, unspecified (principal) | CPT/HCPCS: 93010 ==

== ENCOUNTER 2024-04-30 12:59 | Outpatient (REF) | payer OTHER, SELFPAY | END 2024-04-30 13:00 | disposition home or self-care (01) | LOC: HO.MAMMO 12:59 | PROVIDERS: PCP Family Medicine; Visit Provider Family Medicine | DX: Z13.89 Encounter for screening for other disorder (principal) ==

== ENCOUNTER 2024-05-14 15:20 | Outpatient (AMB) | payer OTHER, SELFPAY ==
--- NOTE | 2024-05-14 16:00 | A.OFFVIS_ITS ---
Vital Signs 05/14/24 16:01 Height 4 ft 11 in Weight 122 lb 2.177 oz BMI 24.7 BP 120/72 Blood Pressure Location Lt brachial Position Sitting Pulse 60 Pulse Source Pulse Oximeter Intake Visit Reasons: [facility] ED f/up- chest pain Director Of Learning Required: Yes Director Of Learning Name: luis alfredo/daughter Accompanied by: Daughter Allergies No Known Allergies Allergy (Verified 03/14/24 23:43) Medication List - Last Reconciled 05/14/24 by Liang Mart MD acetaminophen 500 mg PO Q6H PRN amlodipine 5 mg See Protocol PO DAILY 30 days aspirin 81 mg PO DAILY atorvastatin 20 mg PO BEDTIME brimonidine 0.2% 1 drp ophthalmic (eye) BID calcium carbonate-vitamin D3 600 mg-10 mcg (400 unit) 1 tab PO BID clotrimazole 1% 1 appl topical BID PRN docusate sodium (Colace) 100 mg PO BID metoprolol tartrate 50 mg PO BID psyllium husk (Metamucil) 1 tbsp PO DAILY HPI Comments Details: 83-year-old female here for follow-up. She previously had syncope and AV block and underwent pacemaker placement. Recently she was in the ER with indigestion like chest discomfort. She was ruled out and discharged back home. She has not had any further chest discomfort. Pacemaker has been interrogated and has been functioning fine. Blood pressure is well controlled currently. She is denying any symptoms on follow-up. [facility] Medical History (Updated 05/14/24 @ 18:51 by Liang Mart MD) Hypertension Chronic venous insufficiency Lower abdominal pain Hyperlipidemia History of colon cancer (~2009) Surgical History H/O breast biopsy History of appendectomy History of colonoscopy History of partial colectomy (~2009) Family History Father History of colon cancer Sister History of pancreatic cancer Social History Household Members: None Housing: House Are you a primary medicare nurse to a significant other at home: No Do you presently have visiting nurse or other home services: No Alcohol intake: never Patient Tobacco Use Status: Never used Tobacco Second Hand Smoke Exposure: No Advance Directives Date on File: 08/02/22 service: No Current occupational status: disabled Review of Systems Const Denies chills, Denies fatigue, Denies fever(s), Denies frequent falls, Denies weakness, Denies weight gain and Denies weight loss ENT Denies dizziness Card Denies chest pain, Denies leg edema, Denies lightheadedness, Denies palpitations, Denies dyspnea and Denies dyspnea on exertion Resp Denies cough, Denies dyspnea and Denies dyspnea on exertion GI Denies hematochezia Musc Denies abnormal gait, Denies muscle weakness, Denies numbness, Denies radiating pain into limb and Denies tingling Neuro Denies abnormal gait, Denies dizziness, Denies frequent falls, Denies numbness, Denies tingling and Denies weakness Endo Denies fatigue and Denies palpitations Physical Exam Vital Signs: Last Vital Signs Pulse 60 05/14/24 16:01 BP 120/72 05/14/24 16:01 BMI result Body Mass Index 24.7 GENERAL APPEARANCE: in no acute distress, pleasant. NECK: no carotid bruit, no jugular venous distention. SKIN: no suspicious lesions, warm and dry. HEART: no murmurs, regular rate and rhythm. LUNGS: clear to auscultation bilaterally. ABDOMEN: soft, nontender. EXTREMITIES: no edema. PERIPHERAL PULSES: equal. NEUROLOGIC: No gross deficits, AAO X 3 Assessment & Plan Assessment & Plan (1) Pacemaker: Comment: 07/30/2022, Medtronic dual-chamber Code(s): Z95.0 - Presence of cardiac pacemaker Category: Medical (2) Hypertension: Code(s): I10 - Essential (primary) hypertension Category: Medical Plan Pleasant 83-year-old female who is here for follow-up. Blood pressure is well controlled. She has permanent pacemaker in the past which has been functioning fine. Recent ER visit for atypical chest pain. No further discomfort in her chest since 03/29/2024. Clinically stable. We will see her back in 1 year. Thank you for allowing me to participate in the care of your patient. Please feel free to contact me if you have any questions. Coding Level of Care Code Est Pt Level 3 (94151) Diagnoses Pacemaker Z95.0 Hypertension I10
[2024-05-14 16:01] VITALS: BP 120/72; PULSE 60; BMI 24.7
== END 2024-05-14 16:23 | disposition home or self-care (01) ==
PROVIDERS: PCP Family Medicine; Visit Provider Internal Medicine Cardiovascular Disease
DX: I10 Essential (primary) hypertension (principal); Z95.0 Presence of cardiac pacemaker
CPT/HCPCS: 99213

== ENCOUNTER → 2024-05-14 15:20 | Outpatient (BNVA) | payer OTHER, SELFPAY | PROVIDERS: PCP Family Medicine; Visit Provider Internal Medicine Cardiovascular Disease | DX: I10 Essential (primary) hypertension (principal); R07.9 Chest pain, unspecified; Z95.0 Presence of cardiac pacemaker | CPT/HCPCS: 99212 ==

== ENCOUNTER → 2024-05-21 23:59 | Outpatient (BNV) | payer OTHER, SELFPAY ==
--- NOTE | 2024-06-11 19:53 | MHC.OFFVIS ---
Intake Visit Reasons: Remote device check- Medtronic Allergies No Known Allergies Allergy (Verified 05/23/24 15:17) [facility] Medical History (Updated 05/23/24 @ 15:37 by CATA Feliz) Hypertension Chronic venous insufficiency Lower abdominal pain Hyperlipidemia History of colon cancer (~2009) Surgical History H/O breast biopsy History of appendectomy History of colonoscopy History of partial colectomy (~2009) Family History Father History of colon cancer Sister History of pancreatic cancer Social History Household Members: None Housing: House Are you a primary post anesthesia care unit nurse to a significant other at home: No Do you presently have visiting nurse or other home services: No Alcohol intake: never Patient Tobacco Use Status: Never used Tobacco Second Hand Smoke Exposure: No Advance Directives Date on File: 08/02/22 service: No Current occupational status: disabled Office Procedures Cardiac Device Check Cardiac Device Check Details: PPM Good battery life. SEARCH STRATEGIST <0.1%. short runs of NSVT recorded. 38037-YR Cardiac Device Check, pacemaker dual lead Procedure code (CPT) selection complete Assessment & Plan Assessment & Plan (1) Pacemaker: Comment: 07/30/2022, Medtronic dual-chamber Code(s): Z95.0 - Presence of cardiac pacemaker Category: Medical Plan: Coding Level of Care Code Procedure Only Diagnoses Pacemaker Z95.0 CPT Codes Cardiac Device Check - Cardiac Device 2: 10536-DK Cardiac Device Check, pacemaker dual lead ([id number])
== END ==
PROVIDERS: PCP Family Medicine; Visit Provider Internal Medicine Cardiovascular Disease
DX: I47.10 Supraventricular tachycardia, unspecified (principal); Z95.0 Presence of cardiac pacemaker
CPT/HCPCS: 93294

== ENCOUNTER 2024-05-23 14:53 | Outpatient (AMB) | payer OTHER, SELFPAY ==
--- NOTE | 2024-05-23 15:06 | MHC.OFFVIS ---
Vital Signs 05/23/24 15:10 Height 4 ft 11 in Weight 122 lb 2.177 oz BMI 24.7 BP 153/66 H Blood Pressure Location Lt brachial Position Sitting Pulse 67 Intake Visit Reasons: colonoscopy screening Intake Note: Patient here for colonoscopy screening. Last colonoscopy screening at [facility] 1yr ago. Patient c/o: constipation. Reports colace, Miralax help and takes it as needed. Assembly Associate Required: No Accompanied by: Ale Marquez daughter Allergies No Known Allergies Allergy (Verified 05/23/24 15:17) [facility] HPI colonoscopy screening: Details: 83-year-old female here for preprocedural meeting to discuss a screening colonoscopy. She is referred by [facility]. She also wants to be evaluated for weight loss. PMX History of stage III colon [id number] History of pulmonary embolism Sick sinus syndrome with pacemaker Fatty liver Varicose veins Chronic venous insufficiency Pre diabetes High cholesterol Hypertension Depression Chronic low back pain Carotid stenosis Family history of colon cancer-father * SURGICAL HISTORY Sigmoid resection for colon cancer-2009 Appendectomy Breast biopsy-2013 [id number] no lesions at that time she saw him again in 2019 but no colonoscopy was obtained * ALLERGIES: NKDA * [employer] LABS: Laboratory Tests 03/14/24 23:44 WBC 6.6 Hgb 14.1 Hct 41.5 Plt Count 191 Estimated GFR > 60 Total Bilirubin 0.5 AST 25 ALT [address] ABDOMEN AND PELVIS 01/31/24 FINDINGS: CT ABDOMEN LUNG BASES: Dual chamber Pacemaker wires are seen ending in right atrium and right ventricle. A new irregular nodule is partially visualized on the first lung base image, measuring 0.8 cm in the visualized portion, series 7 image #1. LIVER: Liver appears to be grossly normal on noncontrast enhanced images. GALLBLADDER AND BILIARY TREE: Gallbladder appears unremarkable without calcified stones. Common bile duct is dilated to 1.0 cm in diameter in the proximal portion. There could be moderate intrahepatic bile duct dilatation, difficult to differentiate from unopacified portal and hepatic veins. SPLEEN: The spleen is normal in size without focal lesion on noncontrast enhanced images. PANCREAS: The pancreas appears unremarkable on noncontrast enhanced images. ADRENAL GLANDS: Adrenal glands are normal in size without focal lesion bilaterally. KIDNEYS: The visualized bilateral kidneys are normal in size without stones. No caliectasis or dilated pelvis is seen. No dilated ureters are found. BOWELS: There is normal filling of large and small bowel loops with oral contrast down to the transverse colon. There is diffuse mild fecal distention of the colon. RETROPERITONEUM: No abnormally enlarged retroperitoneal lymph nodes, mass or hematoma could be seen. BLOOD VESSELS: Abdominal aorta is normal in size with scattered atherosclerotic calcifications. ABDOMINAL WALL: Medium-sized umbilical hernia containing mesenteric fat is seen. PERITONEUM: There is no ascites. There were no abdominal peritoneal inflammatory changes seen. No free peritoneal air was seen. BONES: Advanced L5-S1 degenerative lumbar disc disease is present. No fracture or dislocation. No focal bone lesion diagnostic of metastatic disease could be seen in the lumbar region. CT PELVIS URINARY BLADDER: The visualized urinary bladder is normal, filled with urine. No intraluminal stones are found. No abnormally dilated distal ureters are seen. BOWELS: Appendix cannot be identified. Persistent rectosigmoid region anastomosis staple line is seen. There is marked gaseous distention of the rectum, mixed with feces. GENITAL ORGANS: No adnexal mass lesion could be seen. The uterus is unremarkable. LYMPH NODES: No abnormally enlarged iliac or inguinal lymph nodes are seen. PERITONEUM: No inflammatory changes, ascites or free peritoneal air are found in the pelvis. BONES: No fracture or dislocation. No focal bone lesion diagnostic of metastatic disease could be seen in the pelvis. CT/CT abdomen pelvis wo IV con IMPRESSION: 1. New irregular nodule is partially visualized on the first lung base image, measuring 0.8 cm in the visualized portion. Further evaluation with CT scan of chest is recommended to exclude malignancy. 2. Interval development of intrahepatic bile duct and common bile duct dilatation without calcified stones. 3. Interval increased fecal distention of the colon. Unchanged rectosigmoid region anastomosis staple line is seen. There is marked gaseous distention of the rectum, mixed with feces. 4. Unchanged Medium-sized umbilical hernia containing mesenteric fat. CHEST CT 03/01/24 INDINGS: TOLL GATE TENDER: Unremarkable LUNGS: 6.5 mm nodule left lung base (9/116). No change. This needs to be followed. The lungs are hyperaerated. There is scarring in the lung apices. No suspicious consolidations. MEDIASTINUM: Heart size normal. No pericardial effusion. No significant adenopathy. Thoracic inlet unremarkable. No significant coronary artery calcification. PLEURA: There is no pleural effusion. No pleural mass or thickening. AXILLA: No lymphadenopathy. UPPER ABDOMEN: Unremarkable OSSEOUS STRUCTURES: Degenerative changes throughout the thoracic spine. Mild superior endplate compression, T12. Adjacent spurring noted. Per the 2017 revised Fleischner Society guidelines, recommend CT follow-up at 3-to-6 months. In high-risk patients, subsequent CT follow-up at 18-24 months is recommended. In low-risk patients, subsequent CT follow-up at 18-[address]/CT chest w IV con IMPRESSION: 6 mm stellate nodule left lung base. See above recommendation follow-up ULTRASOUND OF THE ABDOMEN 02/21/24 LIVER: Mildly increased hepatic parenchymal heterogeneity and echogenicity could be associated with hepatocellular disease/hepatic steatosis and severely limits visualization. Mild intrahepatic biliary ductal dilatation was better visualized on prior CT scan as visualization on ultrasound is substantially limited due to bowel gas and body habitus. GALLBLADDER: There is a 4 mm gallbladder polyp. Ultrasound of 05/10/2022 demonstrated a 2 mm polyp. TODAY'S VISIT [employer] [place] [facility]dtr translates per pt request. They say she is here because her stools are hard and they found some stool in the colon. Given her age and other comorbid health problems, I don't think it masters to alfredo in to a procedure with anesthesia. Will try treating CIC first adn do a Cologuard to see if there is any reason to suspect polyps or CRC - which even in the light of a positive cologuard should be carefully evaluated in terms of overall life expectancy and risk vs benefit. DESPITE HER HISTORY OF COLON CANCER it is very unlikely that there is anything like an obstructing colon mass given the relatively benign CT findings. They were also concerned about a dilation of the common bile duct. It is dilated to a point that we see frequently and since there is no other ductal dilation in the liver and because they had difficulty discerning the bile duct from the portal and hepatic veins due to arteriosclerosis and given the patient's absence of symptoms I do not think this is something that needs to be aggressively followed up. We are going to start with senna and titrate to affect her side effect to control the patient's constipation. Return office visit in 8 weeks to evaluate her response and to go over Cologuard results. If other testing is required up to and including colonoscopy. [facility] Medical History (Updated 05/23/24 @ 15:37 by CATA Feliz) Hypertension Chronic venous insufficiency Lower abdominal pain Hyperlipidemia History of colon cancer (~2009) Surgical History H/O breast biopsy History of appendectomy History of colonoscopy History of partial colectomy (~2009) Family History Father History of colon cancer Sister History of pancreatic cancer Social History Household Members: None Housing: House Are you a primary career development facilitator to a significant other at home: No Do you presently have visiting nurse or other home services: No Alcohol intake: never Patient Tobacco Use Status: Never used Tobacco Second Hand Smoke Exposure: No Advance Directives Date on File: 08/02/22 service: No Current occupational status: disabled Review of Systems Const Denies fatigue, Denies fever(s), Denies night sweats, Denies poor appetite and Denies weight loss ENT Reports Normal hearing present, Denies dysphagia, Denies odynophagia, Denies throat swelling and Denies tongue swelling Card Reports no additional complaints Resp Reports no additional complaints GI Details: Denies abdominal pain, Denies melena, Reports bloating, Denies hematochezia, Reports constipation, Denies GI cramping, Denies dysphagia, Denies excessive flatus, Denies early satiety, Reports dyspepsia, Reports heartburn, Denies diarrhea, Denies nausea, Denies odynophagia, Denies vomiting and Denies hematemesis Skin/Breast Denies pruritus, Denies lesions, Denies rash and Denies jaundice Neuro Reports Normal hearing present and Denies Abnormal speech present Endo Denies fatigue Aller/Immun Denies throat swelling and Denies tongue swelling Physical Exam Vital Signs: Last Vital Signs Pulse 67 05/23/24 15:10 BP 153/66 H 05/23/24 15:10 BMI result Body Mass Index 24.7 Const General: cooperative, no acute distress, well developed and well groomed Nutritional Appearance: average body habitus and well nourished Orientation/consciousness: oriented to person, oriented to place and oriented to time Limitations: language barrier HEENT Head: Yes normocephalic and Yes atraumatic Eyes General: appearance normal, both eyes and all related structures Pupils: Equal, round and reactive pupils present Neck Neck: Yes normal visual inspection and Yes no lymphadenopathy Thyroid: Thyroid normal Resp Effort & Inspection: normal respiratory effort and able to speak in complete sentences Auscultation: crackles on the left in the lower lung velasquez and diminished lung sounds bilateral in the lower lung velasquez Cardio Rate: regular rate Rhythm: regular rhythm Heart sounds: Normal, physiologic split S2 sound present Peripheral pulses: radial pulses present and posterior tibial pulses present GI Inspection: Yes distended, No Abdominal panniculus present and Yes scar Palpation (GI): Soft to palpation, nontender, no guarding, not rigid, No hepatosplenomegaly present and Hernia present (incisional just right of surgical line about 3 across in diameter soft ) Percussion: Yes normal to percussion Auscultation: normal bowel sounds Rectal Exam - Female: deferred Abdomen image: 1. Well-healed surgical scar 2. Incisional hernia Skin General skin exam: no rashes or lesions noted, turgor normal, skin not dry, no jaundice, No spider nevi and no striae Rashes: no rashes Nails: normal Neuro General: oriented to person, oriented to place and oriented to time Cranial nerves: Yes Equal, round and reactive pupils present and Yes Normal hearing present Speech: No Abnormal speech present Extrem General: Yes normal to inspection, No clubbing, No cyanosis and No edema Psych Appearance: grossly normal and well kempt Mental Status: mental status grossly normal Speech and movement: Normal speech and movement present Affect: normal affect Attitude: cooperative Thought process: Normal thought process present and not confabulating Thought content: Normal thought content present Insight: Limited insight present (Psych) Judgement: Limited judgement present (Psych) Results Reviewed Results Reviewed: Laboratory Tests 03/14/24 23:44 WBC 6.6 Hgb 14.1 Hct 41.5 Plt Count 191 Estimated GFR > 60 Total Bilirubin 0.5 AST 25 ALT [address] ABDOMEN AND PELVIS 01/31/24 FINDINGS: CT ABDOMEN LUNG BASES: Dual chamber Pacemaker wires are seen ending in right atrium and right ventricle. A new irregular nodule is partially visualized on the first lung base image, measuring 0.8 cm in the visualized portion, series 7 image #1. LIVER: Liver appears to be grossly normal on noncontrast enhanced images. GALLBLADDER AND BILIARY TREE: Gallbladder appears unremarkable without calcified stones. Common bile duct is dilated to 1.0 cm in diameter in the proximal portion. There could be moderate intrahepatic bile duct dilatation, difficult to differentiate from unopacified portal and hepatic veins. SPLEEN: The spleen is normal in size without focal lesion on noncontrast enhanced images. PANCREAS: The pancreas appears unremarkable on noncontrast enhanced images. ADRENAL GLANDS: Adrenal glands are normal in size without focal lesion bilaterally. KIDNEYS: The visualized bilateral kidneys are normal in size without stones. No caliectasis or dilated pelvis is seen. No dilated ureters are found. BOWELS: There is normal filling of large and small bowel loops with oral contrast down to the transverse colon. There is diffuse mild fecal distention of the colon. RETROPERITONEUM: No abnormally enlarged retroperitoneal lymph nodes, mass or hematoma could be seen. BLOOD VESSELS: Abdominal aorta is normal in size with scattered atherosclerotic calcifications. ABDOMINAL WALL: Medium-sized umbilical hernia containing mesenteric fat is seen. PERITONEUM: There is no ascites. There were no abdominal peritoneal inflammatory changes seen. No free peritoneal air was seen. BONES: Advanced L5-S1 degenerative lumbar disc disease is present. No fracture or dislocation. No focal bone lesion diagnostic of metastatic disease could be seen in the lumbar region. CT PELVIS URINARY BLADDER: The visualized urinary bladder is normal, filled with urine. No intraluminal stones are found. No abnormally dilated distal ureters are seen. BOWELS: Appendix cannot be identified. Persistent rectosigmoid region anastomosis staple line is seen. There is marked gaseous distention of the rectum, mixed with feces. GENITAL ORGANS: No adnexal mass lesion could be seen. The uterus is unremarkable. LYMPH NODES: No abnormally enlarged iliac or inguinal lymph nodes are seen. PERITONEUM: No inflammatory changes, ascites or free peritoneal air are found in the pelvis. BONES: No fracture or dislocation. No focal bone lesion diagnostic of metastatic disease could be seen in the pelvis. CT/CT abdomen pelvis wo IV con IMPRESSION: 1. New irregular nodule is partially visualized on the first lung base image, measuring 0.8 cm in the visualized portion. Further evaluation with CT scan of chest is recommended to exclude malignancy. 2. Interval development of intrahepatic bile duct and common bile duct dilatation without calcified stones. 3. Interval increased fecal distention of the colon. Unchanged rectosigmoid region anastomosis staple line is seen. There is marked gaseous distention of the rectum, mixed with feces. 4. Unchanged Medium-sized umbilical hernia containing mesenteric fat. CHEST CT 03/01/24 INDINGS: TOLL GATE TENDER: Unremarkable LUNGS: 6.5 mm nodule left lung base (9/116). No change. This needs to be followed. The lungs are hyperaerated. There is scarring in the lung apices. No suspicious consolidations. MEDIASTINUM: Heart size normal. No pericardial effusion. No significant adenopathy. Thoracic inlet unremarkable. No significant coronary artery calcification. PLEURA: There is no pleural effusion. No pleural mass or thickening. AXILLA: No lymphadenopathy. UPPER ABDOMEN: Unremarkable OSSEOUS STRUCTURES: Degenerative changes throughout the thoracic spine. Mild superior endplate compression, T12. Adjacent spurring noted. Per the 2017 revised Fleischner Society guidelines, recommend CT follow-up at 3-to-6 months. In high-risk patients, subsequent CT follow-up at 18-24 months is recommended. In low-risk patients, subsequent CT follow-up at 18-[address]/CT chest w IV con IMPRESSION: 6 mm stellate nodule left lung base. See above recommendation follow-up ULTRASOUND OF THE ABDOMEN 02/21/24 LIVER: Mildly increased hepatic parenchymal heterogeneity and echogenicity could be associated with hepatocellular disease/hepatic steatosis and severely limits visualization. Mild intrahepatic biliary ductal dilatation was better visualized on prior CT scan as visualization on ultrasound is substantially limited due to bowel gas and body habitus. GALLBLADDER: There is a 4 mm gallbladder polyp. Ultrasound of 05/10/2022 demonstrated a 2 mm polyp. 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) Code(s): Z85.038 - Personal history of other malignant neoplasm of large intestine Category: Medical (2) Pacemaker: Comment: 07/30/2022, Medtronic dual-chamber Code(s): Z95.0 - Presence of cardiac pacemaker Category: Medical (3) Family history of colon cancer in father: Code(s): Z80.0 - Family history of malignant neoplasm of digestive organs Category: Medical (4) History of DVT (deep vein thrombosis): Code(s): Z86.718 - Personal history of other venous thrombosis and embolism Category: Medical (5) Pre-op examination: Code(s): Z01.818 - Encounter for other preprocedural examination Category: Medical (6) Constipation: Code(s): K59.00 - Constipation, unspecified Category: Medical Plan [employer] #dtr translates per pt request. They say she is here because her stools are hard and they found some stool in the colon. Given her age and other comorbid health problems, I don't think it masters to alfredo in to a procedure with anesthesia. Will try treating CIC first adn do a Cologuard to see if there is any reason to suspect polyps or CRC - which even in the light of a positive cologuard should be carefully evaluated in terms of overall life expectancy and risk vs benefit. DESPITE HER HISTORY OF COLON CANCER it is very unlikely that there is anything like an obstructing colon mass given the relatively benign CT findings. They were also concerned about a dilation of the common bile duct. It is dilated to a point that we see frequently and since there is no other ductal dilation in the liver and because they had difficulty discerning the bile duct from the portal and hepatic veins due to arteriosclerosis and given the patient's absence of symptoms I do not think this is something that needs to be aggressively followed up. We are going to start with senna and titrate to affect her side effect to control the patient's constipation. Return office visit in 8 weeks to evaluate her response and to go over Cologuard results. If other testing is required up to and including colonoscopy. Orders: Orders Colonoscopy - GI Use Only 05/23/24 Z01.818 - Encounter for other preprocedural examination, Z80.0 - Family history of malignant neoplasm of digestive organs, Z85.038 - Personal history of other malignant neoplasm of large intestine, Z86.718 - Personal history of other venous thrombosis and embolism, Z95.0 - Presence of cardiac pacemaker Medications: New sennosides (Senna Laxative) 17.2 mg (2 x 8.6 mg) PO BEDTIME 60 tabs 6RF K59.00 - Constipation, unspecified Coding Level of Care Code New Pt Level 3 (31270) Diagnoses History of colon cancer Z85.038 Pacemaker Z95.0 Family history of colon cancer in father Z80.0 History of DVT (deep vein thrombosis) Z86.718 Pre-op examination Z01.818 Constipation K59.00
[2024-05-23 15:10] VITALS: BP 153/66; PULSE 67; BMI 24.7
== END 2024-05-23 15:47 | disposition home or self-care (01) ==
PROVIDERS: PCP Family Medicine; Visit Provider Nurse Practitioner
DX: Z85.038 Personal history of other malignant neoplasm of large intestine (principal); Z95.0 Presence of cardiac pacemaker; Z80.0 Family history of malignant neoplasm of digestive organs; Z86.718 Personal history of other venous thrombosis and embolism; Z01.818 Encounter for other preprocedural examination; K59.00 Constipation, unspecified
CPT/HCPCS: 99203

== ENCOUNTER → 2024-05-23 14:53 | Outpatient (BNVA) | payer OTHER, SELFPAY | PROVIDERS: PCP Family Medicine; Visit Provider Nurse Practitioner | DX: Z01.818 Encounter for other preprocedural examination (principal); K59.00 Constipation, unspecified; Z85.038 Personal history of other malignant neoplasm of large intestine; Z95.0 Presence of cardiac pacemaker; Z80.0 Family history of malignant neoplasm of digestive organs; Z86.718 Personal history of other venous thrombosis and embolism | CPT/HCPCS: 99202 ==

== ENCOUNTER → 2024-08-20 23:59 | Outpatient (BNV) | payer OTHER, SELFPAY ==
--- NOTE | 2024-09-01 20:28 | A.OFFVIS_ITS ---
Intake Visit Reasons: Remote device Check- [employer]tronic Allergies No Known Allergies Allergy (Verified 05/23/24 15:17) [facility] Medical History (Updated 05/23/24 @ 15:37 by CATA Feliz) Hypertension Chronic venous insufficiency Lower abdominal pain Hyperlipidemia History of colon cancer (~2009) Surgical History (Reviewed 05/14/24 @ 16:11 by Marie Hernandez [facility]) H/O breast biopsy History of appendectomy History of colonoscopy History of partial colectomy (~2009) Family History (Reviewed 05/14/24 @ 16:11 by Marie Hernandez [facility]) Father History of colon cancer Sister History of pancreatic cancer Social History (Reviewed 05/14/24 @ 16:11 by Marie Hernandez [facility]) Household Members: None Housing: House Are you a primary hospice home care coordinator to a significant other at home: No Do you presently have visiting nurse or other home services: No Alcohol intake: never Patient Tobacco Use Status: Never used Tobacco Second Hand Smoke Exposure: No Advance Directives Date on File: 08/02/22 service: No Current occupational status: disabled Office Procedures Cardiac Device Check Cardiac Device Check Details: PPM Good battery life. No new alerts. [id number] Cardiac Device Check, pacemaker dual lead Procedure code (CPT) selection complete Assessment & Plan Assessment & Plan (1) Pacemaker: Comment: 07/30/2022, Medtronic dual-chamber Code(s): Z95.0 - Presence of cardiac pacemaker Category: Medical Plan: Coding Level of Care Code Procedure Only Diagnoses Pacemaker Z95.0 CPT Codes Cardiac Device Check - Cardiac Device 2: 93516-BS Cardiac Device Check, pacemaker dual lead ([id number])
== END ==
PROVIDERS: PCP Family Medicine; Visit Provider Internal Medicine Cardiovascular Disease
DX: Z45.018 Encounter for adjustment and management of other part of cardiac pacemaker (principal)
CPT/HCPCS: 93294

== ENCOUNTER → 2024-11-19 23:59 | Outpatient (BNV) | payer OTHER, SELFPAY ==
--- NOTE | 2024-11-26 12:03 | MHC.OFFVIS ---
Intake Visit Reasons: Remote device Check- Medtronic Allergies No Known Allergies Allergy (Verified 05/23/24 15:17) [facility] Medical History (Updated 05/23/24 @ 15:37 by CATA Feliz) Hypertension Chronic venous insufficiency Lower abdominal pain Hyperlipidemia History of colon cancer (~2009) Surgical History H/O breast biopsy History of appendectomy History of colonoscopy History of partial colectomy (~2009) Family History Father History of colon cancer Sister History of pancreatic cancer Social History Household Members: None Housing: House Are you a primary health and social care teacher to a significant other at home: No Do you presently have visiting nurse or other home services: No Alcohol intake: never Patient Tobacco Use Status: Never used Tobacco Second Hand Smoke Exposure: No Advance Directives Date on File: 08/02/22 service: No Current occupational status: disabled Office Procedures Cardiac Device Check Cardiac Device Check Details: PPM Good battery life 1 episode of NSVT lating 2 sec was recorded. 08911-YN Cardiac Device Check, pacemaker dual lead Procedure code (CPT) selection complete Assessment & Plan Assessment & Plan (1) Pacemaker: Comment: 07/30/2022, Medtronic dual-chamber Code(s): Z95.0 - Presence of cardiac pacemaker Category: Medical Plan Orders: Orders AMB Cardiac Device Follow-up 11/19/24 Z95.0 - Presence of cardiac pacemaker Coding Level of Care Code Procedure Only Diagnoses Pacemaker Z95.0 CPT Codes Cardiac Device Check - Cardiac Device 2: 10106-MG Cardiac Device Check, pacemaker dual lead ([id number])
== END ==
PROVIDERS: PCP Family Medicine; Visit Provider Internal Medicine Cardiovascular Disease
DX: Z45.018 Encounter for adjustment and management of other part of cardiac pacemaker (principal)
CPT/HCPCS: 93294

== ENCOUNTER → 2025-02-17 23:59 | Outpatient (BNV) | payer OTHER, SELFPAY ==
--- NOTE | 2025-03-22 09:47 | MHC.OFFVIS ---
Intake Visit Reasons: Remote device Check- Medtronic Allergies No Known Allergies Allergy (Verified 03/09/25 21:53) PFSH Medical History Hypertension Chronic venous insufficiency Lower abdominal pain Hyperlipidemia History of colon cancer (~2009) Surgical History H/O breast biopsy History of appendectomy History of colonoscopy History of partial colectomy (~2009) Family History Father History of colon cancer Sister History of pancreatic cancer Social History Household Members: None Housing: House Are you a primary resident care coordinator to a significant other at home: No Do you presently have visiting nurse or other home services: No Alcohol intake: never Patient Tobacco Use Status: Never used Tobacco Smoked in Last 30 Days: No Second Hand Smoke Exposure: No Use of substances other than those prescribed or required for medical reasons: No Advance Directives: Yes Advance Directives on File: Yes Advance Directives Date on File: 08/02/22 service: No Current occupational status: disabled Office Procedures Cardiac Device Check Cardiac Device Check Details: PPM Good battery life CONSULTING SOLUTION DIRECTOR < 0.1% 4 episodes of atrial arrhythmia max 3 sec recorded. [id number] Cardiac Device Interrogation, pacemaker Procedure code (CPT) selection complete Assessment & Plan Assessment & Plan (1) Pacemaker: Comment: 07/30/2022, Medtronic dual-chamber Code(s): Z95.0 - Presence of cardiac pacemaker Category: Medical Plan Coding Level of Care Code Procedure Only Diagnoses Pacemaker Z95.0 CPT Codes Cardiac Device Check - Cardiac Device 12: [id number] Cardiac Device Interrogation, pacemaker ([id number])
== END ==
PROVIDERS: PCP Family Medicine; Visit Provider Internal Medicine Cardiovascular Disease
DX: I49.9 Cardiac arrhythmia, unspecified (principal); Z95.0 Presence of cardiac pacemaker
CPT/HCPCS: 93294

== ENCOUNTER 2025-02-20 12:15 | Outpatient (REF) | payer OTHER, SELFPAY ==
--- NOTE | ~2025-02-20 | XR_ITS ---
EXAMINATION: XR CHEST CLINICAL INFORMATION: persistent cough x 1-2 weeks COMPARISON: 03/14/2024 TECHNIQUE: 2 views of the chest were obtained. FINDINGS: Left-sided dual-lead pacer device in place with leads in the right atrium and right ventricle. The cardiac, hilar, and mediastinal contours are normal. Aortic mural calcification. The lungs are clear bilaterally. There is no pneumothorax or pleural effusion. There is no focal osseous or soft tissue abnormality. XR/XR chest 2V IMPRESSION: No active pulmonary disease. Electronically signed by: Richmond Pemberton MD 02/20/2025 02:03 PM EDT
--- OUTSIDE RECORDS SUMMARY | 2025-02-20 12:49 | XMS_ITS | Encounter Summary ---
Author Organization [employer] Address [address] [place] [address] Care Team Providers Care Personal Driver Name Role Phone Jill Hester DO Primary Care Provider [phone] Reason for Visit * Reason Onset Date Comments Nurse Triage 02/19/2025 Encounter Details Date Type Department Care Team ([facility] st Contact Info) Description 02/19/2025 Telephone [facility] MEDIC[facility] [address] [place] [address] Jill Hester DO [address], [place] [id number] Nurse Triage Social History Tobacco Use Types Packs/Day Years Used Date Smoking Tobacco: Never Passive Smoke Exposure: Never Smokeless Tobacco: Never Alcohol Use Standard Drinks/Week Comments Never 0 (1 standard drink = 0.6 oz pur e alcohol) Depression Answer Date Recorded Patient Health Questionnaire-9 Score 7 01/25/2025 Patient Health Questionnaire-9 Score 7 01/25/2025 Last PHQ-9: Questionnaire Data Not on file 0 01/25/2025 Housing Stability Answer Date Recorded What is your housing situation today? I have bing brando 01/25/[address] you li ve. Do you have problems with any of the following? Mold 01/25/2025 Food Insecurity Answer Date Recorded Within the past 12 months, y ou worried that your food would run out before you got money to buy more: Never True 01/25/2025 Within the past 12 months,th e food you bought just didn't last and you didn't have enough money to get more: Never True Transportation Answer Date Recorded In the past 12 months, has l ack of transportation kept you from medical appts, meetings, work or from getting things needed for daily living? No 01/25/2025 Utilities Answer Date Recorded In the past 12 months, has t he electric, gas, oil or water company threatened to shut off services in your home? No 01/25/2025 Depression Answer Date Recorded Patient Health Questionnaire-2 Score 1 01/25/2025 Internet Access Answer Date Recorded Internet Access Q1 Yes 07/30/2024 Internet Access Q2 Not on file 07/30/2024 Comments Unknown Sex and Gender Information Value Date Recorded Sex Assigned at Female 08/09/2022 10:17 AM EDT Legal Sex Female 10:17 AM EDT Gender Identity Female 08/09/2022 10:17 AM EDT Sexual Orientation Straight 08/09/2022 10 :17 AM EDT documented as of this encounter Miscellaneous Notes * Telephone Encounter - Angie Vargas RN - 02/19/2025 1:53 PM EDT Called pt. ANALYTICS MANAGER [employer] safety spec [id number] Luis. Soler states that pt. Has been having coughing all day long for a few days. Pt. Has a congested non productive cough. No fever. No trouble breathing but, pt. Has been non stop coughing. [facility] wants to bring pt. To clinic tomorrow to be evaluated. Adv ised that ANALYTICS MANAGER can bring pt. To [facility] walk in anytime after 830am and that walk in has lunch from 12- 2pm and then is open after that until 730pm. ANALYTICS MANAGER states understanding and will bring pt. In around 10am.Advised that there may be a wait time as pt's in walk in are seen in order of arrival and also urgency. Protocol Used: Cough (Adult) Protocol-Based Disposition: See in Office or Video Visit Today or Tomorrow Video visit offer not recorded Positive Triage Question: * Continuous (nonstop) coughing interferes with work or school and no improvement using cough treatment per Care Advice * All higher-acuity triage questions were negative Care Advice Discussed: * Coughing Spells * Prevent Dehydration * Avoid Tobacco Smoke * Humidifier * Telephone Encounter - Isela Cunninghamnte - 02/19/2025 1:09 PM EDT Symptom: Cough Outcome: Schedule an urgent appointment (within 1 hour) or talk to a nurse or provider soon Reason: Wheezing (high-pitched whistling sound) The caller accepted this outcome. Contact pt KARRIE at [phone] (english) or pt daughter Ale at [phone] documented in this encounter Plan of Treatment Not on file documented as of this encounter Visit Diagnoses Not on filedocumented in this encounter Additional Health Concerns Assessment Noted Time PHQ-9 Depression Total Score: 7 01/26/20 25 1:32 PM EDT documented as of this encounter Care Teams Personal Driver Relationship Specialty Start Date End Date Jill Hester DO [address] [place] [address] PCP - General Family Medicine 04/26/14 [facility] 06/29/22 documented as of this encounter
--- OUTSIDE RECORDS SUMMARY | 2025-02-20 12:49 | XMS_ITS | Data Portability ---
Author Organization [employer] Address [address] [place] [phone] Care Team Providers Care Bmw Service Technician Name Role Phone [facility] Referring Provider [facility] Primary Care Provider [phone] Assessment Encounter Date Assessment Date Assessment LastModified by Organization Details LastModified Time 01/02/2024 01/02/2024 I have reviewed and agree with the assessment and plan as documented by the loss mitigation specialist. I provided real-time medical direction for this encounter and was immediately available to provide additional phone-based support as needed. 83F presenting today for an episode of hypotension earlier today. RIGGER THIRD was tending to patient and giving her anti-hypertensi ves. A few hours later, BP was 97 systolic. Pt denies having any symptoms during that time. No weakness, no dizziness. No stroke like symptoms. BP was remeasured and returned to baseline. Now, pts BP is within normal limits. No headache noted, no chest pain, no SOB. Pt denies any complaints presently. Orthostatic results negative. Suspect BP cuff malformation vs asymptomatic hypotensive episode. No indication for change in BP meds. Recommend PCP follow up for ongoing monitoring. Red flags discussed with patient, including to monitor for headache, weakness, chest pain or new concerns, paysola Not available 01/02/2024 16:36:23 Plan of Treatment Reminders Order Date Submit Date Provider Last Modified By Organization Details Last Modified Time Details Appointments None recorded. Lab None recorded. Referral None recorded. Procedures None recorded. Surgeries None recorded. Imaging None recorded. Medication Orders Polytrim 10,000 unit-1 mg/mL eye drops 2021 022 [facility] #[id number], [address] [facility], [place], [address], 18:03:15 Patient TargetsNo targets recorded. Patient InstructionsNo instructions recorded. Reason for Referral None Reported. Medical Equipment None Reported. Medications Name Sig Start Date Stop Date Status Note LastModified by Organization Details LastModified Time delivery fee active Not Available Not Available Not Available doxycycline hyclate 100 mg capsule TAKE 1 CAPSULE BY MOUTH TWICE A DAY active Not Available Not Available No t Available atorvastatin 20 mg tablet active Not Available Not Available Not Available ketoconazole 2 % shampoo PLEASE SEE ATTACHED FOR DETAILED DIRECTIONS active Not Available Not Available N ot Available fluconazole 150 mg tablet TAKE 1 TABLET BY MOUTH ONCE PER WEEK FOR 4 WEEKS active Not Available Not Available Not Available senna 8.6 mg tablet active Not Available Not Available Not Available fluocinonide 0.05 % topical ointment APPLY TO THE AFFECTED AREAS ON THE LEGS TWICE A DAY FOR 2 WEEKS, BREAK ONE WEEK, REPEAT. active Not Available Not Available No t Available aspirin 81 mg tablet,delay ed release active Not Available Not Available N ot Available acetaminophe n 500 mg tablet TAKE 1 TAB BY MOUTH EVERY 6 HOURS NEEDED FOR PAIN active Not Available Not Available No t Available lorazepam 0.5 mg tablet TAKE 1 TABLET 1 HOUR PRIOR TO EXAM active Not Available Not Available No t Available amlodipine 10 mg tablet active Not Available Not Available Not Available cephalexin 500 mg capsule TAKE 1 CAPSULE BY MOUTH 4 TIMES A DAY FOR 10 DAYS active Not Available Not Available Not Available erythromycin 5 mg/gram (0.5 %) eye ointment APPLY 1/2 INCH RIBBON TO EYE 3 TIMES A DAY 5 DAYS active Not Available Not Available No t Available triamcinolon e acetonide 0.1 % topical ointment active Not Available Not Available Not Available clotrimazole -betamethaso ne 1 %-0.05 % topical cream PLEASE SEE ATTACHED FOR DETAILED DIRECTIONS active Not Available Not Available N ot Available brimonidine 0.2 % eye drops INSTILL 1 DROP INTO LEFT EYE TWICE A DAY active Not Available Not Available Not Available Polytrim 10,000 unit-1 mg/mL eye drops INSTILL 1 DROP INTO AFFECTED EYE(S) BY OPHTHALMIC ROUTE FOUR TIMES DAILY FOR SEVEN DAYS 2021 active Not Available Not Available Not Avai lable docusate sodium 100 mg capsule TAKE 1 CAPSULE BY MOUTH TWICE A DAY active Not Available Not Available No t Available hydrocortiso ne 2.5 % topical ointment APPLY TO AFFECTED AREA 3 TIMES A DAY active Not Available Not Available Not Available ketoconazole 2 % topical cream PLEASE SEE ATTACHED FOR DETAILED DIRECTIONS active Not Available Not Available N ot Available betamethason e dipropionate 0.05 % topical ointment APPLY TO AFFECTED AREA TWICE A DAY FOR 2 WEEKS BREAK FOR 1 WEEK USE VASELINE AND REPEAT NEEDED active Not Available Not Available No t Available clotrimazole 1 % topical cream APPLY TO AFFECTED AREA TWICE A DAY active Not Available Not Available No t Available doxycycline hyclate 100 mg tablet active Not Available Not Available No t Available cyclobenzapr ine 5 mg tablet TAKE 1 TAB BY MOUTH AT BEDTIME NEEDED FOR MUSCLE SPASM active Not Available Not Available No t Available metoprolol tartrate 25 mg tablet active Not Available Not Available No t Available calcium 600 mg (as carbonate)-v itamin D3 10 mcg (400 unit) tablet active Not Available Not Available Not Available Purelax 17 gram/dose oral powder MIX 17 GRAMS INTO 8 OUNCES OF WATER OR JUICE/ LIQUID NEEDED FOR CONSTIPATIO N active Not Available Not Available No t Available Natural Daily Fiber 3.4 gram/5.8 gram oral powder MIX 1 TABLESPOONF UL BY MOUTH DAILY MIX INTO AT LEAST 8 OZ OF WATER OR JUICE BEFORE ADMINISTERI NG active Not Available Not Available No t Available Vitals Date Recorded Respiratory rate Body temperature Heart rate Oxygen saturation Oxygen saturation in Arterial blood by Pulse oximetry Systolic blood pressure Diastolic blood pressure Provider Name and Address Organization Details Last Updated DateTime 4 18 /min 98 [degF] 63 /min 96 % 96 % 162 mm[Hg] 72 mm[Hg] Not Available [employer] 4 20:42:12 Date Recorded Heart rate Oxygen saturation Oxygen saturation in Arterial blood by Pulse oximetry Body temperature Respiratory rate Systolic blood pressure Diastolic blood pressure Provider Name and Address Organization Details Last Updated DateTime 4 60 /min 95 % 95 % 98.5 [degF] 18 /min 138 mm[Hg] 69 mm[Hg] Not Available [employer] 4 19:44:31 Date Recorded Body temperature Heart rate Respiratory rate Oxygen saturation Oxygen saturation in Arterial blood by Pulse oximetry Systolic blood pressure Diastolic blood pressure Provider Name and Address Organization Details Last Updated DateTime 4 98.6 [degF] 60 /min 18 /min 97 % 97 % 138 mm[Hg] 75 mm[Hg] Not Available [employer] [facility] [employer] 4 15:16:44 Date Recorded Body temperature Heart rate Oxygen saturation Oxygen saturation in Arterial blood by Pulse oximetry Respiratory rate Systolic blood pressure Diastolic blood pressure Provider Name and Address Organization Details Last Updated DateTime 2 100.1 [degF] 76 /min 95 % 95 % 18 /min 143 mm[Hg] 83 mm[Hg] Not Available [employer] - [employer] 2 17:42:22 Social History None recorded. Functional Status None recorded. Mental Status None recorded. Family History Nothing Reported. Medical History No medical history recorded. Gynecological HistoryNo gynecological history recorded. Obstetrics History GPAL:G 0 P 0 0 0 0 Past Encounters Encounter ID Performer Location Encounter Start Date Encounter Closed Date Diagnosis/Indication Diagnosis SNOMED-CT Code Diagnosis ICD10 Code Diagnosis Note [id number] Tiffanie Fernandez MD [facility] - [facility] [address] [place] [phone] 08/12/2022 17:41:04 08/13/2022 15:01:44 Acute conjunctivitis 32432943 H10.31 3d right conjunctiv itis without improvemen t. no change in vision, pain is mild, no swelling of preseptal tissue. will treat as bacterial conjunctiv itis. follow up if no improvemen t, worsening pain or vision. [id number] Steve Cruz MD Main - [facility] [address] [place] [phone] 11/06/2023 20:42:07 11/07/2023 12:20:37 Intermittent palpitations 469994004 R00.2 Patient with five minutes of palpitatio ns earlier in the day while sitting on the couch. No associated chest pain, chest pressure, shortness of breath. Currently asymptomat ic without any concerns. Will check EKG and if no block or evidence of pacemaker failure, advise continued close observatio n at home. 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 Patient reports no fever/chil ls, used to have compressio n stockings but does not any longer. Also lost to follow up with her transport rn as they retired and has not had a new one. Patient is not on a diuretic, reports swelling is slightly worse recently. Exam notable for normal vital signs, bilateral pedal edema and erythema that is tender to palpation, and onychomyco sis of all toenails. Presentati on suggestive of stasis dermatitis , bilateral cellulitis less likely but remains possible in the setting of bilateral onychomyco sis and pain. Given lack of fever and noncomplia nce with compressio n stockings, recommende d resuming use of compressio n stockings and referral to podiatry vs PCP for onychomyco sis treatment. If develops fever or persistent erythema despite compressio n stocking use, can consider cellulitis treatment. I have reviewed and agree with the assessment and plan as documented by the loss mitigation specialist. I provided real-time medical direction for this encounter and was immediatel y available to provide additional phone-base d assistance as needed. We discussed the diagnostic uncertaint y of home visits and associated risks. We discussed the need to seek care urgently/e mergently in the setting of any new or worsening symptoms. [id number] Lina Levine MD Main - [address] [phone] 01/02/2024 15:16:37 01/02/2024 18:53:59 Low blood pressure [id number] I95.9 Health Concerns Section Related Observation LastModified by Organization Detai ls LastModified Time None Recorded Concern Status LastModified by Organization Details LastModified Time None Recorded Advance Directives Directive None Recorded Payers Insurance Date Sequence Insurance Name Policy Number Policy [place] Covered Member ID [place] Member ID Guarantor Name 11/06/2023 1 [facility] - DOS PRIOR TO 2023 - DUAL ELIGIBLE (MEDICARE REPLACEMENT/AD VANTAGE - HMO) Erica Danielle [id number] Erica Danielle 01/02/2024 1 [facility] - DOS ON OR AFTER 2023 - DUAL ELIGIBLE - SNF OPTIONS AND ONE CARE (MEDICARE REPLACEMENT/AD VANTAGE - HMO) Erica Danielle [id number] Erica Danielle Notes Date Note Type Note Provider Name and Address Organization Details Recorded Time 08/12/2022 text/html [facility] Nursing Assessment: Reason For Request: Patient has a pacemaker. Patient has pain in her right eye for a few days. Red discoloration. Eye drops only functioning for small periods. No reports of itchiness, more so pain and stings. Chief Complaints: Pain PMH: Hypertension Allergies: No Known Comments: Daughter stated that for a few days the sclera of the RIGHT eye is red . Member c/o pain and stinging , denies NAVARRETE no visions , no discharge . Member has had sx for cataracts in the past and wears glasses to read. Member uses drops for left eye for glaucoma. [facility] HPI addition: right eye: some drainage. no itching. 3 days. no matting, no crusting. no pain or vision changes in that eye. it is uncomfortable. no pets, no other changes, no outside time. no allergies. no congestion, rhinorrhea, pharyngitis. Tiffanie Fernandez MD [address] [place] [address],[address], [place], [phone], [employer] 08/12/2022 18:03:49 11/06/2023 text/html [facility] Nurse Triage Notes (Saji Cooper): Patient Reports: Palpitations, feeling dizzy; Weakness/tachycardi a Denies: History of Heart Attack, in the setting of active chest pain Diaphoretic/Sweatin g Describes as ? c rushing? Sudden onset of nausea/Vomiting and shortness of breath. Shortness of Breath Unable to speak in full sentences without distress Chest pain, increased fatigue CHF history, increased swelling and edema Chief Complaints: Tachycardia/Palpita tions PMH: Hypertension Allergies: Unknown Comments: Information Technology Intern[employer] verified the member's name//address and phone number - Education provided on the response time and the member was advised to monitor reported s/s and seek emergency treatment if needed. Member has a Pace maker in place - CG reports the member is having palpations -S/S started 30 minutes ago- Denies CP - Denies fever/chills - Denies SOB - Denies a hx if AFIB - Denies N/V. CG is requesting a wellness check ................... ................... ................... ................... ................... ................... ................... ........ Rubber Flap Cutter Note From Terri Alcantara: [facility] Rubber Flap Cutter LilaLacey Alcantara CCA1 dispatched to a red for an 83 yof C/O palpitations. Upon arrival, the pt was ambulatory, oriented to her baseline per daughter/stave cutter on scene, calm and cooperative and in no distress. The pt had a pacemaker placed over a year prior, and had not had any palpitations since the placement; she and her daughter reported that prior she had multiple episodes of bradycardia and syncope. The pt stated she was sitting on the couch earlier that day and felt palpitations and that they resolved after about 5 minutes. She denied any dizziness, NAVARRETE, vision changes, neck pain, CP, SOB, arm pain, nausea, back pain, or indigestion before during or after the event. She denied any fevers, cough, sore throat, abd pain, N/V/D, or urinary S/S. The pt did have extremely dry, flaky lips. No tenting of the skin when pinched. The pt's daughter stated that the pt had some bradycardic episodes in the past w/ dehydration. Pt and her daughter were unsure if the pt's pacemaker was demand or non demand. [facility] consulted; 12 lead in [facility]. Pt and her daughter were reassured that her VS were stable and her EKG did not indicate a dangerous cardiac event. Red flags were discussed at length, specifically cardiac S/S for which to call 911. ................... ................... ................... ................... ................... ................... ................... ........ Disposition: Fulfilled Steve Cruz MD [address] [facility],[address], [place], [phone], [facility] - [facility]o [facility]i 11/06/2023 22:00:03 12/07/2023 text/html HPI: Patient with history or pacemaker and venous insufficiency with varicose veins. Seen in October for similar swelling and Ultrasound negative for DVT at that time. Not on diuretic upon med review on chart. No shortness of breath reported. ................... ................... ................... ................... ................... ................... ................... ........ [facility] Nurse Triage Notes (Raquel Nava): Comments: HPI reviewed. No further information required to process visit. ................... ................... ................... ................... ................... ................... ................... ........ Rubber Flap Cutter Note From Titus Rosado: 83 yo F, Chinese speaking only, c/o Edema according to daughter. Daughter confirms insted note of Patient with history or pacemaker and venous insufficiency with varicose veins. Seen in October for similar swelling and Ultrasound negative for DVT at that time. Not on diuretic upon med review on chart. No shortness of breath reported. Pt C/O BLE edema. Pt had stopped using her compression socks a long time ago , unable to give an estimate. Lower Extremities appeared to have weeping edema, with what appears to be Dermatitis or cellulitis. Pt denies SOB, Fever, chills, NAVARRETE, CP, or pain elsewhere although does c/o pain in her lower extremities from time to time. Pt denies Allergies. Pt is unable to describe the pain in her lower extremities, pt reports it just hurts, denies tingling, burning, or numbness sensations. MD Consult Needs a transport rn. Compression socks along with elevation. fungal infection noted by doctor, needs to be treated by transport rn. ................... ................... ................... ................... ................... ................... ................... ........ Disposition: Fulfilled Kaylan Hilton MD [address] [place] [address],[address], [place], [phone], [employer] 12/07/2023 19:51:48 01/02/2024 text/html [facility] Nurse Triage Notes (Giselle Baugh): Reason For Request: RIGGER THIRD reporting low BP (90/51), pulse 61>mbr feels tired Chief Complaints: Hypertension, Weakness/Lethargy PMH: Hypertension Allergies: No Known Comments: 83 year old female with PMH: HTN, Pacermaker. RIGGER THIRD reporting weakness, tired, b/p 90/51, HR 61 Denies dizziness, urinary symptoms. Takes daily meds- Aspirin, Metoprolol, Norvasc Rechecked b/p is 131/60, feet elevated Spoke w/ RIGGER THIRD and translator/interpreter on phone. Aileen GALICIA ................... ................... ................... ................... ................... ................... ................... ........ Rubber Flap Cutter Note From Gladis Yadav: Sent to a call for a pt with hypotension. SC8 arrives on scene, pt is alert and oriented, airway is patent. Pt's primary language is Chinese. Water Pollution Control Inspector line used during visit. Pt states she had an episode of hypotension today, but it has since resolved. Pt's RIGGER THIRD documented pt's vitals with times as follows: 12:20pm BP:97/51, P:61; 12:50pm BP:131/60, P:60; 2:35pm BP:149/67, P:66; Pt has no current complaints. Pt denies any symptoms accompanied with hypotension, or current symptoms. Pt denies navarrete, dizziness, cp, sob, n/v/d, abd pain, fever, or loc. Pt states she has been eating and drinking normally. (sitting) BP:138/75, P:60, RR:18, SpO2:97% RA, T:98.6; (standing) BP:136/72, P:62; Head: unremarkable; Lung sounds: clear bilaterally; Abdomen: soft, non-tender, no distention; Back: unremarkable; Extremities: unremarkable; Skin: pink, warm, dry; [facility] consulted and has no orders. Pt states she took her meds this morning at approx 9:30am as usual. [facility] sends note to pt's PCP to request follow up. Red flags discussed. Pt has no further questions. ................... ................... ................... ................... ................... ................... ................... ........ Disposition: Fulfilled Lina Levine MD [address] [facility],[address] [facility], [place], [address], [employer] 01/02/2024 16:36:51 OBGyn Episode No OBEpisode recorded.
--- OUTSIDE RECORDS SUMMARY | 2025-02-20 12:49 | XMS_ITS | Encounter Summary ---
Author Organization [employer] Address [address] [place] [address] [address] [place] [address] Care Team Providers Care Bag Valver Name Role Phone Jill Hester DO Primary Care Provider [phone] Reason for Referral * Imaging (Routine) - Authorized Specialty Diagnoses / Procedures Referred By Contac t Referred To Contact Radiology Diagnoses Pulmonary nodule Procedures CT Chest w/o Contrast Jill Hester DO [address] [place] [address] Phone: tel: fax: [address] Phone: tel: fax: Referral ID Status Reason Start Date Expiration Date V isits Requested Visits Authorized [id number] Authorized 02/18/2025 02/18/2026 1 1 Encounter Details Date Type Department Care Team (Late st Contact Info) Description 02/18/2025 Orders Only [facility] MED[facility] [address] [place] [address] Jill Hester DO [address] [place], [place] [phone] Pulmonary nodule (Primary Dx) Social History Tobacco Use Types Packs/Day Years [...] your housing situation today? I have bing michaels 01/25/[address] you li [...] AM EDT documented as of this encounter Progress Notes * Jill Hester DO - 02/18/2025 12:[address] chest order placed. documented in this encounter Plan of Treatment Scheduled Orders Name Type Priority Associated Diagnoses Orde r Schedule CT Chest w/o Contrast Imaging Routine Pulmonary nodule Expected: 02/18/2025, Expires: 02/18/2026 documented as of this encounter Visit Diagnoses Diagnosis Pulmonary nodule- Primary Other diseases of lung, not elsewhere classified documented in this encounter Additional Health Concerns Assessment Noted Time PHQ-9 Depression Total Score: 7 01/26/20 25 1:32 PM EDT documented as of this encounter Care Teams Bag Valver Relationship Specialty Start Date End Date Jill Hester DO [address] [place] [address] PCP - General Family Medicine 04/26/14 [facility] 06/29/22 documented as of this encounter
--- OUTSIDE RECORDS SUMMARY | 2025-02-20 12:49 | XMS_ITS | Encounter Summary ---
Author Organization [employer] Address [address] [facility] [address] [place] [address] Care Team Providers Care Packaging Machine Operator Name Role Phone Jill Hester DO Primary Care Provider [phone] Reason for Visit * Reason Onset Date Comments Durable Medical Equipment 01/15/2025 Encounter Details Date Type Department Care Team ([facility] st Contact Info) Description 01/15/2025 Telephone [facility] MED[facility] [address] [place], [place] [phone] Jill Hester DO [address] [place], [place] [phone] Durable Medical Equipment Social History Tobacco Use Types Packs/Day Years Used Date Smoking Tobacco: Never Passive Smoke Exposure: Never Smokeless Tobacco: Never Depression Answer Date Recorded Patient Health Questionnaire-9 Score 2 10/31/2023 Patient Health Questionnaire-9 Score 2 10/31/2023 Last PHQ-9: Questionnaire Data Not on file 0 10/31/2023 Housing Stability Answer Date Recorded What is your housing situation today? I have bing michaels 10/31/[address] you li ve. Do you have problems with any of the following? None of the above 10/31/2023 Food Insecurity Answer Date Recorded Within the past 12 months, y ou worried that your food would run out before you got money to buy more: Never True 10/31/2023 Within the past 12 months,th e food you bought just didn't last and you didn't have enough money to get more: Never True Transportation Answer Date Recorded In the past 12 months, has l ack of transportation kept you from medical appts, meetings, work or from getting things needed for daily living? No 10/31/2023 Utilities Answer Date Recorded In the past 12 months, has t he electric, gas, oil or water company threatened to shut off services in your home? No 10/31/2023 Depression Answer Date Recorded Patient Health Questionnaire-2 Score 0 10/31/2023 Internet Access Answer Date Recorded Internet Access [...] encounter Miscellaneous Notes * Telephone Encounter - Mike Galvin - 01/15/2025 12:32 PM EDT Tc from [facility] with [facility] requesting a DME script. [employer] [employer] Contact [facility] at [phone] documented in this encounter Plan of Treatment Not on file documented as of this encounter Visit Diagnoses Not on filedocumented in this encounter Additional Health Concerns Assessment Noted Time PHQ-9 Depression Total Score: 2 10/31/19 24 12:12 PM EST documented as of this encounter Care Teams Packaging Machine Operator Relationship Specialty Start Date End Date Jill Hester DO [address] [place] [phone] PCP - General Family Medicine 04/26/14 [facility] 06/29/22 documented as of this encounter
--- OUTSIDE RECORDS SUMMARY | 2025-02-20 12:49 | XMS_ITS | Data Portability ---
Author Organization [place] [facility] Address [address] [place] [id number] Care Team Providers Care Resin Shaver Name Role Phone [facility] Primary Care Provider Assessment Encounter Date Assessment Date Assessment LastModified by Organization Details LastModified Time 04/04/2023 04/04/2023 Brief Overview:Patient is a 82-year-old female with previous medical diagnosis of cancer, hypertension, varicose veins, pacemaker with chief complaint today of pain to left hip times 2-3 days. Daughter to assist for translation as patient denied translation services. Patient denies trauma, redness, warmth, erythema. New to provider, new to . Vital Signs: 98.8 ? ? ?F ear (37.11 C) 82 126 / 68 20 97 % (82% sat documented in error) Exam: Alert, oriented. Non toxic. Ambulatory With slow steady gait. Daughter assisting which is baseline for patient. Skin: Intertriginous rash to L groin fold without satellite lesions, skin is raw. Painful to touch. Pt states that pain with palpation is same pain she has been experiencing Left hip with full range of motion ambulatory with steady gait no limping or foot dragging no pain with palpation to hip, SI joint. No zoster vesicles, erythema, warmth. DDx considered, with rationale: Hip pain- likely cause of pain is mone due to appearance of skin and benign hip exam. Due to patients complaint of stiffness in the AM that improves throughout the day, will obtain xr to rule out OA. No suspicion for fracture, bursitis, malignancy. Zoster considered, not likely as no evidence on exam but possible pain is prodrome. Proper Personal Protective Equipment (PPE), including gloves, eye protection and masks were donned and doffed appropriately and all equipment cleaned using approved technique with germicidal disposable wipes prior to and after care of this patient according to [facility]'s infection prevention protocols. [email or web address] Not available 04/04/2023 13:40:50 Plan of Treatment Reminders Order Date Submit Date Provider Last Modified By Organization Details Last Modified Time Details Appointments None record ed. Lab None record ed. Referral None record ed. Procedures None record ed. Surgeries None record ed. Imaging XR, hip + pelvis , unilat eral, 2 or 3 view 023 04/04/20 [facility] [address] [place] [address], [place], [address], 15:49:44 Medication Orders None record ed. Patient TargetsNo targets recorded. Patient Instructions Encounter Date Encounter Id Patient Instructions Last Modified By Organization Details Last Modified Time 04/04/2023 [id number] Thank you for yo ur visit with [facility] today. We cannot always find the exact cause of your symptoms during your initial visit. Please follow up with your primary care provider or specialist as needed to be rechecked or seek medical attention if your symptoms do not go away or get worse. If you develop any new or worsening symptoms and need after hours care, please go to nearest ER and/or call 911. If you have additional concerns or develop a change in your condition between 8am-10pm, please call [facility] at [phone] to help navigate your care. [email or web address] Not available 04/04/2023 13:37:48 Reason for Referral None Reported. Results Created Date Observation Date Name Description Value Unit Range Abnormal Flag Note LastModifiedBy Organization Detail LastModifiedTime 04/07/20 23 04/07/2023 hip uni W or w/o pelvi s 2-3 V HIP UNI W OR W/O PELVIS 2-3 V, LEFT FINDIN GS: The left hip joint is intact . No fractu re or disloc ation is seen. Pubic rami are normal . CONCLU NANETTE: Normal left hip. ELECTR ONICAL LY SIGNED BY BERNIE OVIEDO M.D. 023 1:36:2 8 PM EDT. HIP UNI W OR W/O PELVIS 2-3 V, LEFT Result s: The left hip joint is intact . No fractu re or disloc ation is seen. Pubic rami are normal . Conclu nanetet: Normal left hip. Electr onical ly signed by BERNIE OVIEDO M.D. 023 1:36:2 8 PM EDT. [email or web address] [employer] [facility] [address] [facility] [address], [place], [address], 04/07/2023 16:49:10 Result Notes None recorded. Procedures Surgical History Date Name Laterality Status Provider Name and Address Organization Details Recorded Time 04/04/20 Medication Review completed Alejandra Larios NP [address], [place], [address], [place] [facility] 04/04/2023 13:19:56 Colonoscopy completed Alejandra Larios NP [address], [place], [address], [place] [facility] 04/04/2023 12:27:08 Appendectomy completed Alejandra Larios NP [address], [place], [address], [place] [facility] 04/04/2023 12:27:31 Imaging Results Imaging Date Name Status LastModified by Organiz ation Details LastModified Time 04/07/2023 hip uni W or w/o pelvis 2-3 V completed [email or web address] [facility] [address] [facility] [address], [place], [address], 04/07/2023 16:49:10 Procedure Notes None recorded. Medical Equipment None Reported. Allergies No known drug allergies Medications Name Sig Start Date Stop Date Status Note LastModified by Organization Details LastModified Time delivery fee 04/04 completed Not Available Not Available Not Available atorvastati n 40 mg tablet Take 1 tablet every day by oral route. 04/04 completed Not Available Not Available Not Available cefuroxime axetil 250 mg tablet TAKE 1 TABLET BY MOUTH TWICE A DAY FOR 7 DAYS 04/04 completed Not Available Not Available Not Available atorvastati n 20 mg tablet active Not Available Not Available Not Available amlodipine 5 mg tablet TAKE 1 TABLET BY MOUTH EVERY DAY 04/04 completed Not Available Not Available Not Available aspirin 81 mg tablet,kassie yed release active Not Available Not Available Not Available lorazepam 0.5 mg tablet TAKE 1 TABLET 1 HOUR PRIOR TO EXAM active Not Available Not Available No t Available amlodipine 10 mg tablet active Not Available Not Available Not Available polymyxin B sulfate 10,000 unit-trimet hoprim 1 mg/mL eye drops INSTILL 1 DROP INTO AFFECTED EYE(S) BY OPHTHALMI C ROUTE FOUR TIMES DAILY FOR SEVEN DAYS 04/04 completed Not Available Not Available Not Available brimonidine 0.2 % eye drops INSTILL 1 DROP IN LEFT EYE TWICE A DAY TWELVE HOURS APART active Not Available Not Available No t Available docusate sodium 100 mg capsule TAKE 1 CAPSULE BY MOUTH TWICE A DAY active Not Available Not Available No t Available ondansetron 4 mg disintegrat ing tablet DISSOLVE 1 TABLET BY MOUTH EVERY 6 HOURS NEEDED FOR NAUSEA AND VOMITING 04/04 completed Not Available Not Available Not Available clotrimazol e 1 % topical cream 1 APPL TOPICALLY 2 TIMES A DAY active Not Available Not Available No t Available metoprolol tartrate 25 mg tablet active Not Available Not Available No t Available calcium 600 mg (as carbonate)- vitamin D3 10 mcg (400 unit) tablet active Not Available Not Available Not Available Natural Daily Fiber 3.4 gram/5.8 gram oral powder MIX 1 TABLESPOO NFUL BY MOUTH DAILY MIX INTO AT LEAST 8 OZ OF WATER OR JUICE BEFORE ADMINISTE RING active Not Available Not Available No t Available Vitals Date Recorded Oxygen saturation Oxygen saturation in Arterial blood by Pulse oximetry Respiratory rate Heart rate Body temperature Oxygen saturation Oxygen saturation in Arterial blood by Pulse oximetry Heart rate Systolic blood pressure Diastolic blood pressure Provider Name and Address Organization Details Last Updated DateTime 3 82 % 82 % 20 /min 97 /min 98.8 [degF] 97 % 97 % 82 /min 126 mm[Hg] 68 mm[Hg] Not Available [facility] 12:28:16 Social History Question Answer Notes LastModified by Organizat ion Details LastModified Time Tobacco Smoking Status Never Smoker Alejandra Larios NP [address], [place], [address], [place] [facility] 04/04/2023 12:27:52 Do You Have An Advance Directive? Yes [email or web address] Information not available 04/04/2023 What Is Your Code Status? Full Code [email or web address] Information not available 04/04/2023 Within The Past 12 Months, Has It Happened That The Food You Bought Just Didn't Last And You Didn't Have Money To Get More. Never True Information not available 04/04/2023 Within The Past 12 Months, Have You Worried That Your Food Would Run Out Before You Got Money To Buy More. Never True [email or web address] Information not available 04/04/2023 Excessive Alcohol Or Drug Use No [email or web address] Information not available 04/04/2023 Does This Patient Have A PCP? Yes Information not available 04/04/2023 ADL: Do You Need Help With Daily Activities Such As Bathing, Preparing Meals, Dressing, Or Cleaning? No [email or web address] Information not available 04/04/2023 Social Support: Do You Feel Safe? Yes Information not available 04/04/2023 We Know From Many Of Our Patients That Covering All Of Their Costs Can Be Difficult At Times. This Can Cause Stress And Impact Health. In The Past Year, Have You Been Unable To Get Any Of The Following When It Was Really Needed? No [email or web address] Information not available 04/04/2023 Has Tobacco Cessation Counseling Been Provided? No [email or web address] Information not available 04/04/2023 Sex: Unknown Functional Status Question Answer Note LastModified by Organizat ion Details LastModified Time Do you use any illicit or recreational drugs? No [email or web address] Information not available 04/04/2023 Do you or have you ever used any other forms of tobacco or nicotine? No Information not available 04/04/2023 What is your level of alcohol consumption? None [email or web address] Information not available 04/04/2023 Mental Status None recorded. Family History Relationship Description Onset Age of this Age Resolved Age Notes LastModified by Organization Details LastModified Time Father Malignant neoplastic disease [email or web address] Not available 2022 12:28:38 Sister Malignant neoplastic disease [email or web address] Not available 2022 12:28:38 Medical History Condition Response Cancer Y Hypertension Y Gynecological HistoryNo gynecological history recorded. Obstetrics History GPAL:G 0 P 0 0 0 0 Past Encounters Encounter ID Performer Location Encounter Start Date Encounter Closed Date Diagnosis/Indication Diagnosis SNOMED-CT Code Diagnosis ICD10 Code Diagnosis Note [id number] Alejandra Larios NP [facility] [address] [facility] [place] [address] 04/04/2023 11:42:49 04/06/2023 18:21:36 Candidiasis of skin 62404257 B37.2 Status of condition: {{Acute Ex acerbation /Acute on chronic* C hronic Sta ble Worsen ing/Progre ssion Unco ntrolled C ritical: Warrants escalation to ED. Undete rmined: Unclear staging of condition. Needs further evaluation and management by PCP and/or Specialist }}.Testing /Results: Discussion :Pt has cream at home. Advised to use twice daily for 2-3 weeks depending on how rash responds. Advised with heat and moisture, may need cream for longer periods of time. Keep the area clean and dry. Plan, Medication Management & Follow-up recommenda tions:dClo trimazole twice daily for 3 weeksKeep area clean and dry Pain of le ft hip joint [id number] M25.552 Status of condition: {{Acute* E xacerbatio n/Acute on chronic Ch ronic Stab le Worseni ng/Progres nanette Uncon trolled Cr itical: Warrants escalation to ED. Undete rmined: Unclear staging of condition. Needs further evaluation and management by PCP and/or Specialist }}. Testing/Re sults: Discussion :Unlikely OA as patient is ambulatory with steady gait, diffusely non tender on exam. Subjective descriptio n, however, suggests OA . Will obtain XR to rule out OA. Plan, Medication Management & Follow-up recommenda tions:Echoa m for fungal rashRTC/ follow up if no improvemen t or worseIf evidence of OA on XR, can take tylenol PRN for pain, continue with light movement Health Concerns Section Related Observation LastModified by Organization Detai ls LastModified Time None Recorded Concern Status LastModified by Organization Details LastModified Time None Recorded Advance Directives Directive Y: Payers Insurance Date Sequence Insurance Name Policy Number Policy [place] Covered Member ID Bay Member ID Guarantor Name 04/06/2023 2 [place]ICARE [place]: [employer] Erica Danielle [id number] Erica Danielle 04/03/2023 1 *SELF PAY* Erica Danielle [id number] Erica Danielle 04/09/2023 1 [facility] - DOS ON OR AFTER 2023 - MEDICARE ADVANTAGE [place] (MEDICARE REPLACEMENT/AD VANTAGE - PPO) Erica Danielle [id number] Erica Danielle Notes Date Note Type Note Provider Name and Address Organization Details Recorded Time 04/04/2023 text/html Dtr to translate for [place], declined translation services.Pain to L hip x 2-3 days. Pain intermittent. Pain is not present when sitting, pain is worse weight bearing and walking. Pain is sharp and sore with ambulation. Pain is worse in the AM, improves throughout the day. Daughter mentions that patient has been laying on left side to sleep for years and thinks that the pain is worse when she is laying on her left side. Daughter is wondering if patient has arthritis. Does have history of fungal infections to groin folds has been using clotrimazole every other day but sometimes forgets and this is every third day.Denies abd pain, nausea, vomiting, trauma, falls, erythema, warmth, dysuria, hematuria, fever. Alejandra Larios, REEMA [address], [place], [address], [place] [facility] 04/04/2023 13:41:04 OBGyn Episode No OBEpisode recorded.
--- OUTSIDE RECORDS SUMMARY | 2025-02-20 12:49 | XMS_ITS | Encounter Summary ---
Author Organization [employer] Address [address] [facility] [address] [place] [address] Care Team Providers Care Healthcare Science Specialist Name Role Phone Jill Hester DO Primary Care Provider + [phone] Reason for Visit * Reason Onset Date Comments Med Refill 01/30/2025 Encounter Details Date Type Department Care Team ([facility] st Contact Info) Description 01/30/2025 Telephone [facility] [address] [place], [place] [phone] Jill Hester DO [address] [place], [place] [phone] Med Refill Social History Tobacco Use Types Packs/Day Years [...] is your housing situation today? I have bingmerced michaels 01/25/[address] you [...] encounter Miscellaneous Notes * Telephone Encounter - Jill Fischer LPN - 01/30/2025 3:08 PM EDT Medication prescribed by Jewell Larios. * Telephone Encounter - Isela Paez - 01/30/2025 2:55 PM EDT TC from pt requesting medication refill. Medications needing refill : sennosides (Senokot) 8.6 MG tablet To be sent to: [facility]/pharmacy #[id number] [place] [address] documented in this encounter Plan of Treatment Not on file documented as of this encounter Visit Diagnoses Not on filedocumented in this encounter Additional Health Concerns Assessment Noted Time PHQ-9 Depression Total Score: 7 01/26/20 25 1:32 PM EDT documented as of this encounter Care Teams Healthcare Science Specialist Relationship Specialty Start Date End Date Jill Hester DO [address] [place] [phone] PCP - General Family Medicine 04/26/14 [facility] 06/29/22 documented as of this encounter
--- OUTSIDE RECORDS SUMMARY | 2025-02-20 12:49 | XMS_ITS | Encounter Summary ---
Author Organization [employer] Address [address] [facility] [address] [place] [address] Care Team Providers Care Teaching Artist Name Role Phone Mir Jill Primary Care Provider + [phone] Encounter Details Date Type Department Care Team ([facility] st Contact Info) Description 02/20/2025 11:00 AM EDT Office Visit [facility] [address] [place], [place] [phone] Acute cough (Primary Dx) Social History Tobacco Use Types [...] your housing situation today? I have bing michaesl 01/25/[address] you li [...] AM EDT documented as of this encounter Last Filed Vital Signs Vital Sign Reading Time Taken Comments Blood Pressure 152/72 02/20/2025 10:26 AM EDT Pulse 73 02/20/2025 10:26 AM EDT Temperature 35.6 ??C (96.1 ??F) 02/20/2025 10:26 AM E DT Respiratory Rate 20 02/20/2025 10:26 AM EDT Oxygen Saturation 96% 02/20/2025 10:26 AM EDT Inhaled Oxygen Concentration - - Weight 56.7 kg (125 lb) 02/20/2025 10:26 AM EDT Height 149.9 cm (4' 11 ) 02/20/2025 10:26 AM EDT Body Mass Index 25.25 02/20/2025 10:26 AM EDT documented in this encounter Plan of Treatment Scheduled Orders Name Type Priority Associated Diagnoses Orde r Schedule XR Chest 2 Views Imaging STAT Acute cough Expected: 02/20/2025, Expires: 02/20/2026 documented as of this encounter Procedures Procedure Name Priority Date/Time Associated Diagnosis Comments POCT INFLUENZA A (ID NOW RAPID MOLECULAR) Routine 02/20/2025 11:11 AM EDT Acute cough POCT INFLUENZA B (ID NOW RAPID MOLECULAR) Routine 02/20/2025 11:10 AM EDT Acute cough POCT RAPID COVID ANTIGEN Routine 02/20/2025 11:09 AM EDT Acute cough documented in this encounter Results * POCT Rapid Influenza A [place]ALL[place] ID NOW (02/20/2025 11:11 AM EDT) Influenza A Negative Negative, Indeterminate [facility] QC Media Lot # [id number] [facility] Lot# Expiration Date [facility] Swab 02/20/2025 11:1 1 AM EDT Jill Hester DO POINT OF CARE TEST ENTER/BETTY T ORDERABLES Final Result Performing Organization Address [facility]/ZIP Co de Phone Number [facility] [address] [place] [phone] * POCT Rapid Influenza B [place] ID NOW (02/20/2025 11:10 AM EDT) Influenza B Negative Negative, Indeterminate [facility] QC Media Lot # [id number] [facility] Lot# Expiration Date [facility] Swab 02/20/2025 11:1 0 AM EDT Jill Hester DO POINT OF CARE TEST ENTER/BETTY T ORDERABLES Final Result Performing Organization Address [facility] Co de Phone Number [facility] [address] [place] [phone] * POCT Rapid Covid-19 BinaxNOW (02/20/2025 11:09 AM EDT) Rapid COVID Ag Negative QC Media Lot # [id number] Lot# Expiration Date Swab 02/20/2025 11:0 9 AM EDT Jill Hester DO POINT OF CARE TEST ENTER/BETTY T ORDERABLES Final Result documented in this encounter Visit Diagnoses Diagnosis Acute cough- Primary documented in this encounter Additional Health Concerns Assessment Noted Time PHQ-9 Depression Total Score: 7 01/26/20 25 1:32 PM EDT documented as of this encounter Care Teams Teaching Artist Relationship Specialty Start Date End Date Jill Hester DO [address] [place] [phone] PCP - General Family Medicine 04/26/[address] [facility] 06/29/22 documented as of this encounter
--- OUTSIDE RECORDS SUMMARY | 2025-02-20 12:49 | XMS_ITS | Clinical Summary ---
Author Organization [employer] Address [address] [place] [address] Care Team Providers Care Grinder Outside Diameter Name Role Phone Mir Jill Primary Care Provider + [phone] Allergies No known active allergies Medications * This document contains information received from the source organization and may not represent a complete record from that organization. Blood Pressure Monitoring kit at bed time. 022 Active sennosides (Senokot) 8.6 MG tablet Take 2 tablets by mouth if needed at bedtime for constipation. 022 Active brimonidine (AlphaGAN P) 0.2 % ophthalmic solution Administer 1 drop into affected eye(s) every 12 (twelve) hours. Active dextran 70-hypromellose (artificial tears) 0.1-0.3 % ophthalmic solution Active Diclofenac Sodium 1 % gel Apply 2 g topically if needed in the morning, at noon, in the evening, and at bedtime (pain). 150 g 3 023 Active LORazepam (Ativan) 0.5 MG tabletIndications :Anxiety due to invasive procedure Take 1 tablet by mouth once 30 minutes prior to scheduled imaging 1 tablet 023 Active polyethylene glycol, PEG, 3350 (MiraLax) 17 GM/SCOOP powder Take 17 g by mouth if needed each day (constipatin) . Mix with 8oz. Water, juice. soda 510 g 2 024 Active metoprolol tartrate (Lopressor) 50 MG tablet TAKE 1 TABLET BY MOUTH TWICE DAILY. 60 tablet 11 024 Active liver oil-zinc oxide (Desitin) 40 % ointment Apply topically if needed in the morning and at bedtime for irritation. 56 g Active clotrimazole (Lotrimin) 1 % cream Apply topically 2 times daily. 60 g 024 Active atorvastatin (Lipitor) 20 MG tabletIndications :Other hyperlipidemia TAKE (1) TABLET BY MOUTH DAILY AT BEDTIME 28 tablet 5 Active Aspirin EC Adult Low Dose 81 MG EC tablet TAKE 1 TABLET BY MOUTH DAILY. 28 tablet Active docusate sodium (Colace) 100 MG capsuleIndication s:Chronic constipation TAKE 2 CAPSULES BY MOUTH EVERY MORNING & 1 EVERY PM TAKE 2 CAPSULES BY MOUTH EVERY MORNING & 1 EVERY PM 84 capsule Active amLODIPine (Norvasc) 10 MG tablet TAKE 1 TABLET BY MOUTH DAILY. 28 tablet 5 Active Calcium + Vitamin D3 600-10 MG-MCG tablet TAKE 1 TABLET BY MOUTH TWICE DAILY 56 tablet Active sertraline (Zoloft) 25 MG tabletIndications :Memory deficit,Depressio n, unspecified depression type TAKE 1 TABLET BY MOUTH DAILY. 30 tablet 5 Active ammonium lactate (Amlactin) 12 % cream Apply topically if needed for dry skin. 385 g 025 2025 Active acetaminophen (Tylenol 8 Hour) 650 MG ER tablet Take 1 tablet (650 mg) by mouth every 8 (eight) hours if needed for mild pain. 60 tablet 2 Active cetirizine (ZyrTEC) 10 MG tablet Take 0.5 tablets (5 mg) by mouth Once per day. 30 tablet 3 025 2025 Active fluticasone (Flonase) 50 MCG/ACT nasal spray Administer 2 sprays into each nostril Once per day. Shake gently. Before first use, prime pump. After use, clean tip and replace cap. 16 g 025 2025 Active benzonatate (Tessalon Perles) 100 MG capsule Take 1 capsule (100 mg) by mouth if needed in the morning, at noon, and at bedtime for cough for up to 10 days. Do not crush or chew. 30 capsule 025 2024 Active guaiFENesin (Mucinex) 600 MG 12 hr tablet Take 1 tablet (600 mg) by mouth if needed in the morning and at bedtime for cough or congestion. Do not crush, chew, or split. 30 tablet 025 2025 Active acetaminophen (Tylenol 8 Hour) 650 MG ER tablet Take 1 tablet by mouth in the morning and 1 tablet at noon and 1 tablet in the evening. 021 2024 Discontinued(R eorder (will not trigger notification to Pharmacy)) ammonium lactate (Lac-Hydrin) 12 % lotion Apply topically if needed for dry skin. 396 g 3 025 2024 Discontinued Skin Protectants, Misc. (eucerin) cream Apply topically if needed for dry skin. 396 g 3 025 2024 Discontinued Active Problems Problem Noted Date Diagnosed Date Candidiasis of breast 09/18/2024 Assessment & Plan (09/18/2024 6:47 PM EST): Keep area clean and dry, can wash with warm water+ baking soda, dry the area well after. Use clotrimazole cream bid + Zinc oxide ointment to affected area. RBS is wnl today, she will fu with PCP next mo, advised to get complete set of labs order by her PCP, prior to appt w her. Chronic hip pain 08/17/2023 08/17/2023 History of colon cancer 08/17/2023 08/17/20 23 Status post placement of cardiac pacemaker 08/1708/17/2023 Sick sinus syndrome 08/17/2023 08/17/2023 Varicose veins of lower extremity 08/17/2023 08/17/2023 Fatty liver 08/17/2023 Pre-diabetes 08/30/2022 Carotid stenosis 08/30/2022 History of pulmonary embolism 08/30/2022 History of COVID-19 06/27/2022 Overview (08/17/2023): Problem added by Discern Expert Chronic low back pain 02/03/2016 Osteoarthritis 02/03/2016 Chronic venous insufficiency 02/03/2016 Hyperlipidemia 09/25/2015 Venous stasis dermatitis 09/25/2015 Resolved Problems Problem Noted Date Diagnosed Date Resolved Date Acute UTI 08/17/2023 08/17/2023 08/17/2023 COVID toes 08/17/2023 08/17/2023 08/17/2023 Lower abdominal pain 08/17/2023 08/17/2023 023 Visit for wound check 08/17/2023 08/17/20232022 Weakness 01/07/2023 08/17/2023 Assessment & Plan (01/07/2023 1:54 PM EDT): FU with PCP in 6 weeks. Postural dizziness with presyncope 01/07/2023 08/17/2023 Assessment & Plan (01/07/2023 1:53 PM EDT): r/o presyncopal episode per patient, pacemaker was interrogated recently, will obtain notes from cardiology need to r/o neurological cause, order brain MRI unclear if pt already had carotid US with neurology, no neurology notes available, will obtain notes Cellulitis of hand 08/30/2022 Hand eczema 08/30/2022 08/17/2023 Scalp laceration 08/30/2022 08/17/2023 Syncope 08/30/2022 08/17/2023 Near syncope 09/25/2015 08/17/2023 Assessment & Plan (01/07/2023 1:54 PM EDT): Uncontrolled today, pt seems to be off norvasc continue metoprolol and fu BP with rn in 2-3 weks will check with cardiology clinic regarding dose of amlodipine (5 vs 10) Encounters Date Type Department Care Team Description 02/20/2025 11:00 AM EDT Office Visit [facility] [address] [place] [address] Acute cough (Primary Dx) 02/19/[address] [facility] [address] [place] [address] Jill Hester DO Nurse Triage 02/18/[address] [facility] [address] [place] [address] Jill Hester DO Pulmonary nodule (Primary Dx) 02/01/[address] [facility] [address], [place] [address] Jill Hester DO 01/30/[address] [facility] [address] [place] [address] Jill Hester DO Med Refill 01/25/2025 11:30 AM EDT Office Visit [facility] [address] [place] [address] Jill Hester DO Essential hypertension (Primary Dx); Other hyperlipidemia; Fatty liver; Chronic venous insufficiency; Chronic bilateral low back pain without sciatica; Alzheimer's disease (CMS/HCC); Depressive disorder; Sick sinus syndrome (CMS/HCC); Carotid stenosis, bilateral; History of colon cancer; Unintentional weight loss; Pulmonary nodule; Healthcare maintenance 01/25/2025 Telephone [facility] [address] [facility] [place] [address] Jill Hester DO 01/25/[address] [facility] [address] [place] [address] Jill Hester DO 01/25/[address] [facility] [address] [facility] [place] [address] Jill Hester DO Durable Medical Equipment 01/25/2025 Travel 01/15/[address] [facility] [address] [facility] [place] [address] Jill Hester DO Durable Medical Equipment 12/25/2024 Telephone [facility] [address] [facility] [place] [address] Jill Hester DO 12/21/[address] [facility] [address] [facility] [place] [address] Jill Hester DO Memory deficit; Depression, unspecified depression type 11/28/[address] [facility] [address] [facility] [place] [address] Jill Hester Recall Appt. 11/28/2024 Travel from Last 3 Months Immunizations Immunization Administration Dates Next Due Hep B, adult 05/11/2019 Influenza High-dose Quadriva lent Preservative Free 08/17/2023,07/15/2022 Influenza injectable quadriv alent IIV4 with preservative 08/28/2018,08/16/2017,06/29/2016 Influenza, IIV3, injectable 08/28/2018,1 10/16/2016,06/29/2016,06/08 Influenza, Split (incl. srinivasa fied surface antigen) 06/27/2012 Moderna Covid-19 Vaccine 12+ 04/06/2022,03/09/20 22 Pneumococcal Conjugate PCV 13 08/28/2018, 010 Pneumococcal Conjugate PCV 20 04/05/2024 Pneumococcal Polysaccharide PPSV23 09/21/2010 TD (adult), 2 Lf tetanus tox oid, preservative free, adsorbed 07/25/2008 Td (adult), unspecified 07/25/2008 Tdap 05/11/2019 Zoster, Recombinant 07/15/2022 Social History Tobacco Use Types Packs/Day Years Used Date Smoking Tobacco: Never Passive Smoke Exposure: Never Smokeless Tobacco: Never Tobacco Cessation:Counseling Given: Not Answered Alcohol Use Standard Drinks/Week Comments Never 0 (1 standard drink = 0.6 oz pur e alcohol) Depression Answer Date Recorded Patient Health Questionnaire-9 Score 7 01/25/2025 Patient Health Questionnaire-9 Score 7 01/25/2025 Last PHQ-9: Questionnaire Data Not on file 0 01/25/2025 Housing Stability Answer Date Recorded What is your housing situation today? I have ibng michaels 01/25/[address] you [...] Orientation Straight 08/09/2022 10 :17 AM EDT Last Filed Vital Signs Vital Sign Reading [...] Mass Index 25.25 02/20/2025 10:26 AM EDT Plan of Treatment Health Maintenance Due Date Last Done Comments Hepatitis A Vaccines (1 of 2 - Risk 2-dose series) 1959 RSV Patients and Patients Aged 60 years or older (1 - 1-dose 75+ series) 2014 Hepatitis B Vaccines (2 of 3 - Risk 3-dose series) 06/08/2019 05/11/2019 Zoster Vaccines (2 of 2) 09/09/2022 07/15/2022 COVID-19 Vaccine (3 - season) 2024 04/06/2022, 03/09/2022 Influenza Vaccine (#1) 2024 3, 07/15/2022, 08/28/2018, Additional history exists Tobacco Screening 04/27/2025 04/27/2024 Alcohol/Substance Use Screening 01/25/2026 01/25/2025 Depression Screening 01/25/2026 01/25/2025, 01/26/20 25 SDOH Screening 01/25/2026 01/25/2025 Lipid Panel 03/05/2027 03/05/2022, 07/15/2021 DTaP/Tdap/Td Vaccines (2 - Td or Tdap) 05/11/2029 05/11/2019, 07/25/2008, 07/25/2008 Pneumococcal Vaccine: 50+ Years Completed 04/05/2024, 08/28/2018, 09/21/2010, Additional history exists HIB Vaccines Aged Out No longer eligi ble based on patient's age to complete this topic HPV Vaccines Aged Out No longer eligi ble based on patient's age to complete this topic IPV Vaccines Aged Out No longer eligi ble based on patient's age to complete this topic Meningococcal B Vaccine Aged Out No l onger eligible based on patient's age to complete this topic Meningococcal Vaccine Aged Out No huma ron eligible based on patient's age to complete this topic RSV under 20 months Aged Out No longe r eligible based on patient's age to complete this topic Rotavirus Vaccines Aged Out No longer eligible based on patient's age to complete this topic Procedures Procedure Name Priority Date/Time Associated Diagnosis Comments POCT INFLUENZA A (ID NOW RAPID MOLECULAR) Routine 02/20/2025 11:11 AM EDT Acute cough POCT INFLUENZA B (ID NOW RAPID MOLECULAR) Routine 02/20/2025 11:10 AM EDT Acute cough POCT RAPID COVID ANTIGEN Routine 02/20/2025 11:09 AM EDT Acute cough LIPID PANEL, STANDARD Routine 03/05/2022 11:35 AM EDT from Last 3 Months or Most Recently Relevant to Health Maintenance Results * POCT Rapid Influenza A [place] ID NOW (02/20/2025 11:11 AM EDT) [facility] Influenza A Negative Negative, Indeterminate [facility] QC Media Lot # [id number] [facility] Lot# Expiration Date [facility] Swab 02/20/2025 11:1 1 AM EDT Jill Mir DO POINT OF CARE TEST ENTER/BETTY T ORDERABLES Final Result Performing Organization Address City/[facility]/ZIP Co de Phone Number [facility] [address] [place] [phone] * POCT Rapid Influenza B [place] ID NOW (02/20/2025 11:10 AM EDT) Influenza B Negative Negative, Indeterminate [facility] QC Media Lot # [id number] [facility] Lot# Expiration Date [facility] Swab 02/20/2025 11:1 0 AM EDT Jill Hester DO POINT OF CARE TEST ENTER/BETTY T ORDERABLES Final Result Performing Organization Address City/[facility]/ZIP Co de Phone Number [facility] [address] [place] [phone] * POCT Rapid Covid-19 BinaxNOW (02/20/2025 11:09 AM EDT) Rapid COVID Ag Negative QC Media Lot # [id number] Lot# Expiration Date Swab 02/20/2025 11:0 9 AM EDT Jill iMr DO POINT OF CARE TEST ENTER/BETTY T ORDERABLES Final Result * LIPID PANEL, STANDARD (03/05/2022 11:35 AM EDT) Chol/HDLC Ratio 2.8 <5.0 (calc) [facility] Cholesterol, Total 167 <200 mg/dL [facility] HDL Cholesterol 60 > OR = 50 mg/dL [facility] LDL Cholesterol 88 mg/dL (calc) [facility] Comment: Reference range: <100 ?? Desirable range <100 mg/dL for primary prevention; ?? <70 mg/dL for patients with CHD or diabetic patients ?? with > or = 2 CHD risk factors. ?? LDL-C is now calculated using the Aileen ?? calculation, which is a validated novel method providing ?? better accuracy than the Friedewald equation in the ?? estimation of LDL-C. ?? Morris MACK et al. MYRA. 2013;310(19): 6805-2661 ?? (http://education.JoinTV/faq/SIH375) Non-HDL Cholesterol 107 <130 mg/dL (calc) [facility] Comment: For patients with diabetes plus 1 major ASCVD risk ?? factor, treating to a non-HDL-C goal of <100 mg/dL ?? (LDL-C of <70 mg/dL) is considered a therapeutic ?? option. Triglycerides 93 <150 mg/dL [facility] 03/05/2022 11:3 5 AM EDT us Jill Hester DO LAB BLOOD ORDERABLES Final R esult [facility] [address] from Last 3 Months or Most Recently Relevant to Health Maintenance Insurance [facility] [employer] (HMO D-SNP) [place] [id number] Care Teams Grinder Outside Diameter Relationship Specialty Start Date End Date Jill Hester DO [address] [place] [phone] PCP - General Family Medicine 04/26/14 [facility] 06/29/22
== END 2025-02-20 12:16 | disposition home or self-care (01) ==
LOC: HO.HHCX 12:15
PROVIDERS: Visit Provider Family Medicine
DX: R05.1 Acute cough (principal)
CPT/HCPCS: 71046

== ENCOUNTER → 2025-02-20 12:16 | Outpatient (BNV) | payer OTHER, SELFPAY | PROVIDERS: Visit Provider Radiology Diagnostic Radiology | DX: R05.3 Chronic cough (principal) | CPT/HCPCS: 71046 ==

== ENCOUNTER 2025-03-09 21:33 | Emergency (ER) | payer OTHER, SELFPAY ==
--- NOTE | 2025-03-09 21:37 | ECG_ITS ---
Test Reason : PALPILTATIONS Blood Pressure : */* mmHG Vent. Rate : 60 BPM Atrial Rate : 60 BPM P-R Int : 154 ms QRS Dur : 70 ms QT Int : 416 ms P-R-T Axes : 80 8 29 degrees QTcB Int : 416 ms Atrial-paced rhythm Abnormal ECG When compared with ECG of 14-Mar-2024 23:26, Electronic atrial pacemaker has replaced Sinus rhythm Referred By: Generic ED Physician Electronically Signed By: FIDELIA DON MD
[2025-03-09 21:50] VITALS: BP 173/101; PULSE 60; RESP 18; TEMP 37; O2SAT 96; BMI 26.4
--- NOTE | 2025-03-09 22:06 | ED_ITS ---
HPI - Arrhythmia/Palpitations General Chief Complaint: Arrhythmia/Palpitations Stated Complaint: irregular heatbeats/says its beating fast Time Seen by Provider: 03/09/25 22:05 Source: patient Mode of arrival: ambulatory Limitations: no limitations History of Present Illness ED Provider: guillermina mustafa np HPI narrative: Patient is an 84-year-old female past medical history of hypertension, hyperlipidemia, dual-chamber pacemaker placed 07/30/2022 who presents emergency department for evaluation. At the time my evaluation patient offers no physical complaints when asked whether she is experiencing palpitations she states no. She denies having any dizziness, lightheadedness, chest pain, shortness of breath, difficulty breathing, neck pain, nausea, vomiting, abdominal pain, numbness or tingling of the extremities. Patient's daughter is at bedside, she states that patient called her around 16:30 this evening and had reported that she was not feeling well for the past 2 hours and felt like her heart was racing. Daughter states that this is happened before and she had evaluation everything was normal. She states that she gets anxious when daughter does not go to visit. Typically visits daily but she does admit that she has not been over the past 2 days and she feels that this was attributing to she reports that patient has otherwise recently been well with no other reports of symptoms or complaints. Related Data Home Medications ?Medication ?Instructions ?Recorded ?Confirmed aspirin 81 mg tablet,delayed 81 mg PO DAILY 10/15/20 05/17/23 release atorvastatin 20 mg tablet 20 mg PO BEDTIME 10/15/20 05/14/24 calcium 600 mg (as 1 tab PO BID 11/20/20 05/14/24 carbonate)-vitamin D3 10 mcg (400 unit) tablet brimonidine 0.2 % eye drops 1 drp ophthalmic (eye) BID 03/11/21 05/14/24 clotrimazole 1 % topical cream 1 appl topical BID PRN Rash 07/30/22 05/14/24 metoprolol tartrate 25 mg tablet 50 mg PO BID 11/28/22 05/14/24 Previous Rx's ?Medication ?Instructions ?Recorded acetaminophen 500 mg capsule 500 mg PO Q6H PRN pain #20 caps 09/10/21 docusate sodium 100 mg capsule 100 mg PO BID #60 caps 06/03/22 (Colace) psyllium husk 3.4 gram/5.4 gram 1 tbsp PO DAILY #660 grams 06/03/22 oral powder (Metamucil) amlodipine 5 mg tablet 5 mg PO DAILY 30 days #30 tabs 08/01/22 sennosides 8.6 mg tablet (Senna 17.2 mg (2 x 8.6 mg) PO BEDTIME 05/23/24 Laxative) #60 tabs Allergies Allergy/AdvReac Type Severity Reaction Status Date / Time No Known Allergies Allergy Verified 03/09/25 21:53 Review of Systems 2 Review of Systems: Yes all other systems are reviewed and are negative [facility] Past Medical History Attestation statement: The following information was validated with the patient. Source: old records reviewed Medical History Hypertension Chronic venous insufficiency Lower abdominal pain Hyperlipidemia History of colon cancer (~2009) Surgical History H/O breast biopsy History of appendectomy History of colonoscopy History of partial colectomy (~2009) Family History Family History Father History of colon cancer Sister History of pancreatic cancer Social History Social History Household Members: None Housing: House Are you a primary customer care professional to a significant other at home: No Do you presently have visiting nurse or other home services: No Alcohol intake: never Patient Tobacco Use Status: Never used Tobacco Smoked in Last 30 Days: No Second Hand Smoke Exposure: No Use of substances other than those prescribed or required for medical reasons: No Advance Directives: Yes Advance Directives on File: Yes Advance Directives Date on File: 08/02/22 service: No Current occupational status: disabled Physical Exam 2 Vital Signs: Vital Signs: Last Vital Signs Temp 98.1 F 03/09/25 23:15 Pulse 60 03/09/25 23:15 Resp 17 03/09/25 23:15 BP 174/64 H 03/09/25 23:15 Pulse Ox 96 03/09/25 23:15 O2 Del Method Room Air 03/09/25 23:15 BMI result Body Mass Index 26.4 Appearance: Alert.?Oriented to person, place and time. No acute distress.?Normal affect. Eyes: Pupils equal, round and reactive to light.? ENT: Pharynx normal.?? Neck: Normal inspection.? Neck supple.?? CVS: Heart sounds normal. Normal heart rate and rhythm.? Pulses normal.?? Respiratory: No respiratory distress.? Lung sounds clear to auscultation bilaterally?? Abdomen: Soft and non-tender. Normoactive bowel sounds. Skin: Skin warm and dry.? Normal skin color.? Extremities: No lower extremity edema.? No calf ttp? Neuro: Moves all extremities spontaneously. Sensation intact bilaterally. CN II- XII intact. No focal neuro deficits. Ambulates with normal steady gait. Medical Decision Making Medical Decision Making [facility] Narrative: Patient is an 84-year-old female past medical history of hypertension, hyperlipidemia, dual-chamber pacemaker placed 07/30/2022 who presents for evaluation of palpitations earlier this evening that have since resolved. She offers no physical complaints at the time of my evaluation her examination is benign. She is noted to be hypertensive however when 174/64, endorsing compliance with medications, will obtain manual for accuracy. EKG obtained on arrival reveals an atrial paced rhythm with rate of 60, no ST-elevation. She is speaking clear full sentences. She is calm and pleasant at this time. Daughter who is at bedside thinks that she may have been feeling anxious as she had not been to visit in a couple of days he is has happened in the past as well. However daughter states that given her presence of a pacemaker she felt it best that she have evaluation to assure there was nothing abnormal. Differential Diagnosis Differential Diagnoses: The differential diagnosis associated with the presentation includes (Arrhythmia, ACS, electrolyte derangement, WILDA, anemia, abnormal thyroid function, anxiety) Admission/Observation Consideration of admission/observation: Escalation of care including admission/observation considered Lab Data [facility] Lab Attestation statement: I reviewed the patient's lab results. CBC is without leukocytosis anemia or thrombocytopenia. No electrolyte derangement. No WILDA. High sensitive troponin below detectable limits. LFT normal. TSH high 4.97 with normal free T4. 03/09/25 22:23 03/09/25 22:23 Labs: Lab Results 03/09/25 Range/Units 22:23 WBC 7.0 (4.8-10.8) X10*3/uL RBC 4.58 (4.20-5.50) X10*6/uL Hgb 13.6 (12.0-16.0) g/dl Hct 39.1 (37.0-47.0) % MCV 85.4 (80.0-98.0) fL MCH 29.7 (27.0-33.0) pg MCHC 34.8 (31.0-35.0) g/dl RDW 13.5 (11.0-16.0) % Plt Count 192 (160-400) X10*3/uL MPV 9.8 (9.4-12.3) fL Immature Gran % (Auto) 0.3 (0.0-0.4) % Neut % (Auto) 66.0 (45-73) % Lymph % (Auto) 22.0 (20-40) % Bladen % (Auto) 10.7 (2-11) % Eos % (Auto) 0.6 (0-4) % Baso % (Auto) 0.4 (0-2) % Lymph # (Auto) 1.5 (1.2-4.9) X10*3/uL Bladen # (Auto) 0.8 (0.1-1.2) X10*3/uL Eos # (Auto) 0.0 (0.0-0.4) X10*3/uL Baso # (Auto) 0.0 (0.0-0.2) X10*3/uL Abs Immat Gran (auto) 0.02 (0.00-0.03) X10*3/uL Absolute Neuts (auto) 4.6 (2.0-8.3) x10*3/uL Absolute Nucleated RBC 0.000 (0.0-0.012) X10*3/uL Nucleated RBC % (auto) 0.0 (0.0-0.2) /100WBC Sodium 141 (135-145) mmol/L Potassium 3.8 (3.3-5.1) mmol/L Chloride 108 (96-108) mmol/L Carbon Dioxide 24 (22-29) mmol/L Anion Gap 13 (12-20) BUN 15 (9-16) mg/dL Creatinine 0.57 (0.5-1.4) mg/dL Estim Creat Clear Calc 56.5 Estimated GFR > 60 Random Glucose 113 (60-115) mg/dL Calcium 9.0 (8.4-10.2) mg/dL Total Bilirubin 0.4 (0.0-1.0) mg/dL Direct Bilirubin 0.1 (0.0-0.5) mg/dL AST 24 (5-31) U/L ALT 16 (0-31) U/L Alkaline Phosphatase 90 (39-117) U/L Troponin I High Sens < 2.7 (<3.5-17.0) ng/L B-Natriuretic Peptide 173 H (<100) pg/mL Total Protein 7.2 (6.5-8.0) g/dL Albumin 3.5 (3.5-5.0) g/dL TSH 4.97 H (0.32-4.0) uIU/mL Free T4 0.96 (0.71-1.85) ng/dL Independent Interpretation I performed an independent interpretation of an: EKG (See narrative above) Independent Historian Clinical information obtained from an independent historian. History obtained from or confirmed by: Other (Daughter) External Record Review External record reviewed: Outpatient record Chronic Conditions Patient?s care impacted by: Other (See narrative above) Discharge Plan Discharge Clinical Impression: Palpitations Patient Disposition: Home, Self-Care Instructions: Heart Palpitations (ED) Additional Instructions: You were evaluated in the emergency department for palpitations that had resolved by the time you arrived in the emergency department. EKG and blood work was overall very reassuring. You have had no recurrent episodes. At this time you are being discharged home, please contact your primary care provider to arrange for follow-up visit within 3 days. Return to emergency department any new or worsening symptoms or concerns. Prescriptions: No Action calcium carbonate-vitamin D3 600 mg(1,500mg) -400 unit tablet 1 tab PO BID acetaminophen 500 mg capsule 500 mg PO Q6H PRN (Reason: pain) Qty: 20 0RF clotrimazole 1 % cream 1 appl TOPICAL BID PRN (Reason: Rash) amlodipine 5 mg Tablet 5 mg PO DAILY 30 Days Qty: 30 0RF Protocol: Hold for SBP< HOLD for SBP < : 90 aspirin 81 mg tablet,delayed release (DR/EC) 81 mg PO DAILY atorvastatin 20 mg tablet 20 mg PO BEDTIME brimonidine 0.2 % drops 1 drp ophthalmic (eye) BID metoprolol tartrate 25 mg tablet 50 mg PO BID docusate sodium [Colace] 100 mg capsule 100 mg PO BID Qty: 60 3RF Metamucil 3.4 gram/5.4 gram powder 1 tbsp PO DAILY Qty: 660 2RF Rx Instructions: mix into at least 8 oz of water or juice before administering sennosides [Senna Laxative] 8.6 mg tablet 17.2 mg PO BEDTIME Qty: 60 6RF Referrals: Jill Hester DO [Primary Care Provider] - Print Language: Algerian
[2025-03-09 22:27] LABS: MANUAL DIFF FLAG NO
[2025-03-09 22:29] LABS: Basophils Percent Auto 0.4 % (0-2); Eosinophils Percent Auto 0.6 % (0-4); Hematocrit 39.1 % (37.0-47.0); Hemoglobin 13.6 g/dl (12.0-16.0); Imm Gran Abs Auto 0.02 X10*3/uL (0.00-0.03); Imm Gran Pct Auto 0.3 % (0.0-0.4); Lymphocytes Absolute Auto 1.5 X10*3/uL (1.2-4.9); Mean Corpuscular HGB Conc 34.8 g/dl (31.0-35.0); Mean Corpuscular Hemoglobin 29.7 pg (27.0-33.0); Mean Corpuscular Volume 85.4 fL (80.0-98.0); Mean Platelet Volume 9.8 fL (9.4-12.3); Monocytes Absolute Auto 0.8 X10*3/uL (0.1-1.2); Monocytes Percent Auto 10.7 % (2-11); Neutrophils Absolute Auto 4.6 x10*3/uL (2.0-8.3); Platelet Count 192 X10*3/uL (160-400); Red Blood Count 4.58 X10*6/uL (4.20-5.50); Red Cell Distribution Width 13.5 % (11.0-16.0)
[2025-03-09 22:39] LABS: Anion Gap 13 (12-20); Blood Urea Nitrogen 15 mg/dL (9-16); Carbon Dioxide 24 mmol/L (22-29); Chloride 108 mmol/L (96-108); Creatinine Clr Calc Pharmacy 56.5; Estimated Glomerular Filt Rate > 60; Glucose Random 113 mg/dL (60-115); Potassium 3.8 mmol/L (3.3-5.1); Sodium 141 mmol/L (135-145)
[2025-03-09 22:45] VITALS: BP 171/62; PULSE 60; RESP 18; O2SAT 97
[2025-03-09 22:47] LABS: B Type Natriuretic Peptide 173 pg/mL (<100)
[2025-03-09 22:48] LABS: Alanine Aminotransferase 16 U/L (0-31); Albumin Level 3.5 g/dL (3.5-5.0); Alkaline Phosphatase 90 U/L (39-117); Aspartate Amino Transferase 24 U/L (5-31); Bilirubin Direct 0.1 mg/dL (0.0-0.5); Bilirubin Total 0.4 mg/dL (0.0-1.0); Total Protein 7.2 g/dL (6.5-8.0)
[2025-03-09 22:50] LABS: Troponin-I High Sensitivity < 2.7 ng/L (<3.5-17.0)
[2025-03-09 23:02] LABS: TSH reflex Free T4 4.97 uIU/mL (0.32-4.0)
[2025-03-09 23:15] VITALS: BP 174/64; PULSE 60; RESP 17; TEMP 36.7; O2SAT 96
[2025-03-09 23:35] LABS: Free T4 (Free Thyroxine) 0.96 ng/dL (0.71-1.85)
[2025-03-10 00:17] VITALS: BP 174/64; PULSE 60; RESP 17; TEMP 36.7; O2SAT 96
== END 2025-03-10 00:18 | disposition home or self-care (01) ==
PROVIDERS: Nurse Practitioner Family; Emergency Provider Emergency Medicine; PCP Family Medicine
DX: R00.2 Palpitations (principal); I10 Essential (primary) hypertension; E78.5 Hyperlipidemia, unspecified; Z95.0 Presence of cardiac pacemaker; Z79.82 Long term (current) use of aspirin; Z79.02 Long term (current) use of antithrombotics/antiplatelets; Z79.899 Other long term (current) drug therapy
CPT/HCPCS: 36415; 80048; 80076; 83880; 84439; 84443; 84484; 85025; 93005; 99283; 99285

== ENCOUNTER → 2025-03-09 21:37 | Outpatient (BNV) | payer OTHER, SELFPAY | PROVIDERS: Emergency Provider Emergency Medicine; PCP Family Medicine; Visit Provider Internal Medicine Cardiovascular Disease | DX: R94.31 Abnormal electrocardiogram [ECG] [EKG] (principal); Z95.0 Presence of cardiac pacemaker | CPT/HCPCS: 93010 ==

== ENCOUNTER → 2025-05-19 23:59 | Outpatient (BNV) | payer OTHER, SELFPAY ==
--- NOTE | 2025-05-26 20:18 | MHC.OFFVIS ---
Intake Visit Reasons: Remote device check- Medtronic Allergies No Known Allergies Allergy (Verified 03/09/25 21:53) PFSH Medical History Hypertension Chronic venous insufficiency Lower abdominal pain Hyperlipidemia History of colon cancer (~2009) Surgical History H/O breast biopsy History of appendectomy History of colonoscopy History of partial colectomy (~2009) Family History Father History of colon cancer Sister History of pancreatic cancer Social History Household Members: None Housing: House Are you a primary lawn care specialist to a significant other at home: No Do you presently have visiting nurse or other home services: No Alcohol intake: never Patient Tobacco Use Status: Never used Tobacco Second Hand Smoke Exposure: No Advance Directives Date on File: 08/02/22 service: No Current occupational status: disabled Office Procedures Cardiac Device Check Cardiac Device Check Details: PPM Battery life: good DEEP SUBMERGENCE VEHICLE CREWMEMBER< 0.1% No new alerts. Device functioning normally. [id number] Cardiac Device Interrogation, pacemaker Procedure code (CPT) selection complete Assessment & Plan Assessment & Plan (1) Pacemaker: Comment: 07/30/2022, Medtronic dual-chamber Code(s): Z95.0 - Presence of cardiac pacemaker Category: Medical Plan Coding Level of Care Code Procedure Only Diagnoses Pacemaker Z95.0 CPT Codes Cardiac Device Check - Cardiac Device 12: [id number] Cardiac Device Interrogation, pacemaker ([id number])
== END ==
PROVIDERS: PCP Family Medicine; Visit Provider Internal Medicine Cardiovascular Disease
DX: Z45.018 Encounter for adjustment and management of other part of cardiac pacemaker (principal)
CPT/HCPCS: 93294

== ENCOUNTER 2025-07-15 13:57 | Outpatient (REF) | payer OTHER, SELFPAY ==
--- NOTE | ~2025-07-15 | XR_ITS ---
EXAMINATION: XR CERVICAL SPINE CLINICAL INFORMATION: pain after fall COMPARISON: None available. TECHNIQUE: 5 views cervical spine FINDINGS: Bone demineralization. Cervical spine is visualized from C1-C7 level. No prevertebral soft tissue swelling. Predens space is maintained. Vertebral body sagittal alignment is maintained. No evidence of acute fracture or spondylolisthesis. Vertebral body heights are maintained. Multilevel disc degeneration, including mild-moderate C5-6, C6-7 disc degeneration. Facet degeneration. No dynamic instability on the flexion-extension views. Suboptimal open-mouth projection. XR/XR cervical spine 5V IMPRESSION: Osteopenia. No radiographic evidence of acute fracture or spondylolisthesis. If there is clinical concern for a radiographically occult fracture, consider CT scan. Electronically signed by: Raman Pineda MD 07/15/2025 02:55 PM EDT
--- NOTE | ~2025-07-15 | XR_ITS ---
EXAMINATION: XR FOREARM, RIGHT CLINICAL INFORMATION: PAIN; fall. COMPARISON: None available. TECHNIQUE: AP and lateral views of the right forearm were obtained. FINDINGS: No fracture, dislocation, or suspicious bone lesion. Normal alignment. Imaged portions of the elbow and wrist are unremarkable. Soft tissues demonstrate diffuse vascular calcifications but are otherwise unremarkable. XR/XR forearm RT 2V IMPRESSION: No acute findings of the right forearm. Electronically signed by: Richmond Pemberton MD 07/15/2025 02:50 PM EDT
--- OUTSIDE RECORDS SUMMARY | 2025-07-15 13:20 | XMS_ITS | Encounter Summary ---
Author Organization [employer] Address [address] [facility] 7[address] [place] [address] Care Team Providers Care Musical Therapist Name Role Phone Mir Jill Primary Care Provider + [phone] Reason for Visit * Reason Comments Neck Pain Bruise Encounter Details Date Type Department Care Team ([facility] st Contact Info) Description 07/15/2025 1:20 PM EDT Office Visit [facility] [address] [place] [address] Kandis Espinoza MD [address] [place] [address] Neck pain (Primary Dx); Colon carcinoma (CMS/HCC) (HCC); Dietary counseling; Exercise counseling; Overweight; Pain of right forearm; Alzheimer's disease (HCC) Social History Tobacco Use Types Packs/Day Years [...] Sign Reading Time Taken Comments Blood Pressure 142/82 07/15/2025 1:28 PM EDT Pulse 90 07/15/2025 1:28 PM EDT Temperature 36.9 C (98.5 F) 07/15/2025 1:28 PM EDT Respiratory Rate 19 07/15/2025 1:28 PM EDT Oxygen Saturation - - Inhaled Oxygen Concentration - - Weight 58.6 kg (129 lb 3.2 oz) 07/15/2025 1:28 P M EDT Height 142.2 cm (4' 8 ) 07/15/2025 1:28 PM EDT Body Mass Index 28.97 07/15/2025 1:28 PM EDT documented in this encounter Progress Notes * Kandis Espinoza MD - 07/15/2025 1:20 PM EDT SUBJECTIVE: Erica Danielle is a 84 y.o. female who presents for acute visit. Denies recent illness, ER visit, or hospitalization. Accompanied by daughter Acute Concerns: Acute neck pain and possible injury - Onset last night (July 14, 2025) - Reports neck pain, especially when turning head - Does not remember the exact mechanism of injury; states something fell on top of her but cannotrecall details - Uncertain if she fell herself - Son was present in the home at the time, but was not awakened - Pain felt on both sides of the neck, none posterior Decreased appetite and oral intake - Reports loss of appetite since yesterday (July 14, 2025) - Attempted to eat oatmeal in the morning but only managed two spoonfuls - States she has not been drinking enough water - Reports not going to the bathroom (urination of bowel movement) since onset of symptoms - Denies dizziness - Denies ear pain - New blisters on lips Cognitive impairment - Family reports beginnings of Alzheimer's - Difficulty recalling events surrounding onset of symptoms Xray forearm 07/15/25 FINDINGS: No fracture, dislocation, or suspicious bone lesion. Normal alignment. Imaged portions of the elbow and wrist are unremarkable. Soft tissues demonstrate diffuse vascular calcifications but are otherwise unremarkable. XR/XR forearm RT 2V IMPRESSION: No acute findings of the right forearm. Xray Cervical spine 07/15/25 FINDINGS: Bone demineralization. Cervical spine is visualized from C1-C7 level. No prevertebral soft tissue swelling. Predens space is maintained. Vertebral body sagittal alignment is maintained. No evidence of acute fracture or spondylolisthesis. Vertebral body heights are maintained. Multilevel disc degeneration, including mild-moderate C5-6, C6-7 disc degeneration. Facet degeneration. No dynamic instability on the flexion-extension views. Suboptimal open-mouth projection. XR/XR cervical spine 5V IMPRESSION: Osteopenia. No radiographic evidence of acute fracture or spondylolisthesis. If there is clinical concern for a radiographically occult fracture, consider CT scan. Patient Active Problem List Diagnosis Date Noted Colon carcinoma (CMS/HCC) (HCC) 07/15/2025 Chest pain 07/15/2025 Palpitations 07/15/2025 Pacemaker 07/15/2025 History of DVT (deep vein thrombosis) 07/15/2025 Nonalcoholic fatty liver 07/15/2025 Family history of colon cancer in father 07/15/2025 Depression 07/15/2025 Constipation 07/15/2025 Bilateral sacroiliitis (CMS/HCC) 07/15/2025 Alzheimer's disease (HCC) 05/01/2025 Candidiasis of breast 09/18/2024 Fatty liver 08/17/2023 Pre-diabetes 08/30/2022 Carotid stenosis 08/30/2022 History of pulmonary embolism 08/30/2022 Chronic low back pain 02/03/2016 Osteoarthritis 02/03/2016 Chronic venous insufficiency 02/03/2016 Hyperlipidemia 09/25/2015 Venous stasis dermatitis 09/25/2015 Chronic hip pain 08/17/2023 History of colon cancer 08/17/2023 Status post placement of cardiac pacemaker 08/17/2023 Sick sinus syndrome (CMS/HCC) (HCC) 08/17/2023 Varicose veins of lower extremity 08/17/2023 Surgical History[1] Social History Social History Narrative Not on file Review of Systems OBJECTIVE: Vitals: 07/15/25 1328 BP: (!) 142/82 BP Location: Left arm Patient Position: Sitting BP Cuff Size: Adult Pulse: 90 Resp: 19 Temp: 98.5 ??F (36.9 ??C) TempSrc: Temporal Weight: 129 lb 3.2 oz (58.6 kg) Height: 4' 8 (1.422 m) Physical Exam Vitals reviewed. Constitutional: Appearance: Normal appearance. HENT: Head: Normocephalic and atraumatic. Ears: Comments: Middle ear effusion R ear Nose: Nose normal. Mouth/Throat: Mouth: Mucous membranes are dry. Pharynx: Oropharynx is clear. Posterior oropharyngeal erythema present. Comments: Lips are dry and cracked, with blisters on lower lip Eyes: Conjunctiva/sclera: Conjunctivae normal. Pupils: Pupils are equal, round, and reactive to light. Cardiovascular: Rate and Rhythm: Normal rate and regular rhythm. Pulses: Normal pulses. Heart sounds: Normal heart sounds. Pulmonary: Effort: Pulmonary effort is normal. Breath sounds: Normal breath sounds. Musculoskeletal: Cervical back: No edema, erythema, signs of trauma, rigidity, torticollis or crepitus. Pain with movement and muscular tenderness present. No spinous process tenderness. Decreased range of motion. Lymphadenopathy: Cervical: No cervical adenopathy. Right cervical: No superficial cervical adenopathy. Left cervical: No superficial cervical adenopathy. Skin: General: Skin is warm and dry. Findings: Bruising present. Comments: 4 x 5cm bruise on R forearm, mildly TTP around bruise Neurological: General: No focal deficit present. Mental Status: She is alert. Mental status is at baseline. She is disoriented. Psychiatric: Mood and Affect: Mood normal. Behavior: Behavior normal. ASSESSMENT/PLAN Assessment & Plan Dietary counseling: - Recommended starting with liquids, then adding bland foods such as rice or bananas. Neck pain: - Neck pain following an unclear event, possibly trauma, with pain on movement. - Ordered cervical spine X-rays (AP, lateral, odontoid, flexion, extension views) to evaluate for injury. Pain of right forearm: - Pain in right forearm following an unclear event, possibly trauma. - Ordered right arm X-ray to evaluate for injury. Decreased oral intake and risk of dehydration: - Decreased appetite and oral intake since last night, with concern for dehydration due to poor fluid intake and reduced urinary and bowel movements. - Recommended increasing fluid intake (tea or water). Advised monitoring for ability to tolerate oral intake and to return for evaluation if unable to tolerate fluids, with consideration for intravenous hydration if needed. Advised family to ensure supervision and encouragement of oral intake at home. Stomach upset: - Stomach upset reported. - Prescribed Zofran for stomach upset to be taken every 8 hours. Prescription - Unspecified medication for stomach upset, to be taken every 8 hours. Problem List Items Addressed This Visit Alzheimer's disease (HCC) Colon carcinoma (CMS/HCC) (HCC) Other Visit Diagnoses Neck pain - Primary Relevant Orders XR Cervical Spine 5 View (Completed) Dietary counseling Exercise counseling Overweight Pain of right forearm Relevant Orders XR Forearm 2 Views Right (Completed) Follow Up: per PCP recall or sooner prn Allergies[2] Current Medications[3] Cook Islander Translation: Provided by [facility] staff member MARGARITA Suárez This note was drafted using Ambient (MulliganPlus) technology. The patient/patient's guardian has been informed and has consented to the use of this technology: Yes [1] History reviewed. No pertinent surgical history. [2] No Known Allergies [3] Current Outpatient Medications: acetaminophen (Tylenol 8 Hour) 650 MG ER tablet, Take 1 tablet (650 mg) by mouth every 8 (eight) hours if needed for mild pain., Disp: 60 tablet, Rfl: 2 amLODIPine (Norvasc) 10 MG tablet, TAKE 1 TABLET BY MOUTH ONCE DAILY, Disp: 28 tablet, Rfl: 11 ammonium lactate (Amlactin) 12 % cream, Apply topically if needed for dry skin., Disp: 385 g, Rfl: 3 Aspirin EC Adult Low Dose 81 MG EC tablet, TAKE 1 TABLET BY MOUTH ONCE DAILY, Disp: 28 tablet, Rfl:11 atorvastatin (Lipitor) 20 MG tablet, TAKE (1) TABLET BY MOUTH DAILY AT BEDTIME, Disp: 28 tablet, Rfl: 5 Blood Pressure Monitoring kit, at bed time., Disp: , Rfl: brimonidine (AlphaGAN P) 0.2 % ophthalmic solution, Administer 1 drop into affected eye(s) every 12(twelve) hours., Disp: , Rfl: Calcium Carb-Cholecalciferol 600-10 MG-MCG tablet, TAKE 1 TABLET BY MOUTH TWICE DAILY, Disp: 56 tablet, Rfl: 11 cetirizine (ZyrTEC) 10 MG tablet, Take 0.5 tablets (5 mg) by mouth Once per day., Disp: 30 tablet, Rfl: 3 clotrimazole (Lotrimin) 1 % cream, Apply topically 2 times daily., Disp: 60 g, Rfl: 0 dextran 70-hypromellose (artificial tears) 0.1-0.3 % ophthalmic solution, , Disp: , Rfl: Diclofenac Sodium 1 % gel, Apply 2 g topically if needed in the morning, at noon, in the evening, and at bedtime (pain)., Disp: 150 g, Rfl: 3 docusate sodium (Colace) 100 MG capsule, TAKE (2) CAPSULES BY MOUTH EVERY MORNING. TAKE 1 CAPSULE BY MOUTH ONCE A DAY AT NIGHT., Disp: 84 capsule, Rfl: 11 donepezil (Aricept) 5 MG tablet, TAKE 1 TABLET BY MOUTH AFTER FOOD ONCE DAILY FOR 30 DAYS, Disp: , Rfl: fluticasone (Flonase) 50 MCG/ACT nasal spray, ADMINISTER 2 SPRAYS INTO EACH NOSTRIL ONCE PER DAY. SHAKE GENTLY. BEFORE FIRST USE, PRIME PUMP. AFTER USE, CLEAN TIP AND REPLACE CAP., Disp: 48 mL, Rfl: 1 guaiFENesin (Mucinex) 600 MG 12 hr tablet, Take 1 tablet (600 mg) by mouth if needed in the morningand at bedtime for cough or congestion. Do not crush, chew, or split., Disp: 30 tablet, Rfl: 0 liver oil-zinc oxide (Desitin) 40 % ointment, Apply topically if needed in the morning and at bedtime for irritation., Disp: 56 g, Rfl: 0 LORazepam (Ativan) 0.5 MG tablet, Take 1 tablet by mouth once 30 minutes prior to scheduled imaging, Disp: 1 tablet, Rfl: 0 metoprolol tartrate (Lopressor) 50 MG tablet, TAKE 1 TABLET BY MOUTH TWICE DAILY., Disp: 60 tablet,Rfl: 11 ondansetron (Zofran) 4 MG tablet, Take 1 tablet (4 mg) by mouth every 8 (eight) hours if needed fornausea or vomiting for up to 3 days., Disp: 9 tablet, Rfl: 0 polyethylene glycol, PEG, 3350 (MiraLax) 17 GM/SCOOP powder, Take 17 g by mouth if needed each day (constipatin). Mix with 8oz. Water, juice. soda, Disp: 510 g, Rfl: 2 sennosides (Senokot) 8.6 MG tablet, Take 2 tablets by mouth if needed at bedtime for constipation.,Disp: , Rfl: sertraline (Zoloft) 25 MG tablet, TAKE 1 TABLET BY MOUTH ONCE DAILY, Disp: 30 tablet, Rfl: 11 documented in this encounter Plan of Treatment Not on file documented as of this encounter Procedures Procedure Name Priority Date/Time Associated Diagnosis Comments XR CERVICAL SPINE 5 VIEW Routine 07/15/2025 2:24 PM EDT Neck pain XR FOREARM 2 VIEWS RIGHT Routine 07/15/2025 1:59 PM EDT Pain of right forearm documented in this encounter Results * XR Cervical Spine 5 View (07/15/2025 2:24 PM EDT) Anatomical Region Laterality Modality Spine, C-spine Radiographic Lisa ging 07/15/2025 2:2 4 PM EDT Narrative 07/15/2025 2:58 PM EDT [address] [address] XRay Report Signed Patient: Erica Danielle MR#: [id number] : 1940 Acct:[id number] Age/Sex: 84 / F ADM Date: 07/15/25 Loc: [facility] Attending Dr: Kandis Espinoza MD Ordering Physician: Kandis Espinoza Date of Service: 07/15/25 Procedure(s): XR cervical spine 5V Accession Number(s): [id number] cc: Kandis Espinoza Reason for Exam: pain after fall EXAMINATION: XR CERVICAL SPINE CLINICAL INFORMATION: pain after fall COMPARISON: None available. TECHNIQUE: 5 views cervical spine FINDINGS: Bone demineralization. Cervical spine is visualized from C1-C7 level. No prevertebral soft tissue swelling. Predens space is maintained. Vertebral body sagittal alignment is maintained. No evidence of acute fracture or spondylolisthesis. Vertebral body heights are maintained. Multilevel disc degeneration, including mild-moderate C5-6, C6-7 disc degeneration. Facet degeneration. No dynamic instability on the flexion-extension views. Suboptimal open-mouth projection. XR/XR cervical spine 5V IMPRESSION: Osteopenia. No radiographic evidence of acute fracture or spondylolisthesis. If there is clinical concern for a radiographically occult fracture, consider CT scan. Electronically signed by: Raman Pineda MD 07/15/2025 02:55 PM EDT Dictated By: Raman Pineda MD Signed By: <Electronically signed by Raman Pineda MD in OV> 07/15/25 1455 DD/ 1424 TD/TT: 07/15/25 1424 Plastic Outfitter: Procedure Note Donotuseinterpreter, Image - 07/15/[address] [address] XRay Report Signed Patient: Erica DanielleMR#: [id number] : 1940cct:[id number] Age/Sex: 84 / FADM Date: 07/15/25 Loc: [facility] Attending Dr: Kandis Espinoza MD Ordering Physician: Kandis Espinoza Date of Service: 07/15/25 Procedure(s): XR cervical spine 5V Accession Number(s): [id number] cc: Kandis Espinoza Reason for Exam: pain after fall EXAMINATION: XR CERVICAL SPINE CLINICAL INFORMATION: pain after fall COMPARISON: None available. TECHNIQUE: 5 views cervical spine FINDINGS: Bone demineralization. Cervical spine is visualized from C1-C7 level. No prevertebral soft tissue swelling. Predens space is maintained. Vertebral body sagittal alignment is maintained. No evidence of acute fracture or spondylolisthesis. Vertebral body heights are maintained. Multilevel disc degeneration, including mild-moderate C5-6, C6-7 disc degeneration. Facet degeneration. No dynamic instability on the flexion-extension views. Suboptimal open-mouth projection. XR/XR cervical spine 5V IMPRESSION: Osteopenia. No radiographic evidence of acute fracture or spondylolisthesis. If there is clinical concern for a radiographically occult fracture, consider CT scan. Electronically signed by: Raman Pineda MD 07/15/2025 02:55 PM EDT Dictated By: Raman Pineda MD Signed By: <Electronically signed by Raman Pineda MD in OV> 07/15/25 1455 DD/ 1424 TD/TT: 07/15/25 1424 Plastic Outfitter: VIK Kandis Espinoza MD IMG XR PROCEDURES Final Result * XR Forearm 2 Views Right (07/15/2025 1:59 PM EDT) Anatomical Region Laterality Modality Upper Extremities, Forearm Right Radio graphic Imaging 07/15/2025 1:59 PM EDT Narrative 07/15/2025 2:53 PM EDT [address] [address] XRay Report Signed Patient: Erica Danielle MR#: [id number] : 1940 Acct:[id number] Age/Sex: 84 / F ADM Date: 07/15/25 Loc: HO.HHCX Attending Dr: Kandis Espinoza MD Ordering Physician: Kandis Espinoza Date of Service: 07/15/25 Procedure(s): XR forearm RT 2V Accession Number(s): [id number] cc: Kandis Espinoza Reason for Exam: PAIN EXAMINATION: XR FOREARM, RIGHT CLINICAL INFORMATION: PAIN; fall. COMPARISON: None available. TECHNIQUE: AP and lateral views of the right forearm were obtained. FINDINGS: No fracture, dislocation, or suspicious bone lesion. Normal alignment. Imaged portions of the elbow and wrist are unremarkable. Soft tissues demonstrate diffuse vascular calcifications but are otherwise unremarkable. XR/XR forearm RT 2V IMPRESSION: No acute findings of the right forearm. Electronically signed by: Richmond Pemberton MD 07/15/2025 02:50 PM EDT RP Dictated By: Richmond Pemberton MD Signed By: <Electronically signed by Richmond Pemberton MD in OV> 07/15/25 1450 DD/ 1359 TD/TT: 07/15/25 1400 Plastic Outfitter: Procedure Note Donotuseinterpreter, Image - 07/15/2025 [place] [address] XRay Report Signed Patient: Terra Danielle#: [id number] : 9Acct:[id number] Age/Sex: 84 / FADM Date: 07/15/25 Loc: HO.HHCX Attending Dr: Kandis Espinoza MD Ordering Physician: Kandis Espinoza Date of Service: 07/15/25 Procedure(s): XR forearm RT 2V Accession Number(s): [id number] cc: Kandis Espinoza Reason for Exam: PAIN EXAMINATION: XR FOREARM, RIGHT CLINICAL INFORMATION: PAIN; fall. COMPARISON: None available. TECHNIQUE: AP and lateral views of the right forearm were obtained. FINDINGS: No fracture, dislocation, or suspicious bone lesion. Normal alignment. Imaged portions of the elbow and wrist are unremarkable. Soft tissues demonstrate diffuse vascular calcifications but are otherwise unremarkable. XR/XR forearm RT 2V IMPRESSION: No acute findings of the right forearm. Electronically signed by: Richmond Pemberton MD 07/15/2025 02:50 PM EDT RP Dictated By: Richmond Pemberton MD Signed By: <Electronically signed by Richmond Pemberton MD in OV> 07/15/25 1450 DD/ 1359 TD/TT: 07/15/25 1400 Plastic Outfitter: Kandis Espinoza MD IMG XR PROCEDURES Final Result documented in this encounter Visit Diagnoses Diagnosis Neck pain- Primary Cervicalgia Colon carcinoma (CMS/HCC) (HCC) Dietary counseling Dietary surveillance and counseling Exercise counseling Overweight Pain of right forearm Alzheimer's disease (HCC) Alzheimer's disease documented in this encounter Additional Health Concerns Assessment Noted Time PHQ-9 Depression Total Score: 7 01/26/20 25 1:32 PM EDT documented as of this encounter Care Teams Musical Therapist Relationship Specialty Start Date End Date Jill Hester DO [address] [place] [address] PCP - General Family Medicine 04/26/14 [facility] 06/29/22 documented as of this encounter
--- OUTSIDE RECORDS SUMMARY | 2025-07-15 16:24 | XMS_ITS | Encounter Summary ---
Author Organization [employer] Address [address] [facility] [address] [place] [address] Care Team Providers Care Director Property Name Role Phone Jill Hester DO Primary Care Provider + [phone] Reason for Visit * Reason Comments Med Refill Encounter Details Date Type Department Care Team ([facility] st Contact Info) Description 06/07/2025 Refill [facility] [address] [place], [place] [phone] Jill Hester DO [address] [place], [place] [phone] Memory deficit; Depression, unspecified depression type; Chronic constipation Social History Tobacco Use Types Packs/Day Years [...] AM EDT documented as of this encounter Plan of Treatment Not on file documented as of this encounter Visit Diagnoses Diagnosis Memory deficit Memory loss Depression, unspecified depression type Chronic constipation Unspecified constipation documented in this encounter Additional Health Concerns Assessment Noted Time PHQ-9 Depression Total Score: 7 01/26/20 25 1:32 PM EDT documented as of this encounter Care Teams Director Property Relationship Specialty Start Date End Date Jill Hester DO [address] [place] [address] PCP - General Family Medicine 04/26/14 [facility] 06/29/22 documented as of this encounter
--- OUTSIDE RECORDS SUMMARY | 2025-07-15 16:24 | XMS_ITS | Continuity of Care Document ---
Author Name [facility], Medical Address [address] [place] [id number] Organization Unknown Address [address] [place] [address] Medications No known medications Problems No known problems
--- OUTSIDE RECORDS SUMMARY | 2025-07-15 16:24 | XMS_ITS | Encounter Summary ---
Author Organization [facility] Address [address] [place] [address] Encounters * CPT with Medical [facility] at [facility] on 2025-06-26 { reasonForRequest : cough/SOB/sore throat , patientReports : Cough, fever greater than 2 days ; Sputum increase ; Cough; Shortness of breath with exertion ,"denies :[ Increased work of breathing/labored with or without fever , Unable to speak in full sentences without distress , Discoloration of skin -cyanosis ,"Needs to sleep sitting up, can t catch breath , Shortness of breath in setting of confusion , Lower extremity swelling , History of asthma, increased use of inhaler , COPD , COVID Exposure , Pain with inspiration ], chiefComplaints : Cough, Breathing Problems, Common Cold , pmh : Hypertension, Cancer , allergies : No Known Drug Allergies , otherAllergies :" , painAssessment : , visitOutcome : , anton tionalComments : 84 y.o female complains of Cough, Breathing Problems, Common Cold\n[facility] making referral\nSymptoms have been ongoing for about a week\nno fever, chills or body aches or headaches\nendorses increased shortness of breath, clear lung sounds but diminished\nendorses bad productive cough unknown color of phlegm and sore throat\ndenies any chest pain, lightheadedness or dizziness.\ndenies any nausea, vomiting or diarrhea\nchecked her O2 sats she's 91-92% on room air not oxygen dependent. \ndenies any kidney issues and not on a blood thinner\nrequesting [facility] assessment\n\nI provided information on the mobile health provider response time and advised the patient and/or caregiver to monitor reported signs and symptoms. I discussed the warning signs of when to seek emergency care. } Sent to a call for a pt complaining of URI symptoms. [facility] arrives on scene, pt is alert and oriented, airway is patent. Pt complains of runny nose w/white mucus, dry cough, and sob w/exertion x 4 days. Pt denies delgado, dizziness, sore throat, cp, n/v/d, abd pain, fever, or loc. Pt has Flonase and Benzonatate previously prescribed and wants to know if she can take the Benzonatate. BP:118/68, P:60, RR:18, SpO2:97% RA, T:98.2; SpO2:95% while ambulating through apt. Rapid covid/flu test: neg; [facility] consulted and has no orders. Pt advised to rest and continue symptomatic treatment. Red flags discussed. Pt has no further questions. IV_(FLUIDS_AND/OR_MEDICATION), MEDICATION_IM, ORAL_MEDICATION, POC_BLOODWORK, POC_FLU_STREP, COVID_TEST Written by Medical [facility] on 2025-06-26
--- OUTSIDE RECORDS SUMMARY | 2025-07-15 16:24 | XMS_ITS | Clinical Summary ---
Author Organization [employer] Address [address] [facility] 7t [place] [address] Care Team Providers Care New Grad Rn Name Role Phone Mir Jill Primary Care Provider + [phone] Allergies No known active allergies Medications * [...] Apply topically 2 times daily. 60 g Active ammonium lactate (Amlactin) 12 % cream Apply topically if needed for dry skin. 385 g 3 025 2025 Active acetaminophen (Tylenol 8 Hour) 650 MG ER tablet Take 1 tablet (650 mg) by mouth every 8 (eight) hours if needed for mild pain. 60 tablet 2 Active cetirizine (ZyrTEC) 10 MG tablet Take 0.5 tablets (5 mg) by mouth Once per day. 30 tablet 3 025 2025 Active guaiFENesin (Mucinex) 600 MG 12 hr tablet Take 1 tablet (600 mg) by mouth if needed in the morning and at bedtime for cough or congestion. Do not crush, chew, or split. 30 tablet 025 2025 Active atorvastatin (Lipitor) 20 MG tabletIndications :Other hyperlipidemia TAKE (1) TABLET BY MOUTH DAILY AT BEDTIME 28 tablet 5 Active donepezil (Aricept) 5 MG tablet TAKE 1 TABLET BY MOUTH AFTER FOOD ONCE DAILY FOR 30 DAYS Active fluticasone (Flonase) 50 MCG/ACT nasal spray ADMINISTER 2 SPRAYS INTO EACH NOSTRIL ONCE PER DAY. SHAKE GENTLY. BEFORE FIRST USE, PRIME PUMP. AFTER USE, CLEAN TIP AND REPLACE CAP. 48 mL 1 025 2025 Active amLODIPine (Norvasc) 10 MG tablet TAKE 1 TABLET BY MOUTH ONCE DAILY 28 tablet Active Aspirin EC Adult Low Dose 81 MG EC tablet TAKE 1 TABLET BY MOUTH ONCE DAILY 28 tablet Active Calcium Carb-Cholecalcife rol 600-10 MG-MCG tablet TAKE 1 TABLET BY MOUTH TWICE DAILY 56 tablet Active docusate sodium (Colace) 100 MG capsuleIndication s:Chronic constipation TAKE (2) CAPSULES BY MOUTH EVERY MORNING. TAKE 1 CAPSULE BY MOUTH ONCE A DAY AT NIGHT. 84 capsule Active sertraline (Zoloft) 25 MG tabletIndications :Memory deficit,Depressio n, unspecified depression type TAKE 1 TABLET BY MOUTH ONCE DAILY 30 tablet Active ondansetron (Zofran) 4 MG tablet Take 1 tablet (4 mg) by mouth every 8 (eight) hours if needed for nausea or vomiting for up to 3 days. 9 tablet 025 2024 Active Aspirin EC Adult Low Dose 81 MG EC tablet TAKE 1 TABLET BY MOUTH DAILY. 28 tablet 5 2024 Discontinued(R eorder (will not trigger notification to Pharmacy)) amLODIPine (Norvasc) 10 MG tablet TAKE 1 TABLET BY MOUTH DAILY. 28 tablet 5 2024 Discontinued(R eorder (will not trigger notification to Pharmacy)) Calcium + Vitamin D3 600-10 MG-MCG tablet TAKE 1 TABLET BY MOUTH TWICE DAILY 56 tablet 2024 Discontinued(R eorder (will not trigger notification to Pharmacy)) sertraline (Zoloft) 25 MG tabletIndications :Memory deficit,Depressio n, unspecified depression type TAKE 1 TABLET BY MOUTH DAILY. 30 tablet 2024 Discontinued(R eorder (will not trigger notification to Pharmacy)) docusate sodium (Colace) 100 MG capsuleIndication s:Chronic constipation TAKE 2 CAPSULES BY MOUTH EVERY MORNING & 1 EVERY PM TAKE 2 CAPSULES BY MOUTH EVERY MORNING & 1 EVERY PM 84 capsule 2024 Discontinued(R eorder (will not trigger notification to Pharmacy)) aspirin (Aspirin EC Adult Low Dose) 81 MG EC tablet TAKE 1 TABLET BY MOUTH DAILY. 28 tablet 2024 Discontinued Calcium Carb-Cholecalcife rol (Calcium + Vitamin D3) 600-10 MG-MCG tablet Take 1 tablet by mouth 2 times daily. TAKE 1 TABLET BY MOUTH TWICE DAILY 56 tablet 2024 Discontinued docusate sodium (Colace) 100 MG capsuleIndication s:Chronic constipation TAKE 2 CAPSULES BY MOUTH EVERY MORNING AND 1 TABLET EVERY EVENING 84 capsule 2024 Discontinued sertraline (Zoloft) 25 MG tabletIndications :Memory deficit,Depressio n, unspecified depression type TAKE 1 TABLET BY MOUTH DAILY. 30 tablet 5 025 2024 Discontinued amLODIPine (Norvasc) 10 MG tablet TAKE 1 TABLET BY MOUTH DAILY. 28 tablet 11 025 2024 Discontinued Active Problems Problem Noted Date Diagnosed Date Colon carcinoma (CMS/HCC) 07/15/2025 Chest pain 07/15/2025 Palpitations 07/15/2025 Pacemaker 07/15/2025 Overview (07/15/2025): 07/30/2022, [employer] dual-chamber History of DVT (deep vein thrombosis) 07/15/2025 Nonalcoholic fatty liver 07/15/2025 Family history of colon cancer in father Depression 07/15/2025 Constipation 07/15/2025 Bilateral sacroiliitis 07/15/2025 Alzheimer's disease 05/01/2025 Candidiasis of breast 09/18/2024 Assessment & Plan [...] of cardiac pacemaker 08/1708/17/2023 Sick sinus syndrome (CMS/HCC) 08/17/2023 Varicose veins of lower extremity 08/17/2023 08/17/2023 Fatty liver 08/17/2023 Pre-diabetes 08/30/2022 Carotid stenosis 08/30/2022 History of pulmonary embolism 08/30/2022 Chronic low back pain 02/03/2016 Osteoarthritis 02/03/2016 Chronic venous insufficiency 02/03/2016 Hyperlipidemia 09/25/2015 Venous stasis dermatitis 09/25/2015 Resolved Problems Problem Noted Date Diagnosed Date Resolved Date Mild cognitive impairment of uncertain or unknown etiology 07/15/2025 07/15/2025 Acute UTI 08/17/2023 08/17/2023 08/17/2023 COVID toes [...] Scalp laceration 08/30/2022 08/17/2023 Syncope 08/30/2022 08/17/2023 History of COVID-19 06/27/2022 07/15/20 25 Overview (08/17/2023): Problem added by Discern Expert Near syncope 09/25/2015 08/17/2023 Assessment & Plan (01/07/2023 1:54 PM EDT): Uncontrolled today, pt seems to be off norvasc continue metoprolol and fu BP with rn in 2-3 weks will check with cardiology clinic regarding dose of amlodipine (5 vs 10) Encounters Date Type Department Care Team Description 07/15/2025 1:20 PM EDT Office Visit [facility] [address] [address] Kandis Espinoza MD Neck pain (Primary Dx); Colon carcinoma (CMS/HCC) (HCC); Dietary counseling; Exercise counseling; Overweight; Pain of right forearm; Alzheimer's disease (HCC) 07/15/2025 Telephone [facility] [address] [place] [address] Kandis Espinoza MD 07/15/2025 Travel 07/05/2025 Refill [facility] [address] [place] [address] Jill Hester DO Chronic constipation; Memory deficit; Depression, unspecified depression type 06/28/2025 Refill [facility] [address] [place] [address] Jill Hester DO Chronic constipation; Memory deficit; Depression, unspecified depression type 06/18/2025 Refill [facility] [address] [place] [address] Jill Hester DO Chronic constipation; Memory deficit; Depression, unspecified depression type 06/07/2025 Refill [facility] [address] [place] [address] Jill Hester DO Memory deficit; Depression, unspecified depression type; Chronic constipation 05/30/2025 Refill [facility] [address] [place] [address] Jill Hester DO Memory deficit; Depression, unspecified depression type; Chronic constipation 05/18/2025 Refill [facility] [address] [place] [address] Jill Hester DO 05/03/2025 Refill [facility] [address] [place] [address] Jill Hester DO Chronic constipation 05/01/2025 11:30 AM EDT Office Visit [facility] [address] [place] [address] Jill Hester DO Alzheimer's disease ([facility]) (Primary Dx); Depressive disorder 05/01/2025 Travel 04/26/2025 Telephone [facility] [address] [place] [address] Jill Hester DO Chart Prep 04/26/2025 Telephone [facility] [address] [place] [phone] Jill Hester DO Letter for School/Work; Appointment Request from Last 3 Months Immunizations Immunization Administration [...] 19 07/15/2025 1:28 PM EDT Oxygen Saturation 96% 02/20/2025 10:26 AM EDT Inhaled Oxygen Concentration - - Weight 58.6 kg (129 lb 3.2 oz) 07/15/2025 1:28 P M EDT Height 142.2 cm (4' 8 ) 07/15/2025 1:28 PM EDT Body Mass Index 28.97 07/15/2025 1:28 PM EDT Plan of Treatment Health Maintenance Due Date Last Done Comments Hepatitis A Vaccines (1 of 2 - Risk 2-dose series) 1959 RSV Patients and Patients Aged 60 years or older (1 - 1-dose 75+ series) 2014 Hepatitis B Vaccines (2 of 3 - Risk 3-dose series) 06/08/2019 05/11/2019 Zoster Vaccines (2 of 2) 09/09/2022 07/15/2022 COVID-19 Vaccine ( - season) 2025 04/06/2022, 03/09/2022 Influenza Vaccine (#1) 2025 3, 07/15/2022, 08/28/2018, Additional history exists Alcohol/Substance Use Screening 01/25/2026 01/25/2025 Depression Screening 01/25/2026 01/25/2025, 01/26/20 25 SDOH Screening 01/25/2026 01/25/2025 Tobacco Screening 07/15/2026 07/15/2025 Lipid Panel 03/05/2027 03/05/2022, 07/15/2021 DTaP/Tdap/Td Vaccines [...] 1:59 PM EDT Pain of right forearm LIPID PANEL, STANDARD Routine 03/05/2022 11:35 AM EDT from Last 3 Months or Most Recently Relevant to Health Maintenance Results * XR Cervical Spine 5 View (07/15/2025 2:24 PM EDT) Anatomical Region Laterality Modality Spine, C-spine Radiographic Lisa ging 07/15/2025 2:24 PM EDT Narrative 07/15/2025 2:58 PM EDT [address] [address] XRay Report Signed Patient: Erica Danielle MR#: [id number] 981 : 1940 Acct:[id number] Age/Sex: 84 / F ADM Date: 07/15/25 Loc: HO.HHCX Attending Dr: Kandis Espinoza MD Ordering Physician: Kandis Espinoza Date of Service: 07/15/25 Procedure(s): XR cervical spine 5V Accession Number(s): [id number] cc: Kandis Espinoza Reason for Exam: pain [...] 07/15/25 1455 DD/ 1424 TD/TT: 07/15/25 1424 Animal Shelter Supervisor: VIK Procedure Note Donotuseinterpreter, Image - 07/15/[address] [address] XRay Report Signed Patient: Erica DanielleMR#: [id number] 981 : 1940cct:[id number] Age/Sex: 84 / FADM Date: 07/15/25 Loc: ZORA Attending Dr: Kandis Espinoza MD Ordering Physician: Kandis Espinoza Date of Service: 07/15/25 Procedure(s): XR cervical spine 5V Accession Number(s): [id number] cc: Kandis Espinoza Reason for Exam: pain [...] 07/15/25 1455 DD/ 1424 TD/TT: 07/15/25 1424 Animal Shelter Supervisor: Kandis Espinoza MD IMG XR PROCEDURES Final Result * XR Forearm 2 Views Right (07/15/2025 1:59 PM EDT) Anatomical Region Laterality Modality Upper Extremities, Forearm Right Radio graphic Imaging 07/15/2025 1:59 PM EDT Narrative 07/15/2025 2:53 PM EDT [address] [address] XRay Report Signed Patient: Erica Danielle MR#: [id number] 981 : 1940 Acct:[id number] Age/Sex: 84 / F ADM Date: 07/15/25 Loc: ZORA Attending Dr: Kandis Espinoza MD Ordering Physician: Kandis Espinoza Date of Service: 07/15/25 Procedure(s): XR forearm RT 2V Accession Number(s): [id number] cc: Kandis Espinoza Reason for Exam: PAIN [...] 07/15/25 1450 DD/ 1359 TD/TT: 07/15/25 1400 Animal Shelter Supervisor: Procedure Note Donotuseinterpreter, Image - 07/15/[address] [address] XRay Report Signed Patient: Terra Danielle#: [id number] 981 : 9Acct:[id number] Age/Sex: 84 / FADM Date: 07/15/25 Loc: D[facility]RE[facility].HHCX Attending Dr: Kandis Espinoza MD Ordering Physician: Kandis Espinoza Date of Service: 07/15/25 Procedure(s): XR forearm RT 2V Accession Number(s): [id number] cc: Kandis Espinoza Reason for Exam: PAIN [...] 07/15/25 1450 DD/ 1359 TD/TT: 07/15/25 1400 Animal Shelter Supervisor: us Kandis Espinoza MD IMG XR PROCEDURES Final Result * LIPID PANEL, STANDARD (03/05/2022 11:35 AM EDT) Chol/HDLC Ratio 2.8 <5.0 (calc) [facility] Cholesterol, Total 167 <200 mg/dL [facility] HDL Cholesterol 60 > OR = 50 mg/dL [facility] LDL Cholesterol 88 mg/dL (calc) [facility] Comment: Reference range: <100 Desirable range <100 mg/dL for primary prevention; <70 mg/dL for patients with CHD or diabetic patients with > or = 2 CHD risk factors. LDL-C is now calculated using the Morris-Cuello calculation, which is a validated novel method providing better accuracy than the Friedewald equation in the estimation of LDL-C. Morris SS et al. MYRA. 2013;310(19): 0784-8808 (http://education.[employer].com/faq/MOM105) Non-HDL Cholesterol 107 <130 mg/dL (calc) [facility] Comment: For patients with diabetes plus 1 major ASCVD risk factor, treating to a non-HDL-C goal of <100 mg/dL (LDL-C of <70 mg/dL) is considered a therapeutic option. Triglycerides 93 <150 mg/dL [facility] 03/05/2022 11:3 5 AM EDT us Jill Hester DO LAB BLOOD ORDERABLES Final R esult [facility] [address] from Last 3 Months or Most Recently Relevant to Health Maintenance Insurance [facility] [employer] (HMO D-SNP) [place] [id number] Care Teams New Grad Rn Relationship Specialty Start Date End Date Jill Hester DO [address] [place] [address] PCP - General Family Medicine 04/26/14 [facility] 06/29/22
--- OUTSIDE RECORDS SUMMARY | 2025-07-15 16:24 | XMS_ITS | Encounter Summary ---
Author Organization [employer] Address [address] [facility] 7t [place] [address] Care Team Providers Care Rotoformer Backtender Name Role Phone Jill Hester DO Primary Care Provider + [phone] Reason for Visit * Reason Comments Med Refill Encounter Details Date Type Department Care Team ([facility] st Contact Info) Description 05/30/2025 Refill [facility] [address] [place], [place] [phone] Jill Hester DO [address] [place], [place] [phone] Memory deficit; Depression, unspecified depression type; Chronic [...] documented as of this encounter Care Teams Rotoformer Backtender Relationship Specialty Start Date End Date Jill Hester DO [address] [place] [phone] PCP - General Family Medicine 04/26/14 [facility] 06/29/22 documented as of this encounter
--- OUTSIDE RECORDS SUMMARY | 2025-07-15 16:24 | XMS_ITS | Encounter Summary ---
Author Organization [employer] Address [address] [facility] 7t [place] [address] Care Team Providers Care Customer Service Sales Consultant Name Role Phone Jill Hester DO Primary Care Provider [phone] Reason for Visit * Reason Onset Date Comments Durable Medical Equipment 01/15/2025 Encounter Details Date Type Department Care Team ([facility] st Contact Info) Description 01/15/2025 Telephone [facility] [address] [place], [place] [phone] Jill Hester DO [address] [place], [place] [phone] Durable Medical Equipment Social History Tobacco Use [...] 12:32 PM EDT Tc from [facility] with [facility] requesting a DME script. [employer] Contact [facility] at [phone] documented in this encounter Plan of Treatment Not on file documented as of this encounter Visit Diagnoses Not on filedocumented in this encounter Additional Health Concerns Assessment Noted Time PHQ-9 Depression Total Score: 2 10/31/19 24 12:12 PM EST documented as of this encounter Care Teams Customer Service Sales Consultant Relationship Specialty Start Date End Date Jill Hester DO [address] [place] [address] PCP - General Family Medicine 04/26/14 [facility] 06/29/22 documented as of this encounter
--- OUTSIDE RECORDS SUMMARY | 2025-07-15 16:24 | XMS_ITS | Encounter Summary ---
Author Organization [employer] Address [address] [facility] [address] 7t [place] [address] Care Team Providers Care Electrical Prospecting Operator Name Role Phone MirJill Primary Care Provider + [phone] Encounter Details Date Type Department Care Team (Latest Contact Info) Description 07/15/2025 Travel Social History Tobacco Use Types Packs/Day Years [...] documented as of this encounter Care Teams Electrical Prospecting Operator Relationship Specialty Start Date End Date Jill Hetser DO [address] [place] [address] PCP - General Family Medicine 04/26/14 [facility] 06/29/22 documented as of this encounter
--- OUTSIDE RECORDS SUMMARY | 2025-07-15 16:24 | XMS_ITS | Encounter Summary ---
Author Organization [employer] Address [address] [facility] [address] 7[address] [place] [address] Care Team Providers Care Motor Brakeman Name Role Phone Jill Hester DO Primary Care Provider + [phone] Encounter Details Date Type Department Care Team ([facility] st Contact Info) Description 07/15/2025 Telephone [facility] [address] [place], [place] [phone] Kandis Espinoza MD [address] [place], [place] [phone] Social History Tobacco Use Types Packs/Day Years [...] encounter Miscellaneous Notes * Telephone Encounter - Mirna Hanson RN - 07/15/2025 3:30 PM EDT T/C to pt via S Watch Adjuster Khari #[id number] to advise pt's daughter of message and recommendation from [facility] provider. No answer, v/m left to return call to [facility] nurses. * Telephone Encounter - Mirna Hanson RN - 07/15/2025 3:18 PM EDT ----- Message from Kandis Espinoza MD sent at 07/15/2025 3:14 PM EDT ----- Please call patient's daughter and let her know that xrays were all negative for fracture. Make sure someone stays with her tonight while she is not feeling well. TO encourage fluids and bland foods.IF she does not urinate, to come back to clinic. Thank you! documented in this encounter Plan of Treatment Not on file documented as of this encounter Visit Diagnoses Not on filedocumented in this encounter Additional Health Concerns Assessment Noted Time PHQ-9 Depression Total Score: 7 01/26/20 25 1:32 PM EDT documented as of this encounter Care Teams Motor Brakeman Relationship Specialty Start Date End Date Jill Hester DO [address] [place] [phone] PCP - General Family Medicine 04/26/14 [facility] 06/29/22 documented as of this encounter
--- OUTSIDE RECORDS SUMMARY | 2025-07-15 16:24 | XMS_ITS | Encounter Summary ---
Author Organization [employer] Address [address] [facility] 7t [place] [address] Care Team Providers Care Director Of Sales Support Name Role Phone Jill Hester DO Primary Care Provider + [phone] Reason for Visit * Reason Comments Med Refill Encounter Details Date Type Department Care Team ([facility] st Contact Info) Description 06/28/2025 Refill [facility] [address] [place], [place] [phone] Jill Hester DO [address] [place], [place] [phone] Chronic constipation; Memory deficit; Depression, unspecified depression type Social History Tobacco Use Types Packs/Day Years [...] as of this encounter Visit Diagnoses Diagnosis Chronic constipation Unspecified constipation Memory deficit Memory loss Depression, unspecified depression type documented in this encounter Additional Health Concerns Assessment Noted Time PHQ-9 Depression Total Score: 7 01/26/20 25 1:32 PM EDT documented as of this encounter Care Teams Director Of Sales Support Relationship Specialty Start Date End Date Jill Hester DO [address] [place] [phone] PCP - General Family Medicine 04/26/14 [facility] 06/29/22 documented as of this encounter
== END 2025-07-15 13:58 | disposition home or self-care (01) ==
LOC: HO.HHCX 13:57
PROVIDERS: Visit Provider General Practice
DX: M54.2 Cervicalgia (principal); M79.631 Pain in right forearm
CPT/HCPCS: 72050; 73090

== ENCOUNTER → 2025-07-15 13:58 | Outpatient (BNV) | payer OTHER, SELFPAY | PROVIDERS: Visit Provider Radiology Diagnostic Ultrasound | DX: M54.2 Cervicalgia (principal); M85.88 Other specified disorders of bone density and structure, other site; M79.631 Pain in right forearm; W19.XXXA Unspecified fall, initial encounter | CPT/HCPCS: 72050; 73090 ==

== ENCOUNTER → 2025-09-02 19:45 | Outpatient (BNV) | payer OTHER, SELFPAY | PROVIDERS: Visit Provider Internal Medicine Cardiovascular Disease | DX: Z45.018 Encounter for adjustment and management of other part of cardiac pacemaker (principal) | CPT/HCPCS: 93294 ==